=== PATIENT | male | born 1945 | race Caucasian/White ===

== ENCOUNTER → 2023-06-11 13:11 | Outpatient (REF) | payer OTHER, SELFPAY | LOC: WOUND 13:11 | PROVIDERS: ATTENDING PHYSICIAN Surgery; REFERRING PHYSICIAN Internal Medicine | DX: I87.313 Chronic venous hypertension (idiopathic) with ulcer of bilateral lower extremity (principal); L97.312 Non-pressure chronic ulcer of right ankle with fat layer exposed; L97.811 Non-pressure chronic ulcer of other part of right lower leg limited to breakdown of skin; L97.821 Non-pressure chronic ulcer of other part of left lower leg limited to breakdown of skin; I73.9 Peripheral vascular disease, unspecified; I87.2 Venous insufficiency (chronic) (peripheral); E11.42 Type 2 diabetes mellitus with diabetic polyneuropathy; Z79.4 Long term (current) use of insulin; I10 Essential (primary) hypertension | CPT/HCPCS: 29581; 73610; 99204 ==

== ENCOUNTER → 2023-06-18 13:59 | Outpatient (REF) | payer OTHER, SELFPAY | LOC: WOUND 13:59 | PROVIDERS: ATTENDING PHYSICIAN Surgery; FAMILY PHYSICIAN Internal Medicine | DX: I87.313 Chronic venous hypertension (idiopathic) with ulcer of bilateral lower extremity (principal); L97.312 Non-pressure chronic ulcer of right ankle with fat layer exposed; L97.811 Non-pressure chronic ulcer of other part of right lower leg limited to breakdown of skin; L97.821 Non-pressure chronic ulcer of other part of left lower leg limited to breakdown of skin; I73.9 Peripheral vascular disease, unspecified; I87.2 Venous insufficiency (chronic) (peripheral); E11.42 Type 2 diabetes mellitus with diabetic polyneuropathy; Z79.4 Long term (current) use of insulin; I10 Essential (primary) hypertension | CPT/HCPCS: 29581; 99213 ==

== ENCOUNTER → 2023-06-26 13:18 | Outpatient (REF) | payer OTHER, SELFPAY | LOC: WOUND 13:18 | PROVIDERS: ATTENDING PHYSICIAN Surgery; REFERRING PHYSICIAN Internal Medicine | DX: I87.313 Chronic venous hypertension (idiopathic) with ulcer of bilateral lower extremity (principal); L97.312 Non-pressure chronic ulcer of right ankle with fat layer exposed; L97.811 Non-pressure chronic ulcer of other part of right lower leg limited to breakdown of skin; L97.821 Non-pressure chronic ulcer of other part of left lower leg limited to breakdown of skin; I73.9 Peripheral vascular disease, unspecified; I87.2 Venous insufficiency (chronic) (peripheral); E11.42 Type 2 diabetes mellitus with diabetic polyneuropathy; Z79.4 Long term (current) use of insulin; I10 Essential (primary) hypertension | CPT/HCPCS: 29581; 99213 ==

== ENCOUNTER → 2023-07-02 13:45 | Outpatient (REF) | payer OTHER, SELFPAY | LOC: WOUND 13:45 | PROVIDERS: ATTENDING PHYSICIAN Surgery; FAMILY PHYSICIAN Internal Medicine | DX: I87.313 Chronic venous hypertension (idiopathic) with ulcer of bilateral lower extremity (principal); L97.312 Non-pressure chronic ulcer of right ankle with fat layer exposed; L97.811 Non-pressure chronic ulcer of other part of right lower leg limited to breakdown of skin; L97.821 Non-pressure chronic ulcer of other part of left lower leg limited to breakdown of skin; I73.9 Peripheral vascular disease, unspecified; I87.2 Venous insufficiency (chronic) (peripheral); E11.42 Type 2 diabetes mellitus with diabetic polyneuropathy; Z79.4 Long term (current) use of insulin; I10 Essential (primary) hypertension; L03.116 Cellulitis of left lower limb; L03.115 Cellulitis of right lower limb | CPT/HCPCS: 29581; 99213 ==

== ENCOUNTER → 2023-07-09 13:53 | Outpatient (REF) | payer OTHER, SELFPAY | LOC: WOUND 13:53 | PROVIDERS: ATTENDING PHYSICIAN Surgery; FAMILY PHYSICIAN Internal Medicine | DX: I87.313 Chronic venous hypertension (idiopathic) with ulcer of bilateral lower extremity (principal); L97.312 Non-pressure chronic ulcer of right ankle with fat layer exposed; L97.811 Non-pressure chronic ulcer of other part of right lower leg limited to breakdown of skin; L97.821 Non-pressure chronic ulcer of other part of left lower leg limited to breakdown of skin; Z79.4 Long term (current) use of insulin; I10 Essential (primary) hypertension; E11.42 Type 2 diabetes mellitus with diabetic polyneuropathy | CPT/HCPCS: 29581; 99213 ==

== ENCOUNTER 2023-07-09 21:17 | Inpatient (IN) | payer OTHER, SELFPAY ==
[2023-07-09 14:51] VITALS: BMI 34.7
[2023-07-09 15:00] VITALS: BP 156/69
--- NOTE | 2023-07-09 18:56 | ED.GENMED ---
History of Present Illness
General
Chief Complaint: Skin Problem
Source: patient, spouse and other (dR SANDHU)
Time Seen by Provider: 07/09/23 18:41
Travel History
Have you had any contact with someone who has COVID-19?: No
Do you have any symptoms of coronavirus? Fever > 100 degrees, chills, cough, shortness of breath, sore throat, loss of taste or smell, muscle aches, or headache?: No
History of Present Illness
History of Present Illness:
This patient is a 77-year-old male presents to the emergency department from the wound center as per Dr. Sandhu recommendation. He has suffered with lower extremity wounds bilaterally right greater than left since last December. He gets wound care
at home 3 times a week and goes to the wound center once a week. Today he was seen and noted to have worsening of his wounds despite antibiotic. He is also noted to be having increasing drainage from his wounds, particular over the last few weeks.
He denies fever, chills, sweats, nausea, vomiting, chest pain, shortness of breath, or other complaints. Patient is particularly concerned about the pain in his legs.
Past History
Past History
ED Past Medical History: CAD, HTN, Hypercholesterolemia, IDDM, Valvular disease and Other (Parkinson's)
ED Past Surgical History: Cardiac, Cholecystectomy and Orthopedic
Social History
Tobacco: Non-smoker
Alcohol: None
Drug: None
Personal:
Living: with family
Phy Exam
Physical Exam
Physical Exam:
GENERAL: Alert , in no apparent distress
EYE: pupils equal and reactive
NECK: Supple, no significant adenopathy.
ENT: o/p clr, mmm.
CARDIAC: Regular rate and rhythm .
LUNGS: Clear breath sounds bilaterally, no acute respiratory distress, no wheezes/rales/rhonchi
ABDOMEN: Soft, without focal tenderness, no r/g, no cvat
NEUROLOGICAL: Alert and oriented, no focal neuro deficits
SKIN: Warm and dry
MUSCULOSKELETAL: Well perfused, 2+ bilat le edema. There is open wound noted (shallow) R lower tib/fib area with 'wet' appearance but no active drainage, circumferential, no crepitus. L medial distal tib/fib/ankle area with similar shallow open
wound.
PSYCH: Normal and appropriate interaction.
Course
Orders/Labs/Results
Orders:
Orders
07/09/23 18:50
Complete Blood Count/With Diff Urgent
07/09/23 19:03
Morphine Sulfate 4 mg IV NOW STA
07/09/23 19:35
Comprehensive Metabolic Panel Urgent
07/09/23 20:09
Vancomycin 1000 mg IVPB NOW Vancomycin 1 Gram/200 ml [Vancocin] 1 gram in 200 ml IV NOW
07/09/23 20:15
Blood Culture Q30M
KITTY Source: Blood/Venous
Specimen Description:
07/09/23 20:45
Blood Culture Q30M
KITTY Source: Blood/Venous
Specimen Description:
Abnormal Lab Results
07/09/23 07/09/23
18:50 19:35
MCV 98.0 H fL
(80.0-94.0)
MCH 33.8 H pg
(27.0-31.0)
Absolute Monos (auto) 1.0 H 10^3/uL
(0.1-0.6)
Lymphocytes % 17.3 L %
(20.5-51.1)
Monocytes % 10.3 H %
(1.7-9.3)
Eosinophils % 6.5 H %
(0-6)
Carbon Dioxide 31 H mmol/L
(22-30)
BUN 22 H mg/dl
(9-20)
Glucose 109 H mg/dl
(70-99)
07/09/23 18:50
03/04/24 19:35
Vital Signs
Initial and Last Documented VS:
Initial Vital Signs
Temp Pulse Resp BP Pulse Ox
98.1 F 96 18 156/69 95
07/09/23 15:00 07/09/23 15:00 07/09/23 15:00 07/09/23 15:00 07/09/23 15:00
Last Documented Vital Signs
Temp Pulse Resp BP Pulse Ox
98.1 F 96 18 156/69 95
07/09/23 15:00 07/09/23 15:00 07/09/23 15:00 07/09/23 15:00 07/09/23 15:00
*Critical Care Note
Total Time (30-74mins, 75-104mins- exclusive of procedures): Not Applicable
Update Note
Update Note:
Patient presents to the Emergency Department with ____leg wounds
Number and Complexity of Problems Addressed at the Encounter
� Chronic conditions affecting care:dm
� Acute Exacerbation and/or Progression of Chronic Illness:
� Differential Diagnosis includes:but not limited to cellulitis, lymphangitis, abscess, etc.
Amount and/or Complexity of Data to be Reviewed and Analyzed
� I performed an independent evaluation of and my interpretation is:
EKG:
CT:
Xrays:
Laboratory Studies: Generally unremarkable
Other:
� Review of other/old records reveals:
� Clinical information was obtained by an independent historian: and supervisor floor assembly at bedside, DR Sandhu via phone
� Prescriptions/Medications Considered but not given:
� Further testing considered but not performed:
Risk of Complications and/or Morbidity or Mortality of Patient Management
� Social determinants of health affecting care:
� Discussion with other providers (PCP, Hospitalists, Consultants, etc):
� Escalation of care including admission/observation vs risk of discharge considered: Patient with increasing drainage and pain from subacute/chronic lower extremity wound, not septic. IV antibiotics orders, hospitalist Dr Azul
made aware.
ED Attending Note
-
Portions of this chart may have been created with voice recognition software.� Occasional wrong word or��sound alike� substitutions may have occurred due to the inherent limitations of voice recognition software.
Discharge Plan
Departure
Patient Disposition: Admit
Date of Disposition: 07/09/23
Time of Disposition: 20:10
Admit to: Med/Surg
Presentation/result/management discussed w/ accepting MD/DO: Hospitalist
Condition: Fair
Discharge Problem:
Cellulitis
Prescriptions:
No Action
atorvastatin 40 mg tablet
40 mg PO DAILY
tamsulosin 0.4 mg capsule
0.4 mg PO HS
metoprolol tartrate 50 mg tablet
50 mg PO BID
carbidopa-levodopa 25-100 mg tablet
2 tab PO .BID@0800, 1700
carbidopa-levodopa 25-100 mg tablet
2.5 tab PO NOON
Ozempic 0.25 mg or 0.5 mg (2 mg/3 mL) pen injector
0.5 mg SC QWEEK MDD Wednesdays
lidocaine 5 % adhesive patch,medicated
1 patch topical DAILY PRN (Reason: lower back pain )
acetaminophen 500 mg Tablet
1,000 mg PO BID PRN (Reason: pain)
docusate sodium 100 mg Capsule
100 mg PO DAILY
aspirin 81 mg Tablet,Chewable
81 mg PO DAILY
polyethylene glycol 3350 [Miralax] 17 gram/dose Powder
17 g PO DAILY
solifenacin 10 mg tablet
10 mg PO DAILY
Biofreeze (menthol) 4 % Gel
1 applic TOPICAL DAILYPRN PRN (Reason: b/l legs)
Novolin 70-30 FlexPen U-100 100 unit/mL (70-30) Insulin Pen
0 unit SC BID Qty: 0 0RF
Rx Instructions:
80-100=30units, 101-120=33units, >121=35units
amoxicillin-pot clavulanate 875-125 mg tablet
1 tab PO BID Qty: 10 0RF
Referrals:
Ty Morel MD [Family Provider] -
Interventions
Interventions:
*Risk Screen - Suicide Last Done: 07/09/23 18:58
*General Assessment Last Done: 07/09/23 18:58
*Neglect/Abuse Screening Last Done: 07/09/23 18:58
*ED COVID-19 Vaccine History Last Done: 07/09/23 18:58
[2023-07-09 19:00] LABS: % Basophils 0.9 % (0-2); % Eosinophils 6.5 % (0-6); % Immature Granulocytes 0.3 % (0-0.5); % Lymphocytes 17.3 % (20.5-51.1); % Monocytes 10.3 % (1.7-9.3); % Neutrophils 64.7 % (42.2-75.2); Absolute Basophils 0.1 10^3/uL (0-0.2); Absolute Eosinophils 0.7 10^3/uL (0-0.7); Absolute Lymphocytes 1.8 10^3/uL (1.2-3.4); Absolute Neutrophils 6.5 10^3/uL (1.4-6.5); Hematocrit 49.9 % (39.0-52.0); Hemoglobin 17.2 g/dL (13.0-18.0); Mean Corp Hgb Conc. 34.5 g/dL (33.0-37.0); Mean Corpuscular Hgb 33.8 pg (27.0-31.0); Nucleated Red Blood Cells % 0 % (-); Platelet Count 248 10^3/uL (130-400); Red Blood Cell Count 5.09 10^6/uL (4.70-6.10); Red Cell Dist. Width 14.5 % (11.5-14.5); White Blood Cell Count 10.1 10^3/uL (4.8-10.8)
[2023-07-09] MEDS: MORPHINE SULFATE 4 MG IV ×2 (19:24→20:33)
[2023-07-09 19:58] LABS: ALT (SGPT) < 10 U/L (0-50); AST (SGOT) 34 U/L (17-59); Albumin 3.6 g/dl (3.5-5.0); Alkaline Phosphatase 106 U/L (38-126); Blood Urea Nitrogen 22 mg/dl (9-20); Calcium 9.3 mg/dl (8.4-10.2); Carbon Dioxide 31 mmol/L (22-30); Chloride 99 mmol/L (98-107); Estimated Creatinine Clearance 81 ml/min; Glucose 109 mg/dl (70-99); Potassium 4.6 mmol/L (3.5-5.1); Sodium 137 mmol/L (135-145); Total Bilirubin 0.8 mg/dl (0.2-1.3); Total Protein 7.2 g/dl (6.3-8.2); eGFR > 60.00
[2023-07-09 20:03] VITALS: BP 153/70
[2023-07-09] MEDS: VANCOCIN 200 IV (20:34)
[2023-07-09 21:00] VITALS: BP 101/82
--- NOTE | 2023-07-09 21:03 | HPS.HSE ---
Addendum entered and electronically signed by Jesus Henriquez MD 07/09/23 22:03:
Patient seen and examined independently with PA. 77-year-old male past medical history of CAD, hypertension, hypercholesteremia, type 2 diabetes, Parkinson disease, venous insufficiency presenting with increasing weeping from wounds, most
significant on the right lower extremity despite treatment with clindamycin for the past week. He has severe pain. Wound appears erythematous, shallow with serosanguineous drainage. Likely component of cellulitis with drainage from chronic venous
insufficiency. Does not appear like a diabetic foot infection or like osteomyelitis or arterial insufficiency. Vancomycin/Zosyn, wound care consulted.
Original Note:
Family Physician
-
Family Physician: Ty Morel
Chief Complaint
-
Worsening lower ext wounds
History of Present Illness
Patient is a 77 y/o male with PMH of CAD, HTN, hypercholesterolemia, insulin-dependent type II diabetes, and Parkinson's disease who presents to the ED from wound care facility with increased weeping from wound on right lower extremity. Patient has
had bilateral wounds of lower extremities since March, right more severe than left. Patient rates the pain in his right leg as 9.5/10. He says the wounds originated from falls he experienced in the past few months, however patient seems to be a
limited historian and states multiple times to 'ask my '. He denies fever, palpitations, and pain in left leg. He denies any known vascular work-up.
Medical History
Past Medical History
Past Medical History: Reports Other
Additional Past Medical History:
Coronary Artery Disease s/p Stent
Essential Hypertension
Hyperlipidemia
Insulin Dependent Diabetes Mellitus
Diabetic Neuropathy
Chronic Lower Ext Venous Ulcers
Parkinson's Disease
Chronic Constipation
BPH
Overactive Bladder
Past Surgical History: Reports Other
Additional Past Surgical History:
Cardiac Stent
Cholecystectomy
ERCP
Right Hip Replacement
Bilateral Knee Replacements
Cervical Laminectomy and Fusion
Lumbar Laminectomy
Social History
Tobacco: Non-smoker
Alcohol: None
Personal:
Living: With Family
Family History
Family History: Not pertinent
Allergies / Home Medications
Allergies reflects when Allergies were last updated in [facility].
Home Medications with original date entered in [facility]
Allergy/Medication List:
Allergies
Allergy/AdvReac Type Severity Reaction Status Date / Time
Latex, Natural Rubber Allergy Unknown Verified 05/25/23 21:35
mold Allergy Unknown Verified 05/25/23 21:35
Home Medications
aspirin 81 mg chewable tablet 81 mg PO BID Blood Clot Prevention/Tx 03/07/23
atorvastatin 40 mg tablet 40 mg PO DAILY High Cholesterol 03/07/23
carbidopa 25 mg-levodopa 100 mg tablet 2.5 tab PO TID parkinson's disease 03/07/23
metoprolol tartrate 50 mg tablet 50 mg PO BID Blood Pressure 03/07/23
semaglutide 0.25 mg or 0.5 mg (2 mg/3 mL) subcutaneous pen injector (Ozempic) 0.5 mg SC WE Diabetes 03/07/23
solifenacin 10 mg tablet 10 mg PO DAILY Urinary Issue 03/07/23
tamsulosin 0.4 mg capsule 0.4 mg PO HS urine retention 03/07/23
clindamycin HCl 300 mg capsule 300 mg PO Q12H 07/09/23
furosemide 20 mg tablet 20 mg PO DAILY 07/09/23
gabapentin 100 mg capsule 100 mg PO BID@0800,1500 07/09/23
gabapentin 100 mg capsule 200 mg PO HS 07/09/23
insulin NPH-regular 70-30 U-100 insulin 100 unit/mL subcutaneous pen (Novolin 70-30 FlexPen U-100 Insulin) 0 unit SC BIDWMEAL Diabetes 07/09/23
Review of Systems
-
A 12 point ROS was completed and negative except as noted: Yes
Constitutional: Denies Fever or Chills
Respiratory: Denies Cough or Trouble Breathing
Cardiac: Denies Chest Pain or Palpitations
Physical Exam
Vital Signs
Vital Signs
Temp Pulse Resp BP Pulse Ox
98.1 F 96 18 153/70 96
07/09/23 15:00 07/09/23 15:00 07/09/23 15:00 07/09/23 20:03 07/09/23 20:03
Physical Exam
General: Well Developed, Well Nourished and No Apparent Distress
HEENT: Anicteric and Moist mucous membranes
Respiratory: Clear and Non Labored Respirations
Cardiac: S1/S2 and Irregular Rhythm
GI: Soft, Non Tender and Other (Protuberant)
Rectal: Deferred by Provider
Musculoskeletal: No Clubbing and No Cyanosis
Skin: Ulcers (bilateral lower ext worseon right than left )
Neuro: Awake, Alert and Nonfocal/grossly intact
Psych: Calm
Laboratory Results
-
07/09/23 18:50
07/09/23 19:35
Laboratory Results
Total Bilirubin 0.8 mg/dl (0.2-1.3) 07/09/23 19:35
AST 34 U/L (17-59) 07/09/23 19:35
ALT < 10 U/L (0-50) 07/09/23 19:35
Alkaline Phosphatase 106 U/L (38-126) 07/09/23 19:35
Data Reviewed
-
Lab Data: Labs Reviewed by me
Impression/Plan
-
Right Lower Ext Cellulitis with Worsening Venous Ulcers
-Consult Wound Care
-Continue vancomycin and Zosyn
Coronary Artery Disease s/p Stent
-Continue aspirin
Essential Hypertension
-Continue Metoprolol
Hyperlipidemia
-Continue atorvastatin
Insulin Dependent Diabetes Mellitus
-Check HgbA1c
-Continue Novolin 70/30
-Patient maintained on Ozempic as outpatient
-Monitor sugars and continue coverage insulin
Diabetic Neuropathy
-Continue gabapentin
Parkinson's Disease
-Continue Sinemet
BPH
-Continue Flomax
Overactive Bladder
-Continue Vesicare
DVT proph: Lovenox
Code Status: Full Code
[2023-07-09 22:00] VITALS: BP 115/81
[2023-07-09 23:00] VITALS: BP 122/74
[2023-07-10] VITALS (11 sets, daily range): BP systolic 95–137; BP diastolic 51–96; BMI 34.7
[2023-07-10] MEDS: ZOSYN 50 IV ×4 (00:03→18:13)
[2023-07-10] MEDS: SINEMET 25-100 2.5 TABLET PO ×4 (00:04→22:36)
[2023-07-10] MEDS: FLOMAX 0.400000000000000022 MG PO ×2 (00:04→22:36)
[2023-07-10] MEDS: VANCOCIN 200 IV ×2 (00:04→18:14)
[2023-07-10] MEDS: NEURONTIN 200 MG PO ×2 (00:09→22:36)
[2023-07-10] MEDS: ROXICODONE 5 MG PO ×2 (05:41→09:47)
[2023-07-10 07:31] LABS: Hepatitis C Antibody Negative (Negative)
[2023-07-10 07:59] LABS: Glucose - Point of Care 106 mg/dl (70-99)
--- NOTE | 2023-07-10 08:16 | PHA.VAN.IN ---
Assessment
- Assessment
Renal Function: Appears similar to baseline
Concomitant Antimicrobials: piperacillin/tazobactam
AUC Dosing Plan
- Dosing Variables
Dosing Weight (kg): 104
Dosing CrCl (ml/min): 81
Vd coefficient (L/kg): 0.6
- Empiric Dosing
Initial / Loading Dose: 2000mg - (1g 07/08 2033 PLUS 1g 07/10 3)
Maintenance Regimen: Vanc 1000mg Q12H starting at 1800
Estimated AUC (mcg*h/mL): 463
Estimated Peak (mcg*h/mL): 27.8
Estimated Trough (mcg/ml): 12.6
Estimated Half Life (H): 9.7
- Monitoring
No levels ordered at this time: consider levels in next few days
Pharmacokinetics Vancomycin I
- -
Patient Age: 77
Patient Sex: Male
Vancomycin Day #: 1
Indication: Skin And Soft Tissue
Requesting Provider: Krissy Carrillo
Pertinent Antimicrobial Allergies:
no pertinent antibiotic allergies
Height / Weight:
Height 5 ft 8 in
Actual Weight 103.555 kg
Pertinent Past Medical History: BMI ~35, DM, Parkinson's disease
- Vital Signs / Lab Results
Temp Pulse Resp BP Pulse Ox
99.1 F 90 16 115/70 96
07/10/23 07:37 07/10/23 07:37 07/10/23 07:37 07/10/23 07:37 07/10/23 07:37
Lab Results - Hematology
07/09/23
18:50
WBC 10.1
Lab Results - Chemistry
07/09/23 07/09/23
18:50 19:35
BUN Cancelled 22 H
Creatinine Cancelled 0.9
Estimated Creat Clear Cancelled 81
Albumin Cancelled 3.6
[2023-07-10 08:56] LABS: Glycohemoglobin (HgbA1c) 7.1 % (4.0-5.6)
--- NOTE | 2023-07-10 09:13 | VNURNOTE ---
Patient is current with [facility] since 04/05w/ SN/PT will monitor progress and plan at discharge.
--- NOTE | 2023-07-10 10:40 | W.PN.HOSP.TC ---
Today's Communication/Plan
-
see note above
Assessment / Plan
Assessment / Plan
Right Lower Ext Cellulitis with Worsening Venous Ulcers
No systemic toxicity.
Significant pain and swelling noted.
Green discharge noted.
Continue with current antibiotics pending culture data.
Check arterial and venous ultrasound.
Continue with wound care
Coronary Artery Disease s/p Stent
-Continue aspirin
PVCs - frequently noted on telemetry. According to known to have PVCs. No history of heart failure. Check Mg and ECHO.
Essential Hypertension
-Continue Metoprolol
Hyperlipidemia
-Continue atorvastatin
Insulin Dependent Diabetes Mellitus
- HgbA1c 7.1
-Continue Novolin 70/30
-Ozempic is not covered anymore apparently with improved hemoglobin A1c.
-Monitor sugars and continue coverage insulin
Diabetic Neuropathy
-Continue gabapentin
Parkinson's Disease
-Continue Sinemet
BPH
-Continue Flomax
Overactive Bladder
-Continue Vesicare
DVT proph: Lovenox
Code Status: Full Code
Anticipated Discharge: > 48 hours
Subjective/Interval History
-
Date of Service: July 10, 2023
Pain and swelling in right leg.
No fever or chills.
Was following wound care center at [facility] was treated with clindamycin before presentation for right lower leg cellulitis.
Patient noted to have venous insufficiency. Has seen vascular surgeon in the past apparently had ultrasounds of the arteries in the venous system in the past. He is apparently due to get repeat arterial and venous ultrasounds. No prior history of
heart failure.
Objective Data
-
Vital Signs:
Vital Signs
Temp Pulse Resp BP Pulse Ox
99.1 F 90 16 137/74 96
07/10/23 07:37 07/10/23 07:37 07/10/23 07:37 07/10/23 09:41 07/10/23 07:37
Review of Systems
-
Constitutional: Denies Fever
Respiratory: Denies Cough or Trouble Breathing
Cardiac: Denies Chest Pain or Palpitations
Abdomen/GI: Denies Abdominal Pain or Nausea
Neuro: Denies Dizzy
Physical Exam
-
General: No Apparent Distress
HEENT: Moist Mucous Membranes
Respiratory: Clear to Auscultation
Cardiac: S1/S2 and Irregular Rhythm; Negative Tachycardic
GI: Soft and Nontender
Musculoskeletal: Other (Legs reviewed during dressing changes by wound care team - left leg with chronic venous changes with acute inflammation; Rt leg more swollen with chronic venous changes but also has intense redness to lower leg and ther is
lot of discharge from the cellulitic area including green color to it.)
Neuro: AO x 3
Psych: Calm
Data Reviewed
-
Labs: Labs Reviewed by me
[2023-07-10] MEDS: NOVOLOG FLEXPEN-LOW RESISTANCE SC ×3 (10:50→18:24)
[2023-07-10] MEDS: NOVOLOG MIX 70/30 FLEXPEN 30 UNITS SC ×2 (10:52→18:23)
[2023-07-10] MEDS: LIPITOR 40 MG PO (10:55)
[2023-07-10] MEDS: LASIX 20 MG PO (10:56)
[2023-07-10] MEDS: LOW STRENGTH ASPIRIN 81 MG PO ×2 (10:56→20:46)
[2023-07-10] MEDS: NEURONTIN 100 MG PO ×2 (10:57→15:26)
[2023-07-10] MEDS: DETROL LA 4 MG PO (10:57)
[2023-07-10] MEDS: LOPRESSOR 50 MG PO (11:01)
--- NOTE | 2023-07-10 11:52 | WOUNDNOTE ---
R MEDIAL LOWER LEG AND HEEL
--- NOTE | 2023-07-10 11:52 | WOUNDNOTE ---
R LATERAL LOWER LEG
--- NOTE | 2023-07-10 11:53 | WOUNDNOTE ---
L MEDIAL LOWER LEG/FOOT
--- NOTE | 2023-07-10 11:54 | WOUNDNOTE ---
R HIP BLANCHABLE RED
--- NOTE | 2023-07-10 11:56 | WOUNDNOTE ---
WON RN note: Patient admitted with Cellulitis of lower legs
See H&P for complete history.
PMH: CAD, HTN, Parkinson's, lumbar fractures-pins and rods,IDDM and venous leg ulcers.
Wound Location and type/assessment: Patient known to service, last seen 03/09/23 and being followed at [facility]. Spoke with Dr. Sandhu who reviewed current wound care, sent yesterday to ER from [facility] for worsening venous ulcers to legs, R>L.
Nani at bedside, reviewed care at home, has caregivers and VN to do wound care, follows weekly at wound center. Assessed wounds with Dr. Wren, student nurses assisting. Bilateral LE with very dry scaly skin, cellulitis around ankles, mild
edema. + palpable pulses bilaterally. Heels are intact although drainage broke down skin near R heel. Some green drainage, mild odor from R leg, large drainage. L medial ankle small-moderate amt of serous drainage. Leg wounds very painful, patient
premedicated for pain before dressing changes. Patient needs assistance turning, sacrum and buttocks intact, R hip with blanchable red area. states he had a red area there before admission. Sits in a sit to stand recliner chair, unable to do
much walking due to pain.
Appetite: Good, stated HgbA1c has been 5.5-6 range.
Pressure redistribution devices in place: Heels off-loaded on pillows. Accumax in use, instructed nurse Sabine and Students that patient needs to be turned q 2 hrs. Pressure ulcer prevention measures reviewed with patient and .
Plan: R leg applied adaptic, alginate, abd pad and kerlix, will need to be changed bid until drainage less. L medial ankle with adaptic abd pad and kerlix. Applied A&D ointment to dry skin on legs and feet, will order mineral oil for tomorrow. Carloz
wraps applied to both legs knee high. Arterial and venous studies to be ordered by Dr. Wren who confirmed wound care and stated can apply carloz wraps now. Silicone foam applied to R hip and sacrum to protect. Pillow under calves. Students
repositioned patient to eat breakfast. Recommend follow up at [facility] as scheduled, continue [facility] and caregivers. Will update care plan, nurse Sabine aware of plan, will follow as needed.
[2023-07-10 11:57] LABS: Creatine Phosphokinase 50 U/L (55-170); Magnesium 1.7 mg/dl (1.6-2.3)
[2023-07-10 15:25] LABS: Glucose - Point of Care 135 mg/dl (70-99)
--- NOTE | 2023-07-10 16:42 | CM ---
Attempted to complete initial assessment with patient. Patient was confused and unable to answer basic questions. He deferred to . CM called and completed IA. Patient and live in a 2 story home in [place] but do not utilize the
2nd floor. They have a ramp for patient to use. Patient is w/ch bound. Has Parkinson's which is dominant on L side and LLE freezes and he has Vascular ulcers on RLE which are painful. He has an environmental remediation engineer caregiver. [facility] VN and PT are on service
with patient. DME in home is: 2 wheelchairs, portapotty, RW, Standard walker, SC and bars in shower and toilet area. [facility] and PCP is Dr. Ty Morel at [facility]. If recommended for SNF, preference is
[facility]. This CM mentioned to that patient was confused and forgetful. She believes it is due to pain medications. He is not usually confused. Will continue to follow for appropriately discharge plan of care.
[2023-07-10 18:14] LABS: Glucose - Point of Care 164 mg/dl (70-99)
[2023-07-10] MEDS: LOVENOX 40 MG SC (18:18)
[2023-07-10] MEDS: NOVOLOG FLEXPEN-LOW RESISTANCE 1 UNITS SC (19:56)
[2023-07-10] MEDS: LOPRESSOR PO (20:48)
[2023-07-10 21:32] LABS: Glucose - Point of Care 190 mg/dl (70-99)
[2023-07-11] MEDS: ZOSYN 50 IV ×4 (00:13→16:51)
[2023-07-11 02:59] VITALS: BP 112/60
[2023-07-11 05:30] VITALS: BMI 34.4
[2023-07-11] MEDS: VANCOCIN 200 IV ×2 (05:46→16:51)
[2023-07-11 06:15] LABS: Hematocrit 45.3 % (39.0-52.0); Hemoglobin 15.8 g/dL (13.0-18.0); Mean Corp Hgb Conc. 34.9 g/dL (33.0-37.0); Mean Corpuscular Hgb 33.8 pg (27.0-31.0); Mean Platelet Volume 9.5 fL (7.4-10.4); Platelet Count 242 10^3/uL (130-400); Red Blood Cell Count 4.67 10^6/uL (4.70-6.10); Red Cell Dist. Width 13.9 % (11.5-14.5); White Blood Cell Count 8.7 10^3/uL (4.8-10.8)
[2023-07-11 07:27] VITALS: BP 138/77
[2023-07-11 08:22] LABS: Glucose - Point of Care 120 mg/dl (70-99)
--- NOTE | 2023-07-11 08:43 | WOUNDNOTE ---
AKUA HORN NOTE: Vascular ultrasound of legs negative for DVT. [place] non compressible, R TBI 0.79 + small vessel disease, L TBI 0.63 with multiphasic wf no stenosis. No changes in wound care or compression, will follow weekly as able, unless needed sooner.
--- NOTE | 2023-07-11 09:46 | W.PN.HOSP.TC ---
Today's Communication/Plan
-
CW current abx
Consult vascular
cw wound care
Assessment / Plan
Assessment / Plan
Right Lower Ext Cellulitis with Worsening Venous Ulcers
No systemic toxicity.
Significant pain and swelling noted.
Green discharge noted.
Continue with current antibiotics pending culture data. Blood cultures have been negative. MRSA nasal screen positive.
No evidence of DVT. Arterial ultrasound raises concern for right infrapopliteal disease. Consult vascular surgery.
Continue with wound care-avoid Carloz wraps.
CPK is ok.
Coronary Artery Disease s/p Stent
-Continue aspirin
PVCs - frequently noted on telemetry. According to known to have PVCs. No history of heart failure. Mg 1.7 ;ECHO pending.
Essential Hypertension
-Continue Metoprolol
Hyperlipidemia
-Continue atorvastatin
Insulin Dependent Diabetes Mellitus
- HgbA1c 7.1
-Continue Novolin 70/30
-Ozempic is not covered anymore apparently with improved hemoglobin A1c.
-Monitor sugars and continue coverage insulin
-Patient wishes to be on regular diet
Diabetic Neuropathy
-Continue gabapentin
Parkinson's Disease
-Continue Sinemet
BPH
-Continue Flomax
Overactive Bladder
-Continue Vesicare
DVT proph: Lovenox
Code Status: Full Code
Anticipated Discharge: > 48 hours
Subjective/Interval History
-
Date of Service: July 11, 2023
Pain from rt leg is improving.
No fever or chills.
He wants to go on regular diet ; he understands he would be better on diabetic diet.
He wants briseno in his diet and current diet is precluding it from his diet.
Objective Data
-
Labs:
Laboratory Results
07/11/23
05:21
WBC 8.7
Hgb 15.8
Hct 45.3
Plt Count 242
Vital Signs:
Vital Signs
Temp Pulse Resp BP Pulse Ox
97.9 F 66 16 138/77 95
07/11/23 07:27 07/11/23 07:27 07/11/23 07:27 07/11/23 07:27 07/11/23 07:27
I&O
07/10/23 07/11/23 07/12/23
06:59 06:59 06:59
Intake Total 1200 / 1200
Output Total 100 / 100 150 / 150
Balance 1100 / 1100 -150 / -150
Review of Systems
-
Constitutional: Denies Fever
Respiratory: Denies Trouble Breathing
Cardiac: Denies Chest Pain
Abdomen/GI: Denies Abdominal Pain, Nausea or Vomiting
Neuro: Denies Dizzy
Physical Exam
-
General: No Apparent Distress
HEENT: Moist Mucous Membranes
Respiratory: Clear to Auscultation
Cardiac: Regular Rhythm and S1/S2
GI: Soft
Skin: Other (legs in carloz wraps )
Neuro: AO x 3
Psych: Calm
Data Reviewed
-
Ultrasound: Report Reviewed by me (Arterial and venous of lower extremities noted)
Labs: Labs Reviewed by me
--- NOTE | 2023-07-11 09:55 | WOUNDNOTE ---
WON RN NOTE: Vascular ultrasound of legs negative for DVT. [place] non compressible, R TBI 0.79 + small vessel disease,( R infra popliteal disease.) L TBI 0.63 with multiphasic WF no stenosis. No changes in wound care. Dr. Wren notified this documentation writer to
discontinue Carloz wrap compression. Order cancelled and notified nurse Sabine to remove wraps. Will update care plan and follow as needed.
[2023-07-11] MEDS: NOVOLOG FLEXPEN-LOW RESISTANCE SC (10:05)
[2023-07-11] MEDS: NEURONTIN 100 MG PO ×2 (10:07→16:46)
[2023-07-11] MEDS: SINEMET 25-100 2.5 TABLET PO ×3 (10:07→20:57)
[2023-07-11] MEDS: LASIX 20 MG PO (10:07)
[2023-07-11] MEDS: LIPITOR 40 MG PO (10:07)
[2023-07-11] MEDS: LOW STRENGTH ASPIRIN 81 MG PO ×2 (10:08→20:56)
[2023-07-11] MEDS: HYDROPHOR 1 APPLIC TOPICAL (10:08)
[2023-07-11] MEDS: DETROL LA 4 MG PO (10:08)
[2023-07-11] MEDS: LOPRESSOR 50 MG PO ×2 (10:08→20:56)
[2023-07-11] MEDS: NOVOLOG MIX 70/30 FLEXPEN 30 UNITS SC ×2 (10:09→17:05)
--- NOTE | 2023-07-11 11:04 | W.PN.UPDATE ---
Update Note
Progress Note Update
Seen and examined with ENDS BREAKAGE CLERK's. Full consultation to follow. Briefly 77-year-old male with extensive medical history including hypertension, hyperlipidemia, coronary artery disease, chronic venous insufficiency who presents with venous stasis type
ulcers bilaterally right greater than left. Denies any fevers or chills. No purulent drainage. Notes he has been managed at wound care. Denies any prior lower extremity revascularization procedures. Denies any venous procedures in the past.
Denies any history of DVTs.
On exam/He is awake and alert. Head is normocephalic and atraumatic. Eyes are anicteric. Neck is soft without jugular venous distention. 2+ carotid pulsations palpable bilaterally. 2+ upper extremity radial pulses palpable bilaterally.
Breathing is unlabored. Abdomen is soft, nondistended, nontender. Lower extremity with 2+ femoral pulses palpable bilaterally. Popliteal pulses difficult to palpate due to patient's tremulousness. Feet are both pink and warm and well-perfused.
2+ right DP palpable (slightly difficult to assess initially due to tremulous), left side I am unable to palpate DP, unable to assess PT due to ulcers causing significant tenderness.
Noninvasive studies reviewed. ABIs not obtainable secondary to noncompressible vessels. However right-sided TBI within normal limits. Left-sided TBI mildly/minimally decreased. Multiphasic waveforms throughout bilateral lower extremity arteries.
Plan/ No evidence of significant arterial insufficiency. Wound care pictures reviewed. These appear like chronic venous stasis ulcers. Recommend continued local wound care with compression wraps. No evidence of infections. Wound care follow-up.
Outpatient venous insufficiency ultrasounds can be done to see if any targets for vein closures to assist with wound healing/recurrent ulceration prevention.
[2023-07-11 12:15] VITALS: BP 138/58
--- NOTE | 2023-07-11 12:22 | CON.VAS ---
Consultation
Consultation Request
Date/Time Consultation Performed: 07/11/23
Requesting Provider: Hospitalist
Performing Provider: Christine Elmore NP-C for Nick Carranza MD
Reason for Consultation: BL LE venous wounds
Medical History
-
Chief Complaint: BL Le venous wounds
History of Present Illness:
This is a 77-year-old male with extensive pasy medical history including hypertension, hyperlipidemia, coronary artery disease, chronic venous insufficiency who presented to [facility] on 07/09/23 with venous stasis type ulcers bilaterally right
greater than left. Denies any fevers or chills. No purulent drainage or foul smell. Notes he has been managed at wound care. Denies any prior lower extremity revascularization procedures. Denies any venous procedures in the past. Denies any
history of DVTs. Noninvasive studies reviewed.� ABIs not obtainable secondary to noncompressible vessels.� However right-sided TBI within normal limits.� Left-sided TBI mildly/minimally decreased.� Multiphasic waveforms throughout bilateral lower
extremity arteries.
Past Medical History
Past Medical History: CAD (PCI), HTN, IDDM and Other (Parkinson's disease, BPH)
Past Surgical History: Cardiac (cardiac stent), Cholecystectomy, Orthopedic (BL knee replacements, Right Hip Replacement, cervical Laminectomy and fusion lumbar laminectomy) and Other (ERCP)
Social History
Tobacco: Non-Smoker
Alcohol: None
Drug: None
Personal:
Living: With Family
Allergies / Home Medications
Allergy/AdvReac Type Severity Reaction Status Date / Time
Latex, Natural Rubber Allergy Unknown Verified 05/25/23 21:35
mold Allergy Unknown Verified 05/25/23 21:35
Medication Instructions Recorded Confirmed Type
aspirin 81 mg chewable tablet 81 mg PO BID Blood Clot 03/07/23 07/09/23 History
Prevention/Tx
atorvastatin 40 mg tablet 40 mg PO DAILY High Cholesterol 03/07/23 07/09/23 History
carbidopa 25 mg-levodopa 100 mg 2.5 tab PO TID parkinson's disease 03/07/23 07/09/23 History
tablet
metoprolol tartrate 50 mg tablet 50 mg PO BID Blood Pressure 03/07/23 07/09/23 History
semaglutide 0.25 mg or 0.5 mg (2 0.5 mg SC WE Diabetes 03/07/23 07/09/23 History
mg/3 mL) subcutaneous pen injector
(Ozempic)
solifenacin 10 mg tablet 10 mg PO DAILY Urinary Issue 03/07/23 07/09/23 History
tamsulosin 0.4 mg capsule 0.4 mg PO HS urine retention 03/07/23 07/09/23 History
clindamycin HCl 300 mg capsule 300 mg PO Q12H Infection 07/09/23 07/09/23 History
furosemide 20 mg tablet 20 mg PO DAILY Fluid 07/09/23 07/09/23 History
Retention/Swelling
gabapentin 100 mg capsule 100 mg PO BID@0800,1500 07/09/23 07/09/23 History
Neurological Condition
gabapentin 100 mg capsule 200 mg PO HS Neurological Condition 07/09/23 07/09/23 History
insulin NPH-regular 70-30 U-100 0 unit SC BIDWMEAL Diabetes 07/09/23 07/09/23 History
insulin 100 unit/mL subcutaneous
pen (Novolin 70-30 FlexPen U-100
Insulin)
Review of Systems
-
History Source: Patient
Constitutional: Reports No Symptoms
EENT: Reports No Symptoms
Respiratory: Reports No Symptoms
Cardiac: Reports No Symptoms
: Reports No Symptoms
Musculoskeletal: Reports No Symptoms
Skin: Reports Other (BL venous ulcers, painful and red)
Neurological: Reports No Symptoms
Physical Exam
Vital Signs
Temp Pulse Resp BP Pulse Ox
97.9 F 66 16 138/77 95
07/11/23 07:27 07/11/23 07:27 07/11/23 07:27 07/11/23 07:27 07/11/23 07:27
Lab Results
07/11/23 05:21
07/09/23 19:35
Physical Exam
General: No Apparent Distress and Comfortable
HEENT: Normocephalic, Anicteric and Atraumatic
Respiratory: Non Labored Respirations
Cardiac: Negative JVD
GI: Soft, Non Tender and Non Distended
Musculoskeletal: Other (2+ upper extremity radial pulses palpable bilaterally. Feet are both pink and warm and well-perfused.)
Skin: Other (BL LE calf venous stasis appearing wounds, right worse than left, please refer to wound care note for pictures and full description )
Neuro: AO x 3
Psych: Calm
Pulses: Bilateral Femoral: +2 and Right Dorsalis Pedis: +2 ( left side I am unable to palpate DP, unable to assess PT due to ulcers causing significant tenderness.)
Assessment / Plan
-
Assessment: Bilateral venous wounds, no evidence of significant arterial insufficiency.
Plan:
Recommend continued local wound care with compression wraps. No evidence of infections. Wound care follow-up.
Outpatient venous insufficiency ultrasounds can be done to see if any targets for vein closures to assist with wound healing/recurrent ulceration prevention
Follow up outpatient vascular appointment left in discharge instructions
[2023-07-11 13:07] LABS: Glucose - Point of Care 175 mg/dl (70-99)
[2023-07-11] MEDS: NOVOLOG FLEXPEN-LOW RESISTANCE 1 UNITS SC (13:09)
--- NOTE | 2023-07-11 13:25 | PHA.VAN.FU ---
Addendum entered and electronically signed by Shakila De Paz [facility] 07/11/23 15:20:
BUN & SCR ordered per protocol
Original Note:
Vancomycin Assessment / Plan
- Assessment
Renal Function: No New Labs Today
In the past 24 hrs, patient has been: Afebrile
Concomitant Antimicrobials: piperacillin/tazobactam
- Dosing Plan
Continue: Vanc 1000mg Q12H
- Monitoring Plan
Peak Level: 6 20:30
Trough Level: 7 05:30
Monitoring Comments: levels to be drawn after 3rd maintenance dose
- Follow Up
Pharmacy will continue to follow.
Vancomycin Follow UP
- -
Patient Age: 77
Patient Sex: Male
Vancomycin Day #: 2
Indication: Skin And Soft Tissue
Requesting Provider: Krissy Carrillo
Pertinent Antimicrobial Allergies:
no pertinent antibiotic allergies
Height / Weight:
Height 5 ft 8 in
Actual Weight 102.654 kg
Pertinent Past Medical History: BMI ~35, DM, Parkinson's disease
- Vital Signs / Lab Results
Temp Pulse Resp BP Pulse Ox
97.9 F 66 16 138/77 95
07/11/23 07:27 07/11/23 07:27 07/11/23 07:27 07/11/23 07:27 07/11/23 07:27
Lab Results - Hematology
07/09/23 07/11/23
18:50 05:21
WBC 10.1 8.7
Lab Results - Chemistry
07/09/23 07/09/23
18:50 19:35
BUN Cancelled 22 H
Creatinine Cancelled 0.9
Estimated Creat Clear Cancelled 81
Albumin Cancelled 3.6
Microbiology Results
07/10/23 05:37 MRSA Screen - Final
Nose Staph aureus MRSA
07/09/23 18:45 Blood Culture - Preliminary
Blood/Venous No Growth in 24 hours- Final report to follow
07/09/23 19:30 Blood Culture - Preliminary
Blood/Venous No Growth in 24 hours- Final report to follow
--- NOTE | 2023-07-11 16:18 | CM ---
Per , [facility] Cellulitis with Worsening Venous Ulcers and green discharge. Vanco IV. Therapy eval on hold until medically stable. Current with [facility]. Will continue to follow medical progression and identify needs for discharge.
[2023-07-11 16:30] VITALS: BP 142/64
[2023-07-11] MEDS: LOVENOX 40 MG SC (16:57)
[2023-07-11] MEDS: NOVOLOG FLEXPEN-LOW RESISTANCE 3 UNITS SC (17:06)
[2023-07-11 17:16] LABS: Glucose - Point of Care 278 mg/dl (70-99)
[2023-07-11 19:46] VITALS: BP 141/75
[2023-07-11] MEDS: NEURONTIN 200 MG PO (20:56)
[2023-07-11] MEDS: FLOMAX 0.400000000000000022 MG PO (20:56)
[2023-07-11 20:59] LABS: Vancomycin Peak 19.5 ug/ml (18-26)
[2023-07-11 21:47] LABS: Glucose - Point of Care 236 mg/dl (70-99)
[2023-07-11 23:37] VITALS: BP 121/57
[2023-07-12] VITALS (7 sets, daily range): BP systolic 102–141; BP diastolic 59–77; PULSE 55; O2SAT 97; BMI 34.5
[2023-07-12] MEDS: ZOSYN 50 IV ×4 (00:13→17:40)
[2023-07-12] MEDS: DILAUDID 0.25 MG IV ×2 (00:18→08:24)
[2023-07-12] MEDS: ROXICODONE 5 MG PO ×3 (04:42→21:46)
[2023-07-12 06:06] LABS: Vancomycin Trough 11.1 ug/ml (5-20)
[2023-07-12] MEDS: VANCOCIN 200 IV (06:11)
[2023-07-12 06:42] LABS: Blood Urea Nitrogen 18 mg/dl (9-20); Estimated Creatinine Clearance 91 ml/min
[2023-07-12 07:37] LABS: Glucose - Point of Care 137 mg/dl (70-99)
[2023-07-12] MEDS: NOVOLOG FLEXPEN-LOW RESISTANCE SC (07:54)
[2023-07-12] MEDS: NEURONTIN 100 MG PO ×2 (08:25→15:57)
[2023-07-12] MEDS: DETROL LA 4 MG PO (08:25)
[2023-07-12] MEDS: LIPITOR 40 MG PO (08:25)
[2023-07-12] MEDS: SINEMET 25-100 2.5 TABLET PO ×3 (08:25→21:45)
[2023-07-12] MEDS: LOW STRENGTH ASPIRIN 81 MG PO ×2 (08:26→19:55)
[2023-07-12] MEDS: HYDROPHOR 1 APPLIC TOPICAL (08:28)
[2023-07-12] MEDS: LOPRESSOR 50 MG PO ×2 (08:34→19:55)
[2023-07-12] MEDS: LASIX 20 MG PO (08:34)
[2023-07-12] MEDS: NOVOLOG MIX 70/30 FLEXPEN 30 UNITS SC ×2 (08:36→17:37)
--- NOTE | 2023-07-12 09:25 | PHA.VAN.FU ---
Vancomycin Assessment / Plan
- Assessment
Renal Function: Stable
WBC's are: WNL
In the past 24 hrs, patient has been: Afebrile
Concomitant Antimicrobials: Piperacillin/Tazobactam
- Assessment - Therapeutic Drug Monitoring
Extrapolated Cmax (mcg/mL): 19.5
Peak level was drawn: Appropriately
Extrapolated Cmin (mcg/mL): 11.1
Trough Drawn: Appropriately
Levels were drawn: At steady state
Calculated AUC (mcg*h/mL): 400
Calculated ke: 0.0650
Calculated half life (H): 10.7
Calculated Vd (L): 76.9
Calculated Vanc CL (ml/min): 83.33
- Dosing Plan
Adjust Regimen to: 1250mg Q12H
New Regimen Predicts: AUC (524), Peak (30), Trough (15.2)
- Monitoring Plan
No level(s) ordered at this time: Consider levels in next few days
- Follow Up
Pharmacy will continue to follow.
Vancomycin Follow UP
- -
Patient Age: 77
Patient Sex: Male
Vancomycin Day #: 3
Indication: Skin And Soft Tissue
Requesting Provider: Krissy Carrillo
Pertinent Antimicrobial Allergies:
no pertinent antibiotic allergies
Height / Weight:
Height 5 ft 8 in
Actual Weight 102.875 kg
Pertinent Past Medical History: BMI ~35, DM, Parkinson's disease
- Vital Signs / Lab Results
Temp Pulse Resp BP Pulse Ox
97.7 F 57 22 143/67 96
07/12/23 08:01 07/12/23 08:34 07/12/23 08:01 07/12/23 08:34 07/12/23 08:01
Lab Results - Hematology
07/09/23 07/11/23
18:50 05:21
WBC 10.1 8.7
Lab Results - Chemistry
07/09/23 07/09/23 07/12/23
18:50 19:35 05:16
BUN Cancelled 22 H 18
Creatinine Cancelled 0.9 0.8
Estimated Creat Clear Cancelled 81 91
Albumin Cancelled 3.6
Microbiology Results
07/09/23 19:30 Blood Culture - Preliminary
Blood/Venous No Growth in 48 hours- Final report to follow
07/09/23 18:45 Blood Culture - Preliminary
Blood/Venous No Growth in 48 hours- Final report to follow
07/10/23 05:37 MRSA Screen - Final
Nose Staph aureus MRSA
Therapeutic Drug Monitoring
Vancomycin Peak 19.5 ug/ml (18-26) 07/11/23 20:36
Vancomycin Trough 11.1 ug/ml (5-20) 07/12/23 05:16
[2023-07-12 11:26] LABS: Glucose - Point of Care 261 mg/dl (70-99)
[2023-07-12] MEDS: NOVOLOG FLEXPEN-LOW RESISTANCE 3 UNITS SC (12:23)
--- NOTE | 2023-07-12 13:43 | W.PN.HOSP.TC ---
Today's Communication/Plan
-
Consult cardiology
Continue with antibiotics
Follow wound culture data
DC planning
Assessment / Plan
Assessment / Plan
Right Lower Ext Cellulitis with Worsening Venous Ulcers
No systemic toxicity.
Significant pain and swelling noted.
Green discharge noted.
Continue with current antibiotics pending culture data. Blood cultures have been negative. MRSA nasal screen positive.
No evidence of DVT. Arterial ultrasound noted. Vascular input noted-no evidence of PAD.
Continue with wound care and cw Carloz wraps.
CPK is ok.
Coronary Artery Disease s/p Stent
-Continue aspirin
PVCs - frequently noted on telemetry. According to known to have PVCs. No history of heart failure. Mg 1.7 ;ECHO shows mild global hypokinesis and LV function 40 to 45% and stage II diastolic dysfunction. Will consult cardiology.
Essential Hypertension
-Continue Metoprolol
Hyperlipidemia
-Continue atorvastatin
Insulin Dependent Diabetes Mellitus
- HgbA1c 7.1
-Continue Novolin 70/30
-Ozempic is not covered anymore apparently with improved hemoglobin A1c.
-Monitor sugars and continue coverage insulin
-Patient wishes to be on regular diet
Diabetic Neuropathy
-Continue gabapentin
Parkinson's Disease
-Continue Sinemet
BPH
-Continue Flomax
Overactive Bladder
-Continue Vesicare
DVT proph: Lovenox
Code Status: Full Code
Needs rehab on discharge
Anticipated Discharge: Within 24 hours
Subjective/Interval History
-
Date of Service: July 12, 2023
Pain much improved in the right leg today.
No fever or chills.
Objective Data
-
Labs:
Laboratory Results
07/12/23
05:16
BUN 18
Creatinine 0.8
Vital Signs:
Vital Signs
Temp Pulse Resp BP Pulse Ox
97.4 F 60 22 120/63 96
07/12/23 11:07 07/12/23 11:07 07/12/23 11:07 07/12/23 11:07 07/12/23 11:07
I&O
07/11/23 07/12/23 07/13/23
06:59 06:59 06:59
Intake Total 1200 / 1200 960 / 960
Output Total 100 / 100 150 / 150
Balance 1100 / 1100 810 / 810
Review of Systems
-
Respiratory: Denies Trouble Breathing
Cardiac: Denies Chest Pain
Abdomen/GI: Denies Abdominal Pain, Nausea or Vomiting
Neuro: Denies Dizzy
Physical Exam
-
General: No Apparent Distress
HEENT: Moist Mucous Membranes
Respiratory: Clear to Auscultation
Cardiac: Regular Rhythm and S1/S2
Musculoskeletal: Other (Lower extremity in dressing.)
Neuro: AO x 3
Psych: Calm
Data Reviewed
-
Labs: Labs Reviewed by me
--- NOTE | 2023-07-12 15:29 | CON.CAR ---
Addendum entered and electronically signed by Joelle Mcguire PA-C 07/12/23 16:21:
records obtained and reviewed from Dr. Camacho's office. Last echo was in 2009 with EF 60% and mild . last office visit 07/26/22 and note reviewed. history ablation for symptomatic VT in 2013. History of CAD with prior OM1 stent 2013.
Addendum entered and electronically signed by Arminda De Anda MD 07/12/23 16:15:
I saw and examined the patient.
The Chief Lock Operator's note was reviewed and I agree with the note.
Briefly the patient is admitted with right lower extremity cellulitis. He has chronic PVCs status post ablation previously at [facility] with known continued PVCs (according to the patient). He denies new symptoms. Echocardiogram
during this hospital stay with visual ejection fraction in the setting of PVCs 50%. Moderate aortic valve stenosis also noted.
At this time would continue treatment for right lower extremity cellulitis.�
No further treatment at this time for PVCs unless they become symptomatic.
Continue to keep potassium greater than 4 magnesium greater than 2.
Continue outpatient beta-javi.
We will request prior records.
Moderate aortic valve stenosis needs to be followed by usual steaming machine operator. Discussed with patient.
On discharge he will follow-up with Dr. Camacho his usual steaming machine operator as an outpatient to discuss monomorphic PVCs further.
We will sign off. Please reconsult us if new symptoms develop.
Original Note:
Consultation
Consultation Request
Date/Time Consultation Performed: 07/12/23
Requesting Provider: Dr. Wren
Performing Provider: Joelle Mcguire PA-C for Dr. Arminda De Anda
Reason for Consultation: PVCs
Medical History
-
Chief Complaint: cellulitis
History of Present Illness:
Patient is a 77-year-old male with past medical history of PVCs status post PVC ablation at [place], CAD with prior stent, hypertension, hyperlipidemia, diabetes, Parkinson's, BPH who was admitted for right lower extremity cellulitis at recommendation
of wound care center due to worsening drainage and swelling despite antibiotic therapy. Also with worsening pain. Patient states he has had ongoing wounds for approximately a year and is followed by [place] wound care center. Cardiology
consulted as patient noted to have PVCs on telemetry. Also underwent echocardiogram with EF calculated at 40 to 45%, although listed as visually 50%. He denies chest pain, shortness of breath, palpitations, lightheadedness. He follows with
[facility] of [facility].
PMH:
Chronic bilateral lower extremity wounds
PVCs status post PVC ablation at [place]
CAD with prior stenting, details unclear
Hypertension
Hyperlipidemia
Diabetes with neuropathy
Parkinson's
BPH
Past Medical History
Past Medical History: Other (in HPI)
Social History
Personal:
Living: With Family
Employment: Retired
Family History
Family History: Reviewed & Not Pertinent
Allergies / Home Medications
Allergy/AdvReac Type Severity Reaction Status Date / Time
Latex, Natural Rubber Allergy Unknown Verified 05/25/23 21:35
mold Allergy Unknown Verified 05/25/23 21:35
Medication Instructions Recorded Confirmed Type
aspirin 81 mg chewable tablet 81 mg PO BID Blood Clot 03/07/23 07/09/23 History
Prevention/Tx
atorvastatin 40 mg tablet 40 mg PO DAILY High Cholesterol 03/07/23 07/09/23 History
carbidopa 25 mg-levodopa 100 mg 2.5 tab PO TID parkinson's disease 03/07/23 07/09/23 History
tablet
metoprolol tartrate 50 mg tablet 50 mg PO BID Blood Pressure 03/07/23 07/09/23 History
semaglutide 0.25 mg or 0.5 mg (2 0.5 mg SC WE Diabetes 03/07/23 07/09/23 History
mg/3 mL) subcutaneous pen injector
(Ozempic)
solifenacin 10 mg tablet 10 mg PO DAILY Urinary Issue 03/07/23 07/09/23 History
tamsulosin 0.4 mg capsule 0.4 mg PO HS urine retention 03/07/23 07/09/23 History
clindamycin HCl 300 mg capsule 300 mg PO Q12H Infection 07/09/23 07/09/23 History
furosemide 20 mg tablet 20 mg PO DAILY Fluid 07/09/23 07/09/23 History
Retention/Swelling
gabapentin 100 mg capsule 100 mg PO BID@0800,1500 07/09/23 07/09/23 History
Neurological Condition
gabapentin 100 mg capsule 200 mg PO HS Neurological Condition 07/09/23 07/09/23 History
insulin NPH-regular 70-30 U-100 0 unit SC BIDWMEAL Diabetes 07/09/23 07/09/23 History
insulin 100 unit/mL subcutaneous
pen (Novolin 70-30 FlexPen U-100
Insulin)
Review of Systems
-
History Source: Patient and Family
All other systems: Negative unless noted
Physical Exam
Vital Signs
Temp Pulse Resp BP Pulse Ox
98.2 F 50 24 141/75 95
07/12/23 15:03 07/12/23 15:03 07/12/23 15:03 07/12/23 15:03 07/12/23 15:03
Lab Results
07/11/23 05:21
07/12/23 05:16
Physical Exam
General: No Apparent Distress and Comfortable
HEENT: Normocephalic, Anicteric and Moist Mucous Membranes
Respiratory: Clear and Non Labored Respirations
Cardiac: S1/S2, Regular Rhythm and Murmur
GI: Soft, Non Tender, Non Distended and Normal Bowel Sounds
Musculoskeletal: No Clubbing, No Cyanosis and Edema (1+ of B/L LE. dressings of B/L LE c/d/i)
Neuro: AO x 3
Impression / Plan
-
Primary Canvas Worker: Dr. Camacho of [facility]
Assessment:
RLE cellulitis
Chronic bilateral lower extremity wounds
PVCs status post PVC ablation at [place], patient asymptomatic
EF 40-45% by Hinson's, 50% visually 07/12/23
Moderate
CAD with prior stenting, details unclear
Hypertension
Hyperlipidemia
Diabetes with neuropathy
Parkinson's
BPH
ECHO 07/10/23: EF 40 to 45% by Hinson's but visually 50%, mild global hypokinesis, stage II diastolic dysfunction, enlarged RV size, moderate with peak/mean gradients 45/23 mmHg, mild TR, PAP 45 to 50 mmHg
Plan:
-Patient admitted for right lower extremity cellulitis. Remains on antibiotic therapy. Continue local wound care. Followed as an outpatient by [place] [facility]
-Cardiology consulted due to PVCs noted on telemetry. Patient has longstanding history of PVCs status post PVC ablation at [place]. He is asymptomatic.
-Replete magnesium. Keep K greater than 4 and mag greater than 2
-Continue outpatient Lopressor
-Echocardiogram as above. Requested records to compare to prior
-In setting of cellulitis, will manage echo findings and PVCs conservatively with medications at this time. consider addition of low dose polina in setting of normal Cr and with diabetes and borderline EF. Follow-up with Dr. Camacho as an outpatient
to discuss need for stress testing
-Discussed with patient and at bedside
Data Reviewed
-
EKG: Tracing Personally Visualized and interpreted
Medical Tests (Nuc Med, Echo etc): Report Reviewed by me
Labs: Labs Reviewed by me
Old Records: Requested and Reviewed
[2023-07-12 16:19] LABS: Glucose - Point of Care 327 mg/dl (70-99)
--- NOTE | 2023-07-12 16:43 | CM ---
Discharge Plan of Care: Therapy recommendation for SNF. Patient choice is [facility]. Referral forwarded.
[2023-07-12] MEDS: NOVOLOG FLEXPEN-LOW RESISTANCE 4 UNITS SC (17:38)
[2023-07-12] MEDS: LOVENOX 40 MG SC (17:39)
[2023-07-12] MEDS: VANCOCIN 275 MG IV (18:50)
[2023-07-12] MEDS: DESENEX/MITRAZOL/ZEASORB 1 APPLIC TOPICAL (19:55)
[2023-07-12] MEDS: FLOMAX 0.400000000000000022 MG PO (21:45)
[2023-07-12] MEDS: NEURONTIN 200 MG PO (21:45)
[2023-07-12 22:01] LABS: Glucose - Point of Care 246 mg/dl (70-99)
[2023-07-13] VITALS (7 sets, daily range): BP systolic 111–144; BP diastolic 52–70; PULSE 95; O2SAT 96; BMI 34.2
[2023-07-13] MEDS: ZOSYN 50 IV ×5 (00:57→23:46)
[2023-07-13] MEDS: VANCOCIN 275 MG IV (06:34)
[2023-07-13] MEDS: ROXICODONE 5 MG PO ×2 (06:34→18:48)
[2023-07-13 07:39] LABS: Glucose - Point of Care 112 mg/dl (70-99)
[2023-07-13] MEDS: NOVOLOG FLEXPEN-LOW RESISTANCE SC (07:51)
[2023-07-13] MEDS: NOVOLOG MIX 70/30 FLEXPEN 30 UNITS SC ×2 (09:18→18:40)
[2023-07-13] MEDS: LOW STRENGTH ASPIRIN 81 MG PO ×2 (09:20→20:24)
[2023-07-13] MEDS: DETROL LA 4 MG PO (09:20)
[2023-07-13] MEDS: NEURONTIN 100 MG PO ×2 (09:20→16:32)
[2023-07-13] MEDS: SINEMET 25-100 2.5 TABLET PO ×3 (09:20→22:03)
[2023-07-13] MEDS: LOPRESSOR 50 MG PO ×2 (09:21→20:24)
[2023-07-13] MEDS: LASIX 20 MG PO (09:22)
[2023-07-13] MEDS: LIPITOR 40 MG PO (09:22)
[2023-07-13] MEDS: DESENEX/MITRAZOL/ZEASORB 1 APPLIC TOPICAL ×2 (09:23→20:37)
[2023-07-13] MEDS: HYDROPHOR 1 APPLIC TOPICAL (09:25)
[2023-07-13 11:35] LABS: Glucose - Point of Care 201 mg/dl (70-99)
--- NOTE | 2023-07-13 11:39 | PHA.VAN.FU ---
Vancomycin Assessment / Plan
- Assessment
Renal Function: Stable
WBC's are: WNL
In the past 24 hrs, patient has been: Afebrile
Concomitant Antimicrobials: piperacillin/tazobactam
- Dosing Plan
Continue: vancomycin 1250 mg q12 (dose incr 07/12/23 1800)
- Monitoring Plan
No level(s) ordered at this time: consider levels after 07/14/23 1800 dose
- Follow Up
Pharmacy will continue to follow.
Vancomycin Follow UP
- -
Patient Age: 77
Patient Sex: Male
Vancomycin Day #: 4
Indication: Skin And Soft Tissue
Requesting Provider: Krissy Carrillo
Pertinent Antimicrobial Allergies:
no pertinent antibiotic allergies
Height / Weight:
Height 5 ft 8 in
Actual Weight 101.922 kg
Pertinent Past Medical History: BMI ~35, DM, Parkinson's disease
- Vital Signs / Lab Results
Temp Pulse Resp BP Pulse Ox
98.8 F 56 16 111/70 96
07/13/23 11:00 07/13/23 11:00 07/13/23 11:00 07/13/23 11:00 07/13/23 11:00
Lab Results - Hematology
07/11/23
05:21
WBC 8.7
Lab Results - Chemistry
07/12/23
05:16
BUN 18
Creatinine 0.8
Estimated Creat Clear 91
Microbiology Results
07/12/23 05:57 Wound Culture - Preliminary
Leg - Right Gram negative bacilli
Gram Stain - Preliminary
07/09/23 18:45 Blood Culture - Preliminary
Blood/Venous No Growth in 72 hours- Final report to follow
07/09/23 19:30 Blood Culture - Preliminary
Blood/Venous No Growth in 72 hours- Final report to follow
07/10/23 05:37 MRSA Screen - Final
Nose Staph aureus MRSA
Therapeutic Drug Monitoring
Vancomycin Peak 19.5 ug/ml (18-26) 07/11/23 20:36
Vancomycin Trough 11.1 ug/ml (5-20) 07/12/23 05:16
[2023-07-13] MEDS: NOVOLOG FLEXPEN-LOW RESISTANCE 2 UNITS SC (12:05)
--- NOTE | 2023-07-13 13:56 | W.PN.HOSP.TC ---
Today's Communication/Plan
-
Continue Zosyn. DC vancomycin.
DC planning
Assessment / Plan
Assessment / Plan
Right Lower Ext Cellulitis with Worsening Venous Ulcers
No systemic toxicity.
Significant pain and swelling noted. Pain and swelling are improving.
Green discharge noted.
Continue with current antibiotics pending culture data. Blood cultures have been negative. MRSA nasal screen positive.
No evidence of DVT. Arterial ultrasound noted. Vascular input noted-no evidence of PAD.
Continue with wound care and cw Carloz wraps.
CPK is ok.
Gram-negative bacilli in the wound culture noted. Continue Zosyn. Hold further vancomycin.
Coronary Artery Disease s/p Stent
-Continue aspirin
PVCs - frequently noted on telemetry. According to known to have PVCs. History of cardiac ablation for SVT in the past. No history of heart failure. ECHO shows mild global hypokinesis and LV function 40 to 45% and stage II diastolic
dysfunction. Appreciate cardiology input. Continue the beta-javi
Essential Hypertension
-Continue Metoprolol
Hyperlipidemia
-Continue atorvastatin
Insulin Dependent Diabetes Mellitus
- HgbA1c 7.1
-Continue Novolin 70/30
-Ozempic is not covered anymore apparently with improved hemoglobin A1c.
-Monitor sugars and continue coverage insulin
-Patient wishes to be on regular diet
Diabetic Neuropathy
-Continue gabapentin
Parkinson's Disease
-Continue Sinemet
BPH
-Continue Flomax
Overactive Bladder
-Continue Vesicare
DVT proph: Lovenox
Code Status: Full Code
Needs rehab on discharge
Anticipated Discharge: 24 - 48 hours
Subjective/Interval History
-
Date of Service: July 13, 2023
Improving pain in the right leg. He is using less pain medication today.
No fever or chills.
Objective Data
-
Vital Signs:
Vital Signs
Temp Pulse Resp BP Pulse Ox
98.8 F 56 16 111/70 96
07/13/23 11:00 07/13/23 11:00 07/13/23 11:00 07/13/23 11:00 07/13/23 11:00
I&O
07/12/23 07/13/23 07/14/23
06:59 06:59 06:59
Intake Total 960 / 960 480 / 480
Output Total 150 / 150 400 / 400
Balance 810 / 810 80 / 80
Review of Systems
-
Respiratory: Denies Trouble Breathing
Cardiac: Denies Chest Pain or Palpitations
Abdomen/GI: Denies Nausea or Vomiting
Neuro: Denies Dizzy
Physical Exam
-
General: No Apparent Distress
HEENT: Moist Mucous Membranes
Respiratory: Clear to Auscultation
Cardiac: Regular Rhythm and S1/S2
GI: Soft
Musculoskeletal: Other (Right leg in dressing with less swelling)
Neuro: AO x 3
Data Reviewed
-
Labs: Labs Reviewed by me
--- NOTE | 2023-07-13 15:46 | CM ---
IV Zosyn, RLE pain and edema. Discharge plan of care: [facility] has accepted pending bed availability.
[2023-07-13 18:13] LABS: Glucose - Point of Care 262 mg/dl (70-99)
[2023-07-13] MEDS: NOVOLOG FLEXPEN-LOW RESISTANCE 3 UNITS SC (18:38)
[2023-07-13] MEDS: LOVENOX 40 MG SC (18:48)
[2023-07-13] MEDS: FLOMAX 0.400000000000000022 MG PO (22:20)
[2023-07-13] MEDS: NEURONTIN 200 MG PO (22:20)
[2023-07-13 22:38] LABS: Glucose - Point of Care 245 mg/dl (70-99)
[2023-07-13] MEDS: FLUSH (NSS) 2 FLUSH IV (23:47)
[2023-07-14] VITALS (7 sets, daily range): BP systolic 121–141; BP diastolic 52–76; BMI 34.5
[2023-07-14] MEDS: ZOSYN 50 IV ×4 (05:24→22:59)
[2023-07-14] MEDS: FLUSH (NSS) 2 FLUSH IV ×2 (05:24→22:59)
[2023-07-14 07:42] LABS: Glucose - Point of Care 92 mg/dl (70-99)
[2023-07-14 08:31] LABS: Hematocrit 45.9 % (39.0-52.0); Hemoglobin 15.8 g/dL (13.0-18.0); Mean Corp Hgb Conc. 34.4 g/dL (33.0-37.0); Mean Corpuscular Hgb 33.7 pg (27.0-31.0); Mean Corpuscular Volume 97.9 fL (80.0-94.0); Mean Platelet Volume 9.6 fL (7.4-10.4); Platelet Count 252 10^3/uL (130-400); Red Blood Cell Count 4.69 10^6/uL (4.70-6.10); White Blood Cell Count 9.1 10^3/uL (4.8-10.8)
[2023-07-14 09:04] LABS: Blood Urea Nitrogen 15 mg/dl (9-20); Calcium 8.7 mg/dl (8.4-10.2); Carbon Dioxide 27 mmol/L (22-30); Chloride 101 mmol/L (98-107); Estimated Creatinine Clearance 91 ml/min; Glucose 88 mg/dl (70-99); Sodium 135 mmol/L (135-145); eGFR > 60.00
[2023-07-14] MEDS: NOVOLOG FLEXPEN-LOW RESISTANCE SC (09:42)
[2023-07-14] MEDS: DESENEX/MITRAZOL/ZEASORB 1 APPLIC TOPICAL ×2 (09:44→20:51)
[2023-07-14] MEDS: LOPRESSOR 50 MG PO ×2 (09:45→20:49)
[2023-07-14] MEDS: LOW STRENGTH ASPIRIN 81 MG PO ×2 (09:45→20:50)
[2023-07-14] MEDS: DETROL LA 4 MG PO (09:45)
[2023-07-14] MEDS: NEURONTIN 100 MG PO ×2 (09:46→16:11)
[2023-07-14] MEDS: LIPITOR 40 MG PO (09:46)
[2023-07-14] MEDS: SINEMET 25-100 2.5 TABLET PO ×3 (09:46→21:02)
[2023-07-14] MEDS: LASIX 20 MG PO (09:47)
[2023-07-14] MEDS: HYDROPHOR 1 APPLIC TOPICAL (09:47)
[2023-07-14] MEDS: NOVOLOG MIX 70/30 FLEXPEN 30 UNITS SC ×2 (10:18→17:52)
[2023-07-14 11:31] LABS: Glucose - Point of Care 171 mg/dl (70-99)
--- NOTE | 2023-07-14 13:34 | W.PN.HOSP.TC ---
Today's Communication/Plan
-
Consult ID
CW Zosyn
Assessment / Plan
Assessment / Plan
Right Lower Ext Cellulitis with Worsening Venous Ulcers
No systemic toxicity on admission.
Significant pain and swelling noted. Pain and swelling are improving.
Green discharge noted.
Continue with current antibiotics pending culture data. Blood cultures have been negative. MRSA nasal screen positive.
No evidence of DVT. Arterial ultrasound noted. Vascular input noted-no evidence of PAD.
Continue with wound care and cw Carloz wraps.
CPK is ok.
Polymicrobial baterial isolates in wound culture noted. Continue Zosyn.
Consult ID
Coronary Artery Disease s/p Stent
-Continue aspirin
PVCs - frequently noted on telemetry. According to known to have PVCs. History of cardiac ablation for SVT in the past. No history of heart failure. ECHO shows mild global hypokinesis and LV function 40 to 45% and stage II diastolic
dysfunction. Appreciate cardiology input. Continue the beta-javi
Essential Hypertension
-Continue Metoprolol
Hyperlipidemia
-Continue atorvastatin
Insulin Dependent Diabetes Mellitus
- HgbA1c 7.1
-Continue Novolin 70/30
-Ozempic is not covered anymore apparently with improved hemoglobin A1c.
-Monitor sugars and continue coverage insulin
-Patient wishes to be on regular diet
Diabetic Neuropathy
-Continue gabapentin
Parkinson's Disease
-Continue Sinemet
BPH
-Continue Flomax
Overactive Bladder
-Continue Vesicare
DVT proph: Lovenox
Code Status: Full Code
Need rehab on dc
Anticipated Discharge: 24 - 48 hours
Subjective/Interval History
-
Date of Service: July 14, 2023
Improved right leg pain.
No fever or chills.
Objective Data
-
Labs:
Laboratory Results
07/14/23
07:10
WBC 9.1
Hgb 15.8
Hct 45.9
Plt Count 252
Sodium 135
Potassium 4.0
Chloride 101
Carbon Dioxide 27
BUN 15
Creatinine 0.8
Glucose 88
Calcium 8.7
Vital Signs:
Vital Signs
Temp Pulse Resp BP Pulse Ox
98.2 F 89 16 129/69 95
07/14/23 11:05 07/14/23 11:05 07/14/23 11:05 07/14/23 11:05 07/14/23 11:05
I&O
07/13/23 07/14/23 07/15/23
06:59 06:59 07:59
Intake Total 480 / 480 1120 / 1120
Output Total 400 / 400 500 / 500
Balance 80 / 80 620 / 620
Review of Systems
-
Respiratory: Denies Trouble Breathing
Cardiac: Denies Chest Pain
Abdomen/GI: Denies Nausea or Vomiting
Neuro: Denies Dizzy
Physical Exam
-
General: No Apparent Distress
HEENT: Moist Mucous Membranes
Respiratory: Clear to Auscultation
Cardiac: Regular Rhythm and S1/S2
GI: Soft
Neuro: AO x 3
Data Reviewed
-
Medical Tests (Nuc Med, Echo etc): Report Reviewed by me (wound cx)
[2023-07-14] MEDS: NOVOLOG FLEXPEN-LOW RESISTANCE 1 UNITS SC (13:42)
[2023-07-14] MEDS: ROXICODONE 5 MG PO (14:54)
--- NOTE | 2023-07-14 16:14 | CON.ID ---
Consultation
-
Date/Time Consultation Requested: 07/14/2023 1253
Date/Time Consultation Performed: 07/14/2023 1545
Requesting Provider: Dr. Wren
Performing Provider: Dr. Serrato
Reason for Consultation: Right leg venous stasis ulcerations and cellulitis
Chief Complaint / Past History
History of Present Illness
Addi Almonte is a 77-year-old man being evaluated at the request of Dr. Wren in regards to right lower extremity cellulitis. History is obtained from chart review, along with patient interview.
The patient has a significant past medical history of lower extremity wounds for approximately the past 6 to 8 months. He notes that over the past several weeks, though, the wounds have worsened, with marked increase in drainage and pain. He has
been on outpatient antibiotics, but despite antimicrobial therapy the redness and pain have gotten worse. [facility] and sent to the emergency room for further evaluation.
At this time he notes significant pain in the right posterior ankle area from the heel to the mid calf area.
He denies any fevers or chills. He denies any nausea, vomiting or diarrhea. Outpatient antibiotics were clindamycin 300 mg p.o. every 12 hours
Past History
Additional Past Medical History:
CAD
HTN
Dyslipidemia
Diabetes mellitus
Valvular disease
Parkinson's disease
Additional Past Surgical History:
PCTA with stenting
Cholecystectomy
Allergy History:
Latex, Natural Rubber Allergy (Verified 05/25/23 21:35)
Unknown
mold Allergy (Verified 05/25/23 21:35)
Unknown
Medications Reviewed: Yes
Current Antibiotics:
Zosyn 3.375 g IV every 6 hours
Social History
Tobacco: Non-Smoker
Drug: None
Personal:
Living: With Family
Employment: Retired
Family History
Family History: Not Pertinent
Review of Systems
Vital Signs
Temp Pulse Resp BP Pulse Ox
98.2 F 89 16 129/69 95
07/14/23 11:05 07/14/23 11:05 07/14/23 11:05 07/14/23 11:05 07/14/23 11:05
Physical Exam
Physical Exam
Constitutional: No Acute Distress, Comfortable and Non-toxic
Eyes: Pupils Equal, Pupils Round, No Conjunctival Hemorrhage and Sclera Anicteric
Oral: No Thrush and No Ulcers
Cardiovascular: S1/S2; Negative S3/S4 or Murmur
Pulmonary: Non Labored; Negative Wheezes, Rales or Rhonchi
Gastrointestinal: Soft, Non Tender, Non Distended, Normal Bowel Sounds, No Rebound and No Guarding
Extremities: Edema and Erythema
Musculoskeletal: Negative Joint Swelling
Skin: Warm and Dry
Neurological: Awake, Alert and Oriented
Psychological: Calm
Right lower extremity with significant erythema from the midfoot to the mid calf area. Positive edema (2+). Superficial venous ulceration with serpiginous borders noted. Extreme sensitivity to even light touch. Several areas of serous drainage.
Venous stasis changes noted over other areas of skin.
Lab / Diagnostic Study Results
07/14/23 07:10
07/14/23 07:10
Abs Immat Gran (auto) 0.0 10^3/uL (0-0.05) 07/09/23 18:50
Absolute Neuts (auto) 6.5 10^3/uL (1.4-6.5) 07/09/23 18:50
Absolute Lymphs (auto) 1.8 10^3/uL (1.2-3.4) 07/09/23 18:50
Absolute Monos (auto) 1.0 10^3/uL (0.1-0.6) H 07/09/23 18:50
Absolute Basos (auto) 0.1 10^3/uL (0-0.2) 07/09/23 18:50
Immature Gran % 0.3 % (0-0.5) 07/09/23 18:50
Neutrophils % 64.7 % (42.2-75.2) 07/09/23 18:50
Lymphocytes % 17.3 % (20.5-51.1) L 07/09/23 18:50
Monocytes % 10.3 % (1.7-9.3) H 07/09/23 18:50
Eosinophils % 6.5 % (0-6) H 07/09/23 18:50
Basophils % 0.9 % (0-2) 07/09/23 18:50
Microbiology Results
Micro:
07/12/23 05:57 Wound Culture - Preliminary
Leg - Right Pseudomonas aeruginosa
Staphylococcus aureus
Gram negative bacilli
Gram Stain - Preliminary
07/09/23 18:45 Blood Culture - Preliminary
Blood/Venous No Growth in 4 days- Final report to follow
07/09/23 19:30 Blood Culture - Preliminary
Blood/Venous No Growth in 4 days- Final report to follow
07/10/23 05:37 MRSA Screen - Final
Nose Staph aureus MRSA
Assessment / Plan
Right lower extremity cellulitis
Venous stasis ulcerations of the right lower extremity and left lower extremity
CAD
HTN
Dyslipidemia
Diabetes mellitus
Valvular disease
Parkinson's disease
Recommendations:
Continue with Zosyn for the present.
Nasal MRSA screen noted to be positive; will add vancomycin.
Local wound care to the lower extremities
Lower extremity elevation at or above the level of the heart to decrease venous back pressure.
Would like to add compressive modalities (i.e. Carloz wrap), but patient likely would be intolerant at this point. Hopefully can add in another day or so.
Monitor white count and temperature curve.
--- NOTE | 2023-07-14 16:56 | PHA.VAN.FU ---
Vancomycin Assessment / Plan
- Assessment
Renal Function: Stable
WBC's are: WNL
In the past 24 hrs, patient has been: Afebrile
Concomitant Antimicrobials: Piperacillin/tazobactam
- Dosing Plan
Received order to resume vancomycin today.
Will give Vancomycin 2000mg IV now as loading dose and then resume Vancomycin 1250mg IV Q12h 07/15/23 at 0600.
- Monitoring Plan
Level(s) appropriate: Recheck trough at minimum of weekly intervals, Repeat sooner for changes in renal function or clinical status
- Follow Up
Pharmacy will continue to follow.
Vancomycin Follow UP
- -
Patient Age: 77
Patient Sex: Male
Vancomycin Day #: 5
Indication: Skin And Soft Tissue
Requesting Provider: Krissy Carrillo
Pertinent Antimicrobial Allergies:
no pertinent antibiotic allergies
Height / Weight:
Height 5 ft 8 in
Actual Weight 102.93 kg
Pertinent Past Medical History: BMI ~35, DM, Parkinson's disease
- Vital Signs / Lab Results
Temp Pulse Resp BP Pulse Ox
98.2 F 89 16 129/69 95
07/14/23 11:05 07/14/23 11:05 07/14/23 11:05 07/14/23 11:05 07/14/23 11:05
Lab Results - Hematology
07/14/23
07:10
WBC 9.1
Lab Results - Chemistry
07/12/23 07/14/23
05:16 07:10
BUN 18 15
Creatinine 0.8 0.8
Estimated Creat Clear 91 91
Microbiology Results
07/12/23 05:57 Wound Culture - Preliminary
Leg - Right Pseudomonas aeruginosa
Staphylococcus aureus
Gram negative bacilli
Gram Stain - Preliminary
07/09/23 18:45 Blood Culture - Preliminary
Blood/Venous No Growth in 4 days- Final report to follow
07/09/23 19:30 Blood Culture - Preliminary
Blood/Venous No Growth in 4 days- Final report to follow
Therapeutic Drug Monitoring
Vancomycin Peak 19.5 ug/ml (18-26) 07/11/23 20:36
Vancomycin Trough 11.1 ug/ml (5-20) 07/12/23 05:16
[2023-07-14 17:18] LABS: Glucose - Point of Care 305 mg/dl (70-99)
[2023-07-14] MEDS: LOVENOX 40 MG SC (17:39)
[2023-07-14] MEDS: NOVOLOG FLEXPEN-LOW RESISTANCE 4 UNITS SC (17:53)
[2023-07-14] MEDS: VANCOCIN 540 MG IV (18:16)
[2023-07-14] MEDS: NEURONTIN 200 MG PO (21:03)
[2023-07-14] MEDS: FLOMAX 0.400000000000000022 MG PO (21:03)
[2023-07-14 21:32] LABS: Glucose - Point of Care 360 mg/dl (70-99)
[2023-07-14] MEDS: NOVOLOG FLEXPEN 5 UNITS SC (22:02)
[2023-07-15] VITALS (7 sets, daily range): BP systolic 119–152; BP diastolic 54–70; BMI 34.2
[2023-07-15 00:39] LABS: Glucose - Point of Care 228 mg/dl (70-99)
[2023-07-15] MEDS: ZOSYN 50 IV ×4 (05:07→23:11)
[2023-07-15] MEDS: FLUSH (NSS) 2 FLUSH IV (05:08)
[2023-07-15] MEDS: VANCOCIN 275 MG IV ×2 (05:35→18:05)
[2023-07-15 07:32] LABS: Glucose - Point of Care 231 mg/dl (70-99)
[2023-07-15] MEDS: NOVOLOG FLEXPEN-LOW RESISTANCE 2 UNITS SC ×2 (09:02→13:50)
[2023-07-15] MEDS: NOVOLOG MIX 70/30 FLEXPEN 30 UNITS SC (09:02)
[2023-07-15] MEDS: LOW STRENGTH ASPIRIN 81 MG PO ×2 (09:17→21:00)
[2023-07-15] MEDS: DETROL LA 4 MG PO (09:17)
[2023-07-15] MEDS: LIPITOR 40 MG PO (09:17)
[2023-07-15] MEDS: SINEMET 25-100 2.5 TABLET PO ×3 (09:18→21:29)
[2023-07-15] MEDS: NEURONTIN 100 MG PO ×2 (09:22→16:27)
[2023-07-15] MEDS: LASIX 20 MG PO (09:24)
[2023-07-15] MEDS: HYDROPHOR 1 APPLIC TOPICAL (09:25)
[2023-07-15] MEDS: DESENEX/MITRAZOL/ZEASORB 1 APPLIC TOPICAL ×2 (09:25→21:00)
[2023-07-15] MEDS: ROBITUSSIN DM 5 ML PO ×3 (09:26→21:44)
--- NOTE | 2023-07-15 09:27 | PHA.VAN.FU ---
Vancomycin Assessment / Plan
- Assessment
Renal Function: Stable
WBC's are: WNL
In the past 24 hrs, patient has been: Afebrile
Concomitant Antimicrobials: piperacillin/tazobactam
- Dosing Plan
Continue: vancomycin 1250mg q12h
- Monitoring Plan
No level(s) ordered at this time: consider levels after 4th 1250 mg dose ( Sunday)
- Follow Up
Pharmacy will continue to follow.
Vancomycin Follow UP
- -
Patient Age: 77
Patient Sex: Male
Vancomycin Day #: 6
Indication: Skin And Soft Tissue
Requesting Provider: Krissy Carrillo
Pertinent Antimicrobial Allergies:
no pertinent antibiotic allergies
Height / Weight:
Height 5 ft 8 in
Actual Weight 102.149 kg
Pertinent Past Medical History: BMI ~35, DM, Parkinson's disease
- Vital Signs / Lab Results
Temp Pulse Resp BP Pulse Ox
98.4 F 49 16 122/54 96
07/15/23 07:51 07/15/23 07:51 07/15/23 07:51 07/15/23 07:51 07/15/23 07:51
Lab Results - Hematology
07/14/23
07:10
WBC 9.1
Lab Results - Chemistry
07/14/23
07:10
BUN 15
Creatinine 0.8
Estimated Creat Clear 91
Microbiology Results
07/12/23 05:57 Wound Culture - Final
Leg - Right Pseudomonas aeruginosa
Staph aureus MRSA
Klebsiella pneumoniae
Gram Stain - Final
07/09/23 19:30 Blood Culture - Final
Blood/Venous No Growth - Final Report
07/09/23 18:45 Blood Culture - Final
Blood/Venous No Growth - Final Report
Therapeutic Drug Monitoring
Vancomycin Peak 19.5 ug/ml (18-26) 07/11/23 20:36
Vancomycin Trough 11.1 ug/ml (5-20) 07/12/23 05:16
[2023-07-15] MEDS: LOPRESSOR PO (09:35)
[2023-07-15] MEDS: LOPRESSOR 50 MG PO ×2 (10:13→21:00)
--- NOTE | 2023-07-15 10:43 | PTCARENOTE ---
Patient noted with moisture associated dermatitis/ reddened area on groin area. Zinc paste skin protectant applied. Pt is refusing condom/urinary catheter at this time. Pt educated on the purpose of catheter and to prevent further skin breakdown. Pt
AAOX3. pt is bedrest at this time. made aware. No new orders at this time. Plan of care ongoing.
--- NOTE | 2023-07-15 11:24 | W.PN.ID1 ---
Date of Service
Date of Service: July 15, 2023
Today's Communication
Continue antibiotics.
Assessment / Plan
Right lower extremity cellulitis
Venous stasis ulcerations of the right lower extremity and left lower extremity
CAD
HTN
Dyslipidemia
Diabetes mellitus
Valvular disease
Parkinson's disease
Recommendations:
Continue with Zosyn for the present.
Wound culture with MRSA. Continue with vancomycin.
Local wound care to the lower extremities
Lower extremity elevation at or above the level of the heart to decrease venous back pressure.
Would like to add compressive modalities (i.e. Carloz wrap), but patient likely would be intolerant at this point. Hopefully can add in another day or so.
Monitor white count and temperature curve.
����������������������������������������������������������
Chief Complaint
-: Cellulitis
Subjective / Review of Systems
Patient seen and examined. Still with significant right distal leg discomfort, although reports possibly mildly improved at this point.
Review of Systems: No Fever and No Chills
Vital Signs / Physical Exam
Vital Signs
Vital Signs
Temp Pulse Resp BP Pulse Ox
98.2 F 68 16 128/68 98
07/15/23 11:21 07/15/23 11:21 07/15/23 11:21 07/15/23 11:21 07/15/23 11:21
Physical Exam
Constitutional: No Acute Distress, Comfortable and Non-toxic
Eyes: Sclera Anicteric
Pulmonary: Non Labored
Extremities: Edema, Erythema and Venous Insufficiency
Wound: Other (Right lower extremity ankle wounds dressed. No strikethrough.)
Neurological: Awake and Alert
Psychological: Calm
Objective Data
Lab Data
Lab Results
07/14/23 07:10
07/14/23 07:10
Estimated Creat Clear 91 ml/min 07/14/23 07:10
Total Bilirubin 0.8 mg/dl (0.2-1.3) 07/09/23 19:35
AST 34 U/L (17-59) 07/09/23 19:35
ALT < 10 U/L (0-50) 07/09/23 19:35
Alkaline Phosphatase 106 U/L (38-126) 07/09/23 19:35
Most recent labs reviewed.
Micro Results:
07/12/23 05:57 Wound Culture - Final
Leg - Right Pseudomonas aeruginosa
Staph aureus MRSA
Klebsiella pneumoniae
Gram Stain - Final
07/09/23 19:30 Blood Culture - Final
Blood/Venous No Growth - Final Report
07/09/23 18:45 Blood Culture - Final
Blood/Venous No Growth - Final Report
07/10/23 05:37 MRSA Screen - Final
Nose Staph aureus MRSA
[2023-07-15 11:55] LABS: Glucose - Point of Care 236 mg/dl (70-99)
--- NOTE | 2023-07-15 11:57 | VATNOTE ---
During routine assessment, it was noted that pt's IV sites were from 3/4 and 3/5. Pt states the nursing staff is not really using the IV in his R arm. Both IVs flushed and functional without discomfort to patient. Encouraged pt to allow me to take
out older IV that is not being used. Pt declined stating he would rather keep the IV at this time. Will follow up and D/C tomorrow if still not in use. Pt in agreement.
--- NOTE | 2023-07-15 12:58 | W.PN.HOSP.TC ---
Today's Communication/Plan
-
CW wound care and abx
DC planning
Assessment / Plan
Assessment / Plan
Right Lower Ext Cellulitis with Worsening Venous Ulcers
No systemic toxicity on admission.
Significant pain and swelling noted. Pain and swelling are improving.
Green discharge noted on adx.
Wound cx noted. Blood cultures have been negative. MRSA nasal screen positive.
No evidence of DVT. Arterial ultrasound noted. Vascular input noted-no evidence of PAD.
Continue with wound care and cw Carloz wraps.
CPK is ok.
Polymicrobial baterial isolates including MRSA in wound culture noted. Continue Zosyn.
Appt ID input- cw GP and GN coverage
Coronary Artery Disease s/p Stent
-Continue aspirin
PVCs - frequently noted on telemetry. According to known to have PVCs. History of cardiac ablation for SVT in the past. No history of heart failure. ECHO shows mild global hypokinesis and LV function 40 to 45% and stage II diastolic
dysfunction. Appreciate cardiology input. Continue the beta-javi
Essential Hypertension
-Continue Metoprolol
Hyperlipidemia
-Continue atorvastatin
Insulin Dependent Diabetes Mellitus
- HgbA1c 7.1
-Continue Novolin 70/30
-Ozempic is not covered anymore apparently with improved hemoglobin A1c.
-Monitor sugars and continue coverage insulin
-Patient wishes to remain on regular diet;talked about higher sugars on regular diet. Advised him to choose wisely.
- Increase his BLADIMIR Insulin dose
Diabetic Neuropathy
-Continue gabapentin
Parkinson's Disease
-Continue Sinemet
BPH
-Continue Flomax
Overactive Bladder
-Continue Vesicare
DVT proph: Lovenox
Code Status: Full Code
Need rehab on dc
Anticipated Discharge: Within 24 hours
Subjective/Interval History
-
Date of Service: July 15, 2023
Improved right leg pain
No fevers
Objective Data
-
Vital Signs:
Vital Signs
Temp Pulse Resp BP Pulse Ox
98.2 F 68 16 128/68 98
07/15/23 11:21 07/15/23 11:21 07/15/23 11:21 07/15/23 11:21 07/15/23 11:21
I&O
07/14/23 07/15/23 07/16/23
05:59 06:59 06:59
Intake Total
Output Total
Balance
Review of Systems
-
Respiratory: Denies Trouble Breathing
Cardiac: Denies Chest Pain
Abdomen/GI: Denies Abdominal Pain, Nausea, Vomiting or Diarrhea
Neuro: Denies Dizzy
Physical Exam
-
General: No Apparent Distress
HEENT: Moist Mucous Membranes
Respiratory: Clear to Auscultation
Cardiac: Regular Rhythm and S1/S2
Neuro: AO x 3
Psych: Calm
[2023-07-15] MEDS: ROXICODONE 5 MG PO ×2 (13:44→21:30)
[2023-07-15] MEDS: LOVENOX 40 MG SC (17:06)
[2023-07-15 17:15] LABS: Glucose - Point of Care 302 mg/dl (70-99)
[2023-07-15] MEDS: NOVOLOG FLEXPEN-LOW RESISTANCE 4 UNITS SC (18:04)
[2023-07-15] MEDS: NOVOLOG MIX 70/30 FLEXPEN 32 UNITS SC (18:15)
[2023-07-15 21:27] LABS: Glucose - Point of Care 281 mg/dl (70-99)
[2023-07-15] MEDS: FLOMAX 0.400000000000000022 MG PO (21:29)
[2023-07-15] MEDS: NEURONTIN 200 MG PO (21:30)
[2023-07-16] VITALS (7 sets, daily range): BP systolic 111–147; BP diastolic 56–72; PULSE 65; O2SAT 96; BMI 34.7
[2023-07-16] MEDS: ZOSYN 50 IV ×4 (05:12→23:56)
[2023-07-16] MEDS: VANCOCIN 275 MG IV ×2 (05:42→18:27)
[2023-07-16 07:57] LABS: Glucose - Point of Care 151 mg/dl (70-99)
[2023-07-16] MEDS: LASIX 20 MG PO (08:48)
[2023-07-16] MEDS: LOW STRENGTH ASPIRIN 81 MG PO ×2 (08:48→21:24)
[2023-07-16] MEDS: LOPRESSOR 50 MG PO ×2 (08:49→21:25)
[2023-07-16] MEDS: SINEMET 25-100 2.5 TABLET PO ×3 (08:49→21:24)
[2023-07-16] MEDS: LIPITOR 40 MG PO (08:50)
[2023-07-16] MEDS: DETROL LA 4 MG PO (08:50)
[2023-07-16] MEDS: HYDROPHOR 1 APPLIC TOPICAL (08:50)
[2023-07-16] MEDS: NEURONTIN 100 MG PO ×2 (08:50→16:13)
[2023-07-16] MEDS: DESENEX/MITRAZOL/ZEASORB 1 APPLIC TOPICAL ×2 (08:51→21:21)
[2023-07-16] MEDS: NOVOLOG MIX 70/30 FLEXPEN 32 UNITS SC ×2 (08:51→17:33)
[2023-07-16] MEDS: NOVOLOG FLEXPEN-LOW RESISTANCE 1 UNITS SC ×2 (08:54→13:11)
--- NOTE | 2023-07-16 09:55 | W.PN.HOSP.TC ---
Today's Communication/Plan
-
Continue IV AB
PT OT
Assessment / Plan
Assessment / Plan
CVS: S1-S2 normal
Chest: CTA B/L
Abdomen: Soft, NT / Bowel sounds present
Extremities: mild edema, pulses felt
Echo 07/10/2023-normal LV size, mild global hypokinesis, EF 40 to 45%, stage II diastolic dysfunction suggestive of abnormal relaxation, enlarged RV size, trace MR, thickened aortic valve, mild TR, pulmonary pressure 45 to 50 mmHg, trace pulmonary
regurgitation
#Right Lower Ext Cellulitis with Worsening Venous Ulcers
No systemic toxicity on admission.
Significant pain and swelling noted. Pain and swelling are improving.
Green discharge noted on admission
Wound cx noted. Blood cultures have been negative. MRSA nasal screen positive.
No evidence of DVT. Arterial ultrasound noted. Vascular input noted-no evidence of PAD.
Continue with wound care and cw Carloz wraps if possible.
Polymicrobial bacterial isolates-Pseudomonas, Klebsiella ,MRSA in wound culture noted. Continue Zosyn. And vancomycin .
Appt ID input- cw GP and GN coverage
#Coronary Artery Disease with Stent
-Continue aspirin, atorvastatin, metoprolol
# PVCs - frequently noted on telemetry. According to known to have PVCs. History of cardiac ablation for SVT in the past. No history of heart failure. ECHO shows mild global hypokinesis and LV function 40 to 45% and stage II diastolic
dysfunction. Appreciate cardiology input. Continue the beta-javi
Check magnesium level
# Essential Hypertension
-Continue Metoprolol
# Hyperlipidemia
-Continue atorvastatin
# Insulin Dependent Diabetes Mellitus
- HgbA1c 7.1
-Continue Novolin 70/30
-Ozempic is not covered anymore apparently with improved hemoglobin A1c.
-Monitor sugars and continue coverage insulin
-Patient wishes to remain on regular diet;talked about higher sugars on regular diet. Dr Wren Advised him to choose wisely.
- Increase his BLADIMIR Insulin dose
#Diabetic Neuropathy
-Continue gabapentin
#Parkinson's Disease
-Continue Sinemet
# Prostate disease
-Continue Flomax
# Ambulatory dysfunction-patient stated that he has not really walked well for 6 weeks
PT OT
# Obesity per BMI
#Overactive Bladder
-Continue Vesicare
# Sleep apnea
# History of nephrolithiasis
#DVT proph: Lovenox
#Code Status: Full Code
Discussed with nursing at bedside
Anticipated Discharge: Within 24 hours
Subjective/Interval History
-
Date of Service: July 16, 2023
Objective Data
-
Vital Signs:
Vital Signs
Temp Pulse Resp BP Pulse Ox
97.7 F 87 14 130/71 95
07/16/23 07:25 07/16/23 08:49 07/16/23 07:25 07/16/23 08:49 07/16/23 07:25
I&O
07/15/23 07/16/23 07/17/23
06:59 06:59 06:59
Intake Total 820 / 820
Output Total 910 / 910
Balance -90 / -90
[2023-07-16 10:50] LABS: Blood Urea Nitrogen 16 mg/dl (9-20); Calcium 8.7 mg/dl (8.4-10.2); Carbon Dioxide 29 mmol/L (22-30); Chloride 102 mmol/L (98-107); Estimated Creatinine Clearance 105 ml/min; Glucose 179 mg/dl (70-99); Magnesium 1.8 mg/dl (1.6-2.3); Potassium 4.6 mmol/L (3.5-5.1); Sodium 134 mmol/L (135-145); eGFR > 60.00
[2023-07-16 12:56] LABS: Glucose - Point of Care 187 mg/dl (70-99)
--- NOTE | 2023-07-16 12:57 | PHA.VAN.FU ---
Vancomycin Assessment / Plan
- Assessment
Renal Function: Stable
In the past 24 hrs, patient has been: Afebrile
Concomitant Antimicrobials: piperacillin-tazobactam
- Dosing Plan
Continue: vanc 1250 mg q12h
- Monitoring Plan
Peak Level: 07/15 2100
Trough Level: 07/16 0530
- Follow Up
Pharmacy will continue to follow.
Vancomycin Follow UP
- -
Patient Age: 77
Patient Sex: Male
Vancomycin Day #: 7
Indication: Skin And Soft Tissue
Requesting Provider: Krissy Carrillo/ Dr Serrato
Pertinent Antimicrobial Allergies:
no pertinent antibiotic allergies
Height / Weight:
Height 5 ft 8 in
Actual Weight 103.504 kg
Pertinent Past Medical History: BMI ~35, DM, Parkinson's disease
- Vital Signs / Lab Results
Temp Pulse Resp BP Pulse Ox
97.3 F 73 16 111/56 95
07/16/23 11:15 07/16/23 11:15 07/16/23 11:15 07/16/23 11:15 07/16/23 11:15
Lab Results - Hematology
07/14/23
07:10
WBC 9.1
Lab Results - Chemistry
07/14/23 07/16/23
07:10 10:10
BUN 15 16
Creatinine 0.8 0.7
Estimated Creat Clear 91 105
Microbiology Results
07/12/23 05:57 Wound Culture - Final
Leg - Right Pseudomonas aeruginosa
Staph aureus MRSA
Klebsiella pneumoniae
Gram Stain - Final
07/09/23 19:30 Blood Culture - Final
Blood/Venous No Growth - Final Report
07/09/23 18:45 Blood Culture - Final
Blood/Venous No Growth - Final Report
Therapeutic Drug Monitoring
Vancomycin Peak 19.5 ug/ml (18-26) 07/11/23 20:36
Vancomycin Trough 11.1 ug/ml (5-20) 07/12/23 05:16
[2023-07-16 14:16] LABS: COVID-19 Antigen Negative (Negative)
--- NOTE | 2023-07-16 16:04 | CM ---
RLE pain and edema improving, continue on IV/Zosyn. Discharge plan of care: [facility] has accepted pending bed availability.
--- NOTE | 2023-07-16 16:24 | W.PN.ID1 ---
Date of Service
Date of Service: July 16, 2023
Today's Communication
Contineu abx. Add LUIS F wrap
Assessment / Plan
Right lower extremity cellulitis
Venous stasis ulcerations of the right lower extremity and left lower extremity
CAD
HTN
Dyslipidemia
Diabetes mellitus
Valvular disease
Parkinson's disease
Recommendations:
Continue with Zosyn for the present.
Wound culture with MRSA. Continue with vancomycin.
Local wound care to the lower extremities
Lower extremity elevation at or above the level of the heart to decrease venous back pressure.
LUIS F wrap to the RLE
Monitor white count and temperature curve.
����������������������������������������������������������
Chief Complaint
-: Cellulitis (RLE)
Subjective / Review of Systems
Review of Systems: No Fever and No Chills
Vital Signs / Physical Exam
Vital Signs
Vital Signs
Temp Pulse Resp BP Pulse Ox
98.4 F 86 14 125/63 95
07/16/23 15:56 07/16/23 15:56 07/16/23 15:56 07/16/23 15:56 07/16/23 15:56
Physical Exam
Constitutional: No Acute Distress, Comfortable and Non-toxic
Eyes: Sclera Anicteric
Pulmonary: Non Labored
Gastrointestinal: Non Distended
Extremities: Edema and Erythema
Wound: Other (RLE; dressed. No strikethrough)
Neurological: Awake and Alert
Psychological: Calm
Objective Data
Lab Data
Lab Results
07/14/23 07:10
07/16/23 10:10
Estimated Creat Clear 105 ml/min 07/16/23 10:10
Total Bilirubin 0.8 mg/dl (0.2-1.3) 07/09/23 19:35
AST 34 U/L (17-59) 07/09/23 19:35
ALT < 10 U/L (0-50) 07/09/23 19:35
Alkaline Phosphatase 106 U/L (38-126) 07/09/23 19:35
Most recent labs reviewed.
Micro Results:
07/16/23 13:47 Influenza Types A & B (ELENITA) - Final
Nasal Swab Negative for Influenza A & B, NAAT
Negative results must be combined with clinical observations
and patient history.
Nucleic Acid Amplification test (NAAT)performed on the
[employer] platform.
07/12/23 05:57 Wound Culture - Final
Leg - Right Pseudomonas aeruginosa
Staph aureus MRSA
Klebsiella pneumoniae
Gram Stain - Final
07/09/23 19:30 Blood Culture - Final
Blood/Venous No Growth - Final Report
07/09/23 18:45 Blood Culture - Final
Blood/Venous No Growth - Final Report
07/10/23 05:37 MRSA Screen - Final
Nose Staph aureus MRSA
[2023-07-16] MEDS: MAGNESIUM OXIDE 500 MG PO (17:25)
[2023-07-16 17:28] LABS: Glucose - Point of Care 292 mg/dl (70-99)
[2023-07-16] MEDS: LOVENOX 40 MG SC (17:28)
[2023-07-16] MEDS: NOVOLOG FLEXPEN-LOW RESISTANCE 3 UNITS SC (17:33)
[2023-07-16] MEDS: FLORASTOR 250 MG PO (21:22)
[2023-07-16] MEDS: NEURONTIN 200 MG PO (21:24)
[2023-07-16] MEDS: FLOMAX 0.400000000000000022 MG PO (21:24)
[2023-07-16 22:21] LABS: Glucose - Point of Care 272 mg/dl (70-99)
[2023-07-16 22:51] LABS: Vancomycin Peak 27.4 ug/ml (18-26)
[2023-07-16] MEDS: ROXICODONE 5 MG PO (23:29)
[2023-07-17 03:48] VITALS: BP 123/59
[2023-07-17] MEDS: ZOSYN 50 IV ×4 (05:34→23:00)
[2023-07-17 06:00] VITALS: BMI 34.7
[2023-07-17 06:19] LABS: Vancomycin Trough 16.4 ug/ml (5-20)
[2023-07-17] MEDS: VANCOCIN 275 MG IV ×2 (06:23→18:15)
[2023-07-17 07:28] VITALS: BP 131/75
[2023-07-17] MEDS: FLORASTOR 250 MG PO ×2 (08:42→20:19)
[2023-07-17] MEDS: LOW STRENGTH ASPIRIN 81 MG PO ×2 (08:42→20:19)
[2023-07-17] MEDS: MAGNESIUM OXIDE 500 MG PO (08:42)
[2023-07-17] MEDS: LASIX 20 MG PO (08:42)
[2023-07-17] MEDS: DETROL LA 4 MG PO (08:42)
[2023-07-17] MEDS: LIPITOR 40 MG PO (08:42)
[2023-07-17] MEDS: NEURONTIN 100 MG PO ×2 (08:43→14:03)
[2023-07-17] MEDS: SINEMET 25-100 2.5 TABLET PO ×3 (08:43→22:34)
[2023-07-17] MEDS: LOPRESSOR 50 MG PO ×2 (08:43→20:19)
[2023-07-17] MEDS: HYDROPHOR 1 APPLIC TOPICAL (08:44)
[2023-07-17] MEDS: DESENEX/MITRAZOL/ZEASORB 1 APPLIC TOPICAL ×2 (08:44→20:19)
[2023-07-17 09:03] LABS: Glucose - Point of Care 154 mg/dl (70-99)
[2023-07-17] MEDS: NOVOLOG MIX 70/30 FLEXPEN 32 UNITS SC (09:29)
[2023-07-17] MEDS: NOVOLOG FLEXPEN-LOW RESISTANCE 1 UNITS SC (09:30)
--- NOTE | 2023-07-17 10:37 | PHA.VAN.FU ---
Vancomycin Assessment / Plan
- Assessment
Renal Function: Stable
WBC's are: WNL
In the past 24 hrs, patient has been: Afebrile
Concomitant Antimicrobials: piperacillin/tazobactam
- Assessment - Therapeutic Drug Monitoring
Extrapolated Cmax (mcg/mL): 32.3
Peak level was drawn: Appropriately (drawn ~2.3H after end of previous infusion)
Extrapolated Cmin (mcg/mL): 15.4
Trough Drawn: Appropriately
Levels were drawn: At steady state (drawn after 4th maintenance dose of regimen being resumed)
Calculated AUC (mcg*h/mL): 550
Calculated ke: 0.0706
Calculated half life (H): 9.8
Calculated Vd (L): 64 (0.6 L/kg)
Calculated Vanc CL (ml/min): 76
Patient has had appropriate accumulation on increased dosing
However, Vanc 1000mg Q12H also would provide appropriate AUC
- Dosing Plan
Adjust Regimen to: Vanc 1000mg Q12H starting 07/17 0600
New Regimen Predicts: AUC (456), Peak (27.2), Trough (12.5)
Dosing Comments: stop 1250mg dosing after 1800 dose tonight
Adjusting dose to lowest effective dosing in therapeutic AUC range to minimize development of toxicity
- Monitoring Plan
Level(s) appropriate: Recheck trough at minimum of weekly intervals, Repeat sooner for changes in renal function or clinical status
Next Level Due (Date): ~07/23
- Follow Up
Pharmacy will continue to follow.
Vancomycin Follow UP
- -
Patient Age: 77
Patient Sex: Male
Vancomycin Day #: 8
Indication: Skin And Soft Tissue
Requesting Provider: Krissy Carrillo/ Dr Serrato
Pertinent Antimicrobial Allergies:
no pertinent antibiotic allergies
Height / Weight:
Height 5 ft 8 in
Actual Weight 103.51 kg
Pertinent Past Medical History: BMI ~35, DM, Parkinson's disease
- Vital Signs / Lab Results
Temp Pulse Resp BP Pulse Ox
97.6 F 73 14 131/75 97
07/17/23 07:28 07/17/23 08:43 07/17/23 07:28 07/17/23 08:43 07/17/23 07:28
Lab Results - Hematology
07/14/23
07:10
WBC 9.1
Lab Results - Chemistry
07/16/23
10:10
BUN 16
Creatinine 0.7
Estimated Creat Clear 105
Microbiology Results
07/16/23 13:47 Influenza Types A & B (ELENITA) - Final
Nasal Swab Negative for Influenza A & B, NAAT
Negative results must be combined with clinical observations
and patient history.
Nucleic Acid Amplification test (NAAT)performed on the
[employer] platform.
07/12/23 05:57 Wound Culture - Final
Leg - Right Pseudomonas aeruginosa
Staph aureus MRSA
Klebsiella pneumoniae
Gram Stain - Final
Therapeutic Drug Monitoring
Vancomycin Peak 27.4 ug/ml (18-26) H 07/16/23 22:16
Vancomycin Trough 16.4 ug/ml (5-20) 07/17/23 05:32
--- NOTE | 2023-07-17 11:04 | W.PN.HOSP.TC ---
Addendum entered and electronically signed by Mandeep Owen MD 07/17/23 11:09:
Left message for
Original Note:
Today's Communication/Plan
-
Continue AB
Increase Insulin
CARLOZ bandage applied today
Assessment / Plan
Assessment / Plan
CVS: S1-S2 normal
Chest: CTA B/L
Abdomen: Soft, NT / Bowel sounds present
Extremities: mild edema, pulses felt
Ulcers srtable
Echo 07/10/2023-normal LV size, mild global hypokinesis, EF 40 to 45%, stage II diastolic dysfunction suggestive of abnormal relaxation, enlarged RV size, trace MR, thickened aortic valve, mild TR, pulmonary pressure 45 to 50 mmHg, trace pulmonary
regurgitation
#Right Lower Ext Cellulitis with Worsening Venous Ulcers
Significant pain and swelling noted. Pain and swelling are improving.
Wound cx noted. Blood cultures have been negative. MRSA nasal screen positive.
No evidence of DVT. Arterial ultrasound noted. Vascular input noted-no evidence of PAD.
Continue with wound care and cw Carloz wraps if possible.
Polymicrobial bacterial isolates-Pseudomonas, Klebsiella ,MRSA in wound culture noted. Continue Zosyn. And vancomycin .
#Coronary Artery Disease with Stent
-Continue aspirin, atorvastatin, metoprolol
# PVCs - frequently noted on telemetry. According to known to have PVCs. History of cardiac ablation for SVT in the past. No history of heart failure. ECHO shows mild global hypokinesis and LV function 40 to 45% and stage II diastolic
dysfunction. Appreciate cardiology input. Continue the beta-javi
# Essential Hypertension
-Continue Metoprolol
# Hyperlipidemia
-Continue atorvastatin
# Insulin Dependent Diabetes Mellitus
- HgbA1c 7.1
-Continue Novolin 70/30
-Ozempic is not covered anymore apparently with improved hemoglobin A1c.
-Monitor sugars and continue coverage insulin
-Patient wishes to remain on regular diet(Aware about higher sugars on regular diet)
- Increase his BLADIMIR Insulin dose
-Increase 70/30 to 34 units BID
#Diabetic Neuropathy
-Continue gabapentin
#Parkinson's Disease
-Continue Sinemet
# Prostate disease
-Continue Flomax
# Ambulatory dysfunction-patient stated that he has not really walked well for 6 weeks
PT OT
# Obesity per BMI-Non complaint with diet
#Overactive Bladder
-Continue Vesicare
# Sleep apnea
# History of nephrolithiasis
#DVT proph: Lovenox
#Code Status: Full Code
Discussed with nursing at bedside
Anticipated Discharge: 24 - 48 hours
Subjective/Interval History
-
Date of Service: July 17, 2023
Objective Data
-
Vital Signs:
Vital Signs
Temp Pulse Resp BP Pulse Ox
97.6 F 73 14 131/75 97
07/17/23 07:28 07/17/23 08:43 07/17/23 07:28 07/17/23 08:43 07/17/23 07:28
I&O
07/16/23 07/17/23 07/18/23
06:59 06:59 06:59
Intake Total 820 / 820 1260 / 1260
Output Total 910 / 910 1750 / 1750
Balance -90 / -90 -490 / -490
[2023-07-17 11:05] VITALS: BP 105/68
--- NOTE | 2023-07-17 11:17 | WOUNDNOTE ---
R LOWER LEG AND FOOT
--- NOTE | 2023-07-17 11:17 | WOUNDNOTE ---
R LATERAL LOWER LEG
--- NOTE | 2023-07-17 11:18 | WOUNDNOTE ---
R POSTERIOR LOWER LEG
--- NOTE | 2023-07-17 11:18 | WOUNDNOTE ---
R POSTERIOR LOWER LEG
--- NOTE | 2023-07-17 11:20 | WOUNDNOTE ---
AKUA RN NOTE: Followed up today with assist from nurse [place]. L ankle wound has healed, dry peeling skin no drainage. Moisturized with mineral oil, heel intact. R lower leg venous ulcers much improved, open wound posterior ankle area and proximal
lateral lower leg, pink base. Wound culture was + for MRSA. Mineral oil applied to dry skin on leg and dressing changed. Reviewed LOAD TALLIER Ramírez's note; legs with venous ulcers, no evidence of arterial insufficiency, continue local wound care and b/l
compression with carloz wraps. Called [facility] for cleanser Vashe to use on R leg wounds and carloz wraps. Nurse made aware and will apply Carloz wraps. Turned and repositioned patient onto L semi side lying position, R hip with pale pink blanchable skin, foam
changed. Sacrum and buttocks intact. Will confirm the above with hospitalist, update care plan and discharge instructions. Will follow as needed.
[2023-07-17 11:24] LABS: Glucose - Point of Care 280 mg/dl (70-99)
[2023-07-17] MEDS: NOVOLOG FLEXPEN-LOW RESISTANCE 3 UNITS SC (12:49)
[2023-07-17] MEDS: ROXICODONE 5 MG PO (14:03)
--- NOTE | 2023-07-17 14:23 | W.PN.ID1 ---
Date of Service
Date of Service: July 17, 2023
Today's Communication
Continue antibiotics for today.
Assessment / Plan
Right lower extremity cellulitis
Venous stasis ulcerations of the right lower extremity and left lower extremity
CAD
HTN
Dyslipidemia
Diabetes mellitus
Valvular disease
Parkinson's disease
Recommendations:
Continue with Zosyn (d#9). Continue with vancomycin d#9).
Wound culture with MRSA.
Local wound care to the lower extremities
Lower extremity elevation at or above the level of the heart to decrease venous back pressure.
LUIS F wrap to the RLE
Monitor white count and temperature curve.
Follow for improvement in pain. Once LUIS F wraps tolerable, may be able to discharge.
����������������������������������������������������������
Chief Complaint
-: Cellulitis (RLE)
Subjective / Review of Systems
Patient seen and examined. He reports some mild improvement in right lower extremity discomfort.
Vital Signs / Physical Exam
Vital Signs
Vital Signs
Temp Pulse Resp BP Pulse Ox
98.1 F 69 18 105/68 96
07/17/23 11:05 07/17/23 11:05 07/17/23 11:05 07/17/23 11:05 07/17/23 11:36
Physical Exam
Constitutional: No Acute Distress, Comfortable and Non-toxic
Pulmonary: Non Labored
Gastrointestinal: Soft, Non Tender and Non Distended
Extremities: Edema, Erythema and Venous Insufficiency
Wound: Other (Right leg wound dressed. Less pain with manipulation.)
Neurological: Awake and Alert
Psychological: Calm
Objective Data
Lab Data
Lab Results
07/14/23 07:10
07/16/23 10:10
Estimated Creat Clear 105 ml/min 07/16/23 10:10
Total Bilirubin 0.8 mg/dl (0.2-1.3) 07/09/23 19:35
AST 34 U/L (17-59) 07/09/23 19:35
ALT < 10 U/L (0-50) 07/09/23 19:35
Alkaline Phosphatase 106 U/L (38-126) 07/09/23 19:35
Most recent labs reviewed.
Micro Results:
07/16/23 13:47 Influenza Types A & B (ELENITA) - Final
Nasal Swab Negative for Influenza A & B, NAAT
Negative results must be combined with clinical observations
and patient history.
Nucleic Acid Amplification test (NAAT)performed on the
[employer] platform.
07/12/23 05:57 Wound Culture - Final
Leg - Right Pseudomonas aeruginosa
Staph aureus MRSA
Klebsiella pneumoniae
Gram Stain - Final
07/09/23 19:30 Blood Culture - Final
Blood/Venous No Growth - Final Report
07/09/23 18:45 Blood Culture - Final
Blood/Venous No Growth - Final Report
07/10/23 05:37 MRSA Screen - Final
Nose Staph aureus MRSA
[2023-07-17 15:30] VITALS: BP 125/72
--- NOTE | 2023-07-17 16:46 | CM ---
Continue IV Zosyn and Vanco. Follow temp curves and WBC. Follow for pain improvement. Discharge Plan of Care: Accepted at [facility] for care home and rehab services.
[2023-07-17 17:19] LABS: Glucose - Point of Care 240 mg/dl (70-99)
[2023-07-17] MEDS: LOVENOX 40 MG SC (17:33)
[2023-07-17] MEDS: NOVOLOG FLEXPEN-LOW RESISTANCE 2 UNITS SC (17:34)
[2023-07-17] MEDS: NOVOLOG MIX 70/30 FLEXPEN 34 UNITS SC (17:34)
[2023-07-17] MEDS: TYLENOL 650 MG PO (18:42)
[2023-07-17 19:23] VITALS: BP 123/60
[2023-07-17 22:22] LABS: Glucose - Point of Care 173 mg/dl (70-99)
[2023-07-17] MEDS: FLOMAX 0.400000000000000022 MG PO (22:34)
[2023-07-17] MEDS: NEURONTIN 200 MG PO (22:34)
[2023-07-17 23:22] VITALS: BP 129/66
[2023-07-18 03:17] VITALS: BP 112/69
[2023-07-18 05:02] LABS: Hematocrit 46.7 % (39.0-52.0); Mean Corp Hgb Conc. 34.3 g/dL (33.0-37.0); Mean Corpuscular Hgb 34.3 pg (27.0-31.0); Mean Platelet Volume 9.8 fL (7.4-10.4); Platelet Count 243 10^3/uL (130-400); Red Blood Cell Count 4.67 10^6/uL (4.70-6.10); Red Cell Dist. Width 14.3 % (11.5-14.5); White Blood Cell Count 8.8 10^3/uL (4.8-10.8)
[2023-07-18] MEDS: ZOSYN 50 IV ×2 (05:25→11:17)
[2023-07-18 05:43] LABS: Blood Urea Nitrogen 19 mg/dl (9-20); Carbon Dioxide 28 mmol/L (22-30); Chloride 99 mmol/L (98-107); Estimated Creatinine Clearance 92 ml/min; Glucose 54 mg/dl (70-99); Potassium 4.1 mmol/L (3.5-5.1); Sodium 138 mmol/L (135-145); eGFR > 60.00
[2023-07-18] MEDS: VANCOCIN 200 IV (05:59)
[2023-07-18 06:00] VITALS: BMI 34.8
[2023-07-18 06:07] LABS: Glucose - Point of Care 78 mg/dl (70-99)
[2023-07-18 07:10] VITALS: BP 130/89
[2023-07-18 07:19] LABS: Glucose - Point of Care 113 mg/dl (70-99)
[2023-07-18] MEDS: NOVOLOG FLEXPEN-LOW RESISTANCE SC (07:43)
--- NOTE | 2023-07-18 08:27 | PHA.VAN.FU ---
Vancomycin Assessment / Plan
- Assessment
Renal Function: Stable
WBC's are: WNL
In the past 24 hrs, patient has been: Afebrile
Concomitant Antimicrobials: piperacillin/tazobactam
- Dosing Plan
Continue: Vanc 1000mg Q12H (adjusted starting today)
- Monitoring Plan
Level(s) appropriate: Recheck trough at minimum of weekly intervals, Repeat sooner for changes in renal function or clinical status
Next Level Due (Date): consider by 07/23 or sooner
- Follow Up
Pharmacy will continue to follow.
Vancomycin Follow UP
- -
Patient Age: 77
Patient Sex: Male
Vancomycin Day #: 9
Indication: Skin And Soft Tissue
Requesting Provider: Krissy Carrillo/ Dr Serrato
Pertinent Antimicrobial Allergies:
no pertinent antibiotic allergies
Height / Weight:
Height 5 ft 8 in
Actual Weight 103.646 kg
Pertinent Past Medical History: BMI ~35, DM, Parkinson's disease
- Vital Signs / Lab Results
Temp Pulse Resp BP Pulse Ox
97.5 F 83 18 130/89 97
07/18/23 07:10 07/18/23 07:10 07/18/23 07:10 07/18/23 07:10 07/18/23 07:10
Lab Results - Hematology
07/18/23
04:00
WBC 8.8
Lab Results - Chemistry
07/16/23 07/18/23
10:10 04:00
BUN 16 19
Creatinine 0.7 0.8
Estimated Creat Clear 105 92
Microbiology Results
07/16/23 13:47 Influenza Types A & B (ELENITA) - Final
Nasal Swab Negative for Influenza A & B, NAAT
Negative results must be combined with clinical observations
and patient history.
Nucleic Acid Amplification test (NAAT)performed on the
[employer] platform.
Therapeutic Drug Monitoring
Vancomycin Peak 27.4 ug/ml (18-26) H 07/16/23 22:16
Vancomycin Trough 16.4 ug/ml (5-20) 07/17/23 05:32
[2023-07-18] MEDS: MAGNESIUM OXIDE 500 MG PO (09:02)
[2023-07-18] MEDS: LASIX 20 MG PO (09:02)
[2023-07-18] MEDS: DETROL LA 4 MG PO (09:02)
[2023-07-18] MEDS: LIPITOR 40 MG PO (09:05)
[2023-07-18] MEDS: NEURONTIN 100 MG PO ×2 (09:05→14:00)
[2023-07-18] MEDS: FLORASTOR 250 MG PO ×2 (09:05→20:39)
[2023-07-18] MEDS: LOPRESSOR 50 MG PO ×2 (09:05→20:40)
[2023-07-18] MEDS: SINEMET 25-100 2.5 TABLET PO ×3 (09:05→22:13)
[2023-07-18] MEDS: DESENEX/MITRAZOL/ZEASORB 1 APPLIC TOPICAL ×2 (09:06→20:39)
[2023-07-18] MEDS: NOVOLOG MIX 70/30 FLEXPEN SC (09:06)
[2023-07-18] MEDS: HYDROPHOR 1 APPLIC TOPICAL (09:06)
[2023-07-18] MEDS: LOW STRENGTH ASPIRIN 81 MG PO ×2 (09:06→20:39)
[2023-07-18] MEDS: NOVOLOG MIX 70/30 FLEXPEN 28 UNITS SC (10:05)
[2023-07-18 11:00] VITALS: BP 106/65
[2023-07-18 11:16] LABS: Glucose - Point of Care 160 mg/dl (70-99)
[2023-07-18] MEDS: ROXICODONE 5 MG PO ×2 (11:17→17:45)
[2023-07-18 12:11] LABS: Glucose - Point of Care 190 mg/dl (70-99)
--- NOTE | 2023-07-18 12:26 | W.PN.HOSP.TC ---
Today's Communication/Plan
-
Treat constipation
Discharge planning.
Assessment / Plan
Assessment / Plan
CVS: S1-S2 normal
Chest: CTA B/L
Abdomen: Soft, NT / Bowel sounds present
Extremities: Not much edema, Wounds mostly dry
Ulcers stable
Echo 07/10/2023-normal LV size, mild global hypokinesis, EF 40 to 45%, stage II diastolic dysfunction suggestive of abnormal relaxation, enlarged RV size, trace MR, thickened aortic valve, mild TR, pulmonary pressure 45 to 50 mmHg, trace pulmonary
regurgitation
#Right Lower Ext Cellulitis with Worsening Venous Ulcers
Not much edema today
Wound cx noted. Blood cultures have been negative. MRSA nasal screen positive.
No evidence of DVT. Arterial ultrasound noted. Vascular input noted-no evidence of PAD.
Continue with wound care and cw Carloz wraps if possible.( was off this am)
Polymicrobial bacterial isolates-Pseudomonas, Klebsiella ,MRSA in wound culture noted. Continue Zosyn. And vancomycin .
#Constipation- Bowel regimen ordered
#Coronary Artery Disease with Stent
-Continue aspirin, atorvastatin, metoprolol
# PVCs - frequently noted on telemetry. According to known to have PVCs. History of cardiac ablation for SVT in the past. No history of heart failure. ECHO shows mild global hypokinesis and LV function 40 to 45% and stage II diastolic
dysfunction. Appreciate cardiology input. Continue the beta-javi
# Essential Hypertension
-Continue Metoprolol
# Hyperlipidemia
-Continue atorvastatin
# Insulin Dependent Diabetes Mellitus
- HgbA1c 7.1
-Continue Novolin 70/30
-Ozempic is covered again per . She will bring the medicine to the rehab so he can start taking it again.
-Monitor sugars and continue coverage insulin
-Patient wishes to remain on regular diet(Aware about higher sugars on regular diet)
- Increase his BLADIMIR Insulin dose
-70/30 changed to 28 units this am and to 32 units starting evening.
#Diabetic Neuropathy
-Continue gabapentin
#Parkinson's Disease
-Continue Sinemet
# Prostate disease
-Continue Flomax
# Ambulatory dysfunction-patient stated that he has not really walked well for 6 weeks
PT OT
# Obesity per BMI-Non complaint with diet
#Overactive Bladder
-Continue Vesicare
# Sleep apnea
# History of nephrolithiasis
#DVT proph: Lovenox
#Code Status: Full Code
Discussed with the regarding importance of choosing wisely while he is on a regular diet. Also about getting edema under control even moving forward so that he can prevent chronic venous stasis ulcers.
Discharge planning discussed.
Anticipated Discharge: Within 24 hours
Subjective/Interval History
-
Date of Service: July 18, 2023
Objective Data
-
Labs:
Laboratory Results
07/18/23
04:00
WBC 8.8
Hgb 16.0
Hct 46.7
Plt Count 243
Sodium 138
Potassium 4.1
Chloride 99
Carbon Dioxide 28
BUN 19
Creatinine 0.8
Glucose 54 L*
Calcium 9.0
Vital Signs:
Vital Signs
Temp Pulse Resp BP Pulse Ox
98.4 F 67 14 106/65 95
07/18/23 11:00 07/18/23 11:00 07/18/23 11:00 07/18/23 11:00 07/18/23 11:00
I&O
07/17/23 07/18/23 07/19/23
06:59 06:59 06:59
Intake Total 1260 / 1260 1560 / 1560
Output Total 1750 / 1750 550 / 550
Balance -490 / -490 1010 / 1010
[2023-07-18] MEDS: MILK OF MAGNESIA 30 ML PO (13:05)
[2023-07-18] MEDS: MIRALAX 17 GRAMS PO (13:05)
[2023-07-18] MEDS: SENOKOT 8.59999999999999964 MG PO (13:05)
[2023-07-18] MEDS: NOVOLOG FLEXPEN-LOW RESISTANCE 1 UNITS SC (14:00)
[2023-07-18 15:15] VITALS: BP 111/65
--- NOTE | 2023-07-18 15:22 | W.PN.ID1 ---
Date of Service
Date of Service: July 18, 2023
Today's Communication
Change antibiotics to doxycycline for an additional 7 days. Follow-up in wound care center. Lower extremity elevation.
Assessment / Plan
Right lower extremity cellulitis
Venous stasis ulcerations of the right lower extremity and left lower extremity
CAD
HTN
Dyslipidemia
Diabetes mellitus
Valvular disease
Parkinson's disease
Recommendations:
Legs overall look markedly improved. Of note, Carloz wrap's were not present at today's exam.
Prior drainage has abated.
Would continue with Aquaphor or other hydrating lotion to the lower extremities.
Patient has been counseled that he will need to continue with compressive modalities (Tubigrips and/or Carloz wrap's), especially when legs are dependent. I suspect that a good portion of the improvement at this point in time is secondary to patient's
being in bed during his hospitalization.
Discontinue further Zosyn and vancomycin.
Begin doxycycline 100 mg p.o. twice daily for an additional 7 days.
Local wound care to the lower extremities
Lower extremity elevation at or above the level of the heart to decrease venous back pressure.
����������������������������������������������������������
Chief Complaint
-: Cellulitis (RLE)
Subjective / Review of Systems
Patient seen and examined. Reports some ongoing right lower extremity discomfort, although overall markedly decreased from admission.
Review of Systems: No Fever
Vital Signs / Physical Exam
Vital Signs
Vital Signs
Temp Pulse Resp BP Pulse Ox
98.4 F 67 14 106/65 95
07/18/23 11:00 07/18/23 11:00 07/18/23 11:00 07/18/23 11:07/18/23 12:52
Physical Exam
Constitutional: No Acute Distress, Comfortable and Non-toxic
Eyes: Sclera Anicteric
Cardiovascular: S1/S2; Negative S3/S4
Pulmonary: Non Labored
Gastrointestinal: Non Distended
Extremities: Edema (1+ of right lower extremity)
Skin: Other (Scaly skin with dry desquamation in several areas. Prior draining wounds have dried.)
Neurological: Awake and Alert
Objective Data
Lab Data
Lab Results
07/18/23 04:00
07/18/23 04:00
Estimated Creat Clear 92 ml/min 07/18/23 04:00
Total Bilirubin 0.8 mg/dl (0.2-1.3) 07/09/23 19:35
AST 34 U/L (17-59) 07/09/23 19:35
ALT < 10 U/L (0-50) 07/09/23 19:35
Alkaline Phosphatase 106 U/L (38-126) 07/09/23 19:35
Most recent labs reviewed.
Micro Results:
07/16/23 13:47 Influenza Types A & B (ELENITA) - Final
Nasal Swab Negative for Influenza A & B, NAAT
Negative results must be combined with clinical observations
and patient history.
Nucleic Acid Amplification test (NAAT)performed on the
[employer] platform.
07/12/23 05:57 Wound Culture - Final
Leg - Right Pseudomonas aeruginosa
Staph aureus MRSA
Klebsiella pneumoniae
Gram Stain - Final
07/09/23 19:30 Blood Culture - Final
Blood/Venous No Growth - Final Report
07/09/23 18:45 Blood Culture - Final
Blood/Venous No Growth - Final Report
07/10/23 05:37 MRSA Screen - Final
Nose Staph aureus MRSA
Care Review
Plan reviewed with: Physician (Hospitalist)
--- NOTE | 2023-07-18 16:24 | CM ---
Discharge Plan of Care: Accepted to [facility]. Anticipate discharge and bed availability on 07/19/23.
[2023-07-18 17:19] LABS: Glucose - Point of Care 222 mg/dl (70-99)
[2023-07-18] MEDS: LOVENOX 40 MG SC (17:41)
[2023-07-18] MEDS: NOVOLOG MIX 70/30 FLEXPEN 32 UNITS SC (18:00)
[2023-07-18] MEDS: NOVOLOG FLEXPEN-LOW RESISTANCE 2 UNITS SC (18:02)
[2023-07-18 19:45] VITALS: BP 134/99
[2023-07-18] MEDS: VIBRAMYCIN 100 MG PO (20:39)
[2023-07-18] MEDS: FLOMAX 0.400000000000000022 MG PO (22:12)
[2023-07-18] MEDS: NEURONTIN 200 MG PO (22:12)
[2023-07-18 22:58] LABS: Glucose - Point of Care 182 mg/dl (70-99)
[2023-07-19 00:33] VITALS: BP 132/85
[2023-07-19 03:36] LABS: Glucose - Point of Care 138 mg/dl (70-99)
[2023-07-19 03:45] VITALS: BP 110/61
[2023-07-19 06:00] VITALS: BMI 34.6
[2023-07-19 07:36] VITALS: BP 137/73
[2023-07-19 07:47] LABS: Glucose - Point of Care 102 mg/dl (70-99)
[2023-07-19] MEDS: NOVOLOG FLEXPEN-LOW RESISTANCE SC ×2 (08:14→11:25)
[2023-07-19] MEDS: MIRALAX 17 GRAMS PO (09:12)
[2023-07-19] MEDS: FLORASTOR 250 MG PO (09:12)
[2023-07-19] MEDS: MAGNESIUM OXIDE 500 MG PO (09:12)
[2023-07-19] MEDS: DETROL LA 4 MG PO (09:12)
[2023-07-19] MEDS: VIBRAMYCIN 100 MG PO (09:13)
[2023-07-19] MEDS: NEURONTIN 100 MG PO ×2 (09:13→15:14)
[2023-07-19] MEDS: LIPITOR 40 MG PO (09:13)
[2023-07-19] MEDS: SINEMET 25-100 2.5 TABLET PO ×2 (09:13→15:14)
[2023-07-19] MEDS: LOPRESSOR 50 MG PO (09:13)
[2023-07-19] MEDS: LOW STRENGTH ASPIRIN 81 MG PO (09:13)
[2023-07-19] MEDS: LASIX 20 MG PO (09:14)
[2023-07-19] MEDS: HYDROPHOR 1 APPLIC TOPICAL (09:20)
[2023-07-19] MEDS: DESENEX/MITRAZOL/ZEASORB 1 APPLIC TOPICAL (09:21)
--- NOTE | 2023-07-19 10:09 | W.PN.HOSP.TC ---
Today's Communication/Plan
-
Discharge
Assessment / Plan
Assessment / Plan
CVS: S1-S2 normal
Chest: CTA B/L
Abdomen: Soft, NT / Bowel sounds present
Extremities: Not much edema
Echo 07/10/2023-normal LV size, mild global hypokinesis, EF 40 to 45%, stage II diastolic dysfunction suggestive of abnormal relaxation, enlarged RV size, trace MR, thickened aortic valve, mild TR, pulmonary pressure 45 to 50 mmHg, trace pulmonary
regurgitation
#Right Lower Ext Cellulitis with Worsening Venous Ulcers
Not much edema today-Had Carloz wraps on last night
Wound cx noted. Blood cultures have been negative. MRSA nasal screen positive.
No evidence of DVT. Arterial ultrasound noted. Vascular input noted-no evidence of PAD.
Continue with wound care
AB for doxycycline for an additional 7 days per ID
#Constipation-Resolved.
#Coronary Artery Disease with Stent
-Continue aspirin, atorvastatin, metoprolol
-Echo 07/10/2023-normal, concentric LVH, mild global hypokinesis, ejection fraction 40 to 45% per Hinson's method however 50% visually. Stage II diastolic dysfunction, enlarged RV size, trace MR, mild TR, pulmonary artery pressure 45 to 50 mmHg
# PVCs - frequently noted on telemetry. According to known to have PVCs. History of cardiac ablation for SVT in the past. No history of heart failure. ECHO shows mild global hypokinesis and LV function 40 to 45% and stage II diastolic
dysfunction. Appreciate cardiology input. Continue the beta-javi
# Essential Hypertension
-Continue Metoprolol
# Hyperlipidemia
-Continue atorvastatin
# Insulin Dependent Diabetes Mellitus
- HgbA1c 7.1
-Continue Novolin 70/30
-Ozempic is covered again per . She will bring the medicine to the rehab so he can start taking it again.
-Monitor sugars and continue coverage insulin
-Patient wishes to remain on regular diet(Aware about higher sugars on regular diet)
- Increase his BLADIMIR Insulin dose
#Diabetic Neuropathy
-Continue gabapentin
#Parkinson's Disease
-Continue Sinemet
# Prostate disease
-Continue Flomax
# Ambulatory dysfunction-patient stated that he has not really walked well for 6 weeks
PT OT
# Obesity per BMI-Non complaint with diet
#Overactive Bladder
-Continue Vesicare
# Sleep apnea-CPAP intolerent
# History of nephrolithiasis
#DVT proph: Lovenox
#Code Status: Full Code
D/W RN at bed side
D/W Case management
Discharge to rehab
Discharge time 33 min
Anticipated Discharge: Today
Subjective/Interval History
-
Date of Service: July 19, 2023
Objective Data
-
Vital Signs:
Vital Signs
Temp Pulse Resp BP Pulse Ox
98.6 F 83 16 137/73 98
07/19/23 07:36 07/19/23 07:36 07/19/23 07:36 07/19/23 09:14 07/19/23 07:36
I&O
07/18/23 07/19/23 07/20/23
06:59 06:59 06:59
Intake Total 1560 / 1560 900 / 900
Output Total 550 / 550
Balance 1010 / 1010 900 / 900
--- NOTE | 2023-07-19 10:19 | W.[place]-PDMP ---
[place]-PDMP
-
Checked the [place]- Prescription Drug Monitoring Program website, no red flags identified; safe to proceed with prescription.
--- NOTE | 2023-07-19 10:29 | W.DS.TRANS ---
Addendum entered and electronically signed by Mandeep Owen MD 07/20/23 08:28:
Dictation- [id number]
Original Note:
DC Summary - Robotic Machine Operator
-
Discharge Instructions:
Discharge Diagnosis/Procedures Right lower extremity cellulitis with venous
ulcers, coronary artery disease with history of
stent, PVCs, diastolic dysfunction, hypertension
, hyperlipidemia, diabetes, diabetic neuropathy,
Parkinson disease, prostate disease, ambulatory
dysfunction, obesity, sleep apnea-CPAP
intolerant
Diet Restrict fluids to 48 oz,2 Gram Sodium
Additional Diets Patient needs to cut back on carbs and
concentrated sugars
Activity As tolerated,With assistance
Driving Restrictions No driving
Others Tests Outpatient venous insufficiency ultrasounds can
be done to see if any targets for vein closures
to assist with wound healing/recurrent
ulceration prevention.
Other Services PT,OT
Specialty Instructions Weigh Daily
Instructions:
Stand-Alone Forms:
Changes to Home Medications: Yes
Discharge Medications:
DC Medications w/original date entered in [employer]
aspirin 81 mg chewable tablet 81 mg PO BID Blood Clot Prevention/Tx 03/07/23
atorvastatin 40 mg tablet 40 mg PO DAILY High Cholesterol 03/07/23
carbidopa 25 mg-levodopa 100 mg tablet 2.5 tab PO TID parkinson's disease 03/07/23
metoprolol tartrate 50 mg tablet 50 mg PO BID Blood Pressure 03/07/23
semaglutide 0.25 mg or 0.5 mg (2 mg/3 mL) subcutaneous pen injector (Ozempic) 0.5 mg SC WE Diabetes 03/07/23
solifenacin 10 mg tablet 10 mg PO DAILY Urinary Issue 03/07/23
tamsulosin 0.4 mg capsule 0.4 mg PO HS urine retention 03/07/23
furosemide 20 mg tablet 20 mg PO DAILY Fluid Retention/Swelling 07/09/23
gabapentin 100 mg capsule 100 mg PO BID@0800,1500 Neurological Condition 07/09/23
gabapentin 100 mg capsule 200 mg PO HS Neurological Condition 07/09/23
insulin NPH-regular 70-30 U-100 insulin 100 unit/mL subcutaneous pen (Novolin 70-30 FlexPen U-100 Insulin) 0 unit SC BIDWMEAL Diabetes 07/09/23
Saccharomyces boulardii 250 mg capsule 250 mg PO BID Supplement #0 caps 07/19/23
acetaminophen 325 mg tablet 650 mg PO Q4HPRN PRN mild pain #0 tabs 07/19/23
doxycycline hyclate 100 mg capsule 100 mg PO Q12 Infection #0 caps 07/19/23
magnesium oxide 500 mg PO DAILY Arrhythmia #0 tabs 07/19/23
oxycodone 5 mg tablet 5 mg PO Q4HPRN PRN moderate pain #10 tabs 07/19/23
polyethylene glycol 3350 17 gram oral powder packet (HealthyLax) 17 g PO DAILY Constipation #0 ea 07/19/23
Home Medication Changes
new
Saccharomyces boulardii 250 mg capsule 250 mg PO BID Supplement #0 caps 07/19/23
acetaminophen 325 mg tablet 650 mg PO Q4HPRN PRN mild pain #0 tabs 07/19/23
doxycycline hyclate 100 mg capsule 100 mg PO Q12 Infection #0 caps 07/19/23
magnesium oxide 500 mg PO DAILY Arrhythmia #0 tabs 07/19/23
oxycodone 5 mg tablet 5 mg PO Q4HPRN PRN moderate pain #10 tabs 07/19/23
polyethylene glycol 3350 17 gram oral powder packet (HealthyLax) 17 g PO DAILY Constipation #0 ea 07/19/23
Pending Results: No
[2023-07-19] MEDS: NOVOLOG MIX 70/30 FLEXPEN 32 UNITS SC (10:47)
[2023-07-19 11:19] LABS: Glucose - Point of Care 138 mg/dl (70-99)
[2023-07-19 11:54] VITALS: BP 112/65
--- NOTE | 2023-07-19 12:14 | CM ---
Patient has been accepted to [facility] for half-way and rehab services. Insurance authorization has been obtained through . Spoke with KORY Fleming at . Patient has been approved for level 1 skilled services. Auth# [id number]. Start
of care is 07/19/23 and NRD is 07/23/23. Call concurrent reviews to [phone]. Transport to be scheduled.
NURSE TO NURSE REPORT # [phone]
FAX # [phone]
--- NOTE | 2023-07-19 14:03 | W.PN.ID1 ---
Date of Service
Date of Service: July 19, 2023
Today's Communication
Continue antibiotics.
Assessment / Plan
Right lower extremity cellulitis
- improved
Venous stasis ulcerations of the right lower extremity and left lower extremity
CAD
HTN
Dyslipidemia
Diabetes mellitus
Valvular disease
Parkinson's disease
Recommendations:
Legs overall look markedly improved.
Prior drainage has abated.
Would continue with Aquaphor or other hydrating lotion to the lower extremities.
Patient has been counseled that he will need to continue with compressive modalities (Tubigrips and/or Carloz wrap's), especially when legs are dependent. I suspect that a good portion of the improvement at this point in time is secondary to patient's
being in bed during his hospitalization.
Continue doxycycline 100 mg p.o. twice daily for an additional 6 days.
Will follow-up in the office in 2 weeks.
Local wound care to the lower extremities
Lower extremity elevation at or above the level of the heart to decrease venous back pressure.
����������������������������������������������������������
Chief Complaint
-: Cellulitis (RLE)
Subjective / Review of Systems
Patient seen and examined. Reports right leg feeling overall improved. Still with discomfort, but less. Carloz wrap's are currently in place.
Vital Signs / Physical Exam
Vital Signs
Vital Signs
Temp Pulse Resp BP Pulse Ox
98.2 F 80 18 112/65 96
07/19/23 11:54 07/19/23 11:54 07/19/23 11:54 07/19/23 11:54 07/19/23 11:54
Physical Exam
Constitutional: No Acute Distress and Comfortable
Pulmonary: Non Labored; Negative Wheezes
Gastrointestinal: Non Distended
Extremities: Other (Bilateral lower extremities wrapped in Carloz wrap. Decreased overall erythema.)
Neurological: Awake, Alert and Oriented
Psychological: Calm
Objective Data
Lab Data
Lab Results
07/18/23 04:00
07/18/23 04:00
Estimated Creat Clear 92 ml/min 07/18/23 04:00
Total Bilirubin 0.8 mg/dl (0.2-1.3) 07/09/23 19:35
AST 34 U/L (17-59) 07/09/23 19:35
ALT < 10 U/L (0-50) 07/09/23 19:35
Alkaline Phosphatase 106 U/L (38-126) 07/09/23 19:35
Most recent labs reviewed.
Micro Results:
07/16/23 13:47 Influenza Types A & B (ELENITA) - Final
Nasal Swab Negative for Influenza A & B, NAAT
Negative results must be combined with clinical observations
and patient history.
Nucleic Acid Amplification test (NAAT)performed on the
[employer] platform.
07/12/23 05:57 Wound Culture - Final
Leg - Right Pseudomonas aeruginosa
Staph aureus MRSA
Klebsiella pneumoniae
Gram Stain - Final
07/09/23 19:30 Blood Culture - Final
Blood/Venous No Growth - Final Report
07/09/23 18:45 Blood Culture - Final
Blood/Venous No Growth - Final Report
07/10/23 05:37 MRSA Screen - Final
Nose Staph aureus MRSA
[2023-07-19] MEDS: ROXICODONE 5 MG PO (15:13)
[2023-07-19 15:51] VITALS: BP 134/69
== END 2023-07-19 17:20 | DRG 300 ==
LOC: 2 NORTH 21:17
PROVIDERS: Internal Medicine; ADMITTING PHYSICIAN Hospitalist; ATTENDING PHYSICIAN Hospitalist; CONSULT PHYSICIAN Internal Medicine Cardiovascular Disease; CONSULT PHYSICIAN Internal Medicine Infectious Disease; EMERGENCY PHYSICIAN Emergency Medicine; FAMILY PHYSICIAN Internal Medicine; OTHER PHYSICIAN Surgery Vascular Surgery
DX: I83.018 Varicose veins of right lower extremity with ulcer other part of lower leg (principal); L03.115 Cellulitis of right lower limb; L97.819 Non-pressure chronic ulcer of other part of right lower leg with unspecified severity; L97.829 Non-pressure chronic ulcer of other part of left lower leg with unspecified severity; I83.028 Varicose veins of left lower extremity with ulcer other part of lower leg; E11.40 Type 2 diabetes mellitus with diabetic neuropathy, unspecified; K59.09 Other constipation; N40.1 Benign prostatic hyperplasia with lower urinary tract symptoms; N32.81 Overactive bladder; I25.10 Atherosclerotic heart disease of native coronary artery without angina pectoris; E78.00 Pure hypercholesterolemia, unspecified; G20.A1 Parkinson's disease without dyskinesia, without mention of fluctuations; I87.2 Venous insufficiency (chronic) (peripheral); I35.0 Nonrheumatic aortic (valve) stenosis; E66.9 Obesity, unspecified; G47.30 Sleep apnea, unspecified; I49.3 Ventricular premature depolarization; I10 Essential (primary) hypertension; B95.62 Methicillin resistant Staphylococcus aureus infection as the cause of diseases classified elsewhere; Z11.52 Encounter for screening for COVID-19; Z68.34 Body mass index [BMI] 34.0-34.9, adult; Z79.4 Long term (current) use of insulin; Z79.82 Long term (current) use of aspirin; Z79.899 Other long term (current) drug therapy; Z91.81 History of falling; Z95.5 Presence of coronary angioplasty implant and graft; Z98.1 Arthrodesis status
CPT/HCPCS: 29581; 80048; 80053; 80202; 82550; 82565; 82962; 83036; 83735; 84520; 85025; 85027; 86803; 87040; 87070; 87077; 87147; 87186; 87205; 87502; 87811; 93005; 93306; 93922; 93925; 93971; 96374; 96376; 97163; 97530; 99213; 99285

== ENCOUNTER → 2023-10-16 09:56 | Outpatient (REF) | payer OTHER, SELFPAY ==
[2023-10-16 11:16] LABS: % Basophils 0.9 % (0-2); % Eosinophils 7.2 % (0-6); % Immature Granulocytes 0.4 % (0-0.5); % Lymphocytes 21.6 % (20.5-51.1); % Monocytes 8.8 % (1.7-9.3); % Neutrophils 61.1 % (42.2-75.2); Absolute Basophils 0.1 10^3/uL (0-0.2); Absolute Eosinophils 0.6 10^3/uL (0-0.7); Absolute Lymphocytes 1.7 10^3/uL (1.2-3.4); Absolute Monocytes 0.7 10^3/uL (0.1-0.6); Absolute Neutrophils 4.7 10^3/uL (1.4-6.5); Hematocrit 52.8 % (39.0-52.0); Hemoglobin 18.1 g/dL (13.0-18.0); Mean Corp Hgb Conc. 34.3 g/dL (33.0-37.0); Mean Corpuscular Hgb 33.2 pg (27.0-31.0); Mean Corpuscular Volume 96.7 fL (80.0-94.0); Mean Platelet Volume 10.3 fL (7.4-10.4); Nucleated Red Blood Cells % 0 % (-); Platelet Count 183 10^3/uL (130-400); Red Blood Cell Count 5.46 10^6/uL (4.70-6.10); Red Cell Dist. Width 13.3 % (11.5-14.5); White Blood Cell Count 7.6 10^3/uL (4.8-10.8)
[2023-10-16 11:53] LABS: ALT (SGPT) < 10 U/L (0-50); AST (SGOT) 36 U/L (17-59); Albumin 4.2 g/dl (3.5-5.0); Alkaline Phosphatase 127 U/L (38-126); Blood Urea Nitrogen 19 mg/dl (9-20); Calcium 9.3 mg/dl (8.4-10.2); Carbon Dioxide 29 mmol/L (22-30); Chloride 100 mmol/L (98-107); Glucose 151 mg/dl (70-99); HDL Cholesterol 41 mg/dl; LDL Cholesterol, Calculated 72 mg/dl; Magnesium 1.8 mg/dl (1.6-2.3); Potassium 5.1 mmol/L (3.5-5.1); Sodium 138 mmol/L (135-145); Total Bilirubin 1.1 mg/dl (0.2-1.3); Total Cholesterol 131 mg/dl (50-199); Total Protein 7.8 g/dl (6.3-8.2); Triglyceride 94 mg/dl (10-149); Very Low Density Lipoprotein 18 mg/dl (0-30); eGFR > 60.00
[2023-10-16 11:53] LABS: NT-proBNP 403 pg/ml
[2023-10-16 11:54] LABS: Glycohemoglobin (HgbA1c) 7.4 % (4.0-5.6)
[2023-10-16 14:00] LABS: Microalbumin, Random Urine 0.7 mg/dl (0.6-1.7); Microalbumin/creatinine Ratio 4.6 mg/g
== END ==
LOC: HWLAB 09:56
PROVIDERS: ATTENDING PHYSICIAN Internal Medicine Cardiovascular Disease; FAMILY PHYSICIAN Internal Medicine; REFERRING PHYSICIAN Internal Medicine
DX: I25.10 Atherosclerotic heart disease of native coronary artery without angina pectoris (principal); I35.0 Nonrheumatic aortic (valve) stenosis; E78.00 Pure hypercholesterolemia, unspecified; I10 Essential (primary) hypertension; L03.115 Cellulitis of right lower limb; I49.3 Ventricular premature depolarization; E11.42 Type 2 diabetes mellitus with diabetic polyneuropathy
CPT/HCPCS: 36415; 80053; 80061; 82043; 82570; 83036; 83735; 83880; 85025

== ENCOUNTER → 2024-08-05 12:54 | Outpatient (REF) | payer OTHER, SELFPAY | LOC: HWRCS 12:54 | PROVIDERS: ATTENDING PHYSICIAN Family Medicine; FAMILY PHYSICIAN Internal Medicine | DX: I25.10 Atherosclerotic heart disease of native coronary artery without angina pectoris (principal); I35.0 Nonrheumatic aortic (valve) stenosis; I50.32 Chronic diastolic (congestive) heart failure | CPT/HCPCS: 93306 ==

== ENCOUNTER 2024-08-31 16:29 | Inpatient (IN) | payer OTHER, SELFPAY ==
[2024-08-29] VITALS (8 sets, daily range): BP systolic 110–147; BP diastolic 68–94; BMI 34.7
[2024-08-29 12:45] LABS: % Basophils 0.6 % (0-2); % Eosinophils 1.1 % (0-6); % Immature Granulocytes 0.3 % (0-0.5); % Lymphocytes 10.6 % (20.5-51.1); % Monocytes 9.7 % (1.7-9.3); % Neutrophils 77.7 % (42.2-75.2); Absolute Basophils 0.1 10^3/uL (0-0.2); Absolute Eosinophils 0.2 10^3/uL (0-0.7); Absolute Immature Granulocytes 0.1 10^3/uL (0-0.05); Absolute Lymphocytes 1.5 10^3/uL (1.2-3.4); Absolute Monocytes 1.4 10^3/uL (0.1-0.6); Absolute Neutrophils 11.2 10^3/uL (1.4-6.5); Hematocrit 50.6 % (39.0-52.0); Mean Corp Hgb Conc. 33.6 g/dL (33.0-37.0); Mean Corpuscular Hgb 33.1 pg (27.0-31.0); Mean Corpuscular Volume 98.6 fL (80.0-94.0); Mean Platelet Volume 10.3 fL (7.4-10.4); Nucleated Red Blood Cells % 0 % (-); Platelet Count 154 10^3/uL (130-400); Red Blood Cell Count 5.13 10^6/uL (4.70-6.10); Red Cell Dist. Width 14.1 % (11.5-14.5); White Blood Cell Count 14.4 10^3/uL (4.8-10.8)
[2024-08-29 12:53] LABS: ALT (SGPT) 23 U/L (0-50); AST (SGOT) 27 U/L (17-59); Albumin 3.8 g/dl (3.5-5.0); Alkaline Phosphatase 114 U/L (38-126); Blood Urea Nitrogen 21 mg/dl (9-20); Calcium 9.2 mg/dl (8.4-10.2); Carbon Dioxide 25 mmol/L (22-30); Chloride 106 mmol/L (98-107); Glucose 163 mg/dl (70-99); Potassium 4.6 mmol/L (3.5-5.1); Sodium 141 mmol/L (135-145); Total Bilirubin 1.3 mg/dl (0.2-1.3); eGFR > 60.00
--- NOTE | 2024-08-29 13:54 | ED.GENMED ---
History of Present Illness
General
Chief Complaint: Weakness
Source: patient and family
Exam Limitations: dementia
Time Seen by Provider: 08/29/24 13:08
Nursing documentation reviewed up to this point in time: agreed with
History of Present Illness
History of Present Illness:
79 y/o M with h/o CAD with stent, parkinsons (minimally ambulatory), IDDM, kidney stone with sepsis
here for weakness and inability to do his normal stand/transfer from his recliner this am
cough symptoms since yesterday
sinus drainage and dry cough, coughed through the night
no fever
his recliner usually lifts him up and he can stand and get into his wheelchar but had no strength today
tried for 3 hours
then called ems and it took 3 paramedics to get him up
he has some lower back pain which is chroinc and worse with changing position
is her eand says that he gets like this with his parkinsons when he gets sick
they do have measures in place athome, vanesa lift and other devices but he was too weak to even help her a little and this usually means he needs to be in the hospital
Past History
Past History
ED Past Medical History: CAD, HTN, Hypercholesterolemia, IDDM, Valvular disease and Other (Parkinson's)
ED Past Surgical History: Cardiac, Cholecystectomy and Orthopedic
Social History
Tobacco: Non-smoker
Alcohol: None
Drug: None
Personal:
Living: with family
Phy Exam
Physical Exam
Physical Exam:
GENERAL: Alert , in no apparent distress
EYE: pupils equal and reactive
NECK: Supple
ENT: o/p clr, mmm.
CARDIAC: Regular rate and rhythm .some edema b/l
LUNGS: Clear breath sounds bilaterally, no acute respiratory distress, + coughing frequently; no wheezing
ABDOMEN: Soft, without focal tenderness, no r/g, no cvat, normal bowel sounds
NEUROLOGICAL: Alert and oriented, no focal neuro deficits
legs more weak than UE
distal 5/5 but proximal 4/5 leg b/l
difficult to lift his legs in the air
also genearlly weak when standing, was difficult
SKIN: Warm and dry, skin intact. venous stasis changes hyperpigmentation, mild erythema lower extremiiets;
mild edema
MUSCULOSKELETAL: mild bilateral edema, well perfused, pulses intact. neg eleazar's sign
PSYCH: Normal and appropriate interaction.
Course
Orders/Labs/Results
Orders:
Orders
08/29/24 12:27
Electrocardiogram (*1) Urgent
Reason for Study: Fatigue / Weakness
EKG- Treatment ONCE
08/29/24 12:28
Complete Blood Count/With Diff Urgent
Comprehensive Metabolic Panel Urgent
Magnesium Urgent
Comment: ADD ON
Phosphorus Urgent
Comment: ADD ON
08/29/24 13:48
Add On- LAB Urgent
Tests Added?: magnesium, phosphorus
CR Chest - 2 Views Urgent
Comment:
Reason For Exam: sob, cough
08/29/24 13:54
COVID-19 Antigen Urgent
Source: Nasal Swab
NT-proBNP Urgent
Influenza A+B Rapid Molecular Urgent
KITTY Source: Nasal Swab
Specimen Description:
08/29/24 Dinner
2000 calorie (17 carb) Diabetic
At Your Request: Full Participation
Does patient need a safe tray?: No
08/29/24 15:36
Urinalysis Reflex To Culture Urgent
Date Specimen was Collected: 08/29/24
Time Specimen was Collected: 15:32
Urine Microscopic Reflex Cult Urgent
Urine Culture Urgent
KITTY Source: U
Specimen Description:
Date Specimen was Collected: 08/29/24
Time Specimen was Collected: 15:32
08/29/24 16:25
CefTRIAXone [Rocephin] 2,000 mg IV NOW STA
Furosemide [Lasix] 20 mg IV NOW STA
08/29/24 17:26
Admit/Transfer Patient As Directed
Co-Sign Provider:
Level of Care: Observation services
Assign to:: Medical/Surgical
Physician / Group: Hospitalist
Diagnosis: Generalized Weakness
Furosemide [Lasix] 20 mg IV NOW STA
PRN Pain Medication Management As Directed
May give lesser potent ordered pain med per pt: Yes
preference::
Protocol:: Medication orders for pain may be administered in a
manner that supports deferring to patient preference
when the pt is:
- Requesting an ordered lesser potent pain medication.
Least to most potent pain medications are defined
as: acetaminophen < NSAID < tramadol < opioids
(morphine, oxycodone, hydromorphone).
- Requesting a lesser dose of the same medication IF
ORDERED.
- Requesting a less intrusive route of administration
if both routes are prescribed by the provider (PO <
IV).
08/29/24 17:32
Code Status As Directed
Resuscitation Status: Full Code
08/29/24 18:52
Sputum Culture [Respiratory Culture/Gram Stain] Routine
KITTY Source: Sputum
Specimen Description:
Date Specimen was Collected: 08/29/24
Time Specimen was Collected: 18:46
08/29/24 20:10
Amoxicillin 875 mg/Clav 125 mg [Augmentin 875 mg/125 mg] 1 tablet PO Q12
Aspirin Chewable [Low Strength Aspirin] 81 mg PO BID
Bisacodyl [Dulcolax] 10 mg RECTAL [id number] PRN
Dextrose 50%-Water [Dextrose 50% Syringe] 12.5 grams IV [id number] PRN
Docusate W/Senna [Senokot-S] 1 tablet PO BIDPRN PRN
Enoxaparin Sodium [Lovenox] 40 mg SC QPM
Famotidine [Pepcid] 20 mg PO QPM
Glucagon [GlucaGen] 1 mg IM PRN PRN
Metoprolol [Lopressor] 50 mg PO BID
Polyethylene Glycol Powder [Miralax] 17 grams PO DAILYPRN PRN
08/29/24 20:10
Activity As Directed
Activity Level: Ambulate
Bedside Glucose Monitoring As Directed
Frequency: AC&HS
Additional Instructions:: Change to q6h if pt on TPN, tube feeding or not eating
Vital Signs As Directed
Frequency: Per unit guidelines
Ot Eval And Treat Routine
Pt Eval And Treat Routine
Activity Level: Encourage Progressive Amb
DX Deep Vein Thrombosis Video Routine
08/29/24 21:00
Insulin Aspart/Asp Protamine [Novolog Mix 70/30 Flexpen] 28 units SC BID
08/29/24 22:00
Tamsulosin [Flomax] 0.4 mg PO HS
08/30/24 06:00
Basic Metabolic Panel IN AM
Complete Blood Count/No Diff IN AM
Glycohemoglobin (HgbA1c) IN AM
Magnesium IN AM
TSH IN AM
Vitamin B12 IN AM
08/30/24 07:30
Insulin Aspart Corrective Low [Novolog Flexpen-Low Resistance] See Protocol SC AC
08/30/24 08:00
Acetaminophen [Tylenol] 500 mg PO DAILY
Atorvastatin [Lipitor] 40 mg PO DAILY
Carbidopa/Levodopa [Sinemet 25-100] 3 tablet PO BID@0800,1300
Docusate Sodium [Colace] 100 mg PO DAILY
Furosemide [Lasix] 20 mg PO DAILY
Gabapentin [Neurontin] 100 mg PO DAILY
Magnesium Oxide 500 mg PO DAILY
Polyethylene Glycol Powder [Miralax] 17 grams PO DAILY
Abnormal Lab Results
08/29/24 08/29/24 08/29/24
12:28 15:36 16:00
WBC 14.4 H 10^3/uL
(4.8-10.8)
MCV 98.6 H fL
(80.0-94.0)
MCH 33.1 H pg
(27.0-31.0)
Abs Immat Gran (auto) 0.1 H 10^3/uL
(0-0.05)
Absolute Neuts (auto) 11.2 H 10^3/uL
(1.4-6.5)
Absolute Monos (auto) 1.4 H 10^3/uL
(0.1-0.6)
Neutrophils % 77.7 H %
(42.2-75.2)
Lymphocytes % 10.6 L %
(20.5-51.1)
Monocytes % 9.7 H %
(1.7-9.3)
BUN 21 H mg/dl
(9-20)
Glucose 163 H mg/dl
(70-99)
Urine Ketones 1+ A
(Negative)
Leukocyte Esterase Rfl 1+ A
(Negative)
Urine Bacteria (Reflex) Moderate A
(Negative)
Urine Albumin (Reflex) 2+ A
(Neg - Trace)
POC Glucose 115 H mg/dl
(70-99)
08/29/24 12:28
08/29/24 12:28
Vital Signs
Initial and Last Documented VS:
Initial Vital Signs
Temp Pulse Resp BP Pulse Ox
36.9 C 99 20 120/70 97
08/29/24 12:22 08/29/24 12:22 08/29/24 12:22 08/29/24 12:22 08/29/24 12:22
Last Documented Vital Signs
Temp Pulse Resp BP Pulse Ox
36.8 C 53 20 147/69 97
08/29/24 20:16 08/29/24 20:56 08/29/24 20:16 08/29/24 20:56 08/29/24 20:16
MDM/Problems Addressed
Differential Diagnosis Includes:
chf, bronchitis, pneumonia, PE, uti, parkinsons,
MDM/Problems Addressed:
room 36 is mateus bernstein 79 y/o M parkinsons, h/o UTIs/urosepsis, mild CHF; CAD
here with 2 days cough, fatigue, mild edema in legs, increasing BNP outpatient (was 400 then 900, now 1500)
and couldn't stand up to transfer today
when pt gets sick, he gets this weak and cannot take care of him
normal pulse ox, afebrile, covid/flu neg, mild edema in legs; prox legs mildly weak, no focal weakness; sensation intact
with mild edema worsening, cough, increasing BNP i think he has mild failure; he is already on lasix 20, given another 20
his urine has bacteria and 1+ LE but no wbc; so holdin abx at this time;
he coul dhave viral bronchitis making him weak; no pna on cxr
*Critical Care Note
Total Time (30-74mins, 75-104mins- exclusive of procedures): Not Applicable
ED Attending Note
-
Portions of this chart may have been created with voice recognition software.� Occasional wrong word or��sound alike� substitutions may have occurred due to the inherent limitations of voice recognition software.
Discharge Plan
Departure
Patient Disposition: Admit
Date of Disposition: 08/29/24
Time of Disposition: 16:26
Admit to: Telemetry
Presentation/result/management discussed w/ accepting MD/DO: Hospitalist
Condition: Fair
Covid-19: Negative COVID-19
Discharge Problem:
Weakness, Cough, Mild congestive heart failure
Interventions
Interventions:
*Risk Screen - Suicide Last Done: 08/29/24 12:22
*General Assessment Last Done: 08/29/24 12:22
*ED- Fall Risk Assessment Last Done: 08/29/24 19:33
*Nursing Disposition Last Done: 08/29/24 19:33
ED- Cardiac Assessment Last Done: 08/29/24 12:40
ED- Neurological Assessment Last Done: 08/29/24 12:40
ED- Pulmonary Assessment Last Done: 08/29/24 12:40
Discharge Date and Time
Discharge Date/Time: 08/29/24 19:49
[2024-08-29 14:26] LABS: COVID-19 Antigen Negative (Negative)
[2024-08-29 14:29] LABS: NT-proBNP 1560 pg/ml
[2024-08-29 14:50] LABS: Magnesium 1.8 mg/dl (1.6-2.3); Phosphorus 3.4 mg/dl (2.5-4.5)
[2024-08-29 15:48] LABS: Urine Albumin 2+ (Neg - Trace); Urine Bilirubin Negative (Negative); Urine Character Clear (Clear); Urine Color Yellow; Urine Glucose Negative (Negative); Urine Ketone 1+ (Negative); Urine Leukocyte 1+ (Negative); Urine Nitrite Negative (Negative); Urine Occult Blood Negative (Negative); Urine Urobilinogen Negative (Neg - 1+)
[2024-08-29 15:58] LABS: Urine Mucus Few; Urine Squamous Cell 0-2 /LPF (Few)
[2024-08-29 15:59] LABS: Urine Bacteria Moderate (Negative); Urine Red Blood Cell 0-2 /HPF (0-2); Urine White Cell 0-2 /HPF (0-5)
[2024-08-29 16:11] LABS: Glucose - Point of Care 115 mg/dl (70-99)
--- NOTE | 2024-08-29 16:40 | HPS.HSE ---
Family Physician
-
Family Physician: Ty Morel
Chief Complaint
-
Generalized weakness
History of Present Illness
79-year-old man brought in by the because of generalized weakness. She thinks that when he becomes really weak he has an infection. Patient has been having a lot of sinus congestion and bringing up dark mucus from the sinus.
Medical History
Past Medical History
Past Medical History: Reports Other
Additional Past Medical History:
Parkinson disease, coronary disease, hypertension, hyperlipidemia, nephrolithiasis, diabetes
Past Surgical History: Reports Other
Additional Past Surgical History:
Cholecystectomy, currently reduction bilaterally, cardiac stents
Social History
Tobacco: Non-smoker
Alcohol: None
Drug: None
Personal:
Living: With Family
Family History
Family History: Not pertinent
Allergies / Home Medications
Allergies reflects when Allergies were last updated in [employer].
Home Medications with original date entered in [employer]
Allergy/Medication List:
Allergies
Allergy/AdvReac Type Severity Reaction Status Date / Time
Latex, Natural Rubber Allergy Unknown Verified 05/25/23 21:35
mold Allergy Unknown Verified 05/25/23 21:35
Home Medications
aspirin 81 mg chewable tablet 81 mg PO BID Blood Clot Prevention/Tx 03/07/23
atorvastatin 40 mg tablet 40 mg PO DAILY High Cholesterol 03/07/23
carbidopa 25 mg-levodopa 100 mg tablet 3 tab PO BID@0800,1300 parkinson's disease 03/07/23
metoprolol tartrate 50 mg tablet 50 mg PO BID Blood Pressure 03/07/23
semaglutide 0.25 mg or 0.5 mg (2 mg/3 mL) subcutaneous pen injector (Ozempic) 1 mg SC TH Diabetes 03/07/23
tamsulosin 0.4 mg capsule 0.4 mg PO HS urine retention 03/07/23
furosemide 20 mg tablet 20 mg PO DAILY Fluid Retention/Swelling 07/09/23
gabapentin 100 mg capsule 100 mg PO DAILY Neurological Condition 07/09/23
insulin NPH-regular 70-30 U-100 insulin 100 unit/mL subcutaneous pen (Novolin 70-30 FlexPen U-100 Insulin) 0 unit SC AC Diabetes 07/09/23
magnesium oxide 500 mg PO DAILY Arrhythmia #0 tabs 07/19/23
polyethylene glycol 3350 17 gram oral powder packet (HealthyLax) 17 g PO DAILY Constipation #0 ea 07/19/23
acetaminophen 500 mg tablet (Tylenol Extra Strength) 500 mg PO DAILY 08/29/24
docusate sodium 100 mg capsule (Colace) 100 mg PO DAILY 08/29/24
famotidine 20 mg tablet (Pepcid) 20 mg PO QPM 08/29/24
naproxen sodium 220 mg tablet (Aleve) 220 mg PO DAILY 08/29/24
Review of Systems
-
A 12 point ROS was completed and negative except as noted: Yes
EENT: Reports Other ( sinus congestion)
Respiratory: Reports Cough; Denies Trouble Breathing
Cardiac: Denies Chest Pain
Abdomen/GI: Denies Abdominal Pain
: Denies Dysuria
Physical Exam
Vital Signs
Vital Signs
Temp Pulse Resp BP Pulse Ox
98.5 F 97 17 110/94 96
08/29/24 12:22 08/29/24 15:30 08/29/24 15:30 08/29/24 15:00 08/29/24 15:00
Physical Exam
General: Conversant
Respiratory: Rales ( few rales at right base)
Cardiac: S1/S2, Regular Rhythm and Murmur ( systolic murmur monitor aortic area)
GI: Soft
Musculoskeletal: Other (Mild pedal edema bilaterally)
Neuro: Awake, Alert and No Motor Deficits
Psych: Intact Judgment/Insight
Laboratory Results
-
08/29/24 12:28
08/29/24 12:28
Laboratory Results
Total Bilirubin 1.3 mg/dl (0.2-1.3) 08/29/24 12:28
AST 27 U/L (17-59) 08/29/24 12:28
ALT 23 U/L (0-50) 08/29/24 12:28
Alkaline Phosphatase 114 U/L (38-126) 08/29/24 12:28
Data Reviewed
-
Diagnostic Radiology: Image Personally Visualized and interpreted (No radiographic evidence of acute cardiopulmonary abnormality. Mild cardiomegaly.)
Medical Tests (Nuc Med, Echo, EKG etc): Image Personally Visualized and interpreted (EKG-sinus rhythm with PVCs inferior and septal infarct age undetermined)
Impression/Plan
-
IMPRESSION/PLAN
Echo 08/05/2024-normal LV size with concentric LVH. EF 55 to 60%. Normal diastolic function. Mild MR. Severe . Mild AI. Mild TR. Pulmonary artery pressure 35 mm of reported.
# Generalized weakness
Urinalysis not consistent with UTI
Chest x-ray no infection
COVID 19 neg
Patient does have sinus congestion and symptoms. Add Augmentin
Sputum cultures with possible
# Coronary Artery Disease with Stent
Continue aspirin, atorvastatin, metoprolol
# Severe aortic stenosis
# Essential Hypertension
-Continue Metoprolol
# PVCs- Continue beta-blockers
# Hyperlipidemia-Continue atorvastatin
# DM. [id number]
Continue insulin 70/30 , accu checks and SSI
# Diabetic Neuropathy-Continue gabapentin
# Parkinson's Disease-Continue Sinemet
# Prostate disease-Continue Flomax
# Ambulatory dysfunction
# Obesity per BMI
# Sleep apnea-CPAP intolerant
# History of nephrolithiasis
# DVT proph: Lovenox
# Code Status: Full Code
Discussed with ER
Discussed with at bedside
[2024-08-29] MEDS: LASIX 20 MG IV (18:50)
--- NOTE | 2024-08-29 20:16 | PTCARENOTE ---
Pt arrived onto floor @2015. Pt AAOx3 and a harness puller to the bed. Pt with no complaints of SOB at this time. Pt oriented to room and call [place]; will continue to monitor.
[2024-08-29] MEDS: AUGMENTIN 875 MG/125 MG 1 TABLET PO (20:56)
[2024-08-29] MEDS: LOVENOX 40 MG SC (20:56)
[2024-08-29] MEDS: LOPRESSOR 50 MG PO (20:56)
[2024-08-29] MEDS: FLOMAX 0.4 MG PO (20:56)
[2024-08-29] MEDS: LOW STRENGTH ASPIRIN 81 MG PO (20:56)
[2024-08-29] MEDS: PEPCID 20 MG PO (20:56)
[2024-08-29 22:26] LABS: Glucose - Point of Care 160 mg/dl (70-99)
[2024-08-29] MEDS: NOVOLOG MIX 70/30 FLEXPEN 28 UNITS SC (23:56)
[2024-08-30 06:30] VITALS: BMI 34.7
[2024-08-30 07:18] LABS: Glucose - Point of Care 91 mg/dl (70-99)
[2024-08-30 07:30] VITALS: BP 122/80
[2024-08-30] MEDS: NOVOLOG FLEXPEN-LOW RESISTANCE SC (08:53)
[2024-08-30 09:09] LABS: Hematocrit 49.2 % (39.0-52.0); Hemoglobin 16.7 g/dL (13.0-18.0); Mean Corp Hgb Conc. 33.9 g/dL (33.0-37.0); Mean Corpuscular Volume 97.2 fL (80.0-94.0); Mean Platelet Volume 10.4 fL (7.4-10.4); Platelet Count 163 10^3/uL (130-400); Red Blood Cell Count 5.06 10^6/uL (4.70-6.10); Red Cell Dist. Width 14.5 % (11.5-14.5); White Blood Cell Count 12.5 10^3/uL (4.8-10.8)
[2024-08-30 09:30] LABS: Blood Urea Nitrogen 18 mg/dl (9-20); Calcium 8.6 mg/dl (8.4-10.2); Carbon Dioxide 27 mmol/L (22-30); Chloride 105 mmol/L (98-107); Estimated Creatinine Clearance 79 ml/min; Glucose 98 mg/dl (70-99); Potassium 4.3 mmol/L (3.5-5.1); Sodium 142 mmol/L (135-145); eGFR > 60.00
[2024-08-30] MEDS: MAGNESIUM OXIDE 500 MG PO (10:10)
[2024-08-30] MEDS: SINEMET 25-100 3 TABLET PO ×2 (10:10→13:11)
[2024-08-30] MEDS: LOPRESSOR 50 MG PO ×2 (10:11→20:17)
[2024-08-30] MEDS: NEURONTIN 100 MG PO (10:11)
[2024-08-30] MEDS: AUGMENTIN 875 MG/125 MG 1 TABLET PO ×2 (10:11→20:16)
[2024-08-30] MEDS: LASIX 20 MG PO (10:11)
[2024-08-30] MEDS: COLACE 100 MG PO (10:12)
[2024-08-30] MEDS: LOW STRENGTH ASPIRIN 81 MG PO ×2 (10:12→20:16)
[2024-08-30] MEDS: TYLENOL 500 MG PO (10:12)
[2024-08-30] MEDS: LIPITOR 40 MG PO (10:12)
[2024-08-30] MEDS: NOVOLOG MIX 70/30 FLEXPEN 28 UNITS SC ×2 (10:13→20:17)
[2024-08-30] MEDS: MIRALAX 17 GRAMS PO (10:13)
[2024-08-30 10:22] LABS: Vitamin B12 780 pg/ml (239-931)
[2024-08-30 10:24] LABS: Glycohemoglobin (HgbA1c) 7.4 % (4.0-5.6)
[2024-08-30 12:30] LABS: Glucose - Point of Care 177 mg/dl (70-99)
[2024-08-30] MEDS: NOVOLOG FLEXPEN-LOW RESISTANCE 1 UNITS SC (13:11)
--- NOTE | 2024-08-30 14:46 | W.PN.HOSP.TC ---
Today's Communication/Plan
-
Continue AB
PT/OT
Rehab
Case management alerted.
Assessment / Plan
Assessment / Plan
Echo 08/05/2024-normal LV size with concentric LVH. EF 55 to 60%. Normal diastolic function. Mild MR. Severe . Mild AI. Mild TR. Pulmonary artery pressure 35 mm of reported.
CVS: S1-S2 normal, sm at aa
Chest: CTA B/L
Abdomen: Soft, NT
Extremities: No edema
VECTOR CONTROL SPECIALIST: NO focal weakness
# Generalized weakness
Urinalysis not consistent with UTI
Chest x-ray no infection
COVID 19 neg, FLU neg.
Patient does have sinus congestion and symptoms. URI also. Continue Augmentin
Sputum cultures pending
# Coronary Artery Disease with Stent-Continue aspirin, atorvastatin, metoprolol
# Severe aortic stenosis
# Essential Hypertension-Continue Metoprolol
# PVCs- Continue beta-blockers
# Hyperlipidemia-Continue atorvastatin
# DM. ApY4I-5.4-Continue insulin 70/30 , accu checks and SSI
# Diabetic Neuropathy-Continue gabapentin
# Parkinson's Disease-Continue Sinemet
# Prostate disease-Continue Flomax
# Ambulatory dysfunction
# Obesity per BMI
# Sleep apnea-CPAP intolerant
# History of nephrolithiasis
# DVT proph: Lovenox
# Code Status: Full Code
D?W RN
D/W Case management re SNF
D/W at bed side
Anticipated Discharge: Within 24 hours
Subjective/Interval History
-
Date of Service: August 30, 2024
Objective Data
-
Labs:
Laboratory Results
08/30/24
08:16
WBC 12.5 H
Hgb 16.7
Hct 49.2
Plt Count 163
Sodium 142
Potassium 4.3
Chloride 105
Carbon Dioxide 27
BUN 18
Creatinine 0.9
Glucose 98
Calcium 8.6
Vital Signs:
Vital Signs
Temp Pulse Resp BP Pulse Ox
98.6 F 60 16 122/80 99
08/30/24 12:59 08/30/24 07:30 08/30/24 07:30 08/30/24 07:30 08/30/24 07:30
I&O
08/29/24 08/30/24 08/31/24
06:59 06:59 06:59
Output Total 125 / 125
Balance -125 / -125
[2024-08-30 15:00] VITALS: BP 135/69
[2024-08-30 16:56] LABS: Glucose - Point of Care 234 mg/dl (70-99)
[2024-08-30] MEDS: NOVOLOG FLEXPEN-LOW RESISTANCE 2 UNITS SC (17:07)
[2024-08-30] MEDS: LOVENOX 40 MG SC (17:07)
[2024-08-30] MEDS: PEPCID 20 MG PO (17:08)
[2024-08-30 19:00] VITALS: BP 133/70
[2024-08-30 20:15] LABS: Glucose - Point of Care 313 mg/dl (70-99)
[2024-08-30] MEDS: FLOMAX 0.4 MG PO (20:17)
[2024-08-30 23:00] VITALS: BP 154/67
[2024-08-31 07:00] VITALS: BP 135/79
[2024-08-31 07:55] LABS: Glucose - Point of Care 209 mg/dl (70-99)
[2024-08-31] MEDS: NOVOLOG FLEXPEN-LOW RESISTANCE 2 UNITS SC ×2 (08:09→12:20)
[2024-08-31] MEDS: COLACE 100 MG PO (08:10)
[2024-08-31] MEDS: SINEMET 25-100 3 TABLET PO ×2 (08:10→12:19)
[2024-08-31] MEDS: MIRALAX 17 GRAMS PO (08:10)
[2024-08-31] MEDS: NEURONTIN 100 MG PO (08:11)
[2024-08-31] MEDS: LASIX 20 MG PO (08:11)
[2024-08-31] MEDS: TYLENOL 500 MG PO (08:12)
[2024-08-31] MEDS: LOW STRENGTH ASPIRIN 81 MG PO ×2 (08:12→21:40)
[2024-08-31] MEDS: AUGMENTIN 875 MG/125 MG 1 TABLET PO (08:12)
[2024-08-31] MEDS: LIPITOR 40 MG PO (08:12)
[2024-08-31] MEDS: LOPRESSOR 50 MG PO ×2 (08:13→21:40)
[2024-08-31] MEDS: MAGNESIUM OXIDE 500 MG PO (08:13)
[2024-08-31] MEDS: NOVOLOG MIX 70/30 FLEXPEN 28 UNITS SC ×2 (08:14→21:54)
[2024-08-31 09:59] LABS: Hematocrit 50.8 % (39.0-52.0); Hemoglobin 17.1 g/dL (13.0-18.0); Mean Corp Hgb Conc. 33.7 g/dL (33.0-37.0); Mean Corpuscular Hgb 33.1 pg (27.0-31.0); Mean Corpuscular Volume 98.4 fL (80.0-94.0); Mean Platelet Volume 10.4 fL (7.4-10.4); Platelet Count 158 10^3/uL (130-400); Red Blood Cell Count 5.16 10^6/uL (4.70-6.10); Red Cell Dist. Width 13.9 % (11.5-14.5); White Blood Cell Count 10.8 10^3/uL (4.8-10.8)
[2024-08-31 11:51] LABS: Glucose - Point of Care 234 mg/dl (70-99)
[2024-08-31 15:00] VITALS: BP 130/69
--- NOTE | 2024-08-31 16:28 | W.PN.HOSP.TC ---
Today's Communication/Plan
-
MRI
AB
SNF
Assessment / Plan
Assessment / Plan
Echo 08/05/2024-normal LV size with concentric LVH. EF 55 to 60%. Normal diastolic function. Mild MR. Severe . Mild AI. Mild TR. Pulmonary artery pressure 35 mm of reported.
CVS: S1-S2 normal, sm at aa
Chest: CTA B/L
Abdomen: Soft, NT
Extremities: No edema
PATENT PROSECUTION ATTORNEY: NO focal weakness except global weakness. Patient stated that he felt more weakness on the left side but he is already weak more on the left side from the Parkinson disease anyways.
# Generalized weakness
Urinalysis not consistent with UTI
Chest x-ray no infection
COVID 19 neg, FLU neg.
Patient does have sinus congestion and symptoms. URI also. Continue Augmentin to doxycycline
Sputum cultures pending
With patient complaining of more weakness on the left side leg when this started we will proceed with MRI of the brain also
# Coronary Artery Disease with Stent-Continue aspirin, atorvastatin, metoprolol
# Severe aortic stenosis
# Essential Hypertension-Continue Metoprolol
# PVCs- Continue beta-blockers
# Hyperlipidemia-Continue atorvastatin
# DM. DnA5O-4.4-Continue insulin 70/30 , accu checks and SSI
# Diabetic Neuropathy-Continue gabapentin
# Parkinson's Disease-Continue Sinemet
# Prostate disease-Continue Flomax
# Ambulatory dysfunction
# Obesity per BMI
# Sleep apnea-CPAP intolerant
# History of nephrolithiasis
# DVT proph: Lovenox
# Code Status: Full Code
D/W at bed side
Changed to inpatient with ongoing workup and treatment and the fact that patient needs physical therapy
Anticipated Discharge: Within 24 hours
Subjective/Interval History
-
Date of Service: August 31, 2024
Objective Data
-
Labs:
Laboratory Results
08/31/24
09:48
WBC 10.8
Hgb 17.1
Hct 50.8
Plt Count 158
Vital Signs:
Vital Signs
Temp Pulse Resp BP Pulse Ox
99.2 F 79 18 135/79 95
08/31/24 07:00 08/31/24 07:00 08/31/24 07:00 08/31/24 07:00 08/31/24 07:00
I&O
08/30/24 08/31/24 09/01/24
06:59 06:59 06:59
Intake Total 840 / 840
Output Total 125 / 125
Balance -125 / -125 840 / 840
[2024-08-31 16:36] LABS: Glucose - Point of Care 117 mg/dl (70-99)
[2024-08-31] MEDS: NOVOLOG FLEXPEN-LOW RESISTANCE SC (16:44)
[2024-08-31] MEDS: PEPCID 20 MG PO (17:20)
[2024-08-31] MEDS: LOVENOX 40 MG SC (17:20)
[2024-08-31] MEDS: FLOMAX 0.4 MG PO (21:40)
[2024-08-31] MEDS: VIBRAMYCIN 100 MG PO (21:40)
[2024-08-31 21:57] LABS: Glucose - Point of Care 203 mg/dl (70-99)
[2024-08-31 23:56] VITALS: BP 117/61
[2024-09-01 07:40] LABS: Glucose - Point of Care 105 mg/dl (70-99)
[2024-09-01 07:41] VITALS: BP 118/90
[2024-09-01 08:41] VITALS: BP 118/90
[2024-09-01] MEDS: NOVOLOG FLEXPEN-LOW RESISTANCE SC ×2 (08:44→17:35)
[2024-09-01] MEDS: LASIX 20 MG PO (08:44)
[2024-09-01] MEDS: SINEMET 25-100 3 TABLET PO ×2 (08:45→12:21)
[2024-09-01] MEDS: NOVOLOG MIX 70/30 FLEXPEN 28 UNITS SC ×2 (08:45→22:31)
[2024-09-01] MEDS: COLACE 100 MG PO (08:46)
[2024-09-01] MEDS: LIPITOR 40 MG PO (08:46)
[2024-09-01] MEDS: LOPRESSOR 50 MG PO ×2 (08:47→21:21)
[2024-09-01] MEDS: NEURONTIN 100 MG PO (08:47)
[2024-09-01] MEDS: LOW STRENGTH ASPIRIN 81 MG PO ×2 (08:47→21:18)
[2024-09-01] MEDS: MIRALAX 17 GRAMS PO (08:48)
[2024-09-01] MEDS: MAGNESIUM OXIDE 500 MG PO (08:49)
[2024-09-01] MEDS: TYLENOL 500 MG PO (08:49)
[2024-09-01] MEDS: VIBRAMYCIN 100 MG PO ×2 (08:49→21:18)
[2024-09-01 11:53] LABS: Glucose - Point of Care 198 mg/dl (70-99)
[2024-09-01] MEDS: NOVOLOG FLEXPEN-LOW RESISTANCE 2 UNITS SC (12:20)
--- NOTE | 2024-09-01 12:45 | CM ---
CM reviewed chart, initial assessment completed by patient and bedside. Patient resides with in a one story home, ramp to enter. Patient has a vanesa lift, two walkers, grabs bars in shower/toilet, wheelchair and wheelchair for shower).
Patient sleeps in lift chair. Patient has had [facility] in past, looking into [facility], coming to do assessment Sunday. Patient has been to [facility] in past, would be agreeable to [facility] SNF if patient is unable to
stand/pivot. reports patient is also current with Palliative Care through [facility] (through patients insurance) and patient is seen every two weeks or once a month. Patient PCP Ty Morel, pharmacy [facility].
CM discussed PT recommendations of SNF- patient and prefer patient return home with services but will need patient to be able to stand/pivot, otherwise will need to go to SNF. CM will continue to follow for all discharge planning needs.
Plan; return home with /services versus SNF
--- NOTE | 2024-09-01 14:33 | W.PN.HOSP.TC ---
Today's Communication/Plan
-
MRI
Discharge planning
He feels a lot better in terms of his sinus symptoms
Assessment / Plan
Assessment / Plan
Echo 08/05/2024-normal LV size with concentric LVH. EF 55 to 60%. Normal diastolic function. Mild MR. Severe . Mild AI. Mild TR. Pulmonary artery pressure 35 mm of reported.
CVS: S1-S2 normal, sm at aa
Chest: CTA B/L
Abdomen: Soft, NT
Extremities: No edema
RATTLESNAKE FARMER: NO focal weakness except global weakness. Patient stated that he felt more weakness on the left side but he is already weak more on the left side from the Parkinson disease anyways.
# Generalized weakness
Urinalysis not consistent with UTI
Chest x-ray no infection
COVID 19 neg, FLU neg.
Patient does have sinus congestion and symptoms. URI also. Continue doxycycline
Sputum cultures neg
With patient complaining of more weakness on the left side leg when this started we will proceed with MRI of the brain also
# Coronary Artery Disease with Stent-Continue aspirin, atorvastatin, metoprolol
# Severe aortic stenosis
# Essential Hypertension-Continue Metoprolol
# PVCs- Continue beta-blockers
# Hyperlipidemia-Continue atorvastatin
# DM. GxD4N-9.4-Continue insulin 70/30 , accu checks and SSI
# Diabetic Neuropathy-Continue gabapentin
# Parkinson's Disease-Continue Sinemet
# Prostate disease-Continue Flomax
# Ambulatory dysfunction
# Obesity per BMI
# Sleep apnea-CPAP intolerant
# History of nephrolithiasis
# DVT proph: Lovenox
# Code Status: Full Code
Anticipated Discharge: Within 24 hours
Subjective/Interval History
-
Date of Service: September 01, 2024
Objective Data
-
Vital Signs:
Vital Signs
Temp Pulse Resp BP Pulse Ox
98.5 F 109 18 118/90 98
09/01/24 07:41 09/01/24 08:44 09/01/24 07:41 09/01/24 08:44 09/01/24 08:40
I&O
08/31/24 09/01/24 09/02/24
06:59 06:59 06:59
Intake Total 840 / 840 240 / 240
Output Total 100 / 100
Balance 840 / 840 140 / 140
[2024-09-01 17:18] VITALS: BP 115/49
[2024-09-01 17:25] LABS: Glucose - Point of Care 69 mg/dl (70-99)
[2024-09-01] MEDS: LOVENOX 40 MG SC (17:36)
[2024-09-01 17:43] LABS: Glucose - Point of Care 75 mg/dl (70-99)
[2024-09-01] MEDS: PEPCID 20 MG PO (17:46)
[2024-09-01] MEDS: FLOMAX 0.4 MG PO (21:18)
[2024-09-01 22:36] LABS: Glucose - Point of Care 172 mg/dl (70-99)
[2024-09-01 23:37] VITALS: BP 102/66
[2024-09-02 05:21] LABS: Glucose - Point of Care 61 mg/dl (70-99)
[2024-09-02 05:44] LABS: Glucose - Point of Care 73 mg/dl (70-99)
[2024-09-02 07:00] VITALS: BP 125/59
[2024-09-02 08:19] LABS: Glucose - Point of Care 94 mg/dl (70-99)
[2024-09-02] MEDS: NOVOLOG FLEXPEN-LOW RESISTANCE SC ×2 (08:30→17:29)
[2024-09-02] MEDS: LIPITOR 40 MG PO (08:31)
[2024-09-02] MEDS: COLACE 100 MG PO (08:31)
[2024-09-02] MEDS: NEURONTIN 100 MG PO (08:31)
[2024-09-02] MEDS: TYLENOL 500 MG PO (08:31)
[2024-09-02] MEDS: LASIX 20 MG PO (08:31)
[2024-09-02] MEDS: LOPRESSOR 50 MG PO ×2 (08:32→20:24)
[2024-09-02] MEDS: SINEMET 25-100 3 TABLET PO ×2 (08:32→13:55)
[2024-09-02] MEDS: VIBRAMYCIN 100 MG PO ×2 (08:32→20:24)
[2024-09-02] MEDS: LOW STRENGTH ASPIRIN 81 MG PO (08:32)
--- NOTE | 2024-09-02 09:04 | CON.NEURO4 ---
Addendum entered and electronically signed by Osvaldo Angulo MD 09/02/24 11:01:
Studies reviewed.
I have personally examined the patient. I reviewed and agree with the TELEPHONE STATION REPAIRER's Note.
My addenda:
Awake, alert, interactive. No acute distress.
Speech intact.
Follows 2-step requests w/o difficulty. Minimal bilateral hand tremor, with action.
Extra-ocular movements grossly intact.
Facial movements full and symmetric. Hearing intact to normal conversational volume.
Normal UE movements bilaterally.
Neck: full ROM.
Chest: no dyspnea
Heart: no JVD
Ext: (-) Clubbing, (-) Cyanosis, (-) Edema
IMPRESSIONS/RECOMMENDATIONS:
Onset of worsening gait in a patient previously diagnosed clinically with parkinsonism
With the patient's gait dysfunction, urinary dysfunction and minimal to mild cognitive difficulties, as well as what appeared to be increased ventricular size, differential diagnosis would include normal pressure hydrocephalus despite prior MRI
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
MRI images are minimally suggestive of a right parietal lobe hyperintensity on diffusion weighted imaging suggestive of a subacute ischemic stroke
Add clopidogrel to the patient's aspirin which is currently being provided as twice daily
Reduce aspirin dosing from 81 mg twice a day to once a day dosing and maintain as outpatient after review with cardiology
Check aspirin efficacy
Check lipid profile and if LDL is greater than 70, increase atorvastatin from 40 mg to [address] angiogram due to the patient's prior chronic cerebellar ischemic stroke by neuroimaging
Goal of normotension
Goal of normoglycemia
Continue current dosing of carbidopa levodopa, revise if absence of orthostasis
Check orthostatic blood pressures
Continue rehabilitation evaluations and treatment
Consider nasal steroids due to sinusitis and intermittent cough
Consider additional therapy to lengthen benefits of carbidopa/levodopa
D/W patient / family
Will continue to follow pending results
Original Note:
Documented by User: Maria Esther Degroot NP 09/02/24 10:34
Consultation - Neurology 4
-
CONSULTING PHYSICIAN: Osvaldo Angulo MD
REFERRING PHYSICIAN: Hospitalists/Dr. Owen
DICTATED BY: CYNTHIA Donato
DATE/TIME OF REQUEST: 09/02/24
DATE/TIME OF CONSULTATION: 09/02/24
Reason for Consultation: Abnormal MRI brain imaging
History of Present Illness:
This is a 79-year-old right-handed male who has presented to the hospital on 08/29/24 with report of increased weakness. Patient is followed as an outpatient by Neurology Dr. Tamara Burk at [facility] for chronic ambulatory dysfunction;
Parkinson's disease vs progressive supranuclear palsy (PSP). Per review of outpatient Neurology notes, patient started having gait dysfunction issues around 2015. He started using a walker for ambulation around 2018. Initially, his ambulatory
dysfunction was presumed due to cervical and lumbar disc disease. He underwent C4-C5 fusion and L1-L2 laminectomy around 2020 with no improvement of his ambulation. Neurosurgery then referred him to a [facility] Dr. Wilson in 2021. He
was noted to be hypophonic, have reduced eye blinking, bradykinesia, subtle rigidity in his left>right wrists, occasional hand tremor, postural instability, required 3 person assist to stand, and additionally reported constipation and urinary
incontinence. Differential diagnosis was Parkinson's disease, atypical parkinsonism syndrome (multisystem atrophy or PSP), and normal pressure hydrocephalus (NPH). He had MRI brain imaging on 04/12/22 that was suggestive of NPH and midbrain atrophy
with a +hummingbird sign suggestive of PSP. Patient subsequently followed-up with Dr. Burk and was noted to have a mild response to Sinemet- reported an increase in energy level, improved hand tremor, but no improvement in his gait or leg
shaking/freezing. Dr. Burk has felt that his symptoms are supportive of PD. He was instructed to take carbidopa/levodopa 25-100 2 tablets TID but instead takes 3 tablets twice a day due to not wanting to deal with taking frequent medications. At
baseline, he sleeps in a recliner chair and is able to use a rolling walker to stand/pivot to his wheelchair.
Patient's notes that about one week ago he suddenly became profoundly weaker and couldn't get out of bed/transfer like he usually does. He also had a cough and nasal drainage, prompting her to bring him to the ER for evaluation due to concern
that an infection was exacerbating his PD symptoms. MRI brain was obtained due to concern of leg weakness, and demonstrates a tiny acute right parietal lobe ischemic infarct, a chronic left cerebellar ischemic infarct, moderate distention of his
ventricles, and severe acute right maxillary sinusitis. Acute and chronic stroke finding prompted Neurology consult. The patient reports that he is still not able to ambulate at his baseline. He notes that for the past week when he has tried to turn
to his left he has fallen either forward or backward. His notes that at baseline on a daily basis throughout the day when he stands, his legs start to shake and then 'freeze' when he goes to move. They deny any memory concerns or
hallucinations. He is followed by urology for chronic urinary incontinence presumed due to PD. He reports that he is taking aspirin 81mg twice a day due to a cardiac stent he had placed in 2013. He denies any headache, dizziness, vision changes,
speech/swallow difficulty, numbness, focal weakness, chest pain, palpitations, and shortness of breath. He denies any known history of TIA or stroke in the past and was not aware that he previously had a stroke.
Past Medical History: CAD, HTN, HLD, IDDM, Parkinson's disease vs PSP, kidney stone with sepsis
Surgical History: Cardiac stent, cholecystectomy, cervical and lumbar laminectomy
Family History: Maternal cousin- ALS.
Social History: Denies tobacco, alcohol, and illicit drug use.
Allergies: Latex, mold.
Home Medications: See below.
Review of Symptoms:
Patient denies any fever, headache, chest pain, shortness of breath, GI symptoms.
�Per the HPI.�All systems are reviewed negative except above.
Physical Exam:
The patient is afebrile, abdomen is rounded/nondistended, breathing is unlabored, skin is warm and dry, PVD discoloration in BLE.
NIH Stroke Scale:
I performed the NIH stroke scale on the patient on 09/02/24 at 0915. The patient scored 4 points on the NIH stroke scale assessment, which were assigned as follows: See below.
Neurologic Examination:
The patient is awake, alert and oriented x 3. He is able to follow commands and answer questions appropriately. There is no aphasia or dysarthria. No masked facies. On cranial nerve assessment, pupils are 3 mm bilateral, round and reactive to light
and accommodation. Visual hurd are full. Extraocular movements are intact. Facial sensations are intact and bilaterally symmetrical, there is no facial asymmetry. Hearing is intact bilaterally to normal conversation volume. Tongue palate and
uvula are midline. Sternocleidomastoid strengths are full bilaterally. Motor strengths are 5/5 bilateral upper, 2/5 right lower, and 3/5 left lower extremities on medical research [place] scale. There is drift in bilateral lower extremities. Very
slight right upper extremity low amplitude semirhythmic resting tremor. Babinski is absent bilaterally. There was no extinction noted on double simultaneous stimulation. Coordination is intact by finger to nose bilaterally.
Lab Results: See below.
Neuro Imaging:
1. MRI Brain 09/02/24: 3.8 mm tiny acute ischemic white matter infarct in the right parietal lobe. 4.2 mm chronic ischemic infarct in the left cerebellar hemisphere. Mild to moderate white matter leukoaraiosis in the frontal and parietal lobes.
Moderate diffuse cerebral and cerebellar volume loss. Moderate distention of the ventricular system and multiple asymmetrically dilated cerebral sulci. Diagnostic possibilities are (1) normal pressure communicating hydrocephalus or (2) ex vacuo
dilatation of the ventricular system. MODERATE to SEVERE ACUTE RIGHT MAXILLARY SINUSITIS. Severe discogenic degenerative disease at C4/C5 with a small disc-osteophyte complex causing mild spinal cord compression. Previous posterior decompression and
bilateral posterior instrumentation at C4/C5.
Differentials for the patient's presentation include:
1. Chronic ambulatory dysfunction in the setting of an atypical parkinsonism. Acute worsening of gait multifactorial; tiny acute right parietal lobe ischemic infarct, sinusitis, possible orthostasis.
2. Chronic left cerebellar ischemic stroke.
3. Normal pressure hydrocephalus possibly contributing to chronic gait dysfunction.
Patient has the following risk factors for their symptoms: PD, sinusitis, HTN, HLD, old stroke, age
IV Tenecteplase/IAT candidacy: Not a candidate due to outside of time window.
Recommendations:
-Start clopidogrel 75mg daily for [address] Angulo discussed with Dr. Camarena, Cardiology is okay with once daily aspirin monotherapy instead of BID dosing. Aspirin 81mg changed from BID to once daily.
-Continue DAPT for 21 days.
-Aspirin efficacy testing pending. If it is not efficacious, will discuss switching to Plavix monotherapy after 21 days.
-CTA head/neck pending.
-Check orthostatic vital signs as ordered.
-Continue home Sinemet dosing for now. Consideration for adjusting this as an outpatient to include extended release dosing to help prevent leg freezing.
-Consideration for NPH evaluation as an outpatient.
-LDL goal <70. LDL is pending. Continue home atorvastatin 40mg daily for now.
-Goal normoglycemia, hbA1c is 7.4.
-PT/OT evaluations.
-NIHSS and neurological checks per unit guidelines.
-Provide patient with a stroke education packet.
-DVT prophylaxis.
-Will follow pending results.
-Patient should follow-up with Dr. Burk as an outpatient.
Discussed patient care with: Dr. Angulo, the patient, patient's on the phone
Vital Signs and Labs
-
Vital Signs and Labs:
Vital Signs
Temp Pulse Resp BP Pulse Ox
97.6 F 87 18 125/59 96
09/02/24 07:00 09/02/24 08:32 09/02/24 07:00 09/02/24 08:32 09/02/24 07:00
Lab Results
08/31/24 09:48
08/30/24 08:16
Sodium 142 mmol/L (135-145) 08/30/24 08:16
Potassium 4.3 mmol/L (3.5-5.1) 08/30/24 08:16
BUN 18 mg/dl (9-20) 08/30/24 08:16
Glucose 98 mg/dl (70-99) 08/30/24 08:16
Calcium 8.6 mg/dl (8.4-10.2) 08/30/24 08:16
Phosphorus 3.4 mg/dl (2.5-4.5) 08/29/24 12:28
Iye-U-Gutbcutwxuo Pept 1560 pg/ml 08/29/24 13:54
Vitamin B12 780 pg/ml (239-931) 08/30/24 08:16
Medications
-
Medications:
Generic Name Dose Route Start Last Admin
Trade Name Freq PRN Reason Stop Dose Admin
Acetaminophen 500 mg 08/30/24 08:00 09/02/24 08:31
Acetaminophen 500 Mg Tablet PO 09/27/24 07:59 500 mg
DAILY BLADIMIR Administration
Aspirin 81 mg 08/29/24 20:10 09/02/24 08:32
Aspirin 81 Mg Chewable Tablet PO 09/26/24 20:09 81 mg
BID BLADIMIR Administration
Atorvastatin Calcium 40 mg 08/30/24 08:00 09/02/24 08:31
Atorvastatin (Lipitor) 40 Mg Tablet PO 09/27/24 07:59 40 mg
DAILY BLADIMIR Administration
Bisacodyl 10 mg 08/29/24 20:10
Bisacodyl 10 Mg Rectal Suppository RECTAL 09/26/24 20:09
[id number] PRN
constipation
Carbidopa/Levodopa 3 tablet 08/30/24 08:00 09/02/24 08:32
Carbidopa (25 Mg)/Levodopa (100 Mg) Regular Release Tablet PO 09/27/24 07:59 3 tablet
BID@0800,1300 BLADIMIR Administration
Dextrose 12.5 grams 08/29/24 20:10
Dextrose 50% (0.5 Grams/Ml) 50 Ml Syringe IV 09/26/24 20:09
[id number] PRN
hypoglycemia
Protocol
Docusate Sodium 100 mg 08/30/24 08:00 09/02/24 08:31
Docusate Sodium 100 Mg Capsule PO 09/27/24 07:59 100 mg
DAILY BLADIMIR Administration
Doxycycline Hyclate 100 mg 08/31/24 20:00 09/02/24 08:32
Doxycycline 100 Mg Capsule PO 100 mg
Q12 BLADIMIR Administration
Enoxaparin Sodium 40 mg 08/29/24 20:10 09/01/24 17:36
Enoxaparin Sodium 40 Mg/0.4 Ml Syringe SC 09/26/24 20:09 40 mg
QPM BLADIMIR Administration
Famotidine 20 mg 08/29/24 20:10 09/01/24 17:46
Famotidine 20 Mg Tablet PO 09/26/24 20:09 20 mg
QPM BLADIMIR Administration
Furosemide 20 mg 08/30/24 08:00 09/02/24 08:31
Furosemide 20 Mg Tablet PO 09/27/24 07:59 20 mg
DAILY BLADIMIR Administration
Gabapentin 100 mg 08/30/24 08:00 09/02/24 08:31
Gabapentin 100 Mg Capsule PO 09/27/24 07:59 100 mg
DAILY BLADIMIR Administration
Glucagon 1 mg 08/29/24 20:10
Glucagon 1 Mg Vial IM 09/26/24 20:09
PRN PRN
hypoglycemia
Protocol
Insulin Aspart 0 units 08/30/24 07:30 09/02/24 08:30
Insulin Aspart Low Resistance 300 Units/3 Ml Pen.Injctr SC 09/27/24 07:29 Not Given
AC BLADIMIR
Protocol
Insulin Aspart Prota 70%/Aspart 30% 28 units 08/29/24 21:00 09/02/24 09:26
Novolog Mix 70/30 (100 Units/Ml) 3 Ml Flexpen SC 09/26/24 20:59 28 units
BID BLADIMIR Administration
Magnesium Oxide 500 mg 08/30/24 08:00 09/02/24 09:25
Magnesium Oxide 500 Mg Tablet PO 09/27/24 07:59 500 mg
DAILY BLADIMIR Administration
Metoprolol Tartrate 50 mg 08/29/24 20:10 09/02/24 08:32
Metoprolol 50 Mg Regular Release Tablet PO 09/26/24 20:09 50 mg
BID BLADIMIR Administration
Polyethylene Glycol 17 grams 08/30/24 08:00 09/02/24 09:25
Polyethylene Glycol Powder 17 Grams Packet PO 09/27/24 07:59 17 grams
DAILY BLADIMIR Administration
Polyethylene Glycol 17 grams 08/29/24 20:10
Polyethylene Glycol Powder 17 Grams Packet PO 09/26/24 20:09
DAILYPRN PRN
constipation
Senna/Docusate Sodium 1 tablet 08/29/24 20:10
Docusate W/Senna (Alyx-Colace) Tablet PO 09/26/24 20:09
BIDPRN PRN
constipation
Sodium Chloride 0 flush 08/29/24 21:00
Sodium Chloride 0.9% (Flush) Syringe IV 09/26/24 20:59
PER PROTOCOL BLADIMIR
Tamsulosin HCl 0.4 mg 08/29/24 22:00 09/01/24 21:18
Tamsulosin 0.4 Mg Capsule PO 09/26/24 21:59 0.4 mg
HS BLADIMIR Administration
NIH Stroke Score
Subsequent NIH Scale
Date of Subsequent NIH Scale: 09/02/24
Time of Subsequent NIH Scale: 09:15
NIH Stroke Score
Level of Consciousness: 0 - Alert
LOC Questions: 0-Answers both correctly
LOC Commands: 0-Performs both correctly
Best Horizontal Gaze: 0-Normal
Visual Hurd: 0=Normal, no visual loss
Facial Palsy: 0=Normal, symmetrical
Motor - Right Arm: 0=No drift 10 seconds
Motor - Left Arm: 0=No drift 10 seconds
Motor - Right Le-Partial vs. gravity
Motor - Left Le-Partial vs. gravity
Limb Ataxia: 0-Absent
Sensation: 0-Normal
Best Language: 0-No aphasia
Dysarthria: 0-Normal
Extinction and Inattention: 0-No abnormality
Total Score:: 4
Modified Abbi (mRS) Score
Modified [place] Scale (mRS): Moderately severe disability. Unable to attend to bodily needs/walk.
Score: 4
Alteplase Contraindication
Inclusion and Exclusion criteria reviewed: Yes
Reasons for NON-Tx with Thrombolytics ABSOLUTE Exclusions: Greater than 4.5 hrs from onset of sxs
IAT Contraindications: NIHSS < 6

Documented by User: Osvaldo Angulo MD 09/02/24 10:51
NIH Stroke Score
NIH Stroke Score
Total Score:: 4
Modified [place] (mRS) Score
Score: 4
[2024-09-02] MEDS: MAGNESIUM OXIDE 500 MG PO (09:25)
[2024-09-02] MEDS: MIRALAX 17 GRAMS PO (09:25)
[2024-09-02] MEDS: NOVOLOG MIX 70/30 FLEXPEN 28 UNITS SC ×2 (09:26→22:58)
[2024-09-02] MEDS: PLAVIX 75 MG PO (11:41)
--- NOTE | 2024-09-02 11:52 | PN.CDI ---
Addendum entered and electronically signed by Mandeep Owen MD 09/02/24 13:50:
You dont have to come up with diagnosis
Original Note:
CDI
- -
CDI:
Physician Documentation Request
Admit Date: 08/31/24 16:29
Dear Doctor Brayden,
Please review the following and provide your response in the progress notes.
Clinical Indicators:
Pt admitted with weakness found to have Acute CVA
Documented per ED,' mild CHF; CAD here with 2 days cough, fatigue, mild edema in legs, increasing BNP outpatient (was 400 then 900, now 1500)...with mild edema worsening, cough, increasing BNP i think he has mild failure; he is already on Lasix 20,
given another 20...'
Progress note 09/01,' Echo 08/05/2024-normal LV size with concentric LVH. EF 55 to 60%. Normal diastolic function...'
Per MAR Did get IV Lasix 20 mg x2 on 08/29 /BNP 1560
Please provide further specificity regarding the most likely type and acuity of CHF you are evaluating, treating or monitoring.
Acute on Chronic Diastolic CHF
Chronic Diastolic CHF only
Other ( please specify)
Use of terms such as suspected, likely, concern for, or probable (associated with a specific diagnosis that is being evaluated, monitored, or treated as if it exists) are acceptable and can be coded in the inpatient setting, when documented at the
time of discharge.
Thank you,
Ellen Barone RN
CDI Specialist
[place] [facility]
Please use your independent medical judgment in providing your response.
--- NOTE | 2024-09-02 12:43 | CON.VAS ---
Addendum entered and electronically signed by CYNTHIA Manriquez 09/02/24 16:35:
Carotid duplex and report reviewed, suggestive of less than 50% stenosis of bilateral carotid artery, further supporting CT angio results possibly skewed by motion artifact. For full diagnostic workup will obtain MRA neck. Plan reviewed with
attending Dr. Nick Carranza and hospitalist via [place] text, both agree. Attempted to update via phone, but 2 attempts went unanswered, will again try to update following MRA results. Updated patient in person and he is agreeable with plan.
Original Note:
Consultation
Consultation Request
Date/Time Consultation Performed: 09/02/2024 1245
Requesting Provider: Mandeep Owen MD
Performing Provider: Christine Elmore, SAND MIXER-C for Rico Maldonado III, MD
Reason for Consultation: Right carotid artery stenosis
Medical History
-
Chief Complaint: Right carotid artery stenosis
History of Present Illness:
This is a 79-year-old right-handed male with significant past medical history for hypertension, DM, Parkinson disease, nephrolithiasis, hyperlipidemia, and cervical degenerative disease who presented to [facility] on 08/29/2024 with reports of
roughly 1-2 weeks of worsening generalized weakness and gait dysfunction. Of note patient has an extensive past medical history of chronic ambulatory dysfunction and follows with neurologist Dr. Tamara Burk out of [facility], his current
working diagnosis for his gait dysfunction is Parkinson's disease vs progressive supranuclear palsy (PSP). He does endorse that he has had difficulty with ambulation and generalized weakness since roughly 2020 following his C4-C5 fusion and L1-L2
laminectomy. However, he and his both attest that his weakness and gait dysfunction has significantly worsened over the last week, and has contributed to one fall. He currently takes carbidopa/levodopa and utilizes a rolling walker/wheelchair
for ambulation at baseline. As part of admission workup for generalized weakness he had a MRI of his brain obtained which demonstrated
an 3.8 mm tiny acute ischemic infarct in the right parietal lobe and 4.2 mm chronic ischemic infarct in the left cerebellar hemisphere, prompting stroke workup which included CTA head and neck. Neck CTA noted limited evaluation due to motion
artifact and streak artifact but regardless did suggest greater than 90% stenosis of the right carotid bulb. Vascular surgery consulted for right carotid stenosis in the setting of acute right hemisphere ischemic infarct. Patient currently
endorses continued bilateral lower extremity weakness worse than his baseline. He denies any headache, dizziness, vision changes, speech/swallow difficulty, numbness, unilateral weakness, chest pain, palpitations, claudication, rest pain, and
shortness of breath. He denies any known history of TIA or stroke. .
Past Medical History
Past Medical History: HTN, IDDM and Other (Parkinson disease, nephrolithiasis, hyperlipidemia)
Past Surgical History: Cardiac (Cardiac catheterization with PCI), Cholecystectomy and Orthopedic (C4-C5 fusion and L1-L2 laminectomy, 2020)
Social History
Tobacco: Non-Smoker
Alcohol: None
Drug: None
Personal:
Living: With Family
Allergies / Home Medications
Allergy/AdvReac Type Severity Reaction Status Date / Time
Latex, Natural Rubber Allergy Unknown Verified 05/25/23 21:35
mold Allergy Unknown Verified 05/25/23 21:35
�Medication �Instructions �Recorded �Confirmed �Type
aspirin 81 mg chewable tablet 81 mg PO BID Blood Clot 03/07/23 08/29/24 History
Prevention/Tx
atorvastatin 40 mg tablet 40 mg PO DAILY High Cholesterol 03/07/23 08/29/24 History
carbidopa 25 mg-levodopa 100 mg 3 tab PO BID@0800,1300 parkinson's 03/07/23 08/29/24 History
tablet disease
metoprolol tartrate 50 mg tablet 50 mg PO BID Blood Pressure 03/07/23 08/29/24 History
semaglutide 0.25 mg or 0.5 mg (2 1 mg SC TH Diabetes 03/07/23 08/29/24 History
mg/3 mL) subcutaneous pen injector
(Ozempic)
tamsulosin 0.4 mg capsule 0.4 mg PO HS urine retention 03/07/23 08/29/24 History
furosemide 20 mg tablet 20 mg PO DAILY Fluid 07/09/23 08/29/24 History
Retention/Swelling
gabapentin 100 mg capsule 100 mg PO DAILY Neurological 07/09/23 08/29/24 History
Condition
insulin NPH-regular 70-30 U-100 0 unit SC AC Diabetes 07/09/23 08/29/24 History
insulin 100 unit/mL subcutaneous
pen (Novolin 70-30 FlexPen U-100
Insulin)
magnesium oxide 500 mg PO DAILY Arrhythmia #0 tabs 07/19/23 08/29/24 Rx
polyethylene glycol 3350 17 gram 17 g PO DAILY Constipation #0 ea 07/19/23 08/29/24 Rx
oral powder packet (HealthyLax)
acetaminophen 500 mg tablet 500 mg PO DAILY Pain 08/29/24 08/29/24 History
(Tylenol Extra Strength)
docusate sodium 100 mg capsule 100 mg PO DAILY Constipation 08/29/24 08/29/24 History
(Colace)
famotidine 20 mg tablet (Pepcid) 20 mg PO QPM Gastrointestinal Issue 08/29/24 08/29/24 History
naproxen sodium 220 mg tablet 220 mg PO DAILY Anti-Inflammatory 08/29/24 08/29/24 History
(Aleve)
Review of Systems
-
History Source: Patient
Constitutional: Reports Fatigue
EENT: Reports No Symptoms
Respiratory: Reports No Symptoms
Cardiac: Reports No Symptoms
Vascular: Denies Leg Pain / Claudication
Abdomen/GI: Reports No Symptoms
: Reports No Symptoms
Musculoskeletal: Reports Edema
Skin: Reports Other (BL LE venous discoloration chronic)
Neurological: Reports Weakness (Generalized) and Other (Gait dysfunction/imbalance)
Endocrine: Reports No Symptoms
Physical Exam
Vital Signs
Temp Pulse Resp BP Pulse Ox
97.6 F 87 18 125/59 96
09/02/24 07:00 09/02/24 08:32 09/02/24 07:00 09/02/24 08:32 09/02/24 08:50
Lab Results
08/31/24 09:48
08/30/24 08:16
Icz-P-Oabqbkspfmg Pept 1560 pg/ml 08/29/24 13:54
Physical Exam
General: No Apparent Distress and Comfortable
HEENT: Normocephalic, Anicteric and Atraumatic
Cardiac: Negative JVD
GI: Soft, Non Tender and Non Distended
Musculoskeletal: Edema (Bilateral lower extremities with trace edema)
Skin: Warm and Other (Bilateral calf venous congestion discoloration)
Neuro: AO x 3 and Other (Bilateral lower extremity weakness, apparently chronic, right upper extremity resting tremor)
Psych: Calm
Assessment / Plan
-
Assessment: 79-year-old male admitted for workup of gait dysfunction/generalized weakness developing over the past 1 to 2 weeks, MRI of brain showed 3.8 mm acute ischemic white matter infarct in the right parietal lobe, head and neck CTA was
obtained demonstrating right ICA stenosis of 90%
Plan:
Will obtain carotid ultrasound to establish baseline, and compare to CT results for full evaluation of stenosis
Will discuss case with neurology for their opinion on whether or not this is symptomatic for had a carotid stenosis, if considered symptomatic likely will proceed with recommending surgical revascularization this admission.
Reviewed plan with on-call vascular surgeon Dr. Rico Maldonado III, who agrees with above plan, final surgical plan per attending.
[2024-09-02 13:28] LABS: Erythrocyte Sed Rate 42 mm/hour (0-20)
[2024-09-02 13:45] LABS: HDL Cholesterol 28 mg/dl; LDL Cholesterol, Calculated 59 mg/dl; Total Cholesterol 115 mg/dl (50-199); Triglyceride 140 mg/dl (10-149); Very Low Density Lipoprotein 28 mg/dl (0-30)
[2024-09-02 13:50] LABS: VerifyNow Aspirin 403 ARU
[2024-09-02 13:59] LABS: Glucose - Point of Care 177 mg/dl (70-99)
[2024-09-02] MEDS: NOVOLOG FLEXPEN-LOW RESISTANCE 1 UNITS SC (13:59)
--- NOTE | 2024-09-02 14:58 | W.PN.HOSP.TC ---
Today's Communication/Plan
-
PMR consult
Vascular eval
USS carotid
Continue AB
Assessment / Plan
Assessment / Plan
Echo 08/05/2024-normal LV size with concentric LVH. EF 55 to 60%. Normal diastolic function. Mild MR. Severe . Mild AI. Mild TR. Pulmonary artery pressure 35 mm of reported.
CVS: S1-S2 normal, sm at aa
Chest: CTA B/L
Abdomen: Soft, NT
Extremities: No edema
OENOLOGIST: No cranial nerve deficits, good strength upper extremity bilaterally
Good distal strength to lower extremity bilaterally, mild proximal muscle weakness on the left side
Echo 09/02/2024-normal LV size and function. EF 55 to 60%. Mild MR. Moderate to severe . Mild AI.
MRI of the brain-3.8 mm tiny acute ischemic white matter infarct in the right parietal lobe. 4.2 mm chronic ischemic infarct in the left cerebellar hemisphere. Mild to moderate white matter leukoaraiosis in frontal and parietal lobes. Moderate
diffuse cerebral and cerebellar volume loss. Moderate distention of the ventricular system and multiple asymmetry dilated cerebral sulci. NPH versus ex vacuo dilatation of the ventricular system. Moderate to severe acute right maxillary
sinusitis. Severe discogenic DJD C4-C5
CT neck-greater than 90% stenosis of the right carotid bulb. 50% stenosis of the left carotid bulb. No evidence of high-grade stenosis of the COW
# Generalized weakness
Urinalysis not consistent with UTI
Chest x-ray no infection
COVID 19 neg, FLU neg.
Acute sinusitis on the right side-continue doxycycline
Sputum cultures neg
# 3.8 mm acute ischemic white matter infarct in the right parietal lobe
Echo with no embolic source
90% stenosis of the carotid bulb -check ultrasound
Vascular evaluation
Aspirin Plavix
Platelet function testing noted-evidence of platelet dysfunction from aspirin
Plan is to continue with aspirin and Plavix for 28 days
# Moderate to severe acute maxillary sinusitis-continue doxycycline for a total of 10 days. Patient and were made aware that he needs to follow-up with ENT as outpatient for nasal endoscopy and any procedure if needed for the sinuses.
# Coronary Artery Disease with Stent-Continue aspirin, atorvastatin, metoprolol
# Severe aortic stenosis
# Essential Hypertension-Continue Metoprolol
# PVCs- Continue beta-blockers
# Hyperlipidemia-Continue atorvastatin
# DM. [id number]-Continue insulin 70/30 , Accu checks and SSI
# Diabetic Neuropathy-Continue gabapentin
# Parkinson's Disease-Continue Sinemet
# Prostate disease-Continue Flomax
# Ambulatory dysfunction
# Obesity per BMI
# Sleep apnea-CPAP intolerant
# History of nephrolithiasis
# DVT prophylaxis: Lovenox
# Code Status: Full Code
Discussed with neurology
Discussed with nursing
Discussed with patient's on the phone in detail updated regarding MRI
Discussed case management-regarding rehab
Consulted PM&R
time spent over 50 min
Anticipated Discharge: Within 24 hours
Subjective/Interval History
-
Date of Service: September 02, 2024
Objective Data
-
Vital Signs:
Vital Signs
Temp Pulse Resp BP Pulse Ox
97.6 F 87 18 125/59 96
09/02/24 07:00 09/02/24 08:32 09/02/24 07:00 09/02/24 08:32 09/02/24 08:50
I&O
09/01/24 09/02/24 09/03/24
06:59 06:59 06:59
Intake Total 240 / 240 840 / 840
Output Total 100 / 100
Balance 140 / 140 840 / 840
[2024-09-02 15:00] VITALS: BP 120/64
[2024-09-02 15:09] LABS: Folate 19.7 ng/ml (2.76-20); Vitamin B12 877 pg/ml (239-931)
--- NOTE | 2024-09-02 15:21 | CM ---
CM reviewed chart, patient off floor, seen bedside. Auth submitted to [facility], sent to [facility] [employer] for review- pending reference #[id number]. [facility] able to accept tomorrow pending insurance auth. reports she met with [facility] today
who will be set up for when patient returns home from rehab. CM will continue to follow for all discharge planning needs.
Plan; [facility] pending insurance approval, pending reference #[id number].
[2024-09-02 15:46] LABS: Blood Urea Nitrogen 25 mg/dl (9-20); Calcium 9.6 mg/dl (8.4-10.2); Carbon Dioxide 26 mmol/L (22-30); Chloride 100 mmol/L (98-107); Estimated Creatinine Clearance 71 ml/min; Glucose 173 mg/dl (70-99); Sodium 137 mmol/L (135-145); eGFR > 60.00
[2024-09-02 16:34] LABS: Glucose - Point of Care 147 mg/dl (70-99)
[2024-09-02] MEDS: PEPCID 20 MG PO (17:29)
[2024-09-02] MEDS: LOVENOX 40 MG SC (17:29)
[2024-09-02 19:56] VITALS: BP 130/61
[2024-09-02 22:31] LABS: Glucose - Point of Care 220 mg/dl (70-99)
[2024-09-02] MEDS: FLOMAX 0.4 MG PO (22:58)
[2024-09-02 23:47] VITALS: BP 132/56
[2024-09-03 04:01] VITALS: BP 130/60
[2024-09-03 06:00] VITALS: BMI 34.3
[2024-09-03 07:00] VITALS: BP 124/72
--- NOTE | 2024-09-03 07:41 | W.PN.NEURO.1 ---
Today's Communication / Plan
-
Added clopidogrel to the patient's aspirin then discontinue after 21 days
Reduced aspirin dosing from 81 mg twice a day to once a day dosing and maintain as outpatient after review with cardiology
Appreciate vascular surgery evaluation
Maintain atorvastatin at 40 mg since LDL less than 70
Continue current dosing of carbidopa levodopa, revise if absence of orthostasis
Check orthostatic blood pressures
Continue rehabilitation evaluations and treatment
Consider nasal steroids due to sinusitis and intermittent cough
Consider additional therapy to lengthen benefits of carbidopa/levodopa, including opicapone
Neuro Assessment/Plan
Assessment
Onset of worsening gait in a patient previously diagnosed clinically with parkinsonism
With the patient's gait dysfunction, urinary dysfunction and minimal to mild cognitive difficulties, as well as what appeared to be increased ventricular size, differential diagnosis would include normal pressure hydrocephalus despite prior MRI
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
MRI images are minimally suggestive of a right parietal lobe hyperintensity on diffusion weighted imaging suggestive of a subacute ischemic stroke
There is evidence of aspirin efficacy
CTA suggested 90% stenosis which was not confirmed by carotid ultrasound in the right carotid bulb
Plan
Added clopidogrel to the patient's aspirin then discontinue after 21 days
Reduced aspirin dosing from 81 mg twice a day to once a day dosing and maintain as outpatient after review with cardiology
Appreciate vascular surgery evaluation
Maintain atorvastatin at 40 mg since LDL less than 70
Continue current dosing of carbidopa levodopa, revise if absence of orthostasis
Check orthostatic blood pressures
Continue rehabilitation evaluations and treatment
Consider nasal steroids due to sinusitis and intermittent cough
Consider additional therapy to lengthen benefits of carbidopa/levodopa, including opicapone
Will follow pending information
Subjective/Objective
Subjective Data
Date of Service: September 03, 2024
Objective Data
Vital Signs
Temp Pulse Resp BP Pulse Ox
36.6 C 58 18 130/60 97
09/03/24 04:01 09/03/24 04:01 09/03/24 04:01 09/03/24 04:01 09/03/24 04:01
Sodium 137 mmol/L (135-145) 09/02/24 12:41
Potassium 5.0 mmol/L (3.5-5.1) 09/02/24 12:41
BUN 25 mg/dl (9-20) H 09/02/24 12:41
Glucose 173 mg/dl (70-99) H 09/02/24 12:41
Calcium 9.6 mg/dl (8.4-10.2) 09/02/24 12:41
Phosphorus 3.4 mg/dl (2.5-4.5) 08/29/24 12:28
Ilu-M-Acahvhhukyq Pept 1560 pg/ml 08/29/24 13:54
LDL Cholesterol, Calc 59 mg/dl 09/02/24 12:41
Vitamin B12 877 pg/ml (239-931) 09/02/24 12:41
Patient Allergies
Latex, Natural Rubber Allergy (Verified 05/25/23 21:35)
Unknown
mold Allergy (Verified 05/25/23 21:35)
Unknown
Data Reviewed
-
CT-A: Report Reviewed
Carotid Ultrasound: Report Reviewed
Labs: Report Reviewed
Reviewed with: Nurse Practioner
Old Records: Summarized
Past History
Past History
ED Past Medical History: CAD, HTN, Hypercholesterolemia, IDDM, Valvular disease and Other (Parkinson's)
ED Past Surgical History: Cardiac, Cholecystectomy and Orthopedic
Social History
Tobacco: Non-smoker
Alcohol: None
Drug: None
Personal:
Living: with family
Family History
Family History: Other (Reviewed and noncontributory)
Medications
-
Medications:
Generic Name Dose Route Start Last Admin
Trade Name Freq PRN Reason Stop Dose Admin
Acetaminophen 500 mg 08/30/24 08:00 09/02/24 08:31
Acetaminophen 500 Mg Tablet PO 09/27/24 07:59 500 mg
DAILY BLADIMIR Administration
Aspirin 81 mg 09/03/24 08:00
Aspirin 81 Mg Chewable Tablet PO 10/01/24 07:59
DAILY BLADIMIR
Atorvastatin Calcium 40 mg 08/30/24 08:00 09/02/24 08:31
Atorvastatin (Lipitor) 40 Mg Tablet PO 09/27/24 07:59 40 mg
DAILY BLADIMIR Administration
Bisacodyl 10 mg 08/29/24 20:10
Bisacodyl 10 Mg Rectal Suppository RECTAL 09/26/24 20:09
[id number] PRN
constipation
Carbidopa/Levodopa 3 tablet 08/30/24 08:00 09/02/24 13:55
Carbidopa (25 Mg)/Levodopa (100 Mg) Regular Release Tablet PO 09/27/24 07:59 3 tablet
BID@0800,1300 BLADIMIR Administration
Clopidogrel Bisulfate 75 mg 09/02/24 11:00 09/02/24 11:41
Clopidogrel 75 Mg Tablet PO 09/30/24 10:59 75 mg
DAILY BLADIMIR Administration
Dextrose 12.5 grams 08/29/24 20:10
Dextrose 50% (0.5 Grams/Ml) 50 Ml Syringe IV 09/26/24 20:09
[id number] PRN
hypoglycemia
Protocol
Docusate Sodium 100 mg 08/30/24 08:00 09/02/24 08:31
Docusate Sodium 100 Mg Capsule PO 09/27/24 07:59 100 mg
DAILY BLADIMIR Administration
Doxycycline Hyclate 100 mg 08/31/24 20:00 09/02/24 20:24
Doxycycline 100 Mg Capsule PO 100 mg
Q12 BLADIMIR Administration
Enoxaparin Sodium 40 mg 08/29/24 20:10 09/02/24 17:29
Enoxaparin Sodium 40 Mg/0.4 Ml Syringe SC 09/26/24 20:09 40 mg
QPM BLADIMIR Administration
Famotidine 20 mg 08/29/24 20:10 09/02/24 17:29
Famotidine 20 Mg Tablet PO 09/26/24 20:09 20 mg
QPM BLADIMIR Administration
Furosemide 20 mg 08/30/24 08:00 09/02/24 08:31
Furosemide 20 Mg Tablet PO 09/27/24 07:59 20 mg
DAILY BLADIMIR Administration
Gabapentin 100 mg 08/30/24 08:00 09/02/24 08:31
Gabapentin 100 Mg Capsule PO 09/27/24 07:59 100 mg
DAILY BLADIMIR Administration
Glucagon 1 mg 08/29/24 20:10
Glucagon 1 Mg Vial IM 09/26/24 20:09
PRN PRN
hypoglycemia
Protocol
Insulin Aspart 0 units 08/30/24 07:30 09/02/24 17:29
Insulin Aspart Low Resistance 300 Units/3 Ml Pen.Injctr SC 09/27/24 07:29 Not Given
AC BLADIMIR
Protocol
Insulin Aspart Prota 70%/Aspart 30% 28 units 08/29/24 21:00 09/02/24 22:58
Novolog Mix 70/30 (100 Units/Ml) 3 Ml Flexpen SC 09/26/24 20:59 28 units
BID BLADIMIR Administration
Magnesium Oxide 500 mg 08/30/24 08:00 09/02/24 09:25
Magnesium Oxide 500 Mg Tablet PO 09/27/24 07:59 500 mg
DAILY BLADIMIR Administration
Metoprolol Tartrate 50 mg 08/29/24 20:10 09/02/24 20:24
Metoprolol 50 Mg Regular Release Tablet PO 09/26/24 20:09 50 mg
BID BLADIMIR Administration
Polyethylene Glycol 17 grams 08/30/24 08:00 09/02/24 09:25
Polyethylene Glycol Powder 17 Grams Packet PO 09/27/24 07:59 17 grams
DAILY BLADIMIR Administration
Polyethylene Glycol 17 grams 08/29/24 20:10
Polyethylene Glycol Powder 17 Grams Packet PO 09/26/24 20:09
DAILYPRN PRN
constipation
Senna/Docusate Sodium 1 tablet 08/29/24 20:10
Docusate W/Senna (Alyx-Colace) Tablet PO 09/26/24 20:09
BIDPRN PRN
constipation
Sodium Chloride 0 flush 08/29/24 21:00
Sodium Chloride 0.9% (Flush) Syringe IV 09/26/24 20:59
PER PROTOCOL BLADIMIR
Tamsulosin HCl 0.4 mg 08/29/24 22:00 09/02/24 22:58
Tamsulosin 0.4 Mg Capsule PO 09/26/24 21:59 0.4 mg
HS BLADIMIR Administration
[2024-09-03 07:50] LABS: Glucose - Point of Care 97 mg/dl (70-99)
[2024-09-03 07:51] LABS: Hematocrit 50.4 % (39.0-52.0); Hemoglobin 17.4 g/dL (13.0-18.0); Mean Corp Hgb Conc. 34.5 g/dL (33.0-37.0); Mean Corpuscular Hgb 33.1 pg (27.0-31.0); Mean Corpuscular Volume 95.8 fL (80.0-94.0); Mean Platelet Volume 10.4 fL (7.4-10.4); Platelet Count 178 10^3/uL (130-400); Red Blood Cell Count 5.26 10^6/uL (4.70-6.10); Red Cell Dist. Width 13.6 % (11.5-14.5); White Blood Cell Count 11.8 10^3/uL (4.8-10.8)
[2024-09-03 08:04] LABS: Blood Urea Nitrogen 24 mg/dl (9-20); Calcium 9.4 mg/dl (8.4-10.2); Carbon Dioxide 29 mmol/L (22-30); Chloride 104 mmol/L (98-107); Estimated Creatinine Clearance 71 ml/min; Glucose 99 mg/dl (70-99); Potassium 4.6 mmol/L (3.5-5.1); Sodium 140 mmol/L (135-145); eGFR > 60.00
[2024-09-03] MEDS: SINEMET 25-100 3 TABLET PO ×2 (08:25→12:54)
[2024-09-03] MEDS: NOVOLOG FLEXPEN-LOW RESISTANCE SC (08:25)
[2024-09-03] MEDS: COLACE 100 MG PO (08:26)
[2024-09-03] MEDS: TYLENOL 500 MG PO (08:26)
[2024-09-03] MEDS: LASIX 20 MG PO (08:26)
[2024-09-03] MEDS: VIBRAMYCIN 100 MG PO (08:26)
[2024-09-03] MEDS: MAGNESIUM OXIDE 500 MG PO (08:26)
[2024-09-03] MEDS: LOW STRENGTH ASPIRIN 81 MG PO (08:27)
[2024-09-03] MEDS: PLAVIX 75 MG PO (08:27)
[2024-09-03] MEDS: LIPITOR 40 MG PO (08:27)
[2024-09-03] MEDS: LOPRESSOR 50 MG PO (08:27)
[2024-09-03] MEDS: NEURONTIN 100 MG PO (08:27)
[2024-09-03] MEDS: MIRALAX 17 GRAMS PO (09:11)
[2024-09-03] MEDS: NOVOLOG MIX 70/30 FLEXPEN 28 UNITS SC (09:40)
--- NOTE | 2024-09-03 10:50 | W.PN.HOSP.TC ---
Today's Communication/Plan
-
d/c to [facility]
Assessment / Plan
Assessment / Plan
Echo 08/05/2024-normal LV size with concentric LVH. EF 55 to 60%. Normal diastolic function. Mild MR. Severe . Mild AI. Mild TR. Pulmonary artery pressure 35 mm of reported.
Echo 09/02/2024-normal LV size and function. EF 55 to 60%. Mild MR. Moderate to severe . Mild AI.
MRI of the brain-3.8 mm tiny acute ischemic white matter infarct in the right parietal lobe. 4.2 mm chronic ischemic infarct in the left cerebellar hemisphere. Mild to moderate white matter leukoaraiosis in frontal and parietal lobes. Moderate
diffuse cerebral and cerebellar volume loss. Moderate distention of the ventricular system and multiple asymmetry dilated cerebral sulci. NPH versus ex vacuo dilatation of the ventricular system. Moderate to severe acute right maxillary
sinusitis. Severe discogenic DJD C4-C5
CT neck-greater than 90% stenosis of the right carotid bulb. 50% stenosis of the left carotid bulb. No evidence of high-grade stenosis of the COW
# Generalized weakness
Urinalysis not consistent with UTI
Chest x-ray no infection
COVID 19 neg, FLU neg.
Acute sinusitis on the right side-continue doxycycline
Sputum cultures neg
#acute CVA-- 3.8 mm acute ischemic white matter infarct in the right parietal lobe
Echo with no embolic source
MRA neck <50% stenosis bilateral carotid bulbs
apprec Vascular evaluation
Aspirin Plavix
Platelet function testing noted-evidence of platelet dysfunction from aspirin
Plan is to continue with aspirin and Plavix for 28 days
# Moderate to severe acute maxillary sinusitis-continue doxycycline for a total of 10 days. Patient and were made aware that he needs to follow-up with ENT as outpatient for nasal endoscopy and any procedure if needed for the sinuses.
# Coronary Artery Disease with Stent-Continue aspirin, atorvastatin, metoprolol
# Severe aortic stenosis
# Essential Hypertension-Continue Metoprolol
# PVCs- Continue beta-blockers
# Hyperlipidemia-Continue atorvastatin
# DM. GbQ0H-5.4-Continue insulin 70/30 , Accu checks and SSI
# Diabetic Neuropathy-Continue gabapentin
# Parkinson's Disease-Continue Sinemet
# Prostate disease-Continue Flomax
# Ambulatory dysfunction
# Obesity per BMI
# Sleep apnea-CPAP intolerant
# History of nephrolithiasis
# DVT prophylaxis: Lovenox
# Code Status: Full Code
Anticipated Discharge: Today
Subjective/Interval History
-
Date of Service: September 03, 2024
pt without c/o
Objective Data
-
Labs:
Laboratory Results
09/03/24
07:30
WBC 11.8 H
Hgb 17.4
Hct 50.4
Plt Count 178
Sodium 140
Potassium 4.6
Chloride 104
Carbon Dioxide 29
BUN 24 H
Creatinine 1.0
Glucose 99
Calcium 9.4
Vital Signs:
max temp for 24 hours
09/02/24
23:47
Temp 98.6 F
Vital Signs
Temp Pulse Resp BP Pulse Ox
98.4 F 85 20 124/72 98
09/03/24 07:00 09/03/24 07:00 09/03/24 07:00 09/03/24 07:00 09/03/24 07:00
I&O
09/02/24 09/03/24 09/04/24
06:59 06:59 06:59
Intake Total 840 / 840 600 / 600 480 / 480
Balance 840 / 840 600 / 600 480 / 480
Review of Systems
-
All other systems: Reviewed and negative
Physical Exam
-
General: Well Developed, Well Nourished and No Apparent Distress
HEENT: Normocephalic and Atraumatic
Respiratory: Clear to Auscultation; Negative Wheezes or Rhonchi
Cardiac: Regular Rhythm and S1/S2; Negative Murmur
GI: Soft, Nontender, Nondistended and Normal Bowel Sounds
Musculoskeletal: No Clubbing, No Cyanosis and No Edema
Neuro: Awake
Psych: Calm
--- NOTE | 2024-09-03 10:52 | CM ---
Chart reviewed and rn case management reached out to patient's insurance and patient was approved for acute rehab, 6 days, Auth [id number], NRD 09/08, , patient has been accepted at [facility] today and Auth provided to admissions at [facility].
Plan; Patient to transfer to [facility] at [facility] today.
[facility]
Report [phone]
[2024-09-03 11:00] VITALS: BP 101/56
--- NOTE | 2024-09-03 11:53 | W.PN.UPDATE ---
Update Note
Progress Note Update
The patient was seen and examined by me. I reviewed all imaging. I discussed findings with him. While his CT scan had demonstrated possible right proximal internal carotid artery stenosis, there is significant motion artifact. The carotid
ultrasound and MRA both failed to demonstrate any hemodynamically significant stenosis in the right internal carotid artery. Therefore there is some mild to moderate plaque but no severe stenosis. CT scan findings likely secondary to motion
artifact and some artifact from the plaque. Therefore no indication for any intervention, his stroke likely unrelated to carotid disease. I will sign off. Please call me with questions. Discussed with patient.
[2024-09-03 11:54] LABS: Glucose - Point of Care 208 mg/dl (70-99)
[2024-09-03] MEDS: NOVOLOG FLEXPEN-LOW RESISTANCE 2 UNITS SC (12:55)
--- NOTE | 2024-09-03 14:23 | W.DCSUMMARY ---
Discharge Summary
Discharge Data
Date of Admission: 08/31/24
Date of Discharge: 09/03/24
-
Pending Results: No
Hospital Course
Primary care physician : Ty Morel
Principal Discharge diagnosis : General Weakness found to have acute stroke, moderate to severe acute maxillary sinusitis
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
requiring, Parkinson's disease, prostate disease, ambulatory dysfunction, obesity, obstructive sleep apnea
Hospital Course : Patient was a 79-year-old male who was brought in by the patient's because of generalized weakness. She believes that he becomes weak when he has an infection. Patient states that he was having a lot of sinus congestion and
bringing up dark mucus from his sinus issues. Patient was admitted.
Problem #1: General Weakness found to have acute stroke. Patient urinalysis was not consistent with a urinary tract infection, COVID was negative, and his chest x-ray showed no evidence of infection. Patient does have significant sinusitis with
congestion and symptoms. He was started on doxycycline and should continue that medication for another 10 days. He should follow-up with ENT as an outpatient for more definitive management. He was however found to have an acute stroke. This is
more likely what the cause of his weakness is. He was found to have a 3.8 mm acute ischemic white matter infarct in the right parietal lobe. Echocardiogram was done which showed no embolic source. There was some confusion as to whether or not he
had a hemodynamically significant stenosis in the carotid artery. Vascular was consulted and the patient underwent MRA of the neck which showed less than 50% stenosis in both bilateral carotid bulbs. No need for any intervention at this time.
Patient was also seen in consultation by neurology. It is recommended he continue aspirin and Plavix for 28 days followed by aspirin alone. He was seen in consultation by physical therapy and Occupational Therapy and has been accepted to [facility] for acute rehab therapy.
Problem #2: Moderate to severe acute maxillary sinusitis. Patient does have significant sinusitis with congestion and symptoms. He was started on doxycycline and should continue that medication for another 10 days. He should follow-up with ENT as
an outpatient for more definitive management.
Problem #3: All other medical issues. These include Coronary artery disease status post stent placement in past, severe aortic stenosis, essential hypertension, premature ventricular contractions, hyperlipidemia, type 2 diabetes mellitus with
diabetic neuropathy insulin requiring, Parkinson's disease, prostate disease, ambulatory dysfunction, obesity, obstructive sleep apnea.
Patient is stable for discharge to [place] re[facility] at this time. If there are any questions regarding this dictation or his hospital stay, please do not hesitate to call. Our office number is [phone].
Time for discharge 31 minutes.
Important imaging findings :
BRAIN MRI IMPRESSION:
1. 3.8 mm tiny acute ischemic white matter infarct in the right parietal lobe.
2. 4.2 mm chronic ischemic infarct in the left cerebellar hemisphere.
3. Mild to moderate white matter leukoaraiosis in the frontal and parietal lobes.
4. Moderate diffuse cerebral and cerebellar volume loss.
5. Moderate distention of the ventricular system and multiple asymmetrically dilated cerebral sulci. Diagnostic possibilities are (1) normal pressure communicating hydrocephalus or (2) ex vacuo dilatation of the ventricular system.
6. MODERATE to SEVERE ACUTE RIGHT MAXILLARY SINUSITIS.
7. Severe discogenic degenerative disease at C4/C5 with a small disc-osteophyte complex causing mild spinal cord compression. Previous posterior decompression and bilateral posterior instrumentation at C4/C5.
HEAD AND NECK CT ANGIOGRAPHY IMPRESSION:
Greater than 90% stenosis of the right carotid bulb. Limited evaluation due to motion artifact and streak artifact. Recommend correlation with a cerebrovascular ultrasound.
50% stenosis of the left carotid bulb.
No CTA evidence for high-grade stenosis or occlusion in the [place] of [place].
VASCULAR ULTRASOUND IMPRESSION: Calcified plaque bilateral proximal internal carotid arteries. Velocity profiles consistent with less than 50% bilateral internal carotid artery stenosis. Antegrade flow bilateral vertebral arteries.
NECK MRA FINDINGS/IMPRESSION:
Motion limited exam but both carotid bulbs appear to show less than 50% stenosis. The degree of stenosis in the right carotid bulb on the recent CTA head and neck angiogram from 09/02/2024 was likely an over estimation due to motion artifact
resulting in blurring of calcifications at that level. The bilateral carotid arterial systems are otherwise patent. The bilateral vertebral arteries are patent. The aortic arch branch vessels are patent.
Procedure findings :
ECHOCARDIOGRAM CONCLUSIONS:
Limited 2D echo. Technically difficult study
Normal left ventricular size and function. Normal regional wall motion. Left
ventricular ejection fraction is 55-60%.
Mild mitral regurgitation.
Moderate to severe aortic stenosis. Peak/mean gradients across the aortic
valve are 51/30 mmHg. Using an LVOT diameter of 2.2 cm, the aortic valve by the
Continuity equation is calculated at 0.9 cm2.Mild aortic regurgitation.
Compared to the previous echo from August 05 2024, AV peak/mean grad were 60/38
mmHg respectively. There is no significant change.
No cardiac source of embolus indentified, consider ISIDRO if clinically indicated.
Discharge Plan
-
Patient Disposition: Acute Rehab Facility
Discharge Diagnosis/Procedures: acute ischemic infarct in the right parietal lobe
Acute maxillary sinusitis
Coronary artery disease
Severe aortic stenosis
Hypertension
Hyperlipidemia
Diabetes
Diabetic neuropathy
Parkinson disease
Prostate disease
Ambulatory dysfunction
Obesity
Sleep apnea CPAP intolerant
Condition: Good
Diet: 2 Gram Sodium and Diabetic, Carb Controlled
Activity: With assistance and As tolerated
Driving Restrictions: No driving
Other Services: PT and OT
Activity Restrictions/Additional Instructions:
Follow-up with ENT for sinusitis
Referrals:
Rico Maldonado III, MD [Active] - in one to two months
Osvaldo Angulo MD [Active] - in one month
Hever Khanna MD [Active] - (call for appointment)
Ty Morel MD [Family Provider] - in less than 1 week
Prescriptions:
New
doxycycline hyclate 100 mg Capsule
100 mg PO Q12 10 Days Qty: 20 0RF
clopidogrel 75 mg Tablet
75 mg PO DAILY 28 Days Qty: 28 0RF
aspirin 81 mg Tablet,Chewable
81 mg PO DAILY Qty: 0 0RF
Continued
atorvastatin 40 mg tablet
40 mg PO DAILY
tamsulosin 0.4 mg capsule
0.4 mg PO HS
metoprolol tartrate 50 mg tablet
50 mg PO BID
carbidopa-levodopa 25-100 mg tablet
3 tab PO BID@0800,1300
Ozempic 0.25 mg or 0.5 mg (2 mg/3 mL) pen injector
1 mg SC TH
furosemide 20 mg tablet
20 mg PO DAILY
gabapentin 100 mg capsule
100 mg PO DAILY
Novolin 70-30 FlexPen U-100 100 unit/mL (70-30) insulin pen
0 unit SC AC
polyethylene glycol 3350 [HealthyLax] 17 gram Powder In Packet
17 g PO DAILY Qty: 0 0RF
magnesium oxide 500 mg magnesium Tablet
500 mg PO DAILY Qty: 0 0RF
acetaminophen [Tylenol Extra Strength] 500 mg Tablet
500 mg PO DAILY
famotidine [Pepcid] 20 mg Tablet
20 mg PO QPM
docusate sodium [Colace] 100 mg Capsule
100 mg PO DAILY
Discontinued
aspirin 81 mg Tablet,Chewable
81 mg PO BID
naproxen sodium [Aleve] 220 mg Tablet
220 mg PO DAILY
Discharge Orders:
Discharge Patient (As Directed); Ordered 09/03/24
Ordered By: Radha Lutz
Discharge Date and Time
Print Language: EQUATORIAL GUINEAN
== END 2024-09-03 14:31 | DRG 65 ==
LOC: 4 WEST ACU 16:29
PROVIDERS: Physician Assistant; Registered Nurse Critical Care Medicine; ADMITTING PHYSICIAN Hospitalist; ATTENDING PHYSICIAN Internal Medicine; CONSULT PHYSICIAN Psychiatry & Neurology Neurology; CONSULT PHYSICIAN Surgery Vascular Surgery; EMERGENCY PHYSICIAN Student in an Organized Health Care Education/Training Program; FAMILY PHYSICIAN Internal Medicine
DX: I63.331 Cerebral infarction due to thrombosis of right posterior cerebral artery (principal); G91.2 (Idiopathic) normal pressure hydrocephalus; J01.00 Acute maxillary sinusitis, unspecified; I25.10 Atherosclerotic heart disease of native coronary artery without angina pectoris; I35.0 Nonrheumatic aortic (valve) stenosis; I10 Essential (primary) hypertension; E78.00 Pure hypercholesterolemia, unspecified; G20.A1 Parkinson's disease without dyskinesia, without mention of fluctuations; F02.80 Dementia in other diseases classified elsewhere, unspecified severity, without behavioral disturbance, psychotic disturbance, mood disturbance, and anxiety; E66.9 Obesity, unspecified; G47.30 Sleep apnea, unspecified; E11.40 Type 2 diabetes mellitus with diabetic neuropathy, unspecified; Z68.34 Body mass index [BMI] 34.0-34.9, adult; Z79.82 Long term (current) use of aspirin; Z79.899 Other long term (current) drug therapy; Z95.5 Presence of coronary angioplasty implant and graft; Z79.4 Long term (current) use of insulin
CPT/HCPCS: 93308; 70496; 70498; 70548; 70551; 71046; 80048; 80053; 80061; 81003; 81015; 82607; 82728; 82746; 82962; 83036; 83735; 83880; 84100; 84443; 85025; 85027; 85576; 85652; 87070; 87086; 87147; 87205; 87502; 87811; 93005; 93321; 93325; 93880; 96374; 96375; 97110; 97163; 97167; 97530; 97535; 99285; A9585; Q9967

== ENCOUNTER 2025-01-22 18:49 | Inpatient (IN) | payer OTHER, SELFPAY ==
[2025-01-22] VITALS (7 sets, daily range): BP systolic 126–147; BP diastolic 61–110; BMI 32.5
[2025-01-22 15:21] LABS: Hematocrit 52.7 % (39.0-52.0); Hemoglobin 17.8 g/dL (13.0-18.0); Mean Corp Hgb Conc. 33.8 g/dL (33.0-37.0); Mean Corpuscular Volume 97.4 fL (80.0-94.0); Nucleated Red Blood Cells % 0 % (-); Platelet Count 168 10^3/uL (130-400); Red Cell Dist. Width 14.1 % (11.5-14.5)
[2025-01-22 15:35] LABS: INR 1.05; PT 14.2 Sec (11.4-14.6)
[2025-01-22 15:39] LABS: ALT (SGPT) < 10 U/L (0-50); AST (SGOT) 38 U/L (17-59); Albumin 4.5 g/dl (3.5-5.0); Alkaline Phosphatase 123 U/L (38-126); Blood Urea Nitrogen 15 mg/dl (9-20); Calcium 9.3 mg/dl (8.4-10.2); Carbon Dioxide 30 mmol/L (22-30); Chloride 101 mmol/L (98-107); Glucose 211 mg/dl (70-99); Potassium 4.8 mmol/L (3.5-5.1); Sodium 137 mmol/L (135-145); Total Protein 7.7 g/dl (6.3-8.2); eGFR > 60.00
[2025-01-22 17:46] LABS: C-Reactive Protein 8.40 mg/L (0.0-10.00)
--- NOTE | 2025-01-22 17:48 | ED.GENMED ---
History of Present Illness
General
Chief Complaint: Skin Problem
Source: patient
Exam Limitations: none
Time Seen by Provider: 01/22/25 16:52
Nursing documentation reviewed up to this point in time: agreed with
History of Present Illness
History of Present Illness:
79-year-old male diabetic painful swelling of his right foot symptoms started a few days ago [employer] called in some Keflex he took 3 doses, follow-up visit today with telehealth increased pain and swelling concern for cellulitis, has a wound between his
1st and 2nd toe also 1 started to his 4th and 5th toe no fever no nausea no vomiting
Past History
Past History
ED Past Medical History: CAD, HTN, Hypercholesterolemia, IDDM, Valvular disease and Other (Parkinson's)
ED Past Surgical History: Cardiac, Cholecystectomy and Orthopedic
Social History
Tobacco: Non-smoker
Alcohol: None
Drug: None
Personal:
Living: with family
Employment: Retired
Family History
Family History: Other (Reviewed and noncontributory)
Review of Systems
Review of Systems
All Other Systems: Not applicable
Constitutional: Denies fever or fatigue
Musculoskeletal: Reports joint pain, muscle stiffness and edema
Skin: Reports other (Wound swelling)
Neurological: Reports no symptoms
Endocrine: Reports no symptoms
Phy Exam
Physical Exam
Physical Exam:
Physical Exam
General: no apparent distress, not acutely ill
Neck: No trauma
Heart: s1/s2 regular rate and rhythm, no murmur. equal radial pulses.
Lungs: no acute respiratory distress. clear bilaterally
Neuro: alert and oriented. no focal neurological deficits
Skin: no rash
Psychiatric: well kept. interactive and cooperative
Extremities: Left foot swollen through the midfoot palmar surface tween the 1st and 2nd digit quarter size wound with surrounding cellulitis
Sepsis
Sepsis Screening
Sepsis Assessment: Sepsis Ruled Out
Sepsis Screen
Sepsis Screen: Sepsis Ruled Out
Date: 01/22/25
Time: 17:54
Course
Orders/Labs/Results
Orders:
Orders
01/22/25 15:01
Electrocardiogram (*1) Urgent
Reason for Study: Other
Other Reason for Exam: Possible Sepsis
EKG- Treatment ONCE
01/22/25 15:11
C-Reactive Protein Urgent
Comment: ESR & CRP ADDED ON BY FLOOR 4:50PM 01-22-25
Complete Blood Count/With Diff Urgent
Comprehensive Metabolic Panel Urgent
Erythrocyte Sed Rate Urgent
Lactic Acid Urgent
Prothrombin Time Urgent
Blood Culture Stat
KITTY Source: Blood/Venous
Specimen Description:
01/22/25 16:52
Foot, Left 3 View [CR Foot - Left Min 3 Views] Urgent
Comment:
Reason For Exam: inefectoin
01/22/25 16:53
Add On- LAB Urgent
Tests Added?: esr/crp
01/22/25 17:44
Piperacillin/Tazo 3.375 Gram [Zosyn] 3.375 gram in 50 ml IV NOW
01/22/25 17:50
HYDROmorphone [Dilaudid] 0.5 mg IV NOW STA
01/22/25 17:51
Blood Culture Stat
KITTY Source: Blood/Venous
Specimen Description:
Abnormal Lab Results
01/22/25
15:11
Hct 52.7 H %
(39.0-52.0)
MCV 97.4 H fL
(80.0-94.0)
MCH 32.9 H pg
(27.0-31.0)
Absolute Neuts (auto) 7.0 H 10^3/uL
(1.4-6.5)
Absolute Monos (auto) 0.9 H 10^3/uL
(0.1-0.6)
Lymphocytes % 18.8 L %
(20.5-51.1)
Glucose 211 H mg/dl
(70-99)
Total Bilirubin 1.6 H mg/dl
(0.2-1.3)
01/22/25 15:11
01/22/25 15:11
Vital Signs
Initial and Last Documented VS:
Initial Vital Signs
Temp Pulse Resp BP Pulse Ox
98.4 F 104 16 145/93 95
01/22/25 14:55 01/22/25 14:55 01/22/25 14:55 01/22/25 14:55 01/22/25 14:55
Last Documented Vital Signs
Temp Pulse Resp BP Pulse Ox
98.9 F 99 25 142/89 97
01/22/25 17:05 01/22/25 17:00 01/22/25 17:00 01/22/25 17:00 01/22/25 17:49
MDM/Problems Addressed
Differential Diagnosis Includes:
Cellulitis, osteomyelitis, foreign body,
MDM/Problems Addressed:
Diabetes cellulitis failed outpatient therapy
Chronic conditions affecting care: DM
Acute Exacerbation and/or Progression of Chronic Illness: DM
*Radiology
Radiology exam reviewed: preliminary read by ED provider
*Pulse Oximetry
SaO2: 97
Oxygen Mode of Delivery: Room air
Patient hypoxic: no
*Critical Care Note
Total Time (30-74mins, 75-104mins- exclusive of procedures): Not Applicable
Update Note
Update Note:
Patient is a diabetic cellulitis failed outpatient therapy plan will be inflammatory markers cultures x-ray broad-spectrum antibiotics admission
ED Attending Note
-
Portions of this chart may have been created with voice recognition software.� Occasional wrong word or��sound alike� substitutions may have occurred due to the inherent limitations of voice recognition software.
Discharge Plan
Departure
Patient Disposition: Admit
Date of Disposition: 01/22/25
Time of Disposition: 17:53
Admit to: Med/Surg
Presentation/result/management discussed w/ accepting MD/DO: Hospitalist
Patient with high blood pressure during this ER visit?: No
Condition: Fair
Discharge Problem:
Diabetic foot infection
Prescriptions:
No Action
atorvastatin 40 mg tablet
40 mg PO DAILY
tamsulosin 0.4 mg capsule
0.4 mg PO HS
metoprolol tartrate 50 mg tablet
50 mg PO BID
carbidopa-levodopa 25-100 mg tablet
3 tab PO BID@0800,1300
Ozempic 0.25 mg or 0.5 mg (2 mg/3 mL) pen injector
1 mg SC TH
furosemide 20 mg tablet
20 mg PO DAILY
gabapentin 100 mg capsule
100 mg PO DAILY
polyethylene glycol 3350 [HealthyLax] 17 gram Powder In Packet
17 g PO DAILY Qty: 0 0RF
magnesium oxide 500 mg magnesium Tablet
500 mg PO DAILY Qty: 0 0RF
famotidine [Pepcid] 20 mg Tablet
20 mg PO QPM
docusate sodium [Colace] 100 mg Capsule
100 mg PO DAILY
aspirin 81 mg Tablet,Chewable
81 mg PO DAILY Qty: 0 0RF
doxycycline hyclate 100 mg Capsule
100 mg PO Q12 2 Days Qty: 4 0RF
clopidogrel 75 mg Tablet
75 mg PO DAILY 21 Days Qty: 21 0RF
acetaminophen [Tylenol Extra Strength] 500 mg Tablet
500 mg PO DAILY PRN (Reason: Pain) Qty: 0 0RF
Novolin 70-30 FlexPen U-100 100 unit/mL (70-30) insulin pen
21 unit SC AC Qty: 0 0RF
Referrals:
Ty Morel MD [Family Provider, Family Practice]
Interventions
Interventions:
*Risk Screen - Suicide Last Done: 01/22/25 14:55
*General Assessment Last Done: 01/22/25 17:06
*Neglect/Abuse Screening Last Done: 01/22/25 14:55
*ED- Fall Risk Assessment Last Done: 01/22/25 17:06
*ED COVID-19 Vaccine History Last Done: 01/22/25 17:06
ED-Skin Assessment Last Done: 01/22/25 17:06
Discharge Date and Time
Print Language: KINYARWANDA
[2025-01-22] MEDS: ZOSYN 50 IV (17:56)
[2025-01-22] MEDS: DILAUDID 0.5 MG IV (17:56)
--- NOTE | 2025-01-22 18:02 | HPS.HSE ---
Addendum entered and electronically signed by Jesus Henriquez MD 01/22/25 20:03:
This is an addendum to H&P written by Marcela Birmingham on 01/22/2025. �Patient seen and examined independently with PA.
79-year-old male past medical history of CAD, prior CVA, hypertension, hyperlipidemia, diabetes, diabetic neuropathy, Parkinson disease, BPH, obstructive sleep apnea, presenting for wound between 1st and 2nd left toes 2 days ago. �Started on Keflex
yesterday.
Patient previously had positive MRSA screen.
Vital signs unremarkable apart from mild tachycardia up to 108.
Labs unremarkable.
Patient with diabetic foot infection. �Blood cultures pending. �Vancomycin/Zosyn. �Check foot x-ray. �Wound care, podiatry consulted.
Original Note:
Family Physician
-
Family Physician: Ty Morel
Chief Complaint
-
Left Foot Wound
History of Present Illness
Patient is a 79 y/o male past medical history of ASCVD, hypertension, hyperlipidemia, diabetes mellitus with diabetic neuropathy, and Parkinson's disease who presents with left foot wound. Patient has an aide that comes to the house a few times a
week to help him shower etc. On Sunday when the aide showered him she noticed a wound between his first and second toe which she did not note previously. Patient was started on Keflex 500mg TID by his primary care provider which he started
yesterday. He had a tele-health visit with the PCP today who compared pictures from yesterday to today and referred him to the emergency department for evaluation. Patient denies any fevers, sweats or chills.
Medical History
Past Medical History
Past Medical History: Reports Other
Additional Past Medical History:
Coronary Artery Disease s/p Stent
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
Essential Hypertension
Hyperlipidemia
Insulin Dependent Diabetes Mellitus
Diabetic Neuropathy
Parkinson's Disease
Chronic Constipation
BPH
Overactive Bladder
Past Surgical History: Reports Other
Additional Past Surgical History:
Cardiac Stent
Cholecystectomy
ERCP
Right Hip Replacement
Bilateral Knee Replacements
Cervical Laminectomy and Fusion
Lumbar Laminectomy
Social History
Tobacco: Non-smoker
Alcohol: None
Personal:
Living: With Family
Family History
Family History: Not pertinent
Allergies / Home Medications
Allergies reflects when Allergies were last updated in [employer].
Home Medications with original date entered in [employer]
Allergy/Medication List:
Allergies
Allergy/AdvReac Type Severity Reaction Status Date / Time
adhesive tape Allergy Unknown Verified 01/22/25 15:01
Latex, Natural Rubber Allergy Unknown Verified 01/22/25 15:01
mold Allergy Unknown Verified 01/22/25 15:01
Home Medications
atorvastatin 40 mg tablet 40 mg PO DAILY High Cholesterol 03/07/23
carbidopa 25 mg-levodopa 100 mg tablet 3 tab PO TID parkinson's disease 03/07/23
metoprolol tartrate 50 mg tablet 50 mg PO BID Blood Pressure 03/07/23
semaglutide 0.25 mg or 0.5 mg (2 mg/3 mL) subcutaneous pen injector (Ozempic) 1 mg SC TH Diabetes 03/07/23
tamsulosin 0.4 mg capsule 0.4 mg PO HS urine retention 03/07/23
furosemide 20 mg tablet 20 mg PO DAILY Fluid Retention/Swelling 07/09/23
gabapentin 100 mg capsule 100 mg PO HSPRN PRN mild pain 07/09/23
docusate sodium 100 mg capsule (Colace) 100 mg PO DAILY Constipation 08/29/24
clopidogrel 75 mg tablet 75 mg PO DAILY CVA 21 days #21 tabs 09/11/24
acetaminophen 500 mg tablet (Tylenol Extra Strength) 500 mg PO DAILY mild Pain 01/22/25
cephalexin 500 mg capsule 500 mg PO Q8H 01/22/25
cholecalciferol (vitamin D3) 25 mcg (1,000 unit) tablet (Vitamin D3) 25 mcg PO DAILY 01/22/25
insulin NPH-regular 70-30 U-100 insulin 100 unit/mL subcutaneous pen (Novolin 70-30 FlexPen U-100 Insulin) 35 unit SC BID Diabetes 01/22/25
magnesium oxide 400 mg PO DAILY 01/22/25
naproxen sodium 220 mg tablet (Aleve) 220 mg PO DAILY mild pain 01/22/25
vitamin B complex 1 tab PO DAILY 01/22/25
Review of Systems
-
History Source: Patient
A 12 point ROS was completed and negative except as noted: Yes
Constitutional: Denies Fever or Chills
Respiratory: Denies Cough or Trouble Breathing
Cardiac: Denies Chest Pain or Palpitations
Abdomen/GI: Denies Abdominal Pain, Nausea, Vomiting, Diarrhea or Constipated
Physical Exam
Vital Signs
Vital Signs
Temp Pulse Resp BP Pulse Ox
98.9 F 99 25 142/89 97
01/22/25 17:05 01/22/25 17:00 01/22/25 17:00 01/22/25 17:00 01/22/25 17:49
Physical Exam
General: Well Developed, Well Nourished and No Apparent Distress
HEENT: NormoCephalic, Anicteric, Moist mucous membranes and Atraumatic
Respiratory: Clear and Non Labored Respirations; No Wheezes, Rales or Rhonchi
Cardiac: S1/S2 and Regular Rhythm; No Murmur
GI: Soft, Non Tender, Non Distended and Normal Bowel Sounds
Rectal: Deferred by Provider
Musculoskeletal: No Clubbing, No Cyanosis and No Edema
Skin: Warm, Dry and Other (Left foot edematous with mild erythema; Superficial quarter sized wound dark red in color on the planter aspect of the left foot between the 1st and 2nd toes)
Neuro: Awake, Alert, Oriented and Nonfocal/grossly intact
Psych: Calm
Laboratory Results
-
01/22/25 15:11
01/22/25 15:11
Laboratory Results
PT 14.2 Sec (11.4-14.6) 01/22/25 15:11
INR 1.05 01/22/25 15:11
Lactic Acid 1.6 mmol/L (0.7-2.0) 01/22/25 15:11
Total Bilirubin 1.6 mg/dl (0.2-1.3) H 01/22/25 15:11
AST 38 U/L (17-59) 01/22/25 15:11
ALT < 10 U/L (0-50) 01/22/25 15:11
Alkaline Phosphatase 123 U/L (38-126) 01/22/25 15:11
Data Reviewed
-
Lab Data: Labs Reviewed by me
Impression/Plan
-
Left Foot Cellulitis secondary to Diabetic Foot Wound
-Consult Podiatry
-Consult Wound Care
-Check Foot X-ray
-Continue Vancomycin and Zosyn
Coronary Artery Disease s/p Stent
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
-Continue Plavix
Essential Hypertension
-Continue Metoprolol
Hyperlipidemia
-Continue atorvastatin
Insulin Dependent Diabetes Mellitus with Diabetic Neuropathy
-Continue Novolog 70/30
-Patient also uses Ozempic as outpatient
-Check HgbA1c
-Monitor sugars and continue coverage insulin
Parkinson's Disease
-Continue carbidopa/levodopa
BPH
-Continue Flomax
DVT proph: Lovenox
Code Status: Full Code
--- NOTE | 2025-01-22 21:11 | PHA.VAN.IN ---
Assessment
- Assessment
Renal Function: Appears similar to baseline
Concomitant Antimicrobials: PIPERACILLIN/TAZO
AUC Dosing Plan
- Dosing Variables
Dosing Weight (kg): 97
Dosing CrCl (ml/min): 76
Vd coefficient (L/kg): 0.7
- Empiric Dosing
Initial / Loading Dose: 2000 MG IV ~ 2130
Maintenance Regimen: 1000 MG IV Q12H
Estimated AUC (mcg*h/mL): 451
Estimated Peak (mcg*h/mL): 26.5
Estimated Trough (mcg/ml): 12.6
Estimated Half Life (H): 10.3
- Monitoring
No levels ordered at this time: Consider levels in next few days
Pharmacokinetics Vancomycin I
- -
Patient Age: 79
Patient Sex: Male
Vancomycin Day #: 1
Indication: Diabetic Foot
Requesting Provider: Gerardo Rey
Height / Weight:
Height 5 ft 8 in
Actual Weight 96.978 kg
Pertinent Past Medical History: Patient with diabetic foot infection
- Vital Signs / Lab Results
Temp Pulse Resp BP Pulse Ox
97.6 F 66 19 144/68 96
01/22/25 20:44 01/22/25 20:44 01/22/25 20:44 01/22/25 20:44 01/22/25 20:44
Lab Results - Hematology
01/22/25
15:11
WBC 10.3
Lab Results - Chemistry
01/22/25
15:11
BUN 15
Creatinine 0.9
Albumin 4.5
01/22/25
15:11
Lactic Acid 1.6
[2025-01-22] MEDS: FLOMAX 0.4 MG PO (21:40)
[2025-01-22] MEDS: LOPRESSOR 50 MG PO (21:40)
[2025-01-22] MEDS: SINEMET 25-100 3 TABLET PO (21:40)
[2025-01-22 21:46] LABS: Glucose - Point of Care 150 mg/dl (70-99)
[2025-01-22] MEDS: NOVOLOG MIX 70/30 FLEXPEN SC (21:48)
[2025-01-22] MEDS: VANCOCIN 540 MG IV (21:51)
--- NOTE | 2025-01-22 23:50 | PTCARENOTE ---
Pt arrived to unit via stretcher. Pt transferred from stretcher to bed. Pt oriented to room. Pt AAOx3, VSS. Call phoenix within reach, plan of care ongoing.
[2025-01-23] MEDS: ZOSYN 50 IV ×5 (00:26→23:47)
[2025-01-23] MEDS: VANCOCIN 200 IV ×2 (05:47→17:30)
[2025-01-23 06:02] LABS: Hematocrit 48.0 % (39.0-52.0); Hemoglobin 16.5 g/dL (13.0-18.0); Mean Corp Hgb Conc. 34.4 g/dL (33.0-37.0); Mean Corpuscular Volume 98.4 fL (80.0-94.0); Platelet Count 161 10^3/uL (130-400); Red Cell Dist. Width 14.1 % (11.5-14.5)
[2025-01-23 07:00] VITALS: BP 127/66
[2025-01-23] MEDS: SINEMET 25-100 3 TABLET PO ×3 (07:28→20:47)
[2025-01-23] MEDS: LOPRESSOR 50 MG PO ×2 (07:28→20:46)
[2025-01-23] MEDS: LIPITOR 40 MG PO (07:28)
[2025-01-23] MEDS: LASIX 20 MG PO (07:28)
[2025-01-23] MEDS: PLAVIX 75 MG PO (07:28)
[2025-01-23 07:36] LABS: Glucose - Point of Care 137 mg/dl (70-99)
[2025-01-23] MEDS: NOVOLOG FLEXPEN-MODERATE RESISTANCE SC ×2 (07:38→16:19)
[2025-01-23 07:45] LABS: Blood Urea Nitrogen 12 mg/dl (9-20); Calcium 8.6 mg/dl (8.4-10.2); Carbon Dioxide 29 mmol/L (22-30); Chloride 104 mmol/L (98-107); Estimated Creatinine Clearance 86 ml/min; Glucose 139 mg/dl (70-99); Potassium 4.5 mmol/L (3.5-5.1); Sodium 137 mmol/L (135-145); eGFR > 60.00
[2025-01-23 08:39] LABS: Glycohemoglobin (HgbA1c) 7.3 % (4.0-5.6)
[2025-01-23] MEDS: NOVOLOG MIX 70/30 FLEXPEN 30 UNITS SC ×2 (09:11→16:45)
--- NOTE | 2025-01-23 09:19 | PHA.VAN.FU ---
Vancomycin Assessment / Plan
- Assessment
Renal Function: Stable
WBC's are: WNL
In the past 24 hrs, patient has been: Afebrile
Concomitant Antimicrobials: PIPERACILLIN/TAZOBACTAM
- Dosing Plan
Continue: VANCO 1000MG Q12H
- Monitoring Plan
No level(s) ordered at this time: CONSIDER LEVEL IN NEXT FEW DAYS
- Follow Up
Pharmacy will continue to follow.
Vancomycin Follow UP
- -
Patient Age: 79
Patient Sex: Male
Vancomycin Day #: 2
Indication: Diabetic Foot
Requesting Provider: Gerardo Rey
Height / Weight:
Height 5 ft 8 in
Actual Weight 96.978 kg
Pertinent Past Medical History: Patient with diabetic foot infection
- Vital Signs / Lab Results
Temp Pulse Resp BP Pulse Ox
98.3 F 68 18 127/66 95
01/23/25 07:00 01/23/25 07:28 01/23/25 07:00 01/23/25 07:28 01/23/25 07:00
Lab Results - Hematology
01/22/25 01/23/25
15:11 05:25
WBC 10.3 8.9
Lab Results - Chemistry
01/22/25 01/23/25
15:11 05:25
BUN 15 12
Creatinine 0.9 0.8
Estimated Creat Clear 86
Albumin 4.5
01/22/25
15:11
Lactic Acid 1.6
[2025-01-23 09:23] LABS: Hepatitis C Antibody Negative (Negative)
--- NOTE | 2025-01-23 09:52 | WOUNDNOTE ---
LEFT FIRST AND SECOND TOES
--- NOTE | 2025-01-23 09:53 | WOUNDNOTE ---
DORSAL ASPECT OF FIRST AND SECOND TOES
--- NOTE | 2025-01-23 09:59 | WOUNDNOTE ---
[facility] RN NOTE: Reviewed chart and met with patient. Patient has a scabbed wound between left first and second toes. Patient is a poor historian of events , but per chart wound developed two days ago. Patient demonstrates poor mobility, neuropathic
pain in feet and legs, and urine incontinence. Patient states he has a good appetite and ate 100% of breakfast. His sacrum and heels are intact and some friction appearing skin is noted on his left posterior thigh. Patient reports he cannot
tolerate having heels off-loaded due to past back surgeries and pain. Patient agreeable to air overlay mattress and heels foam. Mattress and foam applied by this parts data writer and PCT, Ramu. Clean barrier ointment to thighs PRN, turning schedule. Wound
left open to air and podiatry has been consulted. KORY Cardona given update, will sign off.
--- NOTE | 2025-01-23 11:29 | CM ---
CM reviewed chart, initial assessment completed with pt's . Addi resides with in a one story home, ramp to enter. Patient has a vanesa lift, two walkers, grabs bars in shower/toilet, wheelchair and wheelchair for shower. Patient sleeps
in lift chair. Hx of [facility] and [facility] in the past.
Pt's was asking if he would be able to go to [facility] for a few days for stand/pivot/transfers to improve. SNF vs acute rehab discussed and she understands that [facility] would not be covered by insurance based on his needs.
Plan: is hesitant to consider SNF, may consider resumption of [facility].
[2025-01-23 11:56] LABS: Glucose - Point of Care 193 mg/dl (70-99)
[2025-01-23 12:32] VITALS: BP 123/58; PULSE 53
[2025-01-23] MEDS: TYLENOL 650 MG PO (12:50)
[2025-01-23] MEDS: NEURONTIN 100 MG PO (12:50)
[2025-01-23] MEDS: NOVOLOG FLEXPEN-MODERATE RESISTANCE 1 UNITS SC (12:52)
--- NOTE | 2025-01-23 12:57 | W.PN.HOSP.TC ---
Today's Communication/Plan
-
Podiatry evaluation
Antibiotics
Start topical antifungal for tinea pedis
Lower extremity [place]
Assessment / Plan
Assessment / Plan
Impression
Uncomplicated cellulitis of the left foot at the first second metatarsal area.
Tinea pedis
Other conditions
Chronic ambulatory dysfunction, defect
Wheelchair and bed bound.
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
CAD with history of cardiac stent.
PAD with bilateral carotid artery stenosis.
Essential hypertension.
Moderate aortic stenosis.
Diabetes with diabetic neuropathy.
Parkinson's disease.
BPH/overactive bladder.
Dyslipidemia
Obesity due to excessive calories BMI 32
Plan:
Left foot cellulitis complicated with tinea pedis infection
No evidence for systemic infection upon presentation
Exam with mild, improved erythema and induration in the first second metatarsal area with scaling rash. No fluctuance
Bilateral lower extremity warm with palpable pulses. Noted chronic stasis dermatitis bilaterally
Patient is afebrile, nontoxic-appearing.
Normal WBC
X-ray negative for osteomyelitis
Given history of PAD/carotid disease we will go ahead and check arterial ultrasound
Continue vancomycin and Zosyn pending cultures. Noted prior positive MRSA screen)
Will add topical antifungal
Podiatry evaluation.
Type 2 diabetes.
IDDM.
Recent hemoglobin A1c 7.3.
Continue preadmission regimen with insulin 70/30
On Ozempic subcu every
Basal bolus protocol
Carbohydrate controlled diet
Diabetic neuropathy on gabapentin
History of CVA
Continue Plavix, statin
CAD, essential hypertension.
Continue preadmission medications including metoprolol 50 mg p.o. twice daily, Lasix 20 mg daily
Parkinson's disease.
Continue carbidopa�levodopa
BPH with overactive bladder.
Monitor for retention
Continue Flomax
Anticipated Discharge: 24 - 48 hours
Subjective/Interval History
-
Date of Service: January 23, 2025
Objective Data
-
Labs:
Laboratory Results
01/23/25
05:25
WBC 8.9
Hgb 16.5
Hct 48.0
Plt Count 161
Sodium 137
Potassium 4.5
Chloride 104
Carbon Dioxide 29
BUN 12
Creatinine 0.8
Glucose 139 H
Calcium 8.6
Vital Signs:
Vital Signs
Temp Pulse Resp BP Pulse Ox
98.3 F 68 18 127/66 95
01/23/25 07:00 01/23/25 07:28 01/23/25 07:00 01/23/25 07:28 01/23/25 07:00
Physical Exam
-
General: Well Developed and No Apparent Distress
HEENT: Normocephalic, Atraumatic and Moist Mucous Membranes
Respiratory: Clear to Auscultation
Cardiac: Regular Rhythm and S1/S2; Negative Murmur, Rub or Gallop
GI: Soft, Nontender, Nondistended and Normal Bowel Sounds; Negative Organomegaly
Rectal: Deferred by Provider
Musculoskeletal: No Clubbing, No Cyanosis, No Edema and Other (Lower extremity bilaterally with chronic skin changes and hyperpigmentation. Palpable pedal tibial pulses. Warm. Left foot with mild erythema and induration at the first second
metatarsal area with scaling rash)
Skin: Negative Rash
Neuro: Nonfocal/Grossly Intact
[2025-01-23 14:04] VITALS: BP 123/58
--- NOTE | 2025-01-23 14:29 | CON.MD ---
Consultation - Medical
-
Consult for left foot cellulitis. 79 year old male with PMH including CAD, prior CVA ( 08/2024) on Plavix, insulin dependent DM with peripheral neuropathy, Parkinson's disease, BPH seen by family doctor 3 days ago for redness, swelling and pain of
the left foot. Was prescribed a course of Keflex and seen by telehealth visit the next day. Symptoms had increase in severity and patient sent to ED for admission. present for exam and no history of trauma or rash in the area noted. Patient
is AAOx3
On examination pedal pulses are palpable DP bilaterally with moderate pitting edema present in feet and ankles. Mild erythema noted dorsal left foot including the first interspace and 2nd toe. Tenderness noted on manipulation of toes 2-5.
Dermatitis noted in all interspaces with first interspace plantar eschar. Well circumscribed and appears to be from a dried bullae. No drainage or malodor present and skin opening superficial. Sensation diminished bilateral LE but responsive to
painful stimuli. Stasis dermatitis noted bilateral anterior legs.
Patient is afebrile with WBC WNL. Radiographs indicate vascular calcifications but no disruption of cortical bone to indicate osteomyelitis. General soft tissue edema noted with no gas in tissue and no indication of abscess.
Impression/Plan
-Interdigital tinea pedis with fissuring resulting in localized cellulitis
Responding to IV antibiotic therapy
Patient states decrease in pain since admission
Afebrile and no leukocytosis. Radiographs negative for osteomyelitis/abscess
No surgical intervention needed as wounds are superficial
Will follow up tomorrow and if stable, recommend discharge with oral antibiotics and topical antifungal cream
-IDDM with peripheral neuropathy
-PVD with venous insufficiency. Pedal pulses palpable
-CAD
-hx CVA
-Parkinson's disease
[2025-01-23 15:53] VITALS: BP 107/58
[2025-01-23 16:18] LABS: Glucose - Point of Care 100 mg/dl (70-99)
[2025-01-23] MEDS: LOVENOX 40 MG SC (16:44)
[2025-01-23] MEDS: FLOMAX 0.4 MG PO (20:47)
[2025-01-23] MEDS: LOTRIMIN 1% CREAM 1 APPLIC TOPICAL (20:48)
[2025-01-23 21:11] LABS: Glucose - Point of Care 180 mg/dl (70-99)
[2025-01-23 23:00] VITALS: BP 103/72
[2025-01-24] MEDS: ZOSYN 50 IV ×3 (05:03→17:26)
[2025-01-24] MEDS: VANCOCIN 200 IV ×2 (05:45→18:07)
[2025-01-24 07:00] VITALS: BP 138/69
[2025-01-24 08:22] LABS: Glucose - Point of Care 108 mg/dl (70-99)
[2025-01-24 08:51] LABS: Hematocrit 48.0 % (39.0-52.0); Hemoglobin 16.4 g/dL (13.0-18.0); Mean Corp Hgb Conc. 34.2 g/dL (33.0-37.0); Mean Corpuscular Volume 98.2 fL (80.0-94.0); Nucleated Red Blood Cells % 0 % (-); Platelet Count 155 10^3/uL (130-400); Red Cell Dist. Width 14.1 % (11.5-14.5)
[2025-01-24 09:10] LABS: Calcium 8.7 mg/dl (8.4-10.2); Chloride 103 mmol/L (98-107); Estimated Creatinine Clearance 76 ml/min; Glucose 94 mg/dl (70-99); Potassium 3.9 mmol/L (3.5-5.1); Sodium 138 mmol/L (135-145); eGFR > 60.00
[2025-01-24 09:21] LABS: Blood Urea Nitrogen 13 mg/dl (9-20); Carbon Dioxide 28 mmol/L (22-30)
--- NOTE | 2025-01-24 09:46 | PHA.VAN.FU ---
Vancomycin Assessment / Plan
- Assessment
Renal Function: Stable
WBC's are: WNL
In the past 24 hrs, patient has been: Afebrile
Concomitant Antimicrobials: PIPERACILLIN/TAZOBACTAM
- Dosing Plan
Continue: VANCO 1000MG Q12
- Monitoring Plan
Peak Level: 01/24 @2100
Trough Level: 01/25 @0530
- Follow Up
Pharmacy will continue to follow.
Vancomycin Follow UP
- -
Patient Age: 79
Patient Sex: Male
Vancomycin Day #: 3
Indication: Diabetic Foot
Requesting Provider: Gerardo Rey
Height / Weight:
Height 5 ft 8 in
Actual Weight 96.978 kg
Pertinent Past Medical History: Patient with diabetic foot infection
- Vital Signs / Lab Results
Temp Pulse Resp BP Pulse Ox
98.0 F 69 18 138/69 97
01/24/25 07:00 01/24/25 07:00 01/24/25 07:00 01/24/25 07:00 01/24/25 07:00
Lab Results - Hematology
01/22/25 01/23/25 01/24/25
15:11 05:25 06:44
WBC 10.3 8.9 9.6
Lab Results - Chemistry
01/22/25 01/23/25 01/24/25
15:11 05:25 06:44
BUN 15 12 13
Creatinine 0.9 0.8 0.9
Estimated Creat Clear 86 76
Albumin 4.5
01/22/25
15:11
Lactic Acid 1.6
Microbiology Results
01/22/25 22:46 MRSA Screen - Final
Nose No Methicillin Resistant Staphylococcus aureus isolated.
01/22/25 17:55 Blood Culture - Preliminary
Blood/Venous No Growth in 24 hours- Final report to follow
01/22/25 15:11 Blood Culture - Preliminary
Blood/Venous No Growth in 24 hours- Final report to follow
[2025-01-24] MEDS: NOVOLOG FLEXPEN-MODERATE RESISTANCE SC ×4 (09:54→17:29)
[2025-01-24] MEDS: LIPITOR 40 MG PO (09:57)
[2025-01-24] MEDS: PLAVIX 75 MG PO (09:57)
[2025-01-24] MEDS: SINEMET 25-100 3 TABLET PO ×3 (10:21→21:14)
[2025-01-24] MEDS: LOPRESSOR 50 MG PO ×2 (10:26→21:14)
[2025-01-24] MEDS: LASIX 20 MG PO (10:26)
[2025-01-24] MEDS: LOTRIMIN 1% CREAM 1 APPLIC TOPICAL ×2 (10:30→21:14)
[2025-01-24] MEDS: NOVOLOG MIX 70/30 FLEXPEN 30 UNITS SC ×2 (10:31→17:29)
--- NOTE | 2025-01-24 11:41 | W.PN.HOSP.TC ---
Today's Communication/Plan
-
Discharge home today if cleared by podiatry.
Assessment / Plan
Assessment / Plan
Impression
Uncomplicated cellulitis of the left foot at the first second metatarsal area.
Tinea pedis
Other conditions
Chronic ambulatory dysfunction, defect
Wheelchair and bed bound.
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
CAD with history of cardiac stent.
PAD with bilateral carotid artery stenosis.
Essential hypertension.
Moderate aortic stenosis.
Diabetes with diabetic neuropathy.
Parkinson's disease.
BPH/overactive bladder.
Dyslipidemia
Obesity due to excessive calories BMI 32
Plan:
Left foot cellulitis complicated with tinea pedis infection
No evidence for systemic infection upon presentation
Exam with mild, improved erythema and induration in the first second metatarsal area with scaling rash. No fluctuance
Bilateral lower extremity warm with palpable pulses. Noted chronic stasis dermatitis bilaterally
Patient is afebrile, nontoxic-appearing.
Normal WBC
X-ray negative for osteomyelitis
Given history of PAD/carotid disease we will go ahead and check arterial ultrasound
Continue vancomycin and Zosyn pending cultures. Noted prior positive MRSA screen)
Will add topical antifungal
Podiatry evaluation. If cleared, will be discharged on oral antibiotic today.
Type 2 diabetes.
IDDM.
Recent hemoglobin A1c 7.3.
Continue preadmission regimen with insulin 70/30
On Ozempic subcu every
Basal bolus protocol
Carbohydrate controlled diet
Diabetic neuropathy on gabapentin
History of CVA
Continue Plavix, statin
CAD, essential hypertension.
Continue preadmission medications including metoprolol 50 mg p.o. twice daily, Lasix 20 mg daily
Parkinson's disease.
Continue carbidopa�levodopa
BPH with overactive bladder.
Monitor for retention
Continue Flomax
CODE STATUS: Full code
DVT prophylaxis: Lovenox
Diet: DM diet
Disposition: Discharge home today if cleared by podiatry.
Total time spent on today's encounter was 65 minutes which included time spent in counseling the patient/family regarding diagnosis and treatment plan as listed above, goals of care, and symptom management. Case was discussed with nursing staff,
specialists, and care coordinators/case management. All labs and imaging personally reviewed by me. Remainder the time spent in detailed review of previous records, lab data, imaging, and other medical provider documentation.
Anticipated Discharge: Today
Subjective/Interval History
-
Date of Service: January 24, 2025
Patient seen and examined at bedside, denies any chest pain or shortness of breath, no abdominal pain, no nausea, no vomiting, no diarrhea or constipation.
Objective Data
-
Labs:
Laboratory Results
01/24/25
06:44
WBC 9.6
Hgb 16.4
Hct 48.0
Plt Count 155
Sodium 138
Potassium 3.9
Chloride 103
Carbon Dioxide 28
BUN 13
Creatinine 0.9
Glucose 94
Calcium 8.7
Vital Signs:
Vital Signs
Temp Pulse Resp BP Pulse Ox
98.0 F 69 18 138/69 97
01/24/25 07:00 01/24/25 07:00 01/24/25 07:00 01/24/25 07:00 01/24/25 07:00
I&O
01/23/25 01/24/25 01/25/25
06:59 06:59 06:59
Intake Total 980 / 980
Output Total 150 / 150
Balance 830 / 830
Physical Exam
-
General: Well Developed and No Apparent Distress
HEENT: Normocephalic, Atraumatic and Moist Mucous Membranes
Respiratory: Clear to Auscultation
Cardiac: Regular Rhythm and S1/S2; Negative Murmur, Rub or Gallop
GI: Soft, Nontender, Nondistended and Normal Bowel Sounds; Negative Organomegaly
Rectal: Deferred by Provider
Musculoskeletal: No Clubbing, No Cyanosis, No Edema and Other (Left foot with mild redness at the first second metatarsal area with scaling rash)
Skin: Negative Rash
Neuro: Nonfocal/Grossly Intact
--- NOTE | 2025-01-24 11:55 | W.PN.POD ---
Today's Communication
Today's Communication
Stable for discharge
Assessment / Plan
-
Impression/plan
-Left foot cellulitis
Likely secondary to interdigital tinea pedis. Rash resolving
Significant improvement as edema and erythema resolved. Interspace superficial ulcer now with granular base and no drainage.
Sensitivity to touch but now only directly with toes
Afebrile, no leukocytosis, radiographs show no sign of abscess or osteomyelitis
Recommend oral outpatient antibiotic therapy with daily application of current antifungal cream
-Peripheral vascular disease
Pedal pulses palpable bilaterally
Stasis dermatitis bilateral lower extremities
-Insulin dependent diabetes mellitus with peripheral neuropathy
HgbA1c 7.3%
Gabapentin and Ozempic therapy
Hx of CVA
On plavix
CAD
Parkinson's disease
Subjective
Chief Complaint
admitted for left foot cellulitis
Subjective
Patient sleeping in bed when I entered. No complaints. not present at this time.
Objective
Temp Pulse Resp BP Pulse Ox
98.0 F 69 18 138/69 97
01/24/25 07:00 01/24/25 07:00 01/24/25 07:00 01/24/25 07:00 01/24/25 07:00
01/24/25 06:44
01/24/25 06:44
Vital Signs and Lab results were reviewed.
Physical Exam
Physical Exam
Edema and erythema left foot resolved with interspace superficial ulcer now showing granular base. No drainage.
--- NOTE | 2025-01-24 11:59 | W.DCSUMMARY ---
Discharge Summary
Discharge Data
Date of Admission: 01/22/25
Date of Discharge: 01/24/25
Total time spent discharging patient (in min): 40
-
Pending Results: No
Hospital Course
Hospital course
9 year old male with PMH including CAD, prior CVA ( 08/2024) on Plavix, insulin dependent DM with peripheral neuropathy, Parkinson's disease, BPH seen by family doctor 3 days ago for redness, swelling and pain of the left foot. Was prescribed a
course of Keflex and seen by telehealth visit the next day. Symptoms had increase in severity and patient sent to ED for admission.
Started on IV vancomycin and Zosyn with improvement of redness, seen by podiatry who advised that antifungal cream.
Overall improving and plan to discharge home on doxycycline/Keflex/antifungal cream.
During hospitalization patient was treated from the following
Left foot cellulitis complicated with tinea pedis infection
No evidence for systemic infection upon presentation
Exam with mild, improved erythema and induration in the first second metatarsal area with scaling rash. No fluctuance
Bilateral lower extremity warm with palpable pulses. Noted chronic stasis dermatitis bilaterally
Patient is afebrile, nontoxic-appearing.
Normal WBC
X-ray negative for osteomyelitis
Given history of PAD/carotid disease we will go ahead and check arterial ultrasound
Continue vancomycin and Zosyn pending cultures. Noted prior positive MRSA screen)
Will add topical antifungal
Podiatry evaluation. If cleared, will be discharged on oral antibiotic today.
Type 2 diabetes.
IDDM.
Recent hemoglobin A1c 7.3.
Continue preadmission regimen with insulin 70/30
On Ozempic subcu every
Basal bolus protocol
Carbohydrate controlled diet
Diabetic neuropathy on gabapentin
History of CVA
Continue Plavix, statin
CAD, essential hypertension.
Continue preadmission medications including metoprolol 50 mg p.o. twice daily, Lasix 20 mg daily
Parkinson's disease.
Continue carbidopa�levodopa
BPH with overactive bladder.
Monitor for retention
Continue Flomax
CODE STATUS: Full code
DVT prophylaxis: Lovenox
Diet: DM diet
Disposition: Discharge home today.y.
Total time spent on today's encounter was 40 minutes which included time spent in counseling the patient/family regarding diagnosis and treatment plan as listed above, goals of care, and symptom management. Case was discussed with nursing staff,
specialists, and care coordinators/case management. All labs and imaging personally reviewed by me. Remainder the time spent in detailed review of previous records, lab data, imaging, and other medical provider documentation.
Anticipated Discharge: Today
Discharge Plan
-
Patient Disposition: Home with Home Care
Discharge Diagnosis/Procedures: Left foot cellulitis complicated with tinea pedis infection.
Type 2 diabetes.
Diet: Diabetic, Carb Controlled
Activity: With assistance and As tolerated
Referrals:
Ty Morel MD [Family Provider, Family Practice]
Renee Choudhury DPM [Specified Professional Personl, Podiatry] - in one to two weeks
Prescriptions:
New
clotrimazole [Athlete's Foot (clotrimazole)] 1 % Cream
1 applic topical BID Qty: 45 0RF
doxycycline hyclate 100 mg tablet
100 mg PO BID 7 Days Qty: 14 0RF
Continued
atorvastatin 40 mg tablet
40 mg PO DAILY
tamsulosin 0.4 mg capsule
0.4 mg PO HS
metoprolol tartrate 50 mg tablet
50 mg PO BID
carbidopa-levodopa 25-100 mg tablet
3 tab PO TID
Ozempic 0.25 mg or 0.5 mg (2 mg/3 mL) pen injector
1 mg SC TH
furosemide 20 mg tablet
20 mg PO DAILY
gabapentin 100 mg capsule
100 mg PO HSPRN PRN (Reason: mild pain)
docusate sodium [Colace] 100 mg Capsule
100 mg PO DAILY
magnesium oxide 400 mg magnesium Tablet
400 mg PO DAILY
acetaminophen [Tylenol Extra Strength] 500 mg tablet
500 mg PO DAILY
Novolin 70-30 FlexPen U-100 100 unit/mL (70-30) insulin pen
35 unit SC BID
naproxen sodium [Aleve] 220 mg Tablet
220 mg PO DAILY
vitamin B complex Tablet
1 tab PO DAILY
cholecalciferol (vitamin D3) [Vitamin D3] 25 mcg (1,000 unit) Tablet
25 mcg PO DAILY
cephalexin 500 mg Capsule
500 mg PO Q8H 7 Days Qty: 21 0RF
Rx Instructions:
for 7 days starting 01/21/25
clopidogrel 75 mg Tablet
75 mg PO DAILY 21 Days Qty: 21 0RF
Discharge Orders:
Discharge Patient (As Directed); Ordered 01/24/25
Ordered By: Bo Barrios
Discharge Date and Time
Print Language: [place] CITIZEN
[2025-01-24 12:10] LABS: Glucose - Point of Care 217 mg/dl (70-99)
--- NOTE | 2025-01-24 14:20 | CM ---
PT NIKITA aguilar reviewed with pts Maria Antonia [phone] she said she [place]
PAC data reviewed with [facility] placed in care port.
After locating SNF will need authorization .
Pt has a handicapped equipped home.
PLAN To SNf after auth obtained
[2025-01-24 15:00] VITALS: BP 121/58
[2025-01-24 16:33] LABS: Glucose - Point of Care 115 mg/dl (70-99)
[2025-01-24] MEDS: LOVENOX 40 MG SC (18:10)
[2025-01-24] MEDS: FLOMAX 0.4 MG PO (21:14)
[2025-01-24 21:24] LABS: Glucose - Point of Care 218 mg/dl (70-99)
[2025-01-24 23:00] VITALS: BP 134/57
[2025-01-25] MEDS: ZOSYN 50 IV ×4 (00:37→18:03)
[2025-01-25 05:30] LABS: Hematocrit 51.7 % (39.0-52.0); Hemoglobin 17.7 g/dL (13.0-18.0); Mean Corp Hgb Conc. 34.2 g/dL (33.0-37.0); Mean Corpuscular Volume 98.3 fL (80.0-94.0); Platelet Count 168 10^3/uL (130-400); Red Cell Dist. Width 14.3 % (11.5-14.5)
[2025-01-25 06:00] VITALS: BMI 31.8
[2025-01-25 06:32] LABS: Blood Urea Nitrogen 12 mg/dl (9-20); Calcium 9.0 mg/dl (8.4-10.2); Carbon Dioxide 32 mmol/L (22-30); Chloride 103 mmol/L (98-107); Estimated Creatinine Clearance 62 ml/min; Glucose 78 mg/dl (70-99); Potassium 4.2 mmol/L (3.5-5.1); Sodium 140 mmol/L (135-145); eGFR > 60.00
[2025-01-25] MEDS: VANCOCIN 200 IV ×2 (06:38→16:41)
[2025-01-25 07:00] VITALS: BP 131/76
[2025-01-25 07:15] LABS: Glucose - Point of Care 89 mg/dl (70-99)
[2025-01-25] MEDS: NOVOLOG FLEXPEN-MODERATE RESISTANCE SC ×3 (07:25→16:48)
[2025-01-25] MEDS: LIPITOR 40 MG PO (08:11)
[2025-01-25] MEDS: LASIX 20 MG PO (08:11)
[2025-01-25] MEDS: SINEMET 25-100 3 TABLET PO ×3 (08:11→22:16)
[2025-01-25] MEDS: LOTRIMIN 1% CREAM 1 APPLIC TOPICAL ×2 (08:12→20:08)
[2025-01-25] MEDS: NOVOLOG MIX 70/30 FLEXPEN 30 UNITS SC ×2 (08:12→16:46)
[2025-01-25] MEDS: LOPRESSOR 50 MG PO ×2 (08:12→20:07)
[2025-01-25] MEDS: PLAVIX 75 MG PO (08:12)
--- NOTE | 2025-01-25 09:06 | CM ---
requested [facility] and [facility].All placed in care port.
As per care port SNF admission rep have not responded.
Will need to follow up Sunday01/26/25 on availability of SNF beds.
After locating SNF will need authorization .
PLAN To Snf after located and auth obtained
--- NOTE | 2025-01-25 09:41 | PHA.VAN.FU ---
Vancomycin Assessment / Plan
- Assessment
Renal Function: SCR Increasing
WBC's are: WNL
In the past 24 hrs, patient has been: Afebrile
Concomitant Antimicrobials: PIPERACILLIN/TAZOBACTAM
- Assessment - Therapeutic Drug Monitoring
Extrapolated Cmax (mcg/mL): 26
Peak level was drawn: Appropriately
Extrapolated Cmin (mcg/mL): 14.5
Trough Drawn: Appropriately
Levels were drawn: At steady state
Calculated AUC (mcg*h/mL): 474
Calculated ke: 0.0531
Calculated half life (H): 13
Calculated Vd (L): 79.4
Calculated Vanc CL (ml/min): 70.28
- Dosing Plan
Continue: VANCO 1000MG Q12H
- Monitoring Plan
Level(s) appropriate: Recheck trough at minimum of weekly intervals, Repeat sooner for changes in renal function or clinical status
- Follow Up
Pharmacy will continue to follow.
Vancomycin Follow UP
- -
Patient Age: 79
Patient Sex: Male
Vancomycin Day #: 4
Indication: Diabetic Foot
Requesting Provider: Gerardo Rey
Height / Weight:
Height 5 ft 8 in
Actual Weight 94.858 kg
Pertinent Past Medical History: Patient with diabetic foot infection
- Vital Signs / Lab Results
Temp Pulse Resp BP Pulse Ox
98.3 F 75 18 131/76 97
01/25/25 07:00 01/25/25 07:00 01/25/25 07:00 01/25/25 07:00 01/25/25 07:00
Lab Results - Hematology
01/22/25 01/23/25 01/24/25
15:11 05:25 06:44
WBC 10.3 8.9 9.6
01/25/25
05:22
WBC 9.5
Lab Results - Chemistry
01/22/25 01/23/25 01/24/25
15:11 05:25 06:44
BUN 15 12 13
Creatinine 0.9 0.8 0.9
Estimated Creat Clear 86 76
Albumin 4.5
01/25/25
05:22
BUN 12
Creatinine 1.1
Estimated Creat Clear 62
Albumin
01/22/25
15:11
Lactic Acid 1.6
Microbiology Results
01/22/25 17:55 Blood Culture - Preliminary
Blood/Venous No Growth in 48 hours- Final report to follow
01/22/25 15:11 Blood Culture - Preliminary
Blood/Venous No Growth in 48 hours- Final report to follow
01/22/25 22:46 MRSA Screen - Final
Nose No Methicillin Resistant Staphylococcus aureus isolated.
Therapeutic Drug Monitoring
Vancomycin Peak 23.3 ug/ml (18-26) 01/24/25 21:12
Vancomycin Trough 15.1 ug/ml (5-20) 01/25/25 05:22
--- NOTE | 2025-01-25 11:52 | W.PN.HOSP.TC ---
Today's Communication/Plan
-
Discharge to rehab once bed available
Assessment / Plan
Assessment / Plan
Impression
Uncomplicated cellulitis of the left foot at the first second metatarsal area.
Tinea pedis
Other conditions
Chronic ambulatory dysfunction, defect
Wheelchair and bed bound.
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
CAD with history of cardiac stent.
PAD with bilateral carotid artery stenosis.
Essential hypertension.
Moderate aortic stenosis.
Diabetes with diabetic neuropathy.
Parkinson's disease.
BPH/overactive bladder.
Dyslipidemia
Obesity due to excessive calories BMI 32
Plan:
Left foot cellulitis complicated with tinea pedis infection
No evidence for systemic infection upon presentation
Exam with mild, improved erythema and induration in the first second metatarsal area with scaling rash. No fluctuance
Bilateral lower extremity warm with palpable pulses. Noted chronic stasis dermatitis bilaterally
Patient is afebrile, nontoxic-appearing.
Normal WBC
X-ray negative for osteomyelitis
Given history of PAD/carotid disease we will go ahead and check arterial ultrasound
Continue vancomycin and Zosyn pending cultures. Noted prior positive MRSA screen)
Will add topical antifungal
Podiatry evaluation. cleared, patient to be discharged on oral antibiotic Home with home health nurse.
requested rehab.
Type 2 diabetes.
IDDM.
Recent hemoglobin A1c 7.3.
Continue preadmission regimen with insulin 70/30
On Ozempic subcu every
Basal bolus protocol
Carbohydrate controlled diet
Diabetic neuropathy on gabapentin
History of CVA
Continue Plavix, statin
CAD, essential hypertension.
Continue preadmission medications including metoprolol 50 mg p.o. twice daily, Lasix 20 mg daily
Parkinson's disease.
Continue carbidopa�levodopa
BPH with overactive bladder.
Monitor for retention
Continue Flomax
CODE STATUS: Full code
DVT prophylaxis: Lovenox
Diet: DM diet
Disposition: Discharge to rehab once bed available.
Total time spent on today's encounter was 65 minutes which included time spent in counseling the patient/family regarding diagnosis and treatment plan as listed above, goals of care, and symptom management. Case was discussed with nursing staff,
specialists, and care coordinators/case management. All labs and imaging personally reviewed by me. Remainder the time spent in detailed review of previous records, lab data, imaging, and other medical provider documentation.
Anticipated Discharge: Today
Subjective/Interval History
-
Date of Service: January 25, 2025
Patient seen and examined at bedside, denies any chest pain or shortness of breath, no abdominal pain, no nausea, no vomiting, no diarrhea or constipation.
Objective Data
-
Labs:
Laboratory Results
01/25/25
05:22
WBC 9.5
Hgb 17.7
Hct 51.7
Plt Count 168
Sodium 140
Potassium 4.2
Chloride 103
Carbon Dioxide 32 H
BUN 12
Creatinine 1.1
Glucose 78
Calcium 9.0
Vital Signs:
Vital Signs
Temp Pulse Resp BP Pulse Ox
98.3 F 75 18 131/76 97
01/25/25 07:00 01/25/25 07:00 01/25/25 07:00 01/25/25 07:00 01/25/25 07:00
I&O
01/24/25 01/25/25 01/26/25
06:59 06:59 06:59
Intake Total 980 / 980 1260 / 1260
Output Total 150 / 150 450 / 450
Balance 830 / 830 810 / 810
Physical Exam
-
General: Well Developed and No Apparent Distress
HEENT: Normocephalic, Atraumatic and Moist Mucous Membranes
Respiratory: Clear to Auscultation
Cardiac: Regular Rhythm and S1/S2; Negative Murmur, Rub or Gallop
GI: Soft, Nontender, Nondistended and Normal Bowel Sounds; Negative Organomegaly
Rectal: Deferred by Provider
Musculoskeletal: No Clubbing, No Cyanosis, No Edema and Other (Left foot with mild redness at the first second metatarsal area with scaling rash)
Skin: Negative Rash
Neuro: Nonfocal/Grossly Intact
[2025-01-25 12:24] LABS: Glucose - Point of Care 181 mg/dl (70-99)
[2025-01-25 15:00] VITALS: BP 125/66
[2025-01-25 15:34] VITALS: BP 125/66; O2SAT 96
[2025-01-25 15:35] VITALS: BP 125/66; PULSE 82; O2SAT 96
[2025-01-25] MEDS: TYLENOL 650 MG PO (16:45)
[2025-01-25 16:46] LABS: Glucose - Point of Care 118 mg/dl (70-99)
[2025-01-25] MEDS: LOVENOX 40 MG SC (18:03)
[2025-01-25 20:07] VITALS: BP 130/81
[2025-01-25 21:38] LABS: Glucose - Point of Care 203 mg/dl (70-99)
[2025-01-25] MEDS: FLOMAX 0.4 MG PO (22:14)
[2025-01-25 23:12] VITALS: BP 123/60
[2025-01-26] MEDS: ZOSYN 50 IV ×3 (01:20→11:12)
[2025-01-26 05:17] VITALS: BMI 29.9
[2025-01-26] MEDS: VANCOCIN 200 IV (06:14)
[2025-01-26 07:38] VITALS: BP 132/78
[2025-01-26 07:43] LABS: Glucose - Point of Care 114 mg/dl (70-99)
[2025-01-26] MEDS: NOVOLOG FLEXPEN-MODERATE RESISTANCE SC ×2 (08:05→11:37)
[2025-01-26 08:11] VITALS: BP 126/67
[2025-01-26] MEDS: SINEMET 25-100 3 TABLET PO (08:12)
[2025-01-26] MEDS: LOPRESSOR 50 MG PO (08:12)
[2025-01-26] MEDS: LOTRIMIN 1% CREAM 1 APPLIC TOPICAL (08:13)
[2025-01-26] MEDS: LIPITOR 40 MG PO (08:13)
[2025-01-26] MEDS: LASIX 20 MG PO (08:13)
[2025-01-26] MEDS: PLAVIX 75 MG PO (08:13)
[2025-01-26] MEDS: NOVOLOG MIX 70/30 FLEXPEN 30 UNITS SC (08:46)
[2025-01-26 09:02] LABS: Hematocrit 51.3 % (39.0-52.0); Hemoglobin 17.0 g/dL (13.0-18.0); Mean Corp Hgb Conc. 33.1 g/dL (33.0-37.0); Mean Corpuscular Volume 98.7 fL (80.0-94.0); Platelet Count 177 10^3/uL (130-400); Red Cell Dist. Width 14.5 % (11.5-14.5)
[2025-01-26 09:45] LABS: Blood Urea Nitrogen 12 mg/dl (9-20); Calcium 9.1 mg/dl (8.4-10.2); Carbon Dioxide 33 mmol/L (22-30); Chloride 101 mmol/L (98-107); Estimated Creatinine Clearance 60 ml/min; Glucose 117 mg/dl (70-99); Potassium 4.2 mmol/L (3.5-5.1); Sodium 139 mmol/L (135-145); eGFR > 60.00
[2025-01-26 11:36] LABS: Glucose - Point of Care 176 mg/dl (70-99)
--- NOTE | 2025-01-26 13:19 | PHA.VAN.FU ---
Vancomycin Assessment / Plan
- Assessment
Renal Function: Stable
WBC's are: WNL
In the past 24 hrs, patient has been: Afebrile
Concomitant Antimicrobials: Piperacillin/tazobactam
- Dosing Plan
Continue: Vancomycin 1000mg IV Q12h
- Monitoring Plan
No level(s) ordered at this time: Possible discharge on oral antibiotics.
- Follow Up
Pharmacy will continue to follow.
Vancomycin Follow UP
- -
Patient Age: 79
Patient Sex: Male
Vancomycin Day #: 5
Indication: Diabetic Foot
Requesting Provider: Gerardo Rey
Height / Weight:
Height 5 ft 8 in
Actual Weight 89.159 kg
Pertinent Past Medical History: Patient with diabetic foot infection
- Vital Signs / Lab Results
Temp Pulse Resp BP Pulse Ox
97.5 F 71 16 126/67 100
01/26/25 07:38 01/26/25 08:11 01/26/25 08:11 01/26/25 08:11 01/26/25 08:11
Lab Results - Hematology
01/24/25 01/25/25 01/26/25
06:44 05:22 08:34
WBC 9.6 9.5 10.2
Lab Results - Chemistry
01/24/25 01/25/25 01/26/25
06:44 05:22 08:34
BUN 13 12 12
Creatinine 0.9 1.1 1.1
Estimated Creat Clear 76 62 60
Microbiology Results
01/22/25 17:55 Blood Culture - Preliminary
Blood/Venous No Growth in 72 hours- Final report to follow
01/22/25 15:11 Blood Culture - Preliminary
Blood/Venous No Growth in 72 hours- Final report to follow
Therapeutic Drug Monitoring
Vancomycin Peak 23.3 ug/ml (18-) 01/24/25 21:12
Vancomycin Trough 15.1 ug/ml (5-20) 01/25/25 05:22
--- NOTE | 2025-01-26 13:26 | W.DS.TRANS ---
DC Summary - Desk Operator
-
Discharge Instructions:
Discharge Diagnosis/Procedures Left foot cellulitis complicated with tinea
pedis infection.
Type 2 diabetes.
Diet Diabetic, Carb Controlled
Activity With assistance,As tolerated
Instructions:
Stand-Alone Forms:
Changes to Home Medications: Yes
Discharge Medications:
DC Medications w/original date entered in [employer]
atorvastatin 40 mg tablet 40 mg PO DAILY High Cholesterol 03/07/23
carbidopa 25 mg-levodopa 100 mg tablet 3 tab PO TID parkinson's disease 03/07/23
metoprolol tartrate 50 mg tablet 50 mg PO BID Blood Pressure 03/07/23
semaglutide 0.25 mg or 0.5 mg (2 mg/3 mL) subcutaneous pen injector (Ozempic) 1 mg SC TH Diabetes 03/07/23
tamsulosin 0.4 mg capsule 0.4 mg PO HS urine retention 03/07/23
furosemide 20 mg tablet 20 mg PO DAILY Fluid Retention/Swelling 07/09/23
gabapentin 100 mg capsule 100 mg PO HSPRN PRN mild pain 07/09/23
docusate sodium 100 mg capsule (Colace) 100 mg PO DAILY Constipation 08/29/24
clopidogrel 75 mg tablet 75 mg PO DAILY CVA 21 days #21 tabs 09/11/24
acetaminophen 500 mg tablet (Tylenol Extra Strength) 500 mg PO DAILY mild Pain 01/22/25
cholecalciferol (vitamin D3) 25 mcg (1,000 unit) tablet (Vitamin D3) 25 mcg PO DAILY 01/22/25
insulin NPH-regular 70-30 U-100 insulin 100 unit/mL subcutaneous pen (Novolin 70-30 FlexPen U-100 Insulin) 35 unit SC BID Diabetes 01/22/25
magnesium oxide 400 mg PO DAILY 01/22/25
naproxen sodium 220 mg tablet (Aleve) 220 mg PO DAILY mild pain 01/22/25
vitamin B complex 1 tab PO DAILY 01/22/25
cephalexin 500 mg capsule 500 mg PO Q8H 7 days #21 caps 01/24/25
clotrimazole 1 % topical cream (Athlete's Foot (clotrimazole)) 1 applic topical BID #45 grams 01/24/25
doxycycline hyclate 100 mg tablet 100 mg PO BID 7 days #14 tabs 01/24/25
Home Medication Changes
Antibiotics to complete course for left foot cellulites
Pending Results: No
--- NOTE | 2025-01-26 14:57 | CM ---
Addendum entered by Stefanie Cruz 01/26/25 16:42:
5 days SNF authorized by Annie at [facility]: Auth #[id number]
Addendum entered by Stefanie Cruz 01/26/25 15:33:
Covid test was negative.
Original Note:
SNF authorization obtained for transfer to [facility] today. 3PM brick picker scheduled. Covid result pending.
aware of transport plans, IMM signed and placed on chart.
[facility] Report: [phone]
[facility]
[2025-01-26 15:00] VITALS: BP 138/71
[2025-01-26 15:20] LABS: COVID-19 Antigen Negative (Negative)
--- NOTE | 2025-01-28 08:19 | PN.CDI ---
CDI
- -
CDI:
Physician Documentation Request
Admit Date: 01/22/25 18:49
Dear Doctor Anna,
Clinical Indicators:
Patient admitted with left foot cellulitis; PMH includes Type 2 diabetes.
01/26 PN, 'Left foot cellulitis complicated with tinea pedis infection'
HbA1c
01/23/25
05:25
Hemoglobin A1c 7.3 H
Please clarify the likely relationship between these conditions:
Yes, cellulitis is related to/associated/due to tinea pedis and diabetes mellitus.
No, cellulitis is not related to/associated with/due to diabetes mellitus, but it is due to tinea pedis only.
Unable to determine
Use of terms such as suspected, likely, concern for, or probable (associated with a specific diagnosis that is being evaluated, monitored, or treated as if it exists) are acceptable and can be coded in the inpatient setting, when documented at the
time of discharge.
Thank you,
LIMA Bermeo RN
CDI Specialist
available via tiger text
Please use your independent medical judgment in providing your response.
== END 2025-01-26 15:37 | DRG 638 ==
LOC: 3 WEST ACU 18:49
PROVIDERS: General Practice; Physician Assistant Medical; Student in an Organized Health Care Education/Training Program; ADMITTING PHYSICIAN Hospitalist; ATTENDING PHYSICIAN Internal Medicine; CONSULT PHYSICIAN Podiatrist Foot & Ankle Surgery; EMERGENCY PHYSICIAN Emergency Medicine; FAMILY PHYSICIAN Internal Medicine
DX: E11.628 Type 2 diabetes mellitus with other skin complications (principal); L03.116 Cellulitis of left lower limb; B35.3 Tinea pedis; I10 Essential (primary) hypertension; I25.10 Atherosclerotic heart disease of native coronary artery without angina pectoris; I65.23 Occlusion and stenosis of bilateral carotid arteries; E11.51 Type 2 diabetes mellitus with diabetic peripheral angiopathy without gangrene; I35.0 Nonrheumatic aortic (valve) stenosis; E66.09 Other obesity due to excess calories; E78.00 Pure hypercholesterolemia, unspecified; G20.A1 Parkinson's disease without dyskinesia, without mention of fluctuations; I87.2 Venous insufficiency (chronic) (peripheral); K59.09 Other constipation; N32.81 Overactive bladder; N40.1 Benign prostatic hyperplasia with lower urinary tract symptoms; E11.42 Type 2 diabetes mellitus with diabetic polyneuropathy; Z68.32 Body mass index [BMI] 32.0-32.9, adult; Z79.85 Long-term (current) use of injectable non-insulin antidiabetic drugs; Z79.4 Long term (current) use of insulin; Z79.02 Long term (current) use of antithrombotics/antiplatelets; Z79.899 Other long term (current) drug therapy; Z86.73 Personal history of transient ischemic attack (TIA), and cerebral infarction without residual deficits; Z95.5 Presence of coronary angioplasty implant and graft; Z96.641 Presence of right artificial hip joint; Z96.653 Presence of artificial knee joint, bilateral; Z99.3 Dependence on wheelchair; Z11.52 Encounter for screening for COVID-19
CPT/HCPCS: 73630; 80048; 80053; 80202; 82962; 83036; 83605; 85025; 85027; 85610; 85652; 86140; 86803; 87040; 87070; 87811; 93005; 93922; 93925; 96374; 96375; 97163; 97167; 97530; 99285

== ENCOUNTER → 2025-02-17 14:40 | Outpatient (REF) | payer OTHER, SELFPAY | LOC: HWRAD 14:40 | PROVIDERS: ATTENDING PHYSICIAN Nurse Practitioner Family | DX: R09.89 Other specified symptoms and signs involving the circulatory and respiratory systems (principal) | CPT/HCPCS: 71046 ==

== ENCOUNTER 2025-03-05 15:22 | Inpatient (IN) | payer OTHER, SELFPAY ==
[2025-03-05 11:56] VITALS: BMI 34.8
[2025-03-05 12:01] VITALS: BP 101/59
--- NOTE | 2025-03-05 12:15 | ED.GENMED ---
History of Present Illness
General
Chief Complaint: Weakness
Source: patient
Exam Limitations: none
Time Seen by Provider: 03/05/25 11:58
Nursing documentation reviewed up to this point in time: agreed with
History of Present Illness
History of Present Illness:
71-year-old male with a past medical history of hypertension, hyperlipidemia, CAD, diabetes, Parkinson disease, prior CVA who presents to the ER for evaluation of fever and fatigue/weakness, fall, confusion. Patient lives at home with his , she
is at bedside now and helps with collateral history as patient has somewhat limited insight and is a poor historian after multiple strokes. Patient was admitted for wound infection and cellulitis in the left leg in January. He was treated with a
course of antibiotics at that time. Last week he started having some throbbing pain in the left foot and some drainage that was yellowish from his wound between the toes and primary team started him on doxycycline which he has been taking for 8
days. Today his says that she found him next to his recliner on the ground this morning. He has a history of falls and so she called for lift assist from EMS and they helped him back to his chair and ultimately he seemed to be okay and so he
was not immediately transported to the hospital. Wound care nurse came out later today and did a dressing change and patient seem to be normal however as the afternoon went on and daughter noted that he was having some increased confusion and
was having tremulousness. They called EMS to pick him to the hospital to be assessed. Patient himself says that he has chills and feels weak. He denies having any chest pain or shortness of breath. He denies any recent cough. Denies abdominal
pain or vomiting/diarrhea. He is on Plavix but no other blood thinners noted on medication list.
Past History
Past History
ED Past Medical History: CAD, HTN, Hypercholesterolemia, IDDM, Valvular disease and Other (Parkinson's)
ED Past Surgical History: Cardiac, Cholecystectomy and Orthopedic
Social History
Tobacco: Non-smoker
Alcohol: None
Drug: None
Personal:
Living: with family
Employment: Retired
Family History
Family History: Other (Reviewed and noncontributory)
Review of Systems
Review of Systems
All Other Systems: ROS reviewed and negative except as documented in HPI and ROS
Constitutional: Reports fever, fatigue and chills
EENT: Reports runny nose; Denies sore throat
Respiratory: Denies cough or trouble breathing
Cardiac: Denies chest pain or palpitations
ABD/GI: Denies abdominal pain, nausea, vomiting or diarrhea
: Denies flank pain
Musculoskeletal: Denies neck pain or back pain
Skin: Reports other (Chronic wound on the left foot)
Neurological: Denies headache
Phy Exam
Physical Exam
Physical Exam:
General: Awake, alert, oriented to person place and slightly to time�was able to tell me the year but not to month; no acute distress
Head: Normocephalic, atraumatic
Eyes: Conjunctiva normal, sclera anicteric
Throat: Airway intact, handling secretions
Neck: Trachea midline, supple without meningismus
Lungs: No tachypnea or hypoxia, patient does have rales at the right lung base
Heart: Tachycardia with regular rhythm, no murmurs, gallops, or rubs
Abd: Soft, non distended, nontender; large abdominal wall hernia soft and reducible
Back: No signs of trauma no back or flank
Neuro: Somewhat tremulous but cranial nerves intact, moving all extremities without gross focal deficit, speech fluid
Skin: Patient has a wound on the left foot between the 1st and 2nd toe with some surrounding erythema extending towards the foot and lower leg
Extremities: Bilateral lower extremity edema; extremities are warm and well-perfused
Scores
Heart Failure Risk
Heart Failure Risk Score: Not Applicable
Heart Score for Chest Pain Patients
STEMI patient?: Not applicable
Withdrawal Assessment of Alcohol
Withdrawal Assessment Completed?: Not applicable
Sepsis
Sepsis Screening
Sepsis Assessment: Severe Sepsis
Sepsis Screening: Lactate >2mmol/L
Sepsis Screen
Sepsis Screen: Severe Sepsis
Date: 03/05/25
Time: 13:06
Course
Orders/Labs/Results
Orders:
Orders
03/05/25 12:00
Electrocardiogram (*1) Urgent
Reason for Study: Other
Other Reason for Exam: Possible Sepsis
Cardiac Monitoring- Treatment ONCE
EKG- Treatment ONCE
IV Insert/Care/Rem.- Treatment PRN
O2 Therapy [RESP] Urgent
Titrate/Wean O2 to maintain O2 sat greater than (%): 93
Special Instructions: TO MAINTAIN CONTINUOUS O2 SATS > OR = 93%
Pulse Ox/cont/shift [RESP] Urgent
Quantity: 1
Special Instructions: CONTINUOUS
03/05/25 12:06
COVID-19 Antigen Urgent
Source: Nasal Swab
Complete Blood Count/With Diff Urgent
Comprehensive Metabolic Panel Urgent
Creatine Phosphokinase Urgent
Comment: ADD ON
Lactic Acid Q4H
Comment: ON ICE, CANCEL 2ND ORDER IF FIRST LACTIC ACID LEVEL <2
Blood Culture Q20M
KITTY Source: Blood/Venous
Specimen Description:
Comment: Urgent from separate sites. If patient screens positive for possible sepsis
Blood Culture Q20M
KITTY Source: Blood/Venous
Specimen Description:
Comment: Urgent from separate sites. If patient screens positive for possible sepsis
Influenza A+B Rapid Molecular Urgent
KITTY Source: Nasal Swab
Specimen Description:
03/05/25 12:13
Straight cath- Treatment ONCE
CR Chest - 2 Views Urgent
Comment:
Reason For Exam: right basilar rales, fever
CR Foot - Left Min 3 Views Urgent
Comment:
Reason For Exam: foot wound, fever
03/05/25 12:14
Acetaminophen [Tylenol] 1,000 mg PO NOW STA
03/05/25 12:17
Urinalysis Reflex To Culture Urgent
Date Specimen was Collected: 03/05/25
Time Specimen was Collected: 12:16
Urine Microscopic Reflex Cult Urgent
03/05/25 12:21
Ibuprofen [Motrin] 400 mg PO NOW STA
03/05/25 12:36
Add On- LAB Urgent
Tests Added?: CPK
CT Head W/o Iv Contrast Urgent
Comment:
Reason For Exam: confusion, fall
03/05/25 12:45
Wound Culture [Wound/Abscess/Other Culture] Urgent
KITTY Source: Foot
Specimen Description: Left
Date Specimen was Collected: 03/05/25
Time Specimen was Collected: 12:42
03/05/25 13:06
Piperacillin/Tazo 3.375 Gram [Zosyn] 3.375 gram in 50 ml IV NOW
Vancomycin [Vancocin] 2,000 mg 0.9% Sodium Chloride 500 ml [Nss] 500 ml IV NOW
03/05/25 13:16
0.9% Sodium Chloride 1000 ml [Nss] 1,000 ml IV BOLUS
03/05/25 16:00
Lactic Acid Q4H
Comment: ON ICE, CANCEL 2ND ORDER IF FIRST LACTIC ACID LEVEL <2
Abnormal Lab Results
03/05/25 03/05/25
12:06 12:17
WBC 29.5 H 10^3/uL
(4.8-10.8)
MCV 102.7 H fL
(80.0-94.0)
MCH 33.7 H pg
(27.0-31.0)
MCHC 32.9 L g/dL
(33.0-37.0)
Glucose 199 H mg/dl
(70-99)
Lactic Acid 2.9 H mmol/L
(0.7-2.0)
Total Bilirubin 1.9 H mg/dl
(0.2-1.3)
Creatine Kinase 212 H U/L
(55-170)
Urine Ketones 2+ A
(Negative)
Ur Occult Blood Reflex 1+ A
(Negative)
Urine Glucose 1+ A
(Negative)
Urine Albumin (Reflex) 2+ A
(Neg - Trace)
03/05/25 12:06
03/05/25 12:06
Vital Signs
Initial and Last Documented VS:
Initial Vital Signs
Temp Pulse Resp BP Pulse Ox
37.9 C 112 18 101/59 97
03/05/25 12:03/05/25 12:01 03/05/25 12:01 03/05/25 12:01 03/05/25 12:01
Last Documented Vital Signs
Temp Pulse Resp BP Pulse Ox
37.9 C 112 18 101/59 97
03/05/25 12:01 03/05/25 12:01 03/05/25 12:01 03/05/25 12:01 03/05/25 12:16
MDM/Problems Addressed
Differential Diagnosis Includes:
Viral syndrome, UTI, pneumonia, cellulitis/wound infection
MDM/Problems Addressed:
79-year-old male presents to the ER with fever and chills, weakness and confusion; had a fall this morning. He is tachycardic, borderline febrile here but normotensive. Physical exam as noted. Plan to check labs including CBC to CMP, lactate and
blood cultures. Check urinalysis, viral swabs, chest x-ray. Will check x-ray of the left foot. Wound culture of toe wound. Check CT head. Reassess after the above.
Initial labs reviewed: CBC shows marked leukocytosis to 29.5. Chemistry no clinically significant abnormalities. Lactate is elevated to 2.9. Urinalysis no signs of acute infection. COVID and flu swabs negative. Chest x-ray reviewed by me shows
no pneumonia. Overall suspect sepsis secondary to foot infection/cellulitis. Will provide broad-spectrum antibiotics pending blood and wound cultures. Fluid resuscitation. Will admit for continued management pending CT head.
CT head reviewed by me no acute posttraumatic injury. Case discussed with hospitalist to facilitate admission.
Chronic conditions affecting care:
Diabetes
*Radiology
Radiology exam reviewed: preliminary read by ED provider and radiology read reviewed
*Pulse Oximetry
SaO2: 97
Oxygen Mode of Delivery: Room air
Patient hypoxic: no (97%)
*EKG
Interpreted by ED Provider?: Yes
Heart Rate: 107
Rate: tachycardiac
Rhythm: sinus, PVC's and sinus tachycardia
Preston: normal axis
Interval: normal interval
QRS Pattern: normal QRS
Ischemia: non-specific ST changes
*Critical Care Note
Total Time (30-74mins, 75-104mins- exclusive of procedures): Not Applicable
Data Reviewed
Review of Other/Old Records Reveals: Labs, Records and Discharge Summary
Source: patient, records, spouse and ambulance crew
Patient Management
Discussion with other providers: Hospitalist (Discussed with hospitalist)
Escalation/DeEscalation of care consider admission/obs:
Admission indicated
ED Attending Note
-
Portions of this chart may have been created with voice recognition software.� Occasional wrong word or��sound alike� substitutions may have occurred due to the inherent limitations of voice recognition software.
Discharge Plan
Departure
Patient Disposition: Admit
Date of Disposition: 03/05/25
Time of Disposition: 13:22
Admit to doctor: Martinez
Presentation/result/management discussed w/ accepting MD/DO: Hospitalist
Discharge Problem:
Sepsis, Cellulitis, Wound, open, foot
Prescriptions:
No Action
atorvastatin 40 mg tablet
40 mg PO DAILY
tamsulosin 0.4 mg capsule
0.4 mg PO HS
metoprolol tartrate 50 mg tablet
50 mg PO BID
carbidopa-levodopa 25-100 mg tablet
3 tab PO TID
Ozempic 0.25 mg or 0.5 mg (2 mg/3 mL) pen injector
1 mg SC TH
furosemide 20 mg tablet
20 mg PO DAILY
gabapentin 100 mg capsule
100 mg PO HSPRN PRN (Reason: mild pain)
docusate sodium [Colace] 100 mg Capsule
100 mg PO DAILY
magnesium oxide 400 mg magnesium Tablet
400 mg PO DAILY
acetaminophen [Tylenol Extra Strength] 500 mg tablet
500 mg PO DAILY
Novolin 70-30 FlexPen U-100 100 unit/mL (70-30) insulin pen
35 unit SC BID
naproxen sodium [Aleve] 220 mg Tablet
220 mg PO DAILY
vitamin B complex Tablet
1 tab PO DAILY
cholecalciferol (vitamin D3) [Vitamin D3] 25 mcg (1,000 unit) Tablet
25 mcg PO DAILY
clotrimazole [Athlete's Foot (clotrimazole)] 1 % Cream
1 applic topical BID Qty: 45 0RF
doxycycline hyclate 100 mg tablet
100 mg PO BID 7 Days Qty: 14 0RF
cephalexin 500 mg Capsule
500 mg PO Q8H 7 Days Qty: 21 0RF
Rx Instructions:
for 7 days starting 01/21/25
clopidogrel 75 mg Tablet
75 mg PO DAILY 21 Days Qty: 21 0RF
Referrals:
Jonnathan Li CRNP [Family Provider, Family Practice]
Interventions
Interventions:
*Risk Screen - Suicide Last Done: 03/05/25 12:01
*Neglect/Abuse Screening Last Done: 03/05/25 12:01
*ED COVID-19 Vaccine History Last Done: 03/05/25 12:01
*ED Influenza Vaccine History Last Done: 03/05/25 12:01
Discharge Date and Time
Print Language: OMANI
[2025-03-05 12:35] LABS: Urine Character Clear (Clear)
[2025-03-05 12:47] LABS: COVID-19 Antigen Negative (Negative)
[2025-03-05 12:53] LABS: Hematocrit 50.2 % (39.0-52.0); Hemoglobin 16.5 g/dL (13.0-18.0); Mean Corp Hgb Conc. 32.9 g/dL (33.0-37.0); Mean Corpuscular Volume 102.7 fL (80.0-94.0); Platelet Count 166 10^3/uL (130-400); Red Cell Dist. Width 14.3 % (11.5-14.5)
[2025-03-05 13:14] LABS: AST (SGOT) 33 U/L (17-59); Albumin 4.2 g/dl (3.5-5.0); Alkaline Phosphatase 110 U/L (38-126); Blood Urea Nitrogen 14 mg/dl (9-20); Calcium 9.2 mg/dl (8.4-10.2); Carbon Dioxide 26 mmol/L (22-30); Chloride 100 mmol/L (98-107); Glucose 199 mg/dl (70-99); Sodium 135 mmol/L (135-145); Total Protein 7.5 g/dl (6.3-8.2); eGFR > 60.00
[2025-03-05 13:18] LABS: Urine Squamous Cell >30 /LPF (Few)
[2025-03-05 13:19] LABS: Nucleated Red Blood Cells % 0 % (-)
[2025-03-05 13:24] LABS: Potassium 4.8 mmol/L (3.5-5.1)
--- NOTE | 2025-03-05 13:25 | HPS.HSE ---
Addendum entered and electronically signed by Jesus Henriquez MD 03/05/25 16:13:
This is an addendum to H&P written by Marcela Laboy on 03/05/2025. �Patient seen and examined independently with PA.
79-year-old male past medical history of CAD with stent, prior CVA, PAD with bilateral carotid artery stenosis, hypertension, moderate aortic stenosis, hyperlipidemia, diabetes, diabetic neuropathy, Parkinson disease, BPH/overactive bladder,
obstructive sleep apnea, obesity, presenting for fever, weakness, fall and confusion.
Patient was recently admitted from 01/22 to 01/26 for cellulitis of left foot in the area between the 1st and 2nd metatarsal space. �He also tinea pedis. �He was treated with antibiotics and antifungal cream. �He was seen by podiatry. �Arterial
ultrasound was unremarkable.
Last week he started having throbbing pain in the left foot and drainage that was yellow and he was started on doxycycline which he has been taking for 8 days. � found him on the ground today.
Also with some mild shortness of breath which is chronic.�
Vital signs shows tachycardia.
Labs show leukocytosis of 29. �Lactic acid of 2.9. �Urinalysis unremarkable. �COVID and influenza negative. X ray foot unremarkable.� Ct head no acute abnormality although suggesting normal pressure hydrocephalus. CXR shows mild pulmonary edema.�
Patient with sepsis secondary to cellulitis of left foot between the 1st and 2nd metatarsal space. �Blood cultures, wound culture, IV fluids, vancomycin/Zosyn. Podiatry recommended MRI of foot.� Will try to discontinue IV fluids due to concern for
CHF if Lactic acidosis resolved.�
Original Note:
Family Physician
-
Family Physician: CYNTHIA Humphrey
Chief Complaint
-
Fever and Confusion
History of Present Illness
Patient is a 79 y/o male past medical history of ASCVD, HTN, DM with neuropathy, Parkinson's Disease and BPH who presents with fever and confusion. Additional history is obtained from patient's at the bedside. She found patient on the floor
this morning, and patient did not know how he got on the floor. notes he was sweaty, and appears more confused than usual. Patient was admitted to [facility] last month with left foot cellulitis. About a week ago patient began having increased
pain in the left foot, with some increased drainage for which he was started on oral doxycycline.
Medical History
Past Medical History
Past Medical History: Reports Other
Additional Past Medical History:
Coronary Artery Disease s/p Stent
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
Chronic HFpEF
Moderate/Severe Aortic Stenosis
Essential Hypertension
Hyperlipidemia
Insulin Dependent Diabetes Mellitus
Diabetic Neuropathy
Parkinson's Disease
Chronic Constipation
BPH
Overactive Bladder
Past Surgical History: Reports Other
Additional Past Surgical History:
Cardiac Stent
Cholecystectomy
ERCP
Right Hip Replacement
Bilateral Knee Replacements
Cervical Laminectomy and Fusion
Lumbar Laminectomy
Social History
Tobacco: Non-smoker
Alcohol: None
Personal:
Living: With Family
Family History
Family History: Not pertinent
Allergies / Home Medications
Allergies reflects when Allergies were last updated in [facility].
Home Medications with original date entered in [facility]
Allergy/Medication List:
Allergies
Allergy/AdvReac Type Severity Reaction Status Date / Time
adhesive tape Allergy Unknown Verified 01/22/25 15:01
Latex, Natural Rubber Allergy Unknown Verified 01/22/25 15:01
mold Allergy Unknown Verified 01/22/25 15:01
Home Medications
atorvastatin 40 mg tablet 40 mg PO DAILY High Cholesterol 03/07/23
carbidopa 25 mg-levodopa 100 mg tablet 3 tab PO BID parkinson's disease 03/07/23
metoprolol tartrate 50 mg tablet 50 mg PO BID Blood Pressure 03/07/23
semaglutide 0.25 mg or 0.5 mg (2 mg/3 mL) subcutaneous pen injector (Ozempic) 1 mg SC TH Diabetes 03/07/23
tamsulosin 0.4 mg capsule 0.4 mg PO HS urine retention 03/07/23
furosemide 20 mg tablet 20 mg PO DAILY Fluid Retention/Swelling 07/09/23
docusate sodium 100 mg capsule (Colace) 100 mg PO DAILY Constipation 08/29/24
clopidogrel 75 mg tablet 75 mg PO DAILY CVA 21 days #21 tabs 09/11/24
acetaminophen 500 mg tablet (Tylenol Extra Strength) 500 mg PO DAILY mild Pain 01/22/25
insulin NPH-regular 70-30 U-100 insulin 100 unit/mL subcutaneous pen (Novolin 70-30 FlexPen U-100 Insulin) 35 unit SC BID Diabetes 01/22/25
magnesium oxide 400 mg PO DAILY Supplement 01/22/25
naproxen sodium 220 mg tablet (Aleve) 220 mg PO DAILY mild pain 01/22/25
vitamin B complex 1 tab PO DAILY 01/22/25
Golo Release 2 cap PO DAILY Supplement 03/05/25
Nad 300 mg PO DAILY Supplement 03/05/25
Silver Alginate Cream 1 applic topical DAILY LEFT FOOT WOUND 03/05/25
carbidopa 25 mg-levodopa 100 mg tablet 3 tab PO DAILYPRN PRN on P.T days 03/05/25
cholecalciferol (vitamin D3) 125 mcg (5,000 unit) tablet (Vitamin D3) 125 mcg PO DAILY Supplement 03/05/25
cranberry fruit 450 mg tablet (cranberry) 450 mg PO DAILY Supplement 03/05/25
doxycycline hyclate 100 mg tablet 100 mg PO BID Infection 03/05/25
loratadine 10 mg tablet 10 mg PO DAILY Allergies 03/05/25
red yeast rice 600 mg capsule 600 mg PO DAILY Supplement 03/05/25
selenium 200 mcg tablet 200 mcg PO DAILY Supplement 03/05/25
vitamin E 268 mg (400 unit) capsule 268 mg PO DAILY Supplement 03/05/25
Review of Systems
-
A 12 point ROS was completed and negative except as noted: Yes
Constitutional: Reports Fever and Chills
Respiratory: Reports Cough (Night time cough, chronic per patient's ); Denies Trouble Breathing
Cardiac: Denies Chest Pain or Palpitations
Abdomen/GI: Denies Abdominal Pain, Nausea, Vomiting or Diarrhea
Physical Exam
Vital Signs
Vital Signs
Temp Pulse Resp BP Pulse Ox
100.3 F 112 18 101/59 97
03/05/25 12:01 03/05/25 12:01 03/05/25 12:01 03/05/25 12:01 03/05/25 12:16
Physical Exam
General: Comfortable and Conversant
HEENT: Anicteric and Moist mucous membranes
Respiratory: Clear and Non Labored Respirations
Cardiac: S1/S2, Regular Rhythm and Murmur
GI: Soft, Non Tender and Other (Protuberant)
Rectal: Deferred by Provider
Musculoskeletal: No Clubbing, No Cyanosis and No Edema
Skin: Other (Right Lower Extremity is cool to touch; Left Lower Extremity with increased warmth and mild erythema; Significant pain with attempting to inspect the toe interspaces, particularly between the 1st and 2nd toe)
Neuro: Awake, Alert and No Motor Deficits
Psych: Calm
Laboratory Results
-
03/05/25 12:06
03/05/25 12:06
Laboratory Results
Lactic Acid 2.9 mmol/L (0.7-2.0) H 03/05/25 12:06
Total Bilirubin 1.9 mg/dl (0.2-1.3) H 03/05/25 12:06
AST 33 U/L (17-59) 03/05/25 12:06
Alkaline Phosphatase 110 U/L (38-126) 03/05/25 12:06
Impression/Plan
-
Sepsis with Lactic Acidosis secondary to Left Foot Cellulitis
-Reviewed with Dr. Choudhury who has previously seen the patient. She recommends further imaging with MRI. If MRI is positive for deep infection patient will need consult with on-call acquisition specialist as Dr. Choudhury is away starting 03/05
-Continue Vancomycin and Zosyn
-Await wound and blood cultures
-Trend lactic acid
Coronary Artery Disease s/p Stent
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
-Continue Plavix
Chronic HFpEF
-CXR raises concern for mild pulmonary vascular congestion however patient denies any increased shortness of breath
-Patient received IVFs in ED for sepsis - Monitor respiratory status
-Continue Lasix 20mg PO Daily as prior to admission
-Monitor Daily Weights
Hyperlipidemia
-Continue atorvastatin
Insulin Dependent Diabetes Mellitus with Diabetic Neuropathy
-HgbA1x 7.4 in Jan 2025
-Continue Novolog
-Monitors sugars and continue coverage insulin
Parkinson's Disease
-Continue carbidopa/levodopa
BPH
-Continue tamsulosin
DVT proph: Lovenox
Code Status: Full Code
[2025-03-05] MEDS: NSS 2100 ML IV (13:34)
[2025-03-05] MEDS: VANCOCIN 540 MG IV (13:43)
[2025-03-05] MEDS: ZOSYN 50 IV ×2 (13:44→19:46)
[2025-03-05 14:33] LABS: ALT (SGPT) < 10 U/L (0-50)
[2025-03-05 16:02] VITALS: BP 106/42
[2025-03-05 17:00] VITALS: BP 114/70
[2025-03-05] MEDS: NSS 1000 IV (17:19)
[2025-03-05 17:23] VITALS: BMI 36.4
[2025-03-05 18:42] LABS: Glucose - Point of Care 240 mg/dl (70-99)
[2025-03-05 18:43] VITALS: BP 114/67; BMI 36.4
--- NOTE | 2025-03-05 18:44 | PTCARENOTE ---
Patient arrived to unit. patient pulled over from stretcher to bed x 4 assist. VSS. AAOx3. bed alarm in place. IV fluids remain in place. call phoenix in reach. safety maintained.
[2025-03-05] MEDS: NOVOLOG FLEXPEN-MODERATE RESISTANCE 3 UNITS SC (19:44)
[2025-03-05] MEDS: LOPRESSOR 50 MG PO (19:45)
[2025-03-05] MEDS: LOVENOX 40 MG SC (19:46)
--- NOTE | 2025-03-05 20:19 | PHA.VAN.IN ---
Addendum entered and electronically signed by Shakila De Paz [facility] 03/06/25 09:01:
Patient had the prior previous dosing experience in January 2025:
Vanc 1000mg Q12H provided the following patient-specific PK:
Extrapolated Cmax (mcg/mL): 26
Peak level was drawn: Appropriately
Extrapolated Cmin (mcg/mL): 14.5
Trough Drawn: Appropriately
Levels were drawn: At steady state
Calculated AUC (mcg*h/mL): 474
Calculated ke: 0.0531
Calculated half life (H): 13
Calculated Vd (L): 79.4
Calculated Vanc CL (ml/min): 70.28
SCR similar to prior dosing experience. Patient weighs about 10kg more.
Addendum entered and electronically signed by Nimco Adam [facility] 03/05/25 20:59:
Pertinent Past Medical History: IDDM
Original Note:
Assessment
- Assessment
Renal Function: Appears similar to baseline
Concomitant Antimicrobials: PIPERACILLIN/TAZO
AUC Dosing Plan
- Dosing Variables
Dosing Weight (kg): 108.5
Dosing CrCl (ml/min): 73
Vd coefficient (L/kg): 0.6
- Empiric Dosing
Initial / Loading Dose: VANCO 2000 MG IV ~ 1400
Maintenance Regimen: VANCO 1000 MG IV Q12H
Estimated AUC (mcg*h/mL): 488
Estimated Peak (mcg*h/mL): 28.4
Estimated Trough (mcg/ml): 13.9
Estimated Half Life (H): 10.7
- Monitoring
No levels ordered at this time: Consider levels in next few days
Pharmacokinetics Vancomycin I
- -
Patient Age: 79
Patient Sex: Male
Vancomycin Day #: 1
Indication: Skin And Soft Tissue
Requesting Provider: Gerardo Vigil PA-C
Height / Weight:
Height 5 ft 8 in
Actual Weight 108.499 kg
Pertinent Past Medical History: Cellulitis of left foot between the 1st and 2nd metatarsal space
- Vital Signs / Lab Results
Temp Pulse Resp BP Pulse Ox
98.2 F 116 24 114/67 98
03/05/25 18:43 03/05/25 19:45 03/05/25 18:43 03/05/25 19:45 03/05/25 18:43
Lab Results - Hematology
03/05/25
12:06
WBC 29.5 H
Lab Results - Chemistry
03/05/25
12:06
BUN 14
Creatinine 1.0
Albumin 4.2
03/05/25 03/05/25
12:06 16:01
Lactic Acid 2.9 H 2.3 H
Lab Results - Urine
03/05/25
12:17
Urine Nitrite (Reflex) Negative
Leukocyte Esterase Rfl Negative
Urine WBC (Reflex) 6-10
Ur Squamous Epith Cells >30
Urine Bacteria (Reflex) Few A
Microbiology Results
03/05/25 12:45 Gram Stain - Preliminary
Foot - Left
03/05/25 12:06 Influenza Types A & B (ELENITA) - Final
Nasal Swab Negative for Influenza A & B, NAAT
Negative results must be combined with clinical observations
and patient history.
Nucleic Acid Amplification test (NAAT)performed on the
[employer] NOW platform.
[2025-03-05] MEDS: NOVOLOG MIX 70/30 FLEXPEN 35 UNITS SC (20:48)
[2025-03-05] MEDS: SINEMET 25-100 3 TABLET PO (20:49)
[2025-03-05] MEDS: FLOMAX 0.4 MG PO (20:50)
[2025-03-05 22:17] LABS: Glucose - Point of Care 327 mg/dl (70-99)
[2025-03-05 23:08] VITALS: BP 117/75
[2025-03-06] MEDS: ZOSYN 50 IV ×3 (01:20→14:16)
[2025-03-06 03:12] VITALS: BP 128/79
[2025-03-06] MEDS: NSS 1000 IV (04:17)
[2025-03-06] MEDS: VANCOCIN 200 IV (04:19)
[2025-03-06 05:40] LABS: Hematocrit 48.1 % (39.0-52.0); Hemoglobin 15.4 g/dL (13.0-18.0); Mean Corp Hgb Conc. 32.0 g/dL (33.0-37.0); Mean Corpuscular Volume 102.3 fL (80.0-94.0); Platelet Count 152 10^3/uL (130-400); Red Cell Dist. Width 14.8 % (11.5-14.5)
[2025-03-06 05:55] LABS: ALT (SGPT) < 10 U/L (0-50); AST (SGOT) 49 U/L (17-59); Albumin 3.5 g/dl (3.5-5.0); Alkaline Phosphatase 103 U/L (38-126); Blood Urea Nitrogen 15 mg/dl (9-20); Calcium 8.5 mg/dl (8.4-10.2); Carbon Dioxide 26 mmol/L (22-30); Chloride 107 mmol/L (98-107); Estimated Creatinine Clearance 81 ml/min; Glucose 210 mg/dl (70-99); Potassium 4.5 mmol/L (3.5-5.1); Sodium 135 mmol/L (135-145); Total Protein 6.6 g/dl (6.3-8.2); eGFR > 60.00
[2025-03-06 06:00] VITALS: BMI 35.5
[2025-03-06 07:42] LABS: Glucose - Point of Care 157 mg/dl (70-99)
[2025-03-06] MEDS: NOVOLOG FLEXPEN-MODERATE RESISTANCE 1 UNITS SC ×3 (07:42→17:48)
[2025-03-06] MEDS: SINEMET 25-100 3 TABLET PO ×2 (07:46→19:19)
[2025-03-06] MEDS: LIPITOR 40 MG PO (07:46)
[2025-03-06] MEDS: COLACE 100 MG PO (07:46)
[2025-03-06] MEDS: PLAVIX 75 MG PO (07:46)
[2025-03-06] MEDS: LOPRESSOR 50 MG PO (07:54)
[2025-03-06] MEDS: LASIX 20 MG PO (07:55)
[2025-03-06 07:57] VITALS: BP 141/81
[2025-03-06] MEDS: NOVOLOG MIX 70/30 FLEXPEN 35 UNITS SC ×2 (07:59→17:47)
--- NOTE | 2025-03-06 08:39 | VNURNOTE ---
Chart reviewed. Patient is current with [facility]. Will continue to follow hospital course and DC plans.
--- NOTE | 2025-03-06 08:58 | PHA.VAN.FU ---
Vancomycin Assessment / Plan
- Assessment
Renal Function: Stable
WBC's are: Trending Down
In the past 24 hrs, patient has been: Afebrile
Concomitant Antimicrobials: piperacillin/tazobactam
- Dosing Plan
Continue: Vanc 1000mg Q12H based on prior dosing experience
- Monitoring Plan
No level(s) ordered at this time: consider levels in next few days
- Follow Up
Pharmacy will continue to follow.
Vancomycin Follow UP
- -
Patient Age: 79
Patient Sex: Male
Vancomycin Day #: 2
Indication: Skin And Soft Tissue
Requesting Provider: Gerardo Vigil PA-C
Pertinent Antimicrobial Allergies:
no pertinent antibiotic allergies
Height / Weight:
Height 5 ft 8 in
Actual Weight 105.772 kg
Pertinent Past Medical History: BMI ~36, DM, Parkinson's Disease
- Vital Signs / Lab Results
Temp Pulse Resp BP Pulse Ox
98.9 F 64 18 141/81 94
03/06/25 07:57 03/06/25 07:57 03/06/25 07:57 03/06/25 07:57 03/06/25 07:57
Lab Results - Hematology
03/05/25 03/06/25
12:06 05:12
WBC 29.5 H 19.4 H
Lab Results - Chemistry
03/05/25 03/06/25
12:06 05:12
BUN 14 15
Creatinine 1.0 0.9
Estimated Creat Clear 81
Albumin 4.2 3.5
03/05/25 03/05/25 03/05/25
12:06 16:01 20:35
Lactic Acid 2.9 H 2.3 H 3.3 H
03/05/25 03/06/25 03/06/25
21:15 00:18 05:12
Lactic Acid Cancelled 3.2 H 1.4
03/06/25
06:45
Lactic Acid 1.6
Lab Results - Urine
03/05/25
12:17
Urine Nitrite (Reflex) Negative
Leukocyte Esterase Rfl Negative
Ur Squamous Epith Cells >30
Microbiology Results
03/05/25 12:06 Blood Culture - Preliminary
Blood/Venous Positive culture in progress
Gram Stain - Preliminary
03/05/25 12:45 Gram Stain - Preliminary
Foot - Left
03/05/25 12:06 Influenza Types A & B (ELENITA) - Final
Nasal Swab Negative for Influenza A & B, NAAT
Negative results must be combined with clinical observations
and patient history.
Nucleic Acid Amplification test (NAAT)performed on the
[employer] NOW platform.
[2025-03-06 09:20] VITALS: BP 117/68; PULSE 56; PULSE 57; O2SAT 94
--- NOTE | 2025-03-06 10:39 | W.PN.HOSP.TC ---
Today's Communication/Plan
-
see plan
Assessment / Plan
Assessment / Plan
79-year-old male past medical history of CAD with stent, prior CVA, PAD with bilateral carotid artery stenosis, hypertension, moderate aortic stenosis, hyperlipidemia, diabetes, diabetic neuropathy, Parkinson disease, BPH/overactive bladder,
obstructive sleep apnea, obesity, presenting for fever, weakness, fall and confusion.
Gen: NAD, AAOx3.
Eyes: EOMI, PERRLA, no scleral icterus.
Neck: supple.
CV: RRR, +S1/S2, no m/r/g.
Resp: CTAB, no rales, wheezes, or rhonchi.
Abd: +BS, soft, NT, ND
Skin: dorsal aspect of L foot superficial to the 2nd metatarsal with skin breakdown and mild cellulitis. Note pt with B/L chronic venous stasis dermatitis.
Neuro: CN 2-12 intact, non-focal.
Psych: Normal mood and affect.
L foot Xray:
1. No acute abnormality appreciated.
2. Moderate arterial vascular calcification.
CT brain:
1. No acute intracranial abnormalities appreciated.
2. Moderate dilation of the lateral ventricles, out of proportion to the dilation of the third and fourth ventricles. Please correlate clinically for symptoms of normal pressure hydrocephalus.
3. Cerebral atrophy and small vessel ischemic change, stable.
CXR:
1. Mild cardiomegaly.
2. Suggestion of mild pulmonary vascular congestion.
Sepsis due to L foot cellulitis:
-Leukocytosis improving
-Lactic acidosis has resolved, stop IV fluids
-cont Vanco/Zosyn
-check MRI L foot
-c/s ID/podiatry
Chronic HFpEF:
-not in acute exac
-cont Lasix/BB
-daily wts, I/Os
Other problems:
Obesity due to excess calories
h/o CVA: Cont Plavix/statin
CAD s/p stent: Cont Plavix/statin/BB
DM2 with Diabetic Neuropathy: Recent a1c 7.4%, cont 70/30/SSI/accuchecks
HLD: cont statin
Parkinson's Disease: Cont carbidopa/levodopa
BPH: Cont Flomax
FULL/Lovenox
Anticipated Discharge: > 48 hours
Subjective/Interval History
-
Date of Service: March 06, 2025
No new complaints.
Objective Data
-
Labs:
Laboratory Results
03/06/25
05:12
WBC 19.4 H
Hgb 15.4
Hct 48.1
Plt Count 152
Sodium 135
Potassium 4.5
Chloride 107
Carbon Dioxide 26
BUN 15
Creatinine 0.9
Glucose 210 H
Calcium 8.5
Total Bilirubin 1.5 H
AST 49
ALT < 10
Alkaline Phosphatase 103
Vital Signs:
Vital Signs
Temp Pulse Resp BP Pulse Ox
98.9 F 64 18 141/81 94
03/06/25 07:57 03/06/25 07:57 03/06/25 07:57 03/06/25 07:57 03/06/25 08:59
I&O
03/05/25 03/06/25 03/07/25
06:59 06:59 06:59
Intake Total 240 / 240
Balance 240 / 240
[2025-03-06 11:00] VITALS: BP 140/66
[2025-03-06 12:47] LABS: Glucose - Point of Care 161 mg/dl (70-99)
--- NOTE | 2025-03-06 14:34 | CM ---
CM reviewed chart, patient seen bedside with , initial assessment completed.
71-year-old male with a past medical history of hypertension, hyperlipidemia, CAD, diabetes, Parkinson disease, prior CVA who presents to the ER for evaluation of fever and fatigue/weakness, fall, confusion.
Assessment completed by .
Patient resides in one story home, ramp to enter, home handicap accessible.
Patient is current with [facility], has been to [facility] in past.
DME includes: wheelchair, shower chair, vanesa lift, walkers.
Therapy recommending SNF- agreeable, requesting referrals to [facility] and [facility], inquiring about how many skilled days patient has left.
PCP Jonnathan Li, [facility].
Referrals placed in [facility].
CM will continue to follow.
Plan; SNF pending accepting facility.
--- NOTE | 2025-03-06 14:45 | CON.ID ---
Consultation
-
Date/Time Consultation Requested: March 06, 2025 1049
Date/Time Consultation Performed: March 06, 2025 1445
Requesting Provider: Dr. Chad Amador
Performing Provider: Dr. Christine No
Reason for Consultation: Left foot cellulitis
Chief Complaint / Past History
History of Present Illness
Addi Almonte is a 79-year-old man being evaluated at the request of Dr. Amador in regards to left lower extremity cellulitis. The patient has a significant past medical history of venous stasis, DM with neuropathy, Parkinson's, chronic wound
between toes left 1st and 2nd toes, left leg cellulitis last month who presented to the ER yesterday due to fever, confusion and weakness. His found the patient on the floor and too weak to get up. Patient reports worsening left foot swelling
and redness over the past week. He complains of left foot pain. Positive subjective fevers and chills. In the ER, temperature 100.3, white count 29.5, elevated lactic acid. He was started on vancomycin and Zosyn. Admission blood culture
positive for Streptococcus agalactiae. MRI of the left leg- no abscess, no osteomyelitis.
Past History
Additional Past Medical History:
CAD s/p stent
HFpEF
HTN
Dyslipidemia
Diabetes mellitus
Neuropathy
CVA
Aortic stenosis
Parkinson's disease
BPH
Chronic constipation
Overactive bladder
Venous stasis
Cholecystectomy
Right Hip Replacement
Bilateral Knee Replacements
Cervical Laminectomy and Fusion
Lumbar Laminectomy
Allergy History:
adhesive tape Allergy (Verified 01/22/25 15:01)
Unknown
Latex, Natural Rubber Allergy (Verified 01/22/25 15:01)
Unknown
mold Allergy (Verified 01/22/25 15:01)
Unknown
Medications Reviewed: Yes
Current Antibiotics:
Zosyn 3.375 g IV every 6 hours
Social History
Tobacco: Non-Smoker
Drug: None
Personal:
Living: With Family
Employment: Retired
Family History
Family History: Not Pertinent
Review of Systems
Review of Systems
General: Fever, Chills and Change in Appetite
HEENT: Negative Sinus Problems or Headache
Cardiovascular: Negative Chest Pain or Dyspnea
Respiratory: Negative Dyspnea or Cough
Gasteroenterology: Negative Nausea, Vomiting or Diarrhea
Endocrine: Weakness
All systems: All other systems were reviewed and were negative
Vital Signs
Temp Pulse Resp BP Pulse Ox
98.3 F 82 16 140/66 92
03/06/25 11:00 03/06/25 11:00 03/06/25 11:00 03/06/25 11:00 03/06/25 11:00
Physical Exam
Physical Exam
Constitutional: Acutely Ill
Eyes: No Conjunctival Hemorrhage and Sclera Anicteric
Cardiovascular: Regular Rate, S1/S2 and Murmur (SM RUSB)
Pulmonary: Clear
Gastrointestinal: Soft, Non Tender, Non Distended and Normal Bowel Sounds
Extremities: Edema (Left foot to ledesma), Erythema (Bright erythema dorsum of foot extends up to below knee, + warmth, + tenderness) and Venous Insufficiency (BLE)
Wound: Other (Left foot + tinea pedis; Between L 1st and 2nd toe + fissures, dry wound with eschar)
Lab / Diagnostic Study Results
03/06/25 05:12
03/06/25 05:12
Abs Immat Gran (auto) 0.5 10^3/uL (0-0.05) H 03/05/25 12:06
Absolute Neuts (auto) 26.2 10^3/uL (1.4-6.5) H 03/05/25 12:06
Absolute Lymphs (auto) 0.8 10^3/uL (1.2-3.4) L 03/05/25 12:06
Absolute Monos (auto) 2.0 10^3/uL (0.1-0.6) H 03/05/25 12:06
Absolute Basos (auto) 0.1 10^3/uL (0-0.2) 03/05/25 12:06
Immature Gran % 1.5 % (0-0.5) H 03/05/25 12:06
Neutrophils % 88.9 % (42.2-75.2) H 03/05/25 12:06
Lymphocytes % 2.6 % (20.5-51.1) L 03/05/25 12:06
Monocytes % 6.7 % (1.7-9.3) 03/05/25 12:06
Eosinophils % 0.0 % (0-6) 03/05/25 12:06
Basophils % 0.3 % (0-2) 03/05/25 12:06
Lactic Acid 1.6 mmol/L (0.7-2.0) 03/06/25 06:45
Ur Squamous Epith Cells >30 /LPF (Few) 03/05/25 12:17
Microbiology Results
Micro:
03/05/25 12:45 Wound Culture - Preliminary
Foot - Left Gram Stain - Preliminary
03/05/25 12:06 Blood Culture - Preliminary
Blood/Venous No Growth in 24 hours- Final report to follow
03/05/25 12:06 Blood Culture - Preliminary
Blood/Venous Streptococcus agalactiae
Gram Stain - Preliminary
03/05/25 12:06 Influenza Types A & B (ELENITA) - Final
Nasal Swab Negative for Influenza A & B, NAAT
Negative results must be combined with clinical observations
and patient history.
Nucleic Acid Amplification test (NAAT)performed on the
[employer] platform.
03/06/25 MRI LLE: Generalized superficial and deep soft tissue edema. No soft tissue abscess identified. No occult fracture or osteomyelitis.
Assessment / Plan
# Acute L foot and LLE cellulitis
# Group B strep bacteremia (1 of 2 sets) - foot source
# Leukocytosis
# Tinea pedis
# DM with neuropathy
# venous stasis
-MRI no osteo/abscess
- DC vancomycin, Zosyn.
- Start cefazolin 2g IV q8
- Follow clinically
-Trend wbc
- Topical antifungal to toes and webspaces
Conditions present on admission:
CAD s/p stent
HFpEF
HTN
Dyslipidemia
Diabetes mellitus
Neuropathy
CVA
Aortic stenosis
Parkinson's disease
BPH
Chronic constipation
Overactive bladder
Venous stasis
Cholecystectomy
Right Hip Replacement
Bilateral Knee Replacements
Cervical Laminectomy and Fusion
Lumbar Laminectomy
[2025-03-06 15:00] VITALS: BP 129/66
--- NOTE | 2025-03-06 16:30 | PTCARENOTE ---
Patient's BLE elevated x 2 pillows and ice pack placed to LLE per podiatry verbal order. will continue to monitor.
[2025-03-06 16:34] LABS: Glucose - Point of Care 168 mg/dl (70-99)
--- NOTE | 2025-03-06 16:58 | W.CS.POD ---
Consult Summary - Podiatry
-
79-year-old male seen at bedside for the evaluation of LEft Lower extremity cellulitis, He is Insulin dependent diabetic, Had similar cellultis 1 month ago and was doing well for some time and again 2 days ago he was noted to be weak with swelling,
redness to the LT lower leg and foot. Patient states that the Left lower leg painful . no active drainage from Lt 1st web space.
HE is awake, alert and oriented, no acute distress, or chest pain . No fever, chills
past medical history of CAD with stent, prior CVA, PAD with bilateral carotid artery stenosis, hypertension, moderate aortic stenosis, hyperlipidemia, diabetes, diabetic neuropathy, Parkinson disease, BPH/overactive bladder, obstructive sleep apnea,
obesity, presenting for fever, weakness, fall and confusion.
Improving WBC count with IV abx
Exam : B/L feet with mild to moderate edema noted, pink
LT foot edematous, erythematous with generalized tenderness LT foot, slightly warm to touch
No active open abscess/ drainage noted
LT 1st webspace with dry scab noted, minimal superficial scaly plantar skin, no discoloration
Xrays negative for any bone pathology
LT foot MRI negative for any abscess/ osteomyelitis
A/P: LT lower extremity cellulitis.
Tinea pedis
Type 2 IDDM
Plan ; Cont IV abx per ID
Will D/w his who is more involved in his care
Recommended cold compress 20 min every 2 to 3 hrs to LT L/E, Elevate LT L/E with2 pillows
Podiatry will cont to monitor for any changes .
No surgical intervention by podiatry
[2025-03-06] MEDS: LOVENOX 40 MG SC (17:46)
[2025-03-06] MEDS: ANCEF 10 IV (19:17)
[2025-03-06] MEDS: LOTRIMIN 1% CREAM 1 APPLIC TOPICAL (19:18)
[2025-03-06] MEDS: LOPRESSOR PO (19:18)
[2025-03-06] MEDS: FLOMAX 0.4 MG PO (21:00)
[2025-03-06 21:55] LABS: Glucose - Point of Care 156 mg/dl (70-99)
[2025-03-06 23:24] VITALS: BP 123/69
[2025-03-07] MEDS: ANCEF 10 IV ×3 (04:58→21:03)
[2025-03-07 05:55] VITALS: BMI 35.9
[2025-03-07 07:00] VITALS: BP 158/94
[2025-03-07 07:23] LABS: Glucose - Point of Care 145 mg/dl (70-99)
[2025-03-07] MEDS: SINEMET 25-100 3 TABLET PO ×2 (07:23→21:03)
[2025-03-07] MEDS: LIPITOR 40 MG PO (07:24)
[2025-03-07] MEDS: NOVOLOG FLEXPEN-MODERATE RESISTANCE SC ×3 (07:25→16:31)
[2025-03-07] MEDS: LOPRESSOR 50 MG PO ×2 (07:31→21:05)
[2025-03-07] MEDS: LASIX 20 MG PO (07:31)
[2025-03-07] MEDS: LOTRIMIN 1% CREAM 1 APPLIC TOPICAL ×2 (07:32→21:04)
[2025-03-07] MEDS: COLACE 100 MG PO (07:32)
[2025-03-07] MEDS: PLAVIX 75 MG PO (07:32)
[2025-03-07] MEDS: NOVOLOG MIX 70/30 FLEXPEN 35 UNITS SC ×2 (07:33→17:14)
--- NOTE | 2025-03-07 10:30 | W.PN.HOSP.TC ---
Today's Communication/Plan
-
see plan
Assessment / Plan
Assessment / Plan
79-year-old male past medical history of CAD with stent, prior CVA, PAD with bilateral carotid artery stenosis, hypertension, moderate aortic stenosis, hyperlipidemia, diabetes, diabetic neuropathy, Parkinson disease, BPH/overactive bladder,
obstructive sleep apnea, obesity, presenting for fever, weakness, fall and confusion.
Gen: NAD, Awake and alert
Eyes: EOMI, PERRLA, no scleral icterus.
Neck: supple.
CV: RRR, +S1/S2, 1/6 systolic murmur
Resp: CTAB, no rales, wheezes, or rhonchi.
Abd: +BS, soft, NT, ND
Skin: dorsal aspect of L foot superficial to the 2nd metatarsal with skin breakdown and mild cellulitis. L leg cellulitis. Note pt with B/L chronic venous stasis dermatitis.
Neuro: CN 2-12 intact, non-focal.
Psych: Normal mood and affect.
L foot Xray:
1. No acute abnormality appreciated.
2. Moderate arterial vascular calcification.
CT brain:
1. No acute intracranial abnormalities appreciated.
2. Moderate dilation of the lateral ventricles, out of proportion to the dilation of the third and fourth ventricles. Please correlate clinically for symptoms of normal pressure hydrocephalus.
3. Cerebral atrophy and small vessel ischemic change, stable.
CXR:
1. Mild cardiomegaly.
2. Suggestion of mild pulmonary vascular congestion.
MRI L foot: Generalized superficial and deep soft tissue edema. No soft tissue abscess identified. No occult fracture or osteomyelitis.
Sepsis due to L foot cellulitis:
-Leukocytosis improving
-Lactic acidosis resolved with IVFs
-cont Ancef as per ID
-Podiatry following
Chronic HFpEF:
-not in acute exac
-cont Lasix/BB
-daily wts, I/Os
Other problems:
Obesity due to excess calories
h/o CVA: Cont Plavix/statin
CAD s/p stent: Cont Plavix/statin/BB
DM2 with Diabetic Neuropathy: Recent a1c 7.4%, cont 70/30/SSI/accuchecks
HLD: cont statin
Parkinson's Disease: Cont carbidopa/levodopa
BPH: Cont Flomax
FULL/Lovenox
Anticipated Discharge: 24 - 48 hours
Subjective/Interval History
-
Date of Service: March 07, 2025
Pt does not offer new complaints.
Objective Data
-
Vital Signs:
Vital Signs
Temp Pulse Resp BP Pulse Ox
98.1 F 121 22 158/94 94
03/07/25 07:00 03/07/25 07:31 03/07/25 07:00 03/07/25 07:31 03/07/25 07:00
I&O
03/06/25 03/07/25 03/08/25
06:59 06:59 05:59
Intake Total 240 / 240 1140 / 1140
Balance 240 / 240 1140 / 1140
[2025-03-07 11:27] LABS: Glucose - Point of Care 147 mg/dl (70-99)
[2025-03-07] MEDS: ZOFRAN 4 MG IV (14:35)
--- NOTE | 2025-03-07 14:56 | W.PN.ID1 ---
Date of Service
Date of Service: March 07, 2025
Today's Communication
Continue antibiotics for today.
Assessment / Plan
# Acute L foot and LLE cellulitis
# Group B strep bacteremia (1 of 2 sets) - foot source
# Leukocytosis
# Tinea pedis
# DM with neuropathy
# venous stasis
- MRI no osteo/abscess
- Continue cefazolin 2g IV q8
- Follow clinically
- Trend wbc
- Topical antifungal to toes and webspaces
Conditions present on admission:
CAD s/p stent
HFpEF
HTN
Dyslipidemia
Diabetes mellitus
Neuropathy
CVA
Aortic stenosis
Parkinson's disease
BPH
Chronic constipation
Overactive bladder
Venous stasis
Cholecystectomy
Right Hip Replacement
Bilateral Knee Replacements
Cervical Laminectomy and Fusion
Lumbar Laminectomy
Chief Complaint
-: Bacteremia
Subjective / Review of Systems
Review of Systems: No Fever and No Chills
Vital Signs / Physical Exam
Vital Signs
Vital Signs
Temp Pulse Resp BP Pulse Ox
98.1 F 121 22 158/94 94
03/07/25 07:00 03/07/25 07:31 03/07/25 07:00 03/07/25 07:31 03/07/25 07:00
Physical Exam
Constitutional: No Acute Distress, Comfortable and Non-toxic
Eyes: Sclera Anicteric
Cardiovascular: S1/S2; Negative S3/S4
Pulmonary: Non Labored
Gastrointestinal: Soft and Non Distended
Extremities: Edema (Trace), Erythema (Trace) and Venous Insufficiency (Bilateral lower extremities)
Wound: Other (Left foot with interdigit maceration.)
Neurological: Awake and Alert
Psychological: Calm
Objective Data
Lab Data
Lab Results
03/06/25 05:12
03/06/25 05:12
Estimated Creat Clear 81 ml/min 03/06/25 05:12
Lactic Acid 1.6 mmol/L (0.7-2.0) 03/06/25 06:45
Total Bilirubin 1.5 mg/dl (0.2-1.3) H 03/06/25 05:12
AST 49 U/L (17-59) 03/06/25 05:12
ALT < 10 U/L (0-50) 03/06/25 05:12
Alkaline Phosphatase 103 U/L (38-126) 03/06/25 05:12
Most recent labs reviewed.
Micro Results:
03/05/25 12:06 Blood Culture - Preliminary
Blood/Venous No Growth in 48 hours- Final report to follow
03/05/25 12:45 Wound Culture - Final
Foot - Left Streptococcus agalactiae
Gram Stain - Final
03/05/25 12:06 Blood Culture - Preliminary
Blood/Venous Streptococcus agalactiae
Gram Stain - Preliminary
03/05/25 12:06 Influenza Types A & B (ELENITA) - Final
Nasal Swab Negative for Influenza A & B, NAAT
Negative results must be combined with clinical observations
and patient history.
Nucleic Acid Amplification test (NAAT)performed on the
[employer] platform.
03/06/25 MRI LLE: Generalized superficial and deep soft tissue edema. No soft tissue abscess identified. No occult fracture or osteomyelitis.
[2025-03-07 15:00] VITALS: BP 159/88
[2025-03-07 16:26] LABS: Glucose - Point of Care 135 mg/dl (70-99)
[2025-03-07] MEDS: LOVENOX 40 MG SC (17:14)
[2025-03-07] MEDS: FLOMAX 0.4 MG PO (21:03)
[2025-03-07 21:08] LABS: Glucose - Point of Care 96 mg/dl (70-99)
[2025-03-07 23:19] VITALS: BP 160/90
[2025-03-08] MEDS: ANCEF 10 IV ×3 (03:19→19:32)
[2025-03-08 06:00] VITALS: BMI 34.0
[2025-03-08 07:31] VITALS: BP 135/98
[2025-03-08] MEDS: COLACE 100 MG PO (07:32)
[2025-03-08] MEDS: LASIX 20 MG PO (07:32)
[2025-03-08] MEDS: LOTRIMIN 1% CREAM 1 APPLIC TOPICAL ×2 (07:32→19:41)
[2025-03-08] MEDS: LOPRESSOR 50 MG PO ×2 (07:32→19:40)
[2025-03-08] MEDS: LIPITOR 40 MG PO (07:32)
[2025-03-08] MEDS: SINEMET 25-100 3 TABLET PO ×2 (07:32→19:43)
[2025-03-08] MEDS: PLAVIX 75 MG PO (07:32)
[2025-03-08 07:42] LABS: Glucose - Point of Care 86 mg/dl (70-99)
[2025-03-08] MEDS: NOVOLOG FLEXPEN-MODERATE RESISTANCE SC ×2 (07:48→17:26)
[2025-03-08 08:37] LABS: Hematocrit 51.2 % (39.0-52.0); Hemoglobin 16.6 g/dL (13.0-18.0); Mean Corp Hgb Conc. 32.4 g/dL (33.0-37.0); Mean Corpuscular Volume 99.0 fL (80.0-94.0); Platelet Count 164 10^3/uL (130-400); Red Cell Dist. Width 14.7 % (11.5-14.5)
[2025-03-08 08:59] LABS: Blood Urea Nitrogen 15 mg/dl (9-20); Calcium 8.5 mg/dl (8.4-10.2); Carbon Dioxide 28 mmol/L (22-30); Chloride 105 mmol/L (98-107); Estimated Creatinine Clearance 88 ml/min; Glucose 63 mg/dl (70-99); Potassium 4.1 mmol/L (3.5-5.1); Sodium 138 mmol/L (135-145); eGFR > 60.00
[2025-03-08] MEDS: NOVOLOG MIX 70/30 FLEXPEN 35 UNITS SC ×2 (09:06→17:33)
--- NOTE | 2025-03-08 09:28 | W.PN.HOSP.TC ---
Today's Communication/Plan
-
see plan
Assessment / Plan
Assessment / Plan
79-year-old male past medical history of CAD with stent, prior CVA, PAD with bilateral carotid artery stenosis, hypertension, moderate aortic stenosis, hyperlipidemia, diabetes, diabetic neuropathy, Parkinson disease, BPH/overactive bladder,
obstructive sleep apnea, obesity, presenting for fever, weakness, fall and confusion.
Gen: NAD, Awake and alert
Eyes: EOMI, PERRLA, no scleral icterus.
Neck: supple.
CV: tachy, RRR with frequent premature beats, +S1/S2, 1/6 systolic murmur
Resp: CTAB anteriorly, no rales, wheezes, or rhonchi.
Abd: +BS, soft, NT, ND
Skin: dorsal aspect of L foot superficial to the 2nd metatarsal with skin breakdown and scabbing, cellulitis in this area has resolved. L leg cellulitis, similar to yesterday. Note pt with B/L chronic venous stasis dermatitis.
Neuro: CN 2-12 intact, non-focal.
Psych: Normal mood and affect.
L foot Xray:
1. No acute abnormality appreciated.
2. Moderate arterial vascular calcification.
CT brain:
1. No acute intracranial abnormalities appreciated.
2. Moderate dilation of the lateral ventricles, out of proportion to the dilation of the third and fourth ventricles. Please correlate clinically for symptoms of normal pressure hydrocephalus.
3. Cerebral atrophy and small vessel ischemic change, stable.
CXR:
1. Mild cardiomegaly.
2. Suggestion of mild pulmonary vascular congestion.
MRI L foot: Generalized superficial and deep soft tissue edema. No soft tissue abscess identified. No occult fracture or osteomyelitis.
Sepsis due to L foot cellulitis:
-Leukocytosis improving
-Lactic acidosis resolved with IVFs
-cont Ancef as per ID
-Podiatry following
Chronic HFpEF:
-not in acute exac
-cont Lasix/BB
-daily wts, I/Os
Other problems:
Obesity due to excess calories
h/o CVA: Cont Plavix/statin
CAD s/p stent: Cont Plavix/statin/BB
DM2 with Diabetic Neuropathy: Recent a1c 7.4%, cont 70/30/SSI/accuchecks
HLD: cont statin
Parkinson's Disease: Cont carbidopa/levodopa
BPH: Cont Flomax
FULL/Lovenox
Anticipated Discharge: 24 - 48 hours
Subjective/Interval History
-
Date of Service: March 08, 2025
No new complaints.
Objective Data
-
Labs:
Laboratory Results
03/08/25
07:59
WBC 14.2 H
Hgb 16.6
Hct 51.2
Plt Count 164
Sodium 138
Potassium 4.1
Chloride 105
Carbon Dioxide 28
BUN 15
Creatinine 0.8
Glucose 63 L
Calcium 8.5
Vital Signs:
Vital Signs
Temp Pulse Resp BP Pulse Ox
98.1 F 108 20 135/98 95
03/08/25 07:31 03/08/25 07:32 03/08/25 07:31 03/08/25 07:32 03/08/25 07:31
I&O
03/07/25 03/08/25 03/09/25
06:59 05:59 06:59
Intake Total 1140 / 1140 480 / 480
Balance 1140 / 1140 480 / 480
[2025-03-08 12:11] LABS: Glucose - Point of Care 152 mg/dl (70-99)
[2025-03-08] MEDS: NOVOLOG FLEXPEN-MODERATE RESISTANCE 1 UNITS SC (12:13)
[2025-03-08] MEDS: ZOFRAN 4 MG IV (14:13)
--- NOTE | 2025-03-08 15:09 | W.PN.POD ---
Today's Communication
Today's Communication
No surgical intervention by podiatry.
Assessment / Plan
-
A/P: LT lower extremity cellulitis - improving
Healed LT 1st web space skin fissure
Type 2 IDDM
Plan ; Cont IV abx per ID.
LT 1st web space clean, dry - cont antifungal cream for another 1 wk
D/w his at bedside who is more involved in his care.
pt's would like to use Ag alginate in between the web spaces to keep them dry - I agree
Recommended cold compress 20 min every 2 to 3 hrs to LT L/E, Elevate LT L/E with2 pillows
Podiatry will cont to monitor for any changes .
No surgical intervention by podiatry
Subjective
Chief Complaint
Left Lower extremity cellultis with positive blood cultures
Subjective
Patient seen at bedside, doing well, awake, alert and oriented. Improved pain in Lt lower leg. Improved redness and improved tenderness in Lt/Lower leg.
No fever, chills.
Objective
Temp Pulse Resp BP Pulse Ox
98.1 F 108 20 135/98 95
03/08/25 07:31 03/08/25 07:32 03/08/25 07:31 03/08/25 07:32 03/08/25 07:31
03/08/25 07:59
03/08/25 07:59
Vital Signs and Lab results were reviewed.
B/L feet with intact vascular status, well perfused, pink.
B/L feet mild to moderate edema.
LT lower leg and foot improved edema and erythema and resolved tenderness LT foot, slightly warm to touch.
No active open abscess/ drainage noted
LT 1st webspace healed skin fissure, No signs of any abscess or any crepitus felt, no discoloration
Xrays negative for any bone pathology
LT foot MRI negative for any abscess/ osteomyelitis
[2025-03-08 15:17] VITALS: BP 129/73
[2025-03-08 17:25] LABS: Glucose - Point of Care 76 mg/dl (70-99)
[2025-03-08] MEDS: LOVENOX 40 MG SC (17:33)
[2025-03-08] MEDS: FLOMAX 0.4 MG PO (21:07)
[2025-03-08 21:37] LABS: Glucose - Point of Care 58 mg/dl (70-99)
[2025-03-08 21:59] LABS: Glucose - Point of Care 71 mg/dl (70-99)
[2025-03-08 23:30] VITALS: BP 120/81
[2025-03-09 00:01] LABS: Glucose - Point of Care 65 mg/dl (70-99)
[2025-03-09] MEDS: DEXTROSE 50% SYRINGE 12.5 GRAMS IV ×2 (00:04→02:36)
[2025-03-09 00:23] LABS: Glucose - Point of Care 109 mg/dl (70-99)
[2025-03-09 02:27] LABS: Glucose - Point of Care 66 mg/dl (70-99)
[2025-03-09 02:52] VITALS: BP 150/97
[2025-03-09 02:52] LABS: Glucose - Point of Care 109 mg/dl (70-99)
[2025-03-09] MEDS: ANCEF 10 IV ×3 (03:18→19:50)
[2025-03-09 04:47] LABS: Glucose - Point of Care 133 mg/dl (70-99)
[2025-03-09 06:00] VITALS: BMI 35.5
[2025-03-09] MEDS: ZOFRAN 4 MG IV (06:09)
[2025-03-09 07:14] LABS: Glucose - Point of Care 99 mg/dl (70-99)
[2025-03-09 07:42] VITALS: BP 176/112
[2025-03-09] MEDS: COLACE 100 MG PO (07:47)
[2025-03-09] MEDS: LIPITOR 40 MG PO (07:47)
[2025-03-09] MEDS: SINEMET 25-100 3 TABLET PO ×2 (07:47→19:50)
[2025-03-09] MEDS: NOVOLOG FLEXPEN-MODERATE RESISTANCE SC ×2 (07:47→11:21)
[2025-03-09] MEDS: LOPRESSOR 50 MG PO (07:48)
[2025-03-09] MEDS: PLAVIX 75 MG PO (07:48)
[2025-03-09] MEDS: LOTRIMIN 1% CREAM 1 APPLIC TOPICAL ×2 (07:48→19:51)
--- NOTE | 2025-03-09 08:23 | WOUNDNOTE ---
WOC RN note: Confirmed with Dr. Pennington to cancel WOC RN consult. [employer] is managing/following patient for foot wound.
[2025-03-09] MEDS: NOVOLOG MIX 70/30 FLEXPEN SC (08:54)
[2025-03-09 09:16] LABS: Hematocrit 49.5 % (39.0-52.0); Hemoglobin 16.3 g/dL (13.0-18.0); Mean Corp Hgb Conc. 32.9 g/dL (33.0-37.0); Mean Corpuscular Volume 101.6 fL (80.0-94.0); Platelet Count 171 10^3/uL (130-400); Red Cell Dist. Width 14.4 % (11.5-14.5)
[2025-03-09 09:53] LABS: Blood Urea Nitrogen 13 mg/dl (9-20); Calcium 8.2 mg/dl (8.4-10.2); Carbon Dioxide 29 mmol/L (22-30); Chloride 103 mmol/L (98-107); Estimated Creatinine Clearance 103 ml/min; Glucose 132 mg/dl (70-99); Potassium 4.1 mmol/L (3.5-5.1); Sodium 139 mmol/L (135-145); eGFR > 60.00
--- NOTE | 2025-03-09 10:17 | PN.DE.MGMTRT ---
Insulin Management
- -
03/09/2025: Diabetes Management Consult
79-year-old male who presented with fever, weakness, fall and confusion, admitted for sepsis secondary to cellulitis of left foot.
with PMH: CAD with stent, CVA, PAD with bilateral carotid artery stenosis, HTN, HLD, moderate , Diabetes, Diabetic neuropathy, Parkinson disease, BPH/overactive bladder, ERIKA, Obesity, and T2DM.
Patient was recently admitted from 01/22 to 01/26 for LLE Cellulitis of left foot and tinea pedis. He was treated with antibiotics and antifungal cream.
Last week he started having throbbing pain in the left foot with yellow drainage, and he was started on doxycycline which he has been taking for 8 days. �
He was taking 70/30 35 units BID prior to admission. A1C 7.3% as of 01/23/25. Cr 0.7, eGFR >60
Patient is awake, alert, oriented, sitting up in bed, offers no complains, able to discuss diabetes care plan
States his takes care of everything, she monitors his blood sugars and administers his insulin at home.
States he doesn't eat 3 meals a day, only eats breakfast and dinner. He denies any hx of hypoglycemia at home. Sees his PCP for diabetes care
Current diabetes regimen includes 70/30 NovoLog 35 units at breakfast and dinner.
He is noted for an episode of hypoglycemia to 57 @ HS last night that improved after treatment. Pt states he did not eat much at dinner.
Pre-dinner glucose was 76, received 35 units of his 70/30 dinner time dose.
Patient's prolonged hypoglycemic episode was likely due to reduced appetite and poor PO intake.
Nurse states pt was c/o nausea earlier today and was treated with Zofran and that he has had poor appetite and has not been eating much.
He just ordered breakfast and his current POC glucose is 125. Will give reduced dose of 15 units of his AM 70/30 insulin.
Will closely monitor glucose trend and further adjust insulin dose if necessary.
Discussed with Nurse. Cont to follow
Diabetes History
- -
Type of Diabetes: 2 requiring insulin
Pre-Admission Diabetes Regimen
03/09/25
08:50
Creatinine 0.7
Insulin Pump Settings
IP Diabetes Regimen
03/08/25 03/08/25 03/08/25
12:10 17:24 21:36
Glucose
POC Glucose 152 H 76 58 L
03/08/25 03/08/25 03/09/25
21:58 23:59 00:22
Glucose
POC Glucose 71 65 L 109 H
03/09/25 03/09/25 03/09/25
02:26 02:50 04:46
Glucose
POC Glucose 66 L 109 H 133 H
03/09/25 03/09/25
07:13 08:50
Glucose 132 H
POC Glucose 99
Meal type: Dinner
Amount consumed: 40%
Patient Education
--- NOTE | 2025-03-09 10:28 | W.PN.ID1 ---
Date of Service
Date of Service: March 09, 2025
Today's Communication
- At time of discharge, transition to cephalexin 500mg qid through 03/18/25.
Assessment / Plan
# Acute L foot and LLE cellulitis: improving
# Group B strep bacteremia (1 of 2 sets) - foot source
# Leukocytosis - resolved
# Tinea pedis
# DM with neuropathy
# venous stasis
- MRI no osteo/abscess
- Continue cefazolin 2g IV q8
- At time of discharge, transition to cephalexin 500mg qid through 03/18/25.
- Continue Topical antifungal to toes and webspaces
Conditions present on admission:
CAD s/p stent
HFpEF
HTN
Dyslipidemia
Diabetes mellitus
Neuropathy
CVA
Aortic stenosis
Parkinson's disease
BPH
Chronic constipation
Overactive bladder
Venous stasis
Cholecystectomy
Right Hip Replacement
Bilateral Knee Replacements
Cervical Laminectomy and Fusion
Lumbar Laminectomy
Chief Complaint
-: Bacteremia
Subjective / Review of Systems
Feeling better.
Vital Signs / Physical Exam
Vital Signs
Vital Signs
Temp Pulse Resp BP Pulse Ox
98.8 F 119 18 176/112 95
03/09/25 07:42 03/09/25 07:42 03/09/25 07:42 03/09/25 07:42 03/09/25 08:04
Physical Exam
Constitutional: No Acute Distress and Comfortable
Eyes: Sclera Anicteric
Cardiovascular: S1/S2; Negative S3/S4
Pulmonary: Non Labored
Gastrointestinal: Soft and Non Distended
Extremities: Edema (LLE foot LLE edema resolving), Erythema (LLE, foot erythema significantly improved) and Venous Insufficiency (Bilateral lower extremities)
Wound: Other (Left foot with interdigit maceration.)
Neurological: Awake and Alert
Objective Data
Lab Data
Lab Results
03/09/25 08:50
03/09/25 08:50
Estimated Creat Clear 103 ml/min 03/09/25 08:50
Lactic Acid 1.6 mmol/L (0.7-2.0) 03/06/25 06:45
Total Bilirubin 1.5 mg/dl (0.2-1.3) H 03/06/25 05:12
AST 49 U/L (17-59) 03/06/25 05:12
ALT < 10 U/L (0-50) 03/06/25 05:12
Alkaline Phosphatase 103 U/L (38-126) 03/06/25 05:12
Most recent labs reviewed.
Micro Results:
03/05/25 12:06 Blood Culture - Preliminary
Blood/Venous No Growth in 72 hours- Final report to follow
03/05/25 12:45 Wound Culture - Final
Foot - Left Streptococcus agalactiae
Gram Stain - Final
03/05/25 12:06 Blood Culture - Preliminary
Blood/Venous Streptococcus agalactiae
Gram Stain - Preliminary
03/05/25 12:06 Influenza Types A & B (ELENITA) - Final
Nasal Swab Negative for Influenza A & B, NAAT
Negative results must be combined with clinical observations
and patient history.
Nucleic Acid Amplification test (NAAT)performed on the
[employer] platform.
03/06/25 MRI LLE: Generalized superficial and deep soft tissue edema. No soft tissue abscess identified. No occult fracture or osteomyelitis.
[2025-03-09] MEDS: LASIX 20 MG PO (10:38)
[2025-03-09 11:11] LABS: Glucose - Point of Care 125 mg/dl (70-99)
[2025-03-09] MEDS: NOVOLOG MIX 70/30 FLEXPEN 15 UNITS SC (12:02)
--- NOTE | 2025-03-09 12:15 | CM ---
Addendum entered by Shraddha Starr 03/09/25 15:50:
Per [facility], patient has used 15 out of 100 SNF days, days 1-20 no co pay, days 21-100 $214 co pay- aware.
Auth approved to [facility]- 03/10-03/16, NRD 03/16 call for updates [phone], auth #[id number], ambulance auth [id number].
Transport forms on chart, auth information provided to Grace at [facility].
Original Note:
CM reviewed chart, reviewed with Hospitalist.
Patient will require SNF upon d/c- no beds at [facility] waiting to hear if [facility] has a bed.
Patient was admitted to [facility] 01/26-02/10.
Patient will require insurance auth once stable, will need updated PT/OT notes.
CM will continue to follow for all d/c planning needs.
Plan; SNF when stable, [facility] to review, will require insurance
[2025-03-09] MEDS: FLUSH (NSS) 1 FLUSH IV (12:21)
[2025-03-09 13:42] VITALS: BP 152/90; BP 165/109; PULSE 105; O2SAT 94
[2025-03-09 14:00] VITALS: BP 152/90; BP 165/109; PULSE 105; O2SAT 94
--- NOTE | 2025-03-09 15:00 | W.PN.HOSP.TC ---
Today's Communication/Plan
-
insulin adjustments
antibiotics per ID; anti-fungals per Podiatry
DC planning to SNF
Assessment / Plan
Assessment / Plan
79-year-old male past medical history of CAD with stent, prior CVA, PAD with bilateral carotid artery stenosis, hypertension, moderate aortic stenosis, hyperlipidemia, diabetes, diabetic neuropathy, Parkinson disease, BPH/overactive bladder,
obstructive sleep apnea, obesity, presenting for fever, weakness, fall and confusion.
Gen: NAD, Awake and alert
Eyes: EOMI, PERRLA, no scleral icterus.
Neck: supple.
CV: tachy, RRR with frequent premature beats, +S1/S2, 1/6 systolic murmur
Resp: CTAB anteriorly, no rales, wheezes, or rhonchi.
Abd: +BS, soft, NT, ND
Skin: dorsal aspect of L foot superficial to the 2nd metatarsal with skin breakdown and scabbing, cellulitis in this area has resolved. L leg cellulitis, similar to yesterday. Note pt with B/L chronic venous stasis dermatitis.
Neuro: CN 2-12 intact, non-focal.
Psych: Normal mood and affect.
L foot Xray:
1. No acute abnormality appreciated.
2. Moderate arterial vascular calcification.
CT brain:
1. No acute intracranial abnormalities appreciated.
2. Moderate dilation of the lateral ventricles, out of proportion to the dilation of the third and fourth ventricles. Please correlate clinically for symptoms of normal pressure hydrocephalus.
3. Cerebral atrophy and small vessel ischemic change, stable.
CXR:
1. Mild cardiomegaly.
2. Suggestion of mild pulmonary vascular congestion.
MRI L foot: Generalized superficial and deep soft tissue edema. No soft tissue abscess identified. No occult fracture or osteomyelitis.
Sepsis (with organic dysfunction/systemic with lactic acidosis) due to L foot cellulitis:
- Leukocytosis resolved
- Lactic acidosis resolved with IVFs
- ID following: Ancef while inpatient, then cephalexin 500mg qid through 03/18/25
- Podiatry following: cont antifungal cream for another 1 wk
Chronic HFpEF:
- not in acute exac
- cont Lasix/BB
- daily wts, I/Os
Obesity due to excess calories
h/o CVA: Cont Plavix/statin
CAD s/p stent: Cont Plavix/statin/BB
DM2 with Diabetic Neuropathy: Recent a1c 7.4%,
- [employer] SE[employer]ING [employer] service following for insulin adjustments.
HLD: cont statin
Parkinson's Disease: Cont carbidopa/levodopa
BPH: Cont Flomax
FULL/Lovenox
Anticipated Discharge: 24 - 48 hours
Subjective/Interval History
-
Date of Service: March 09, 2025
resting comfortably, no complaints at present
Objective Data
-
Labs:
Laboratory Results
03/09/25
08:50
WBC 10.0
Hgb 16.3
Hct 49.5
Plt Count 171
Sodium 139
Potassium 4.1
Chloride 103
Carbon Dioxide 29
BUN 13
Creatinine 0.7
Glucose 132 H
Calcium 8.2 L
Vital Signs:
Vital Signs
Temp Pulse Resp BP Pulse Ox
98.8 F 93 18 158/90 95
03/09/25 07:42 03/09/25 10:38 03/09/25 07:42 03/09/25 10:38 03/09/25 11:38
I&O
03/08/25 03/09/25 03/10/25
05:59 06:59 06:59
Intake Total 480 / 480 480 / 480 360 / 360
Output Total 825 / 825
Balance 480 / 480 -345 / -345 360 / 360
Data Reviewed
-
Total Time Spent with Patient (in minutes): 41
Labs: Labs Reviewed by me
[2025-03-09 15:41] VITALS: BP 141/73
[2025-03-09 16:58] LABS: Glucose - Point of Care 251 mg/dl (70-99)
[2025-03-09] MEDS: LOVENOX 40 MG SC (17:12)
[2025-03-09] MEDS: NOVOLOG FLEXPEN-MODERATE RESISTANCE 3 UNITS SC (17:13)
[2025-03-09] MEDS: NOVOLOG MIX 70/30 FLEXPEN 32 UNITS SC (17:14)
[2025-03-09] MEDS: LOPRESSOR PO (19:47)
[2025-03-09] MEDS: FLOMAX 0.4 MG PO (20:53)
[2025-03-09 20:54] LABS: Glucose - Point of Care 145 mg/dl (70-99)
[2025-03-09 23:36] VITALS: BP 128/66
[2025-03-10 03:13] LABS: Glucose - Point of Care 98 mg/dl (70-99)
[2025-03-10] MEDS: ANCEF 10 IV ×2 (04:47→12:24)
[2025-03-10 06:00] VITALS: BMI 35.5
[2025-03-10 07:00] VITALS: BP 148/95
[2025-03-10 08:16] LABS: Glucose - Point of Care 54 mg/dl (70-99)
--- NOTE | 2025-03-10 08:19 | PN.DE.MGMTRT ---
Insulin Management
- -
03/10/2025: Diabetes Management Consult Follow up
79-year-old male who presented with fever, weakness, fall and confusion, admitted for sepsis secondary to cellulitis of left foot.
with PMH: CAD with stent, CVA, PAD with bilateral carotid artery stenosis, HTN, HLD, moderate , Diabetes, Diabetic neuropathy, Parkinson disease, BPH/overactive bladder, ERIKA, Obesity, and T2DM. Patient was recently admitted from 01/22 to 01/26 for
LLE Cellulitis of left foot and tinea pedis. He was treated with antibiotics and antifungal cream.
Last week he started having throbbing pain in the left foot with yellow drainage, and he was started on doxycycline which he has been taking for 8 days. �
He was taking 70/30 35 units BID prior to admission. A1C 7.3% as of 01/23/25. Cr 0.7, eGFR >60
Patient is awake, alert, oriented, sitting up in bed, offers no complains, able to discuss diabetes care plan
States his takes care of everything, she monitors his blood sugars and administers his insulin at home.
States he doesn't eat 3 meals a day, only eats breakfast and dinner. He denies any hx of hypoglycemia at home. Sees his PCP for diabetes care
03/08 had glucose 57 pre dinner.
03/09 Glucose range 99 to 251. AM 70/30 not given until lunch.
03/10 3AM glucose 98. Fasting glucose 54. Will decrease bid 70/30 to 15 units with low corrective insulin.
Will closely monitor glucose trend and further adjust insulin dose if necessary.
Discussed with Nurse. Cont to follow
Diabetes History
- -
Type of Diabetes: 2 requiring insulin
Pre-Admission Diabetes Regimen
03/09/25
08:50
Creatinine 0.7
Insulin Pump Settings
IP Diabetes Regimen
03/09/25 03/09/25 03/09/25
08:50 11:10 16:57
Glucose 132 H
POC Glucose 125 H 251 H
03/09/25 03/10/25 03/10/25
20:53 03:12 08:15
Glucose
POC Glucose 145 H 98 54 L*
Meal type: Breakfast
Amount consumed: 100%
Patient Education
[2025-03-10] MEDS: PLAVIX 75 MG PO (08:25)
[2025-03-10] MEDS: LOPRESSOR 50 MG PO (08:26)
[2025-03-10] MEDS: COLACE 100 MG PO (08:26)
[2025-03-10] MEDS: LASIX 20 MG PO (08:26)
[2025-03-10] MEDS: SINEMET 25-100 3 TABLET PO (08:26)
[2025-03-10] MEDS: LOTRIMIN 1% CREAM 1 APPLIC TOPICAL (08:27)
[2025-03-10] MEDS: LIPITOR 40 MG PO (08:27)
[2025-03-10] MEDS: NOVOLOG FLEXPEN-MODERATE RESISTANCE SC ×3 (08:31→16:38)
[2025-03-10 08:46] LABS: Glucose - Point of Care 70 mg/dl (70-99)
[2025-03-10 09:29] LABS: Hematocrit 51.1 % (39.0-52.0); Hemoglobin 16.8 g/dL (13.0-18.0); Mean Corp Hgb Conc. 32.9 g/dL (33.0-37.0); Mean Corpuscular Volume 98.6 fL (80.0-94.0); Platelet Count 202 10^3/uL (130-400); Red Cell Dist. Width 14.2 % (11.5-14.5)
[2025-03-10] MEDS: NOVOLOG MIX 70/30 FLEXPEN SC (09:40)
[2025-03-10 10:01] LABS: Blood Urea Nitrogen 12 mg/dl (9-20); Calcium 8.4 mg/dl (8.4-10.2); Carbon Dioxide 33 mmol/L (22-30); Chloride 99 mmol/L (98-107); Estimated Creatinine Clearance 103 ml/min; Glucose 92 mg/dl (70-99); Potassium 3.7 mmol/L (3.5-5.1); Sodium 137 mmol/L (135-145); eGFR > 60.00
[2025-03-10] MEDS: NOVOLOG MIX 70/30 FLEXPEN 15 UNITS SC ×2 (10:17→16:38)
[2025-03-10 11:57] LABS: Glucose - Point of Care 153 mg/dl (70-99)
--- NOTE | 2025-03-10 13:15 | W.PN.ID1 ---
Date of Service
Date of Service: March 10, 2025
Today's Communication
Transition cefazolin 2g IV q8 to cephalexin 500mg qid through 03/18/25.
Assessment / Plan
# Acute L foot and LLE cellulitis: resolving
# Group B strep bacteremia (1 of 2 sets) - foot source
# Leukocytosis - resolved
# Tinea pedis - improving
# DM with neuropathy
# venous stasis
- MRI no osteo/abscess
- Transition cefazolin 2g IV q8 to cephalexin 500mg qid through 03/18/25.
- Continue Topical antifungal to toes and webspaces
Conditions present on admission:
CAD s/p stent
HFpEF
HTN
Dyslipidemia
Diabetes mellitus
Neuropathy
CVA
Aortic stenosis
Parkinson's disease
BPH
Chronic constipation
Overactive bladder
Venous stasis
Cholecystectomy
Right Hip Replacement
Bilateral Knee Replacements
Cervical Laminectomy and Fusion
Lumbar Laminectomy
Chief Complaint
-: Bacteremia
Subjective / Review of Systems
Feels improved.
Vital Signs / Physical Exam
Vital Signs
Vital Signs
Temp Pulse Resp BP Pulse Ox
98.5 F 111 20 148/95 96
03/10/25 07:00 03/10/25 07:00 03/10/25 07:00 03/10/25 07:00 03/10/25 07:00
Physical Exam
Constitutional: No Acute Distress and Comfortable
Eyes: Sclera Anicteric
Cardiovascular: S1/S2; Negative S3/S4
Pulmonary: Non Labored
Gastrointestinal: Soft and Non Distended
Extremities: Venous Insufficiency (Bilateral lower extremities); Negative Edema (LLE foot LLE edema resolving) or Erythema (LLE, foot erythema significantly improved)
Wound: Other (Left foot with interdigit maceration improved.)
Neurological: Awake and Alert
Objective Data
Lab Data
Lab Results
03/10/25 08:59
03/10/25 08:59
Estimated Creat Clear 103 ml/min 03/10/25 08:59
Lactic Acid 1.6 mmol/L (0.7-2.0) 03/06/25 06:45
Total Bilirubin 1.5 mg/dl (0.2-1.3) H 03/06/25 05:12
AST 49 U/L (17-59) 03/06/25 05:12
ALT < 10 U/L (0-50) 03/06/25 05:12
Alkaline Phosphatase 103 U/L (38-126) 03/06/25 05:12
Most recent labs reviewed.
Micro Results:
03/05/25 12:06 Blood Culture - Final
Blood/Venous No Growth - Final Report
03/05/25 12:45 Wound Culture - Final
Foot - Left Streptococcus agalactiae
Gram Stain - Final
03/05/25 12:06 Blood Culture - Preliminary
Blood/Venous Streptococcus agalactiae
Gram Stain - Preliminary
03/05/25 12:06 Influenza Types A & B (ELENITA) - Final
Nasal Swab Negative for Influenza A & B, NAAT
Negative results must be combined with clinical observations
and patient history.
Nucleic Acid Amplification test (NAAT)performed on the
[employer] platform.
03/06/25 MRI LLE: Generalized superficial and deep soft tissue edema. No soft tissue abscess identified. No occult fracture or osteomyelitis.
--- NOTE | 2025-03-10 13:17 | W.PN.HOSP.TC ---
Today's Communication/Plan
-
dc to SNF
Assessment / Plan
Assessment / Plan
79-year-old male past medical history of CAD with stent, prior CVA, PAD with bilateral carotid artery stenosis, hypertension, moderate aortic stenosis, hyperlipidemia, diabetes, diabetic neuropathy, Parkinson disease, BPH/overactive bladder,
obstructive sleep apnea, obesity, presenting for fever, weakness, fall and confusion.
Gen: NAD, Awake and alert
Eyes: EOMI, PERRLA, no scleral icterus.
Neck: supple.
CV: tachy, RRR with frequent premature beats, +S1/S2, 1/6 systolic murmur
Resp: CTAB anteriorly, no rales, wheezes, or rhonchi.
Abd: +BS, soft, NT, ND
Skin: dorsal aspect of L foot superficial to the 2nd metatarsal with skin breakdown and scabbing, cellulitis in this area has resolved. L leg cellulitis, similar to yesterday. Note pt with B/L chronic venous stasis dermatitis.
Neuro: CN 2-12 intact, non-focal.
Psych: Normal mood and affect.
L foot Xray:
1. No acute abnormality appreciated.
2. Moderate arterial vascular calcification.
CT brain:
1. No acute intracranial abnormalities appreciated.
2. Moderate dilation of the lateral ventricles, out of proportion to the dilation of the third and fourth ventricles. Please correlate clinically for symptoms of normal pressure hydrocephalus.
3. Cerebral atrophy and small vessel ischemic change, stable.
CXR:
1. Mild cardiomegaly.
2. Suggestion of mild pulmonary vascular congestion.
MRI L foot: Generalized superficial and deep soft tissue edema. No soft tissue abscess identified. No occult fracture or osteomyelitis.
Sepsis (with organic dysfunction/systemic with lactic acidosis) due to L foot cellulitis:
- Leukocytosis resolved
- Lactic acidosis resolved with IVFs
- ID following: discharge on cephalexin 500mg qid through 03/18/25
- Podiatry following: cont antifungal cream for another 1 wk
Chronic HFpEF:
- not in acute exac
- cont Lasix/BB
- daily wts, I/Os
Obesity due to excess calories
h/o CVA: Cont Plavix/statin
CAD s/p stent: Cont Plavix/statin/BB
DM2 with Diabetic Neuropathy: Recent a1c 7.4%,
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
HLD: cont statin
Parkinson's Disease: Cont carbidopa/levodopa
BPH: Cont Flomax
FULL/Lovenox
More than 30 minutes spent in discharge including
Final examination of the patient
Summarizing hospital stay
Instructions for continuing care to all relevant caregivers
Preparation of discharge records, prescriptions, and referral forms
Total time spent (in minutes): 41
Anticipated Discharge: Today
Subjective/Interval History
-
Date of Service: March 10, 2025
resting comfortably, no complaints
Objective Data
-
Labs:
Laboratory Results
03/10/25
08:59
WBC 10.9 H
Hgb 16.8
Hct 51.1
Plt Count 202
Sodium 137
Potassium 3.7
Chloride 99
Carbon Dioxide 33 H
BUN 12
Creatinine 0.7
Glucose 92
Calcium 8.4
Vital Signs:
Vital Signs
Temp Pulse Resp BP Pulse Ox
98.5 F 111 20 148/95 96
03/10/25 07:00 03/10/25 07:00 03/10/25 07:00 03/10/25 07:00 03/10/25 07:00
I&O
03/09/25 03/10/25 03/11/25
06:59 06:59 06:59
Intake Total 480 / 480 600 / 600
Output Total 825 / 825 800 / 800
Balance -345 / -345 -200 / -200
Data Reviewed
-
Total Time Spent with Patient (in minutes): 42
Labs: Labs Reviewed by me
--- NOTE | 2025-03-10 13:19 | CM ---
Addendum entered by Shraddha Starr 03/10/25 14:03:
Patient scheduled for 6:00 p.m., update to Nani, update to liaison at [facility].
Original Note:
CM reviewed chart, patient for d/c today to [facility].
Auth approved to [facility]- 03/10-03/16, NRD 03/16 call for updates [phone], auth #[id number].
Patient will require ambulance transport- ambulance auth [id number].
Phone call with , Nani, aware of d/c to [facility]. IMM verbally reviewed, placed on chart.
Updates to Grcae at [facility].
CM will continue to follow for all d/c needs.
Plan; [facility], ambulance transport
[facility]
Report: [phone]
--- NOTE | 2025-03-10 13:23 | W.DCSUMMARY ---
Discharge Summary
Discharge Data
Date of Admission: 03/05/25
Date of Discharge: 03/10/25
-
Pending Results: No
Hospital Course
79 y/o M CAD with stent, prior CVA, PAD with bilateral carotid artery stenosis, hypertension, moderate aortic stenosis, hyperlipidemia, diabetes, diabetic neuropathy, Parkinson disease, BPH/overactive bladder, obstructive sleep apnea, obesity,
presenting for fever, weakness, fall and confusion on 03/10. He was found to have sepsis with LLE cellulitis without evidence of osteomyelitis or abscess on MRI. He was started on Ancef and transitioned to Keflex until 03/18/2025.
His insulin doses were reduced due to poor oral intake while on antibiotics, but patient will resume usual doses after infection treatment.
He was discharged to SNF on 03/10/25.
Discharge Plan
-
Patient Disposition: Half-Way/SNF
Discharge Diagnosis/Procedures: sepsis with L foot cellulitis
Condition: Fair
Diet: Diabetic, Carb Controlled
Activity: As tolerated
Bathing Restrictions: None
Other Services: PT and OT
Activity Restrictions/Additional Instructions:
cold compress 20 min every 2 to 3 hrs to LT L/E, Elevate LT L/E with 2 pillows
Referrals:
Jonnathan Li CRNP [Family Provider, Family Practice]
Shae Pennington DPM [Specified Professional Personl, Podiatry] - in two to four weeks
Prescriptions:
New
cephalexin 500 mg Capsule
500 mg PO QID Qty: 36 0RF
clotrimazole [Athlete's Foot (clotrimazole)] 1 % Cream
1 applic topical BID Qty: 90 0RF
Continued
atorvastatin 40 mg tablet
40 mg PO DAILY
tamsulosin 0.4 mg capsule
0.4 mg PO HS
metoprolol tartrate 50 mg tablet
50 mg PO BID
carbidopa-levodopa 25-100 mg tablet
3 tab PO BID
Ozempic 0.25 mg or 0.5 mg (2 mg/3 mL) pen injector
1 mg SC TH
furosemide 20 mg tablet
20 mg PO DAILY
docusate sodium [Colace] 100 mg Capsule
100 mg PO DAILY
magnesium oxide 400 mg magnesium Tablet
400 mg PO DAILY
acetaminophen [Tylenol Extra Strength] 500 mg tablet
500 mg PO DAILY
vitamin B complex Tablet
1 tab PO DAILY
selenium 200 mcg Tablet
200 mcg PO DAILY
carbidopa-levodopa 25-100 mg Tablet
3 tab PO DAILYPRN PRN (Reason: on P.T days)
vitamin E 268 mg (400 unit) Capsule
268 mg PO DAILY
loratadine 10 mg Tablet
10 mg PO DAILY
red yeast rice 600 mg Capsule
600 mg PO DAILY
cholecalciferol (vitamin D3) [Vitamin D3] 125 mcg (5,000 unit) Tablet
125 mcg PO DAILY
cranberry 450 mg Tablet
450 mg PO DAILY
Golo Release
2 cap PO DAILY
Nad
300 mg PO DAILY
Silver Alginate Cream
1 applic topical DAILY
clopidogrel 75 mg Tablet
75 mg PO DAILY 21 Days Qty: 21 0RF
Changed
Novolin 70-30 FlexPen U-100 100 unit/mL (70-30) insulin pen
15 unit SC BID Qty: 0 0RF
Discontinued
naproxen sodium [Aleve] 220 mg Tablet
220 mg PO DAILY
doxycycline hyclate 100 mg tablet
100 mg PO BID
Rx Instructions:
for 3 days starting 03/03/25
Discharge Orders:
Discharge Patient (As Directed); Ordered 03/10/25
Ordered By: Liza French
Discharge Date and Time
Print Language: SLOVENIAN
[2025-03-10 15:00] VITALS: BP 142/91
[2025-03-10 16:08] LABS: Glucose - Point of Care 126 mg/dl (70-99)
[2025-03-10] MEDS: KEFLEX 500 MG PO (16:42)
[2025-03-10] MEDS: LOVENOX 40 MG SC (16:49)
== END 2025-03-10 19:11 | DRG 872 ==
LOC: 4 WEST ACU 15:22
PROVIDERS: Internal Medicine; Nurse Practitioner; Physician Assistant Medical; ADMITTING PHYSICIAN Hospitalist; ATTENDING PHYSICIAN Internal Medicine; CONSULT PHYSICIAN Podiatrist Foot & Ankle Surgery; EMERGENCY PHYSICIAN Emergency Medicine; FAMILY PHYSICIAN Nurse Practitioner Family; OTHER PHYSICIAN Internal Medicine Infectious Disease
DX: A41.9 Sepsis, unspecified organism (principal); L03.116 Cellulitis of left lower limb; I50.32 Chronic diastolic (congestive) heart failure; E87.20 Acidosis, unspecified; Z79.02 Long term (current) use of antithrombotics/antiplatelets; Z11.52 Encounter for screening for COVID-19; I11.0 Hypertensive heart disease with heart failure; G20.A1 Parkinson's disease without dyskinesia, without mention of fluctuations; E66.09 Other obesity due to excess calories; Z68.35 Body mass index [BMI] 35.0-35.9, adult; E11.40 Type 2 diabetes mellitus with diabetic neuropathy, unspecified; Z79.4 Long term (current) use of insulin; Z86.73 Personal history of transient ischemic attack (TIA), and cerebral infarction without residual deficits; R65.20 Severe sepsis without septic shock
CPT/HCPCS: 70450; 71046; 73630; 73720; 80048; 80053; 81003; 81015; 82550; 82962; 83605; 85025; 85027; 87040; 87070; 87077; 87147; 87154; 87205; 87502; 87811; 93005; 96374; 96375; 97163; 97167; 97530; 99285; A9575

== ENCOUNTER → 2025-03-13 11:16 | Outpatient (REF) | payer BC, OTHER, SELFPAY ==
[2025-03-13 12:15] LABS: Hematocrit 48.3 % (39.0-52.0); Hemoglobin 16.0 g/dL (13.0-18.0); Mean Corp Hgb Conc. 33.1 g/dL (33.0-37.0); Mean Corpuscular Volume 101.5 fL (80.0-94.0); Nucleated Red Blood Cells % 0 % (-); Platelet Count 246 10^3/uL (130-400); Red Cell Dist. Width 14.1 % (11.5-14.5)
[2025-03-13 12:22] LABS: Blood Urea Nitrogen 14 mg/dl (9-20); Calcium 8.1 mg/dl (8.4-10.2); Carbon Dioxide 31 mmol/L (22-30); Chloride 98 mmol/L (98-107); Glucose 138 mg/dl (70-99); Potassium 4.3 mmol/L (3.5-5.1); Sodium 132 mmol/L (135-145); eGFR > 60.00
== END ==
LOC: OLABP 11:16
PROVIDERS: ATTENDING PHYSICIAN Family Medicine
DX: A40.1 Sepsis due to streptococcus, group B (principal); A41.9 Sepsis, unspecified organism; M01.X72 Direct infection of left ankle and foot in infectious and parasitic diseases classified elsewhere; L03.116 Cellulitis of left lower limb; I87.2 Venous insufficiency (chronic) (peripheral); B35.3 Tinea pedis; E11.21 Type 2 diabetes mellitus with diabetic nephropathy; I73.9 Peripheral vascular disease, unspecified; E66.01 Morbid (severe) obesity due to excess calories; E78.5 Hyperlipidemia, unspecified; D64.9 Anemia, unspecified; G20.A1 Parkinson's disease without dyskinesia, without mention of fluctuations; I10 Essential (primary) hypertension; I25.10 Atherosclerotic heart disease of native coronary artery without angina pectoris; I35.0 Nonrheumatic aortic (valve) stenosis; I50.33 Acute on chronic diastolic (congestive) heart failure; L03.90 Cellulitis, unspecified; N32.81 Overactive bladder; N40.0 Benign prostatic hyperplasia without lower urinary tract symptoms; Z86.73 Personal history of transient ischemic attack (TIA), and cerebral infarction without residual deficits
CPT/HCPCS: 36415; 80048; 85025

== ENCOUNTER → 2025-03-17 08:52 | Outpatient (REF) | payer BC, OTHER, SELFPAY ==
[2025-03-17 10:31] LABS: Hematocrit 49.0 % (39.0-52.0); Hemoglobin 15.8 g/dL (13.0-18.0); Mean Corp Hgb Conc. 32.2 g/dL (33.0-37.0); Mean Corpuscular Volume 101.9 fL (80.0-94.0); Nucleated Red Blood Cells % 0 % (-); Platelet Count 255 10^3/uL (130-400); Red Cell Dist. Width 13.9 % (11.5-14.5)
[2025-03-17 11:00] LABS: Blood Urea Nitrogen 12 mg/dl (9-20); Calcium 8.5 mg/dl (8.4-10.2); Carbon Dioxide 32 mmol/L (22-30); Chloride 100 mmol/L (98-107); Glucose 106 mg/dl (70-99); Potassium 4.4 mmol/L (3.5-5.1); Sodium 137 mmol/L (135-145); eGFR > 60.00
== END ==
LOC: OLABP 08:52
PROVIDERS: ATTENDING PHYSICIAN Family Medicine
DX: A40.1 Sepsis due to streptococcus, group B (principal); A41.9 Sepsis, unspecified organism; M01.X72 Direct infection of left ankle and foot in infectious and parasitic diseases classified elsewhere; L03.116 Cellulitis of left lower limb; I87.2 Venous insufficiency (chronic) (peripheral); B35.3 Tinea pedis; E11.21 Type 2 diabetes mellitus with diabetic nephropathy; I73.9 Peripheral vascular disease, unspecified; E66.01 Morbid (severe) obesity due to excess calories; E78.5 Hyperlipidemia, unspecified; D64.9 Anemia, unspecified; G20.A1 Parkinson's disease without dyskinesia, without mention of fluctuations; I10 Essential (primary) hypertension; I25.10 Atherosclerotic heart disease of native coronary artery without angina pectoris; I35.0 Nonrheumatic aortic (valve) stenosis; I50.33 Acute on chronic diastolic (congestive) heart failure; L03.90 Cellulitis, unspecified; N32.81 Overactive bladder; N40.0 Benign prostatic hyperplasia without lower urinary tract symptoms; Z86.73 Personal history of transient ischemic attack (TIA), and cerebral infarction without residual deficits
CPT/HCPCS: 36415; 80048; 85025

== ENCOUNTER → 2025-03-24 12:12 | Outpatient (REF) | payer OTHER, SELFPAY ==
[2025-03-24 15:34] LABS: Hematocrit 52.4 % (39.0-52.0); Hemoglobin 17.0 g/dL (13.0-18.0); Mean Corp Hgb Conc. 32.4 g/dL (33.0-37.0); Mean Corpuscular Volume 100.8 fL (80.0-94.0); Nucleated Red Blood Cells % 0 % (-); Platelet Count 209 10^3/uL (130-400); Red Cell Dist. Width 13.6 % (11.5-14.5)
[2025-03-24 15:43] LABS: Blood Urea Nitrogen 18 mg/dl (9-20); Calcium 9.3 mg/dl (8.4-10.2); Carbon Dioxide 32 mmol/L (22-30); Chloride 96 mmol/L (98-107); Glucose 334 mg/dl (70-99); Potassium 4.9 mmol/L (3.5-5.1); Sodium 135 mmol/L (135-145); eGFR > 60.00
== END ==
LOC: HWLAB 12:12
PROVIDERS: ATTENDING PHYSICIAN Nurse Practitioner Family
DX: R11.0 Nausea (principal); R79.81 Abnormal blood-gas level; I50.9 Heart failure, unspecified; G20.A1 Parkinson's disease without dyskinesia, without mention of fluctuations
CPT/HCPCS: 36415; 71046; 80048; 85025

== ENCOUNTER 2025-04-27 22:40 | Inpatient (IN) | payer OTHER, SELFPAY ==
[2025-04-27 19:01] VITALS: BP 146/120
[2025-04-27 19:02] VITALS: BMI 34.0
[2025-04-27 19:11] VITALS: BP 153/141
--- NOTE | 2025-04-27 19:14 | ED.GENMED ---
History of Present Illness
General
Chief Complaint: Skin Problem
Source: patient
Exam Limitations: none
Time Seen by Provider: 04/27/25 19:02
History of Present Illness
History of Present Illness:
79-year-old male with coronary artery disease, CHF, diabetes on Plavix presents via EMS from home. called EMS secondary to increasing swelling of the legs. Patient denies any shortness of breath. He denies chest pain. No fever. He notes
discomfort in the legs when he tries to bear weight.
Past History
Past History
ED Past Medical History: CAD, HTN, Hypercholesterolemia, IDDM, Valvular disease and Other (Parkinson's)
ED Past Surgical History: Cardiac, Cholecystectomy and Orthopedic
Social History
Tobacco: Non-smoker
Alcohol: None
Drug: None
Personal:
Living: with family
Employment: Retired
Family History
Family History: Other (Reviewed and noncontributory)
Phy Exam
Physical Exam
Physical Exam:
General: Well-appearing male without respiratory distress
HEENT: Normal cephalic atraumatic
Heart: Regular rate and rhythm
Lungs: Clear no wheeze
Abdomen soft nontender
Extremities: Significant pitting edema bilateral lower extremities
Skin is warm no rash
Course
Orders/Labs/Results
Orders:
Orders
04/27/25 19:07
Complete Blood Count/With Diff Urgent
Comprehensive Metabolic Panel Urgent
Lactic Acid Urgent
04/27/25 19:09
NT-proBNP Urgent
04/27/25 19:11
Electrocardiogram (*1) Urgent
Reason for Study: Shortness of Breath
EKG- Treatment ONCE
Venous Doppler Lwr Ext Bilat [US Periph Venous LOWER Ext Daniel] Urgent
Comment:
Reason For Exam: swelling
04/27/25 19:12
CR Chest Portable - 1 View Urgent
Comment:
Reason For Exam: swelling
Reason Study Needs to be Portable: Unable to Transport
04/27/25 21:43
Furosemide [Lasix] 40 mg IV NOW STA
Abnormal Lab Results
04/27/25
19:07
MCV 98.1 H fL
(80.0-94.0)
MCH 32.2 H pg
(27.0-31.0)
MCHC 32.9 L g/dL
(33.0-37.0)
Absolute Monos (auto) 0.9 H 10^3/uL
(0.1-0.6)
Monocytes % 10.5 H %
(1.7-9.3)
Carbon Dioxide 31 H mmol/L
(22-30)
Glucose 66 L mg/dl
(70-99)
Alkaline Phosphatase 137 H U/L
(38-126)
04/27/25 19:07
04/27/25 19:07
Vital Signs
Initial and Last Documented VS:
Initial Vital Signs
Pulse Resp
91 19
04/27/25 19:00 04/27/25 19:00
Last Documented Vital Signs
Temp Pulse Resp BP
98.0 F 87 21 146/120
04/27/25 19:03 04/27/25 19:01 04/27/25 19:01 04/27/25 19:01
MDM/Problems Addressed
Differential Diagnosis Includes:
Patient here for leg swelling. History of CHF. Question possible exacerbation of such. Will check EKG and labs as well as BNP. Order venous ultrasound of both legs to evaluate for DVT
I reviewed prior records. Echo from August of this year demonstrates ejection fraction of 55 to 60%
*Pulse Oximetry
Patient hypoxic: no
*Critical Care Note
Total Time (30-74mins, 75-104mins- exclusive of procedures): Not Applicable
Update Note
Update Note:
BNP elevated chest x-ray shows mild cardiomegaly and mild pulmonary edema. I suspect bilateral leg swelling is likely a product of his CHF. Ultrasound of both legs is negative for DVT. Discussed with emergency room attending. Will admit to
hospital
ED Attending Note
-
Portions of this chart may have been created with voice recognition software.� Occasional wrong word or��sound alike� substitutions may have occurred due to the inherent limitations of voice recognition software.
Discharge Plan
Departure
Patient Disposition: Admit
Date of Disposition: 04/27/25
Time of Disposition: 21:44
Presentation/result/management discussed w/ accepting MD/DO: Hospitalist
Discharge Problem:
CHF (congestive heart failure)
Prescriptions:
No Action
atorvastatin 40 mg tablet
40 mg PO DAILY
tamsulosin 0.4 mg capsule
0.4 mg PO HS
metoprolol tartrate 50 mg tablet
50 mg PO BID
carbidopa-levodopa 25-100 mg tablet
3 tab PO BID
Ozempic 0.25 mg or 0.5 mg (2 mg/3 mL) pen injector
1 mg SC TH
furosemide 20 mg tablet
20 mg PO DAILY
docusate sodium [Colace] 100 mg Capsule
100 mg PO DAILY
magnesium oxide 400 mg magnesium Tablet
400 mg PO DAILY
acetaminophen [Tylenol Extra Strength] 500 mg tablet
500 mg PO DAILY
vitamin B complex Tablet
1 tab PO DAILY
selenium 200 mcg Tablet
200 mcg PO DAILY
carbidopa-levodopa 25-100 mg Tablet
3 tab PO DAILYPRN PRN (Reason: on P.T days)
vitamin E 268 mg (400 unit) Capsule
268 mg PO DAILY
loratadine 10 mg Tablet
10 mg PO DAILY
red yeast rice 600 mg Capsule
600 mg PO DAILY
cholecalciferol (vitamin D3) [Vitamin D3] 125 mcg (5,000 unit) Tablet
125 mcg PO DAILY
cranberry 450 mg Tablet
450 mg PO DAILY
Golo Release
2 cap PO DAILY
Nad
300 mg PO DAILY
Silver Alginate Cream
1 applic topical DAILY
cephalexin 500 mg Capsule
500 mg PO QID Qty: 36 0RF
clotrimazole [Athlete's Foot (clotrimazole)] 1 % Cream
1 applic topical BID Qty: 90 0RF
Novolin 70-30 FlexPen U-100 100 unit/mL (70-30) insulin pen
15 unit SC BID Qty: 0 0RF
clopidogrel 75 mg Tablet
75 mg PO DAILY 21 Days Qty: 21 0RF
Referrals:
Jonnathan Li CRNP [Family Provider, Family Practice]
Interventions
Interventions:
*General Assessment Last Done: 04/27/25 19:00
*Neglect/Abuse Screening Last Done: 04/27/25 19:00
*ED COVID-19 Vaccine History Last Done: 04/27/25 19:00
*ED Influenza Vaccine History Last Done: 04/27/25 19:00
*Risk Screen - Suicide (C-SSRS) Last Done: 04/27/25 19:00
Discharge Date and Time
Print Language: [place]
[2025-04-27 19:18] LABS: Hematocrit 50.5 % (39.0-52.0); Hemoglobin 16.6 g/dL (13.0-18.0); Mean Corp Hgb Conc. 32.9 g/dL (33.0-37.0); Mean Corpuscular Volume 98.1 fL (80.0-94.0); Nucleated Red Blood Cells % 0 % (-); Platelet Count 186 10^3/uL (130-400); Red Cell Dist. Width 13.9 % (11.5-14.5)
[2025-04-27 19:36] LABS: ALT (SGPT) 15 U/L (0-50); AST (SGOT) 38 U/L (17-59); Albumin 3.9 g/dl (3.5-5.0); Alkaline Phosphatase 137 U/L (38-126); Blood Urea Nitrogen 16 mg/dl (9-20); Calcium 9.4 mg/dl (8.4-10.2); Carbon Dioxide 31 mmol/L (22-30); Chloride 101 mmol/L (98-107); Estimated Creatinine Clearance 78 ml/min; Glucose 66 mg/dl (70-99); Potassium 4.1 mmol/L (3.5-5.1); Sodium 137 mmol/L (135-145); Total Protein 7.3 g/dl (6.3-8.2); eGFR > 60.00
[2025-04-27 20:04] VITALS: BP 129/75
[2025-04-27 21:00] VITALS: BP 135/52
--- NOTE | 2025-04-27 21:50 | HPS.HSE ---
Family Physician
-
Family Physician: CYNTHIA Humphrey
Chief Complaint
-
Redness and swelling of bilateral lower extremities
History of Present Illness
Patient is a 79 y/o male past medical history of CAD, CVA, CHF, DM with diabetic neuropathy, and Parkinson's Disease who presents with redness and swelling of the bilateral lower extremities. Patient is a poor historian. He notes this morning his
noted his legs were swollen and brought him to the emergency department for evaluation. Patient's major complaint at the present time is significant left foot pain. He does not weight himself on a regular basis. He denies shortness or breath.
He denies fevers, sweats or chills.
Medical History
Past Medical History
Past Medical History: Reports Other
Additional Past Medical History:
Coronary Artery Disease s/p Stent
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
Chronic HFpEF
Moderate/Severe Aortic Stenosis
Essential Hypertension
Hyperlipidemia
Insulin Dependent Diabetes Mellitus
Diabetic Neuropathy
Parkinson's Disease
Chronic Constipation
BPH
Overactive Bladder
Past Surgical History: Reports Other
Additional Past Surgical History:
Cardiac Stent
Cholecystectomy
ERCP
Right Hip Replacement
Bilateral Knee Replacements
Cervical Laminectomy and Fusion
Lumbar Laminectomy
Social History
Tobacco: Non-smoker
Alcohol: None
Personal:
Living: With Family
Family History
Family History: Not pertinent
Allergies / Home Medications
Allergies reflects when Allergies were last updated in [facility].
Home Medications with original date entered in [facility]
Allergy/Medication List:
Medications on admission are unable to be verified or confirmed at this time.
If medication reconciliation has not been performed, why?: Medication List N/A
Review of Systems
-
A 12 point ROS was completed and negative except as noted: Yes
Constitutional: Denies Fever
Respiratory: Denies Trouble Breathing
Cardiac: Denies Chest Pain
Physical Exam
Vital Signs
Vital Signs
Temp Pulse Resp BP
98.0 F 87 21 146/120
04/27/25 19:03 04/27/25 19:01 04/27/25 19:01 04/27/25 19:01
Physical Exam
General: Comfortable and Conversant
HEENT: Anicteric and Moist mucous membranes
Respiratory: Other (Coarse breath sounds bilateral bases)
Cardiac: S1/S2, Regular Rhythm and Murmur (II/ systolic mumur)
GI: Soft and Non Tender
Musculoskeletal: No Clubbing, No Cyanosis and Other (+1 pitting edema bilateral lower extremities; Left foot is very sensitive patient notes even blanket resting on the foot is painful)
Skin: Other (Mild erythema bilaterally; Left foot with increased warmth to touch)
Neuro: Awake, Alert and Nonfocal/grossly intact
Psych: Calm
Laboratory Results
-
04/27/25 19:07
04/27/25 19:07
Laboratory Results
Lactic Acid 1.3 mmol/L (0.7-2.0) 04/27/25 19:07
Total Bilirubin 0.8 mg/dl (0.2-1.3) 04/27/25 19:07
AST 38 U/L (17-59) 04/27/25 19:07
ALT 15 U/L (0-50) 04/27/25 19:07
Alkaline Phosphatase 137 U/L (38-126) H 04/27/25 19:07
Data Reviewed
-
Lab Data: Labs Reviewed by me
Old Records: Reviewed
Impression/Plan
-
Acute on Chronic HFpEF
-Echo August 2024: Normal left ventricular size and function.Normal regional wall motion. Left ventricular ejection fraction 55-60%. Moderate to severe aortic stenosis. Mild mitral regurgitation
-Consult Cardiology
-Continue Lasix 20mg IV Daily
-Monitor Is&Os and Daily Weights
Left Foot Pain, possibly related to gout
-Check uric acid level
-Start empiric Ancef for possible cellulitis due to increased warmth
-Add clotrimazole cream to toe web spaces
Coronary Artery Disease s/p Stent
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
-Continue Plavix
Essential Hypertension
-Continue metoprolol
Hyperlipidemia
-Continue atorvastatin
Insulin Dependent Diabetes Mellitus with Diabetic Neuropathy
-Continue Novolin 70/30
-Monitor sugars and continue coverage insulin
Parkinson's Disease
-Outpatient notes indicate Sinemet was previously stopped, and I do not see it has been filled since December
-Will hold Sinemet until able to confirm home medications
BPH
-Continue Flomax
DVT proph: Lovenox
Code Status:Full Code
[2025-04-27] MEDS: LASIX 40 MG IV (21:59)
[2025-04-27 22:00] VITALS: BP 131/77
--- NOTE | 2025-04-27 22:01 | W.PN.UPDATE ---
Update Note
Progress Note Update
This note serves as an addendum to the H&P by patient accounts coordinator EMEKA�Vianey NORRISSundar
HPI
79M seen at ER:
- [facility] from home
- called EMS secondary to increasing swelling of the legs. He notes discomfort in the legs when he tries to bear weight.
- Patient denies any shortness of breath.
- denies chest pain. No fever.
PMHX:
CAD with stent, prior CVA, PAD with bilateral carotid artery stenosis, hypertension, moderate aortic stenosis, hyperlipidemia, diabetes, diabetic neuropathy,
Parkinson disease, BPH/overactive bladder
obstructive sleep apnea, obesity,
Relevant VS
Temp Pulse Resp BP
98.0 F 87 21 146/120
04/27/25 19:03 04/27/25 19:01 04/27/25 19:01 04/27/25 19:01
03/08/25
06:00 03/10/25
06:00 04/27/25
19:02
Actual Weight 101.406 kg 105.942 kg 101.4 kg
PE
Gen: NAD , not toxic
HEENT: anciteric
Neck: supple
Lungs: CTA
Cor: RRR S1 s2
Abdomen:�soft NT
MANUFACTURING QUALITY MANAGER: AAO3
MS: exquisitely tender Lt foot, 1 st web space lilely fungal infection with crack
Psych: Nl mood and affect
Relevant Data
04/27/25 04/27/25
19:07 19:09
WBC 8.7
Hgb 16.6
Plt Count 186
Potassium 4.1
Carbon Dioxide 31 H
BUN 16
Creatinine 0.9
eGFR > 60.00
Aau-V-Fhnavpxilhu Pept 1790
10/16/23 08/29/24 04/27/25
10:13 13:54 19:09
Ozq-L-Wcrahygtpuo Pept 403 1560 1790
CXR
1. Mild cardiomegaly with suggestion of elevated pulmonary venous pressures.
2. Mild elevation of the right hemidiaphragm.
3. Mild subsegmental atelectasis/scarring in the lower lungs.
US Periph Venous LOWER Ext Daniel
- No sonographic evidence for lower extremity venous thrombosis.
Last hospitalist admission: 03/05/25 -03/10/25
Discharge Diagnosis: sepsis with L foot cellulitis
ASSESSMENT & PLAN
Pending Rx reconciliation:
Exquisitely tender +, warm and erythematous Lt foot DDX: acute poly articular gout with element of cellulitis
[address] st web space lilely fungal infection with crack
DDX favor acute poly articular gout especially in diabetic neuropathic foot which usually not pain ful
- check urate but normal urate does not rule out acute gout
- Empiric IV Cefazolin 2 gm q8 - - If no improvement with IV ABx, will consider PO Prednisone
Suspect acute on Chronic HFpEF: eleavted proBNP
- IV lasix 20mg daily
- cont Metoprol tart
- daily wts, I/Os
- daily BMP
CAD s/p Stent HX
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
- on Plavix
HX CVA: Cont Plavix/statin
Obesity due to excess calories
DM2 with Diabetic Neuropathy: Recent a1c 7.4%,
- c/w DAY WORKER 70/30 Novolin
HLD
- cont statin
Parkinson's Disease
- on carbidopa/levodopa
BPH
- on Flomax
DVT Px: LMWH
Full code
IP TLM
[2025-04-27 22:49] LABS: Uric Acid 5.1 mg/dl (3.5-8.5)
[2025-04-27 23:00] VITALS: BP 117/53
[2025-04-28] VITALS (9 sets, daily range): BP systolic 110–149; BP diastolic 54–92; BMI 34.3
[2025-04-28 00:26] LABS: Glucose - Point of Care 155 mg/dl (70-99)
[2025-04-28] MEDS: ANCEF 10 IV ×3 (00:38→16:02)
[2025-04-28 06:25] LABS: Hematocrit 47.8 % (39.0-52.0); Hemoglobin 16.3 g/dL (13.0-18.0); Mean Corp Hgb Conc. 34.1 g/dL (33.0-37.0); Mean Corpuscular Volume 96.6 fL (80.0-94.0); Platelet Count 188 10^3/uL (130-400); Red Cell Dist. Width 13.9 % (11.5-14.5)
[2025-04-28 06:47] LABS: Blood Urea Nitrogen 16 mg/dl (9-20); Calcium 8.9 mg/dl (8.4-10.2); Carbon Dioxide 26 mmol/L (22-30); Chloride 101 mmol/L (98-107); Estimated Creatinine Clearance 78 ml/min; Glucose 82 mg/dl (70-99); Magnesium 1.8 mg/dl (1.6-2.3); Sodium 138 mmol/L (135-145); eGFR > 60.00
[2025-04-28 06:57] LABS: Potassium 4.2 mmol/L (3.5-5.1)
--- NOTE | 2025-04-28 07:41 | W.PN.HOSP.TC ---
Today's Communication/Plan
-
Continue Ancef IV.
Continue IV Lasix.
Add low-dose Gabapentin
Assessment / Plan
Assessment / Plan
Impression:
Patient is a 79 y/o male past medical history of CAD, CVA, CHF, DM with diabetic neuropathy, and Parkinson's Disease who presents with redness and swelling of the bilateral lower extremities. Patient is a poor historian. He notes this morning his
noted his legs were swollen and brought him to the emergency department for evaluation. Patient's major complaint at the present time is significant left foot pain. He does not weight himself on a regular basis. He denies shortness or breath.
He denies fevers, sweats or chills.
Started on Ancef, and IV Lasix.
Seen by cardiology.
Repeat echo pending
Assessment/plan:
Acute on Chronic HFpEF
Acute CHF Exacerbation:
Patient presented with lower extremity edema but did not shortness of breath.
BNP level is elevated at 1790
Checks x-ray showed:
1. Mild cardiomegaly with suggestion of elevated pulmonary venous pressures.
2. Mild elevation of the right hemidiaphragm.
3. Mild subsegmental atelectasis/scarring in the lower lungs.
Echo (August 2024): Normal LV size and function, normal regional wall motion, LVEF 55�60%. Moderate to severe aortic stenosis, mild mitral regurgitation
Noninvasive lower extremity negative for DVT.
Continue IV diuresing in form of Lasix 20 mg IV daily (patient on 20 mg oral at home)
Daily weight.
Strict I's and O's.
Consulted cardiology.
Left Foot Pain ( gout ruled out)
uric acid level normal at 5.1
Patient was started on empiric Ancef for possible cellulitis (due to increased warmth)
Added clotrimazole cream to toe web spaces
Severe neuropathic pain, tender to touch, will add low-dose gabapentin
Coronary Artery Disease (s/p stent)
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
Continue Plavix/Lipitor
Essential Hypertension
Continue metoprolol
Hyperlipidemia
Continue atorvastatin
Insulin-Dependent Diabetes Mellitus with Diabetic Neuropathy
Continue Novolin 70/30
Monitor blood sugars and continue coverage insulin
Hemoglobin A1c pending
Parkinson�s Disease
Outpatient notes indicate Sinemet was previously stopped; no refill since December
Hold Sinemet until home medications are confirmed
Benign Prostatic Hyperplasia (BPH)
Continue Flomax
CODE STATUS: Full code
DVT prophylaxis: Lovenox
Diet: Low-salt diet
Disposition: Continue Ancef IV.
Continue IV Lasix.
Add low-dose Gabapentin
Total time spent on today's encounter was 55 minutes which included time spent in counseling the patient/family regarding diagnosis and treatment plan as listed above, goals of care, and symptom management. Case was discussed with nursing staff,
specialists, and care coordinators/case management. All labs and imaging personally reviewed by me. Remainder the time spent in detailed review of previous records, lab data, imaging, and other medical provider documentation.
Part of this note was created using voice recognition system. Occasional wrong word or �sound alike� substitutions may have inadvertently occurred due to the inherent limitations of voice recognition software. If noted kindly bring it to my
attention for correction.
Anticipated Discharge: 24 - 48 hours
Subjective/Interval History
-
Date of Service: April 28, 2025
Patient seen and examined at bedside, denies any chest pain or shortness of breath, still complaining of lower extremity pain, painful to touch, otherwise no abdominal pain, no nausea, no vomiting, no diarrhea or constipation.
Objective Data
-
Labs:
Laboratory Results
04/28/25
05:16
WBC 9.3
Hgb 16.3
Hct 47.8
Plt Count 188
Sodium 138
Potassium 4.2
Chloride 101
Carbon Dioxide 26
BUN 16
Creatinine 0.9
Glucose 82
Calcium 8.9
Vital Signs:
Vital Signs
Temp Pulse Resp BP Pulse Ox
98.3 F 60 17 149/92 96
04/28/25 03:00 04/28/25 03:00 04/28/25 03:00 04/28/25 03:00 04/28/25 03:00
I&O
04/27/25 04/28/25 04/29/25
06:59 06:59 06:59
Intake Total 240 / 240
Output Total 800 / 800
Balance -560 / -560
Physical Exam
-
General: Well Developed, Well Nourished, No Apparent Distress and Comfortable
HEENT: Normocephalic, Atraumatic, Moist Mucous Membranes, No Ptosis, PERRLA and Nose Appears Normal
Respiratory: Clear to Auscultation and Non Labored Respirations
Cardiac: Regular Rhythm, S1/S2 and Murmur (Systolic murmur)
Breast: Deferred by me
GI: Soft, Nontender, Nondistended and Normal Bowel Sounds
Genito-urinary: No Costovertebral Tender
Musculoskeletal: No Clubbing, No Cyanosis, Edema, Right Lower Extrem and Edema, Left Lower Extrem
Skin: Warm and Other (Bilateral extremity redness, left more than right)
Neuro: Awake, Alert, Oriented, AO x 3 and No Motor Deficits
Psych: Calm
Data Reviewed
-
Diagnostic Radiology: Image personally visualized and interpreted and Report Reviewed by me
CT Scan: Image personally visualized and interpreted and Report Reviewed by me
Ultrasound: Image personally visualized and interpreted and Report Reviewed by me
MRI: Image personally visualized and interpreted and Report Reviewed by me
Medical Tests (Nuc Med, Echo etc): Image personally visualized and interpreted and Report Reviewed by me
Labs: Labs Reviewed by me
Old Records: Reviewed
[2025-04-28 08:07] LABS: Glucose - Point of Care 91 mg/dl (70-99)
[2025-04-28] MEDS: LOPRESSOR 50 MG PO ×2 (08:07→22:02)
[2025-04-28] MEDS: LOTRIMIN 1% CREAM 1 APPLIC TOPICAL ×2 (08:07→21:21)
[2025-04-28] MEDS: PLAVIX 75 MG PO (08:07)
[2025-04-28] MEDS: LIPITOR 40 MG PO (08:07)
[2025-04-28] MEDS: LASIX 20 MG IV (08:08)
[2025-04-28] MEDS: NOVOLOG FLEXPEN-MODERATE RESISTANCE SC ×3 (08:13→16:36)
[2025-04-28] MEDS: NOVOLOG MIX 70/30 FLEXPEN 15 UNITS SC ×2 (08:15→21:20)
[2025-04-28 08:53] LABS: Glycohemoglobin (HgbA1c) 7.3 % (4.0-5.9)
--- NOTE | 2025-04-28 09:22 | CON.CAR ---
Addendum entered and electronically signed by Guanako Mendoza DO 04/28/25 10:12:
I saw and examined the patient.
The Experimental Mechanic's note was reviewed and I agree with the note.
Comment:
Plan:
Patient presented with bilateral lower extremity swelling and erythema noted by . proBNP 1789. In past, baseline proBNP has been around 400
Cont IV diuresis. As outpt was felt to be likely taking lasix 20 mg daily.
Monitor Is and Os and daily wts and cr
Peripheral vascular ultrasound negative for DVT
As outpatient suspected to be on 20 mg p.o. daily
Continue chronic Plavix
Remains in sinus with frequent ectopy.
history of VT ablation x2 in past.
Cont Lopressor
Check echo as pt has mod to severe by last echo August 2024.
Cont supportive care and Ancef for cellulitis per primary service
Original Note:
Consultation
Consultation Request
Date/Time Consultation Performed: 04/28/25
Requesting Provider: Dr. Jimenes
Performing Provider: Joelle Mcguire PA-C for Dr. Mendoza
Reason for Consultation: CHF
Medical History
-
Chief Complaint: LE swelling and erythema
History of Present Illness:
Patient is a 79-year-old male with past medical history of CAD s/p status post OM PCI 2013, PVCs/VT status post VT ablation times 2 in 2013, 1 of which was epicardial, chronic HFpEF, mod to severe , PAD and venous insufficiency, Parkinson's,
diabetes with associated polyneuropathy, who presented to [facility] yesterday he reports at insistence of his . reportedly noted both of his legs were swollen, and patient had complained of left foot pain. He denies fevers or chills,
shortness of breath, weight gain, orthopnea. proBNP 1789. He is unsure of his home meds, stating that his manages them well for him. By last office visit he was maintained on Lasix 20 mg p.o. daily.
PMH:
CAD status post OM1 PCI 2013
PVCs/VT status post VT ablation2013, 1 of which was epicardial, in setting of above
Chronic heart failure with preserved EF
Moderate to severe
PAD/venous insufficiency
Parkinson's disease
History of CVA
Type 2 diabetes with associated polyneuropathy
BPH
ERIKA
Obesity
History of cervical and lumbar laminectomy/fusion
Past Medical History
Past Medical History: Other (in HPI)
Social History
Tobacco: Non-Smoker
Alcohol: None
Personal:
Living: With Family
Employment: Retired
Family History
Family History: Reviewed & Not Pertinent
Allergies / Home Medications
Allergy/AdvReac Type Severity Reaction Status Date / Time
adhesive tape Allergy Unknown Verified 01/22/25 15:01
Latex, Natural Rubber Allergy Unknown Verified 01/22/25 15:01
mold Allergy Unknown Verified 01/22/25 15:01
�Medication �Instructions �Recorded �Confirmed �Type
atorvastatin 40 mg tablet 40 mg PO DAILY High Cholesterol 03/07/23 03/05/25 History
carbidopa 25 mg-levodopa 100 mg 3 tab PO BID parkinson's disease 03/07/23 03/05/25 History
tablet
metoprolol tartrate 50 mg tablet 50 mg PO BID Blood Pressure 03/07/23 03/05/25 History
semaglutide 0.25 mg or 0.5 mg (2 1 mg SC TH Diabetes 03/07/23 03/05/25 History
mg/3 mL) subcutaneous pen injector
(Ozempic)
tamsulosin 0.4 mg capsule 0.4 mg PO HS urine retention 03/07/23 03/05/25 History
furosemide 20 mg tablet 20 mg PO DAILY Fluid 07/09/23 03/05/25 History
Retention/Swelling
docusate sodium 100 mg capsule 100 mg PO DAILY Constipation 08/29/24 03/05/25 History
(Colace)
clopidogrel 75 mg tablet 75 mg PO DAILY CVA 21 days #21 tabs 09/11/24 03/05/25 Rx
acetaminophen 500 mg tablet 500 mg PO DAILY mild Pain 01/22/25 03/05/25 History
(Tylenol Extra Strength)
magnesium oxide 400 mg PO DAILY Supplement 01/22/25 03/05/25 History
vitamin B complex 1 tab PO DAILY 01/22/25 03/05/25 History
Golo Release 2 cap PO DAILY Supplement 03/05/25 03/05/25 History
Nad 300 mg PO DAILY Supplement 03/05/25 03/05/25 History
Silver Alginate Cream 1 applic topical DAILY LEFT FOOT 03/05/25 03/05/25 History
WOUND
carbidopa 25 mg-levodopa 100 mg 3 tab PO DAILYPRN PRN on P.T days 03/05/25 03/05/25 History
tablet
cholecalciferol (vitamin D3) 125 125 mcg PO DAILY Supplement 03/05/25 03/05/25 History
mcg (5,000 unit) tablet (Vitamin
D3)
cranberry fruit 450 mg tablet 450 mg PO DAILY Supplement 03/05/25 03/05/25 History
(cranberry)
loratadine 10 mg tablet 10 mg PO DAILY Allergies 03/05/25 03/05/25 History
red yeast rice 600 mg capsule 600 mg PO DAILY Supplement 03/05/25 03/05/25 History
selenium 200 mcg tablet 200 mcg PO DAILY Supplement 03/05/25 03/05/25 History
vitamin E 268 mg (400 unit) capsule 268 mg PO DAILY Supplement 03/05/25 03/05/25 History
cephalexin 500 mg capsule 500 mg PO QID #36 caps 03/10/25 Rx
clotrimazole 1 % topical cream 1 applic topical BID #90 grams 03/10/25 Rx
(Athlete's Foot (clotrimazole))
insulin NPH-regular 70-30 U-100 15 unit (0.15 mL) SC BID Diabetes 03/10/25 03/05/25 Rx
insulin 100 unit/mL subcutaneous #0 mL
pen (Novolin 70-30 FlexPen U-100
Insulin)
Review of Systems
-
History Source: Patient
All other systems: Negative unless noted
Physical Exam
Vital Signs
Temp Pulse Resp BP Pulse Ox
99.2 F 113 20 118/78 94
04/28/25 07:00 04/28/25 07:00 04/28/25 07:00 04/28/25 07:00 04/28/25 07:00
Lab Results
04/28/25 05:16
04/28/25 05:16
Kzg-T-Topqcnisayw Pept 1790 pg/ml 04/27/25 19:09
Physical Exam
General: No Apparent Distress and Comfortable
HEENT: Normocephalic, Anicteric and Moist Mucous Membranes
Respiratory: Clear and Non Labored Respirations
Cardiac: S1/S2, Regular Rhythm (with ectopy) and Murmur
GI: Soft, Non Tender, Non Distended and Normal Bowel Sounds
Musculoskeletal: No Clubbing, No Cyanosis and Edema (trace edema and mild erythema of B/L LE)
Skin: Warm and Dry
Neuro: Awake, Alert and Oriented (to self, place)
Impression / Plan
-
Primary Packaging Sales: Dr. GLADYS Camarena
Assessment:
Presentation with LE swelling and erythema
Concern for sepsis
CAD status post OM1 PCI 2013
Acute on chronic heart failure with preserved EF
PVCs/VT status post VT ablation 2013, 1 of which was epicardial, in setting of above
Moderate to severe
PAD/venous insufficiency
Parkinson's disease
History of CVA
Type 2 diabetes with associated polyneuropathy
BPH
ERIKA
Obesity
History of cervical and lumbar laminectomy/fusion
ECHO 09/02/24: TDS, EF 55 to 60%, mild MR, moderate to severe with peak/mean gradients 51/30 mmHg, ODESSA 0.9 cm�, mild AR
Plan:
- Patient presented with bilateral lower extremity swelling and erythema noted by
- proBNP 0. In past, baseline proBNP has been around 400 by review of prior office notes
- Chest x-ray with mild cardiomegaly and findings suggestive of elevated pulmonary venous pressures
- Peripheral vascular ultrasound negative for DVT
- Cardiology consulted for assistance with acute CHF management. Continue IV Lasix 20 mg daily. As outpatient suspected to be on 20 mg p.o. daily
- Continue chronic Plavix
- in SR/ST with frequent ectopy. history of VT ablation x2 in past. patient asymptomatic. continue OP lopressor
- has mod to severe by last echo 08/2024. will repeat while admitted for reassessment
- on ancef for cellulitis per primary service
Data Reviewed
-
EKG: Tracing Personally Visualized and interpreted
Radiology: Report Reviewed by me
Ultrasound: Report Reviewed by me
Medical Tests (Nuc Med, Echo etc): Report Reviewed by me
Labs: Labs Reviewed by me
Old Records: Reviewed
[2025-04-28 12:21] LABS: Glucose - Point of Care 148 mg/dl (70-99)
[2025-04-28] MEDS: NEURONTIN 200 MG PO ×2 (16:02→21:23)
[2025-04-28 16:37] LABS: Glucose - Point of Care 134 mg/dl (70-99)
[2025-04-28] MEDS: LOVENOX SC (17:09)
--- NOTE | 2025-04-28 21:00 | PTCARENOTE ---
While rounding on pt, pt stated need to have a bowel movement. This RN offered use of a bedpan. Pt raised his voice stating, 'bedpans don't work for me.' Per report from dayshift RN, pt required heavy assistance to transfer to bedside commode during
the day, required assistance of three staff members to return to bed due to inability to bear weight, and became very tachycardic. This RN informed pt that he is a high fall risk d/t b/l lower extremity weakness and that transferring to the bedside
commode would pose a significant fall risk. Pt continued to raise his voice stating, 'I will try the bedpan but if I'm unable to go, I will get out of bed myself and use a commode, and If I fall it will be your fault because you won't let me get
up.' Pt educated on fall risk & safety concerns, pt unwilling to listen to education provided by this RN at this time. Pt agreeable to using bedpan and was able to have a small bowel movement. Bed alarm in place. Plan of care ongoing.
[2025-04-28 21:19] LABS: Glucose - Point of Care 207 mg/dl (70-99)
[2025-04-28] MEDS: FLOMAX 0.4 MG PO (21:22)
[2025-04-28] MEDS: TYLENOL 650 MG PO (21:23)
[2025-04-28] MEDS: LOPRESSOR PO ×2 (21:24→21:50)
[2025-04-29] MEDS: ANCEF 10 IV ×4 (00:30→23:03)
--- NOTE | 2025-04-29 01:15 | PTCARENOTE ---
This RN noted pt with no output throughout shift. Pt reported to this RN that he did not have the urge to urinate. Bladder scanned for 498 mls of urine in bladder. CYNTHIA Mcgill notified. Bladder scan & straight cath orders placed. Pt
straight cathed for 550 ml of urine. Plan of care ongoing.
[2025-04-29 03:59] VITALS: BP 131/96
[2025-04-29 04:08] VITALS: BMI 33.2
[2025-04-29 05:26] LABS: Hematocrit 48.3 % (39.0-52.0); Hemoglobin 16.6 g/dL (13.0-18.0); Mean Corp Hgb Conc. 34.4 g/dL (33.0-37.0); Mean Corpuscular Volume 96.4 fL (80.0-94.0); Platelet Count 184 10^3/uL (130-400); Red Cell Dist. Width 14.0 % (11.5-14.5)
[2025-04-29 06:25] LABS: Blood Urea Nitrogen 15 mg/dl (9-20); Calcium 8.9 mg/dl (8.4-10.2); Carbon Dioxide 26 mmol/L (22-30); Chloride 103 mmol/L (98-107); Estimated Creatinine Clearance 87 ml/min; Glucose 102 mg/dl (70-99); Magnesium 1.9 mg/dl (1.6-2.3); Potassium 4.2 mmol/L (3.5-5.1); Sodium 136 mmol/L (135-145); eGFR > 60.00
[2025-04-29 07:30] VITALS: BP 138/69
[2025-04-29 08:31] LABS: Glucose - Point of Care 125 mg/dl (70-99)
[2025-04-29] MEDS: NOVOLOG FLEXPEN-MODERATE RESISTANCE SC (08:45)
--- NOTE | 2025-04-29 09:47 | W.PN.CARDCBS ---
Today's Communication / Plan
-
Will give an additional dose of IV Lasix 40 mg this a.m.
Stable for discharge from my perspective on higher dose of oral Lasix 40 mg daily
Impression / Plan
-
Primary Plant Controller: Dr. GLADYS Camarena
Assessment:
Presentation with LE swelling and erythema
Concern for sepsis
CAD status post OM1 PCI 2013
Acute on chronic heart failure with preserved EF
PVCs/VT status post VT ablation 2013, 1 of which was epicardial, in setting of above
Moderate to severe
PAD/venous insufficiency
Parkinson's disease
History of CVA
Type 2 diabetes with associated polyneuropathy
BPH
ERIKA
Obesity
History of cervical and lumbar laminectomy/fusion
ECHO 09/02/24: TDS, EF 55 to 60%, mild MR, moderate to severe with peak/mean gradients 51/30 mmHg, ODESSA 0.9 cm�, mild AR
Plan:
- Patient presented with bilateral lower extremity swelling and erythema noted by
- proBNP 1789. In past, baseline proBNP has been around 400 by review of prior office notes
- Peripheral vascular ultrasound negative for DVT
- Cardiology consulted for assistance with acute CHF management
- Improvement in his edema and weight is coming down. Cr remains stable.
- Increase IV Lasix to 40 mg x1 this AM. Tentatively plan to discharge on higher dose of oral lasix on discharge, 40mg daily, was previously 20 mg p.o. daily
- Echo here with mildly reduced LVEF 45-50%
- Given LV dysfunction would add losartan. Switch metoprolol tartrate to succinate.
- Will defer addition of MRA and SGLT2 to his primary commercial credit portfolio manager as an outpatient
- Continue chronic Plavix for CAD/PAD
- in SR/ST with frequent ectopy. history of VT ablation x2 in past. patient asymptomatic. continue BB.
- Known mod to severe with stable valve gradients here. Ultimately would benefit from TAVR.
- Defer abx treatment for cellulitis to primary service
Stable for discharge from my perspective. Will arrange for outpatient follow-up and BMP.
Recommended cardiac meds on discharge
Lasix 40mg daily
Losartan 25mg daily
Metoprolol succinate 50mg BID
Plavix 75mg daily
Atorvastatin 40mg daily
Progress Note - Plant Controller
Subjective
Date of Service: April 29, 2025
No acute overnight events. Patient tells me that his lower extremity edema significantly improved. Breathing is comfortable today. No cardiac complaints.
Objective
Labs:
04/29/25 05:16
04/29/25 05:16
Labs
Hgb 16.6 g/dL (13.0-18.0) 04/29/25 05:16
Hct 48.3 % (39.0-52.0) 04/29/25 05:16
Plt Count 184 10^3/uL (130-400) 04/29/25 05:16
Sodium 136 mmol/L (135-145) 04/29/25 05:16
Potassium 4.2 mmol/L (3.5-5.1) 04/29/25 05:16
BUN 15 mg/dl (9-20) 04/29/25 05:16
Creatinine 0.8 mg/dL (0.7-1.3) 04/29/25 05:16
Glucose 102 mg/dl (70-99) H 04/29/25 05:16
Vital Signs and I&O:
Vital Signs
Temp Pulse Resp BP Pulse Ox
98.2 F 65 18 138/69 96
04/29/25 07:30 04/29/25 07:30 04/29/25 07:30 04/29/25 07:30 04/29/25 07:30
Vital Signs
Temp Pulse Resp BP Pulse Ox
98.2 F 65 18 138/69 96
04/29/25 07:30 04/29/25 07:30 04/29/25 07:30 04/29/25 07:30 04/29/25 07:30
Intake & Output
04/27/25 04/28/25 04/29/25 04/30/25
06:59 06:59 06:59 06:59
Intake Total 240 / 240 1080 / 1080
Output Total 800 / 800 1050 / 1050
Balance -560 / -560
Physical Exam
Physical Exam
Gen: NAD, AA
HEENT: NC/AT, sclera anicteric
Neck: No JVD
CV: irregular, NL s1/s2, MOIRA
Lungs: CTAB on RA
Abd: S/ND
Ext: Nonpitting LE edema
Skin: Warm, dry
Neuro: Non-focal
[2025-04-29] MEDS: LIPITOR 40 MG PO (10:52)
[2025-04-29] MEDS: LOTRIMIN 1% CREAM 1 APPLIC TOPICAL ×2 (10:52→21:14)
[2025-04-29] MEDS: NEURONTIN 200 MG PO ×3 (10:53→21:15)
[2025-04-29] MEDS: NOVOLOG MIX 70/30 FLEXPEN 15 UNITS SC ×2 (10:54→21:14)
[2025-04-29] MEDS: PLAVIX 75 MG PO (10:57)
[2025-04-29] MEDS: LASIX 40 MG IV (10:57)
[2025-04-29] MEDS: COZAAR 25 MG PO (11:01)
[2025-04-29] MEDS: TOPROL XL 50 MG PO ×2 (11:02→21:17)
[2025-04-29] MEDS: LASIX IV (11:18)
[2025-04-29] MEDS: LOPRESSOR PO (11:19)
--- NOTE | 2025-04-29 11:23 | W.PN.HOSP.TC ---
Today's Communication/Plan
-
Physical therapy recommending rehab but patient wants to go home with home physical therapy.
Will be discharged in gabapentin,
increased dose of Lasix,
antibiotic in form of Doxy/cefdinir
Assessment / Plan
Assessment / Plan
Impression:
Patient is a 79 y/o male past medical history of CAD, CVA, CHF, DM with diabetic neuropathy, and Parkinson's Disease who presents with redness and swelling of the bilateral lower extremities. Patient is a poor historian. He notes this morning his
noted his legs were swollen and brought him to the emergency department for evaluation. Patient's major complaint at the present time is significant left foot pain. He does not weight himself on a regular basis. He denies shortness or breath.
He denies fevers, sweats or chills.
Started on Ancef, and IV Lasix.
Seen by cardiology.
Repeat echo shows:
1. Technically difficult study, limited by ventricular ectopy.
2. Normal left ventricular chamber size. Low normal to mildly reduced left ventricular systolic function with ejection fraction 45 to 50%.
3. Moderate aortic stenosis with peak and mean gradients of 48 and 29 mmHg respectively, aortic valve area 1.0 cm² and mild aortic regurgitation.
4. Mild mitral regurgitation.
5. Mild tricuspid regurgitation with pulmonary artery pressure 41 mmHg.
6. Compared to a prior echo from August 2024, EF noted to be 55 to 60% limited TDS study with peak and mean aortic valve systolic gradients of 51 and 30 mmHg respectively.
Added gabapentin for neuropathic lower extremity pain.
Currently recommending to increase Lasix on discharge
To be discharged on oral antibiotics
Assessment/plan:
Acute on Chronic HFpEF
Acute CHF Exacerbation:
Patient presented with lower extremity edema but did not shortness of breath.
BNP level is elevated at 1790
Checks x-ray showed:
1. Mild cardiomegaly with suggestion of elevated pulmonary venous pressures.
2. Mild elevation of the right hemidiaphragm.
3. Mild subsegmental atelectasis/scarring in the lower lungs.
Echo (August 2024): Normal LV size and function, normal regional wall motion, LVEF 55�60%. Moderate to severe aortic stenosis, mild mitral regurgitation
Noninvasive lower extremity negative for DVT.
Continue IV diuresing in form of Lasix 20 mg IV daily (patient on 20 mg oral at home)
Daily weight.
Strict I's and O's.
Consulted cardiology.
Increase Lasix to 40 mg on discharge
Left Foot Pain ( gout ruled out)
uric acid level normal at 5.1
Patient was started on empiric Ancef for possible cellulitis (due to increased warmth)
Added clotrimazole cream to toe web spaces
Severe neuropathic pain, improved with low-dose gabapentin
Will be discharged on oral Doxy/cefdinir
Coronary Artery Disease (s/p stent)
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
Continue Plavix/Lipitor
Essential Hypertension
Continue metoprolol
Hyperlipidemia
Continue atorvastatin
Insulin-Dependent Diabetes Mellitus with Diabetic Neuropathy
Continue Novolin 70/30
Monitor blood sugars and continue coverage insulin
Hemoglobin A1c pending
Parkinson�s Disease
Outpatient notes indicate Sinemet was previously stopped; no refill since December
Hold Sinemet until home medications are confirmed
Benign Prostatic Hyperplasia (BPH)
Continue Flomax
CODE STATUS: Full code
DVT prophylaxis: Lovenox
Diet: Low-salt diet
Disposition: Physical therapy recommending rehab but patient wants to go home with home physical therapy.
Will be discharged in gabapentin, increased dose of Lasix, antibiotic in form of Doxy/cefdinir
Total time spent on today's encounter was 55 minutes which included time spent in counseling the patient/family regarding diagnosis and treatment plan as listed above, goals of care, and symptom management. Case was discussed with nursing staff,
specialists, and care coordinators/case management. All labs and imaging personally reviewed by me. Remainder the time spent in detailed review of previous records, lab data, imaging, and other medical provider documentation.
Part of this note was created using voice recognition system. Occasional wrong word or �sound alike� substitutions may have inadvertently occurred due to the inherent limitations of voice recognition software. If noted kindly bring it to my
attention for correction.
Anticipated Discharge: Today
Subjective/Interval History
-
Date of Service: April 29, 2025
Patient seen and examined at bedside, denies any chest pain , shortness of breath Improved, no abdominal pain, no nausea, no vomiting, no diarrhea or constipation.
lower extremity pain improved.
Objective Data
-
Labs:
Laboratory Results
04/29/25
05:16
WBC 8.5
Hgb 16.6
Hct 48.3
Plt Count 184
Sodium 136
Potassium 4.2
Chloride 103
Carbon Dioxide 26
BUN 15
Creatinine 0.8
Glucose 102 H
Calcium 8.9
Vital Signs:
Vital Signs
Temp Pulse Resp BP Pulse Ox
98.2 F 65 18 138/69 96
04/29/25 07:30 04/29/25 07:30 04/29/25 07:30 04/29/25 07:30 04/29/25 07:30
I&O
04/28/25 04/29/25 04/30/25
06:59 06:59 06:59
Intake Total 240 / 240 1080 / 1080
Output Total 800 / 800 1050 / 1050
Balance -560 / -560
Physical Exam
-
General: Well Developed, Well Nourished, No Apparent Distress and Comfortable
HEENT: Normocephalic, Atraumatic, Moist Mucous Membranes, No Ptosis, PERRLA and Nose Appears Normal
Respiratory: Clear to Auscultation and Non Labored Respirations
Cardiac: Regular Rhythm, S1/S2 and Murmur (Systolic murmur)
Breast: Deferred by me
GI: Soft, Nontender, Nondistended and Normal Bowel Sounds
Genito-urinary: No Costovertebral Tender
Musculoskeletal: No Clubbing, No Cyanosis, Edema, Right Lower Extrem and Edema, Left Lower Extrem
Skin: Warm and Other (Bilateral extremity redness, left more than right)
Neuro: Awake, Alert, Oriented, AO x 3 and No Motor Deficits
Psych: Calm
[2025-04-29 11:45] VITALS: BP 132/60
[2025-04-29 12:47] LABS: Glucose - Point of Care 265 mg/dl (70-99)
[2025-04-29] MEDS: NOVOLOG FLEXPEN-MODERATE RESISTANCE 5 UNITS SC (13:00)
--- NOTE | 2025-04-29 15:20 | VNURNOTE ---
Home Health Liaison spoke with patient's spouse to discuss [facility] nurse/therapy, visits, schedule and homebound status. She is agreeable and understands that visits at home will be 2-3 x per week to assess and teach medical management. She is
familiar with services- pt recently DC'ed from services earlier in the month. Spodena is aware that [facility] will contact them for start of care within a few days after discharge from . She has contact number for [facility].
[facility] referral completed in [facility].
[2025-04-29 16:00] VITALS: BP 122/55
--- NOTE | 2025-04-29 16:42 | CM ---
Alert awake forgetful patient who lives with his Maria Antonia who lives in a 1 story home with ramp.He is in all activities of daily living.He has care givers 4x weekly for 4 hours. He uses a walker wheelchair,Sit and stand,vanesa lift is ordered as per
.He sleeps in a recliner. PT indicated SNF. and patient requested resumption of [facility] Liaison aware of resumption. Family will transport home.
Pt [facility] current / [facility] history
Pharmacy [facility] may closed tomorrow May use [facility] tomorrow
PCP DR Li
PLAN Home with [facility] and care givers
[2025-04-29 16:52] LABS: Glucose - Point of Care 180 mg/dl (70-99)
[2025-04-29] MEDS: NOVOLOG FLEXPEN-MODERATE RESISTANCE 1 UNITS SC (16:57)
[2025-04-29] MEDS: LOVENOX 40 MG SC (16:59)
[2025-04-29 19:28] VITALS: BP 130/57
[2025-04-29 21:13] LABS: Glucose - Point of Care 256 mg/dl (70-99)
[2025-04-29] MEDS: FLOMAX 0.4 MG PO (21:16)
[2025-04-29] MEDS: TYLENOL 650 MG PO (21:24)
[2025-04-29 23:23] VITALS: BP 120/62
[2025-04-30 03:32] VITALS: BP 122/57
[2025-04-30 05:24] VITALS: BMI 33.5
[2025-04-30 07:05] VITALS: BP 135/79
[2025-04-30 08:02] LABS: Glucose - Point of Care 120 mg/dl (70-99)
[2025-04-30] MEDS: NOVOLOG FLEXPEN-MODERATE RESISTANCE SC (08:11)
[2025-04-30] MEDS: NOVOLOG MIX 70/30 FLEXPEN 15 UNITS SC (08:13)
[2025-04-30] MEDS: LOTRIMIN 1% CREAM 1 APPLIC TOPICAL (08:13)
[2025-04-30] MEDS: LIPITOR 40 MG PO (08:15)
[2025-04-30] MEDS: NEURONTIN 200 MG PO (08:15)
[2025-04-30] MEDS: LASIX 40 MG PO (08:16)
[2025-04-30] MEDS: PLAVIX 75 MG PO (08:16)
[2025-04-30] MEDS: TOPROL XL 50 MG PO (08:16)
[2025-04-30] MEDS: COZAAR 25 MG PO (08:16)
[2025-04-30] MEDS: ANCEF 10 IV ×2 (08:16→15:00)
[2025-04-30 08:40] LABS: Hematocrit 49.0 % (39.0-52.0); Hemoglobin 16.6 g/dL (13.0-18.0); Mean Corp Hgb Conc. 33.9 g/dL (33.0-37.0); Mean Corpuscular Volume 98.2 fL (80.0-94.0); Platelet Count 200 10^3/uL (130-400); Red Cell Dist. Width 14.3 % (11.5-14.5)
[2025-04-30 09:03] LABS: Blood Urea Nitrogen 28 mg/dl (9-20); Calcium 8.9 mg/dl (8.4-10.2); Carbon Dioxide 28 mmol/L (22-30); Chloride 98 mmol/L (98-107); Estimated Creatinine Clearance 58 ml/min; Glucose 119 mg/dl (70-99); Potassium 4.2 mmol/L (3.5-5.1); Sodium 137 mmol/L (135-145); eGFR > 60.00
[2025-04-30 11:05] VITALS: BP 142/107
[2025-04-30] MEDS: NOVOLOG FLEXPEN-MODERATE RESISTANCE 1 UNITS SC (11:51)
[2025-04-30 11:52] LABS: Glucose - Point of Care 178 mg/dl (70-99)
--- NOTE | 2025-04-30 12:16 | W.PN.HOSP.TC ---
Today's Communication/Plan
-
Physical therapy recommending rehab but patient wants to go home with home physical therapy.
Will be discharged in gabapentin,
increased dose of Lasix,
antibiotic in form of Doxy/cefdinir
Assessment / Plan
Assessment / Plan
Impression:
Patient is a 79 y/o male past medical history of CAD, CVA, CHF, DM with diabetic neuropathy, and Parkinson's Disease who presents with redness and swelling of the bilateral lower extremities. Patient is a poor historian. He notes this morning his
noted his legs were swollen and brought him to the emergency department for evaluation. Patient's major complaint at the present time is significant left foot pain. He does not weight himself on a regular basis. He denies shortness or breath.
He denies fevers, sweats or chills.
Started on Ancef, and IV Lasix.
Seen by cardiology.
Repeat echo shows:
1. Technically difficult study, limited by ventricular ectopy.
2. Normal left ventricular chamber size. Low normal to mildly reduced left ventricular systolic function with ejection fraction 45 to 50%.
3. Moderate aortic stenosis with peak and mean gradients of 48 and 29 mmHg respectively, aortic valve area 1.0 cm² and mild aortic regurgitation.
4. Mild mitral regurgitation.
5. Mild tricuspid regurgitation with pulmonary artery pressure 41 mmHg.
6. Compared to a prior echo from August 2024, EF noted to be 55 to 60% limited TDS study with peak and mean aortic valve systolic gradients of 51 and 30 mmHg respectively.
Added gabapentin for neuropathic lower extremity pain.
Currently recommending to increase Lasix on discharge
To be discharged on oral antibiotics
Assessment/plan:
Acute on Chronic HFpEF
Acute CHF Exacerbation:
Patient presented with lower extremity edema but did not shortness of breath.
BNP level is elevated at 1790
Checks x-ray showed:
1. Mild cardiomegaly with suggestion of elevated pulmonary venous pressures.
2. Mild elevation of the right hemidiaphragm.
3. Mild subsegmental atelectasis/scarring in the lower lungs.
Echo (August 2024): Normal LV size and function, normal regional wall motion, LVEF 55�60%. Moderate to severe aortic stenosis, mild mitral regurgitation
Noninvasive lower extremity negative for DVT.
Continue IV diuresing in form of Lasix 20 mg IV daily (patient on 20 mg oral at home)
Daily weight.
Strict I's and O's.
Consulted cardiology.
Increase Lasix to 40 mg on discharge
Left Foot Pain ( gout ruled out)
uric acid level normal at 5.1
Patient was started on empiric Ancef for possible cellulitis (due to increased warmth)
Added clotrimazole cream to toe web spaces
Severe neuropathic pain, improved with low-dose gabapentin
Will be discharged on oral Doxy/cefdinir
Coronary Artery Disease (s/p stent)
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
Continue Plavix/Lipitor
Essential Hypertension
Continue metoprolol
Hyperlipidemia
Continue atorvastatin
Insulin-Dependent Diabetes Mellitus with Diabetic Neuropathy
Continue Novolin 70/30
Monitor blood sugars and continue coverage insulin
Hemoglobin A1c pending
Parkinson�s Disease
Outpatient notes indicate Sinemet was previously stopped; no refill since December
Hold Sinemet until home medications are confirmed
Benign Prostatic Hyperplasia (BPH)
Continue Flomax
CODE STATUS: Full code
DVT prophylaxis: Lovenox
Diet: Low-salt diet
Disposition: Physical therapy recommending rehab but patient wants to go home with home physical therapy.
Will be discharged in gabapentin, increased dose of Lasix, antibiotic in form of Doxy/cefdinir
Total time spent on today's encounter was 55 minutes which included time spent in counseling the patient/family regarding diagnosis and treatment plan as listed above, goals of care, and symptom management. Case was discussed with nursing staff,
specialists, and care coordinators/case management. All labs and imaging personally reviewed by me. Remainder the time spent in detailed review of previous records, lab data, imaging, and other medical provider documentation.
Part of this note was created using voice recognition system. Occasional wrong word or �sound alike� substitutions may have inadvertently occurred due to the inherent limitations of voice recognition software. If noted kindly bring it to my
attention for correction.
Anticipated Discharge: Today
Subjective/Interval History
-
Date of Service: April 30, 2025
Patient seen and examined at bedside, denies any chest pain or shortness of breath, no abdominal pain, no nausea, no vomiting, no diarrhea or constipation.
Objective Data
-
Labs:
Laboratory Results
04/30/25
07:21
WBC 8.8
Hgb 16.6
Hct 49.0
Plt Count 200
Sodium 137
Potassium 4.2
Chloride 98
Carbon Dioxide 28
BUN 28 H
Creatinine 1.2
Glucose 119 H
Calcium 8.9
Vital Signs:
Vital Signs
Temp Pulse Resp BP Pulse Ox
98.0 F 90 19 142/107 96
04/30/25 11:05 04/30/25 11:05 04/30/25 11:05 04/30/25 11:05 04/30/25 11:05
I&O
04/29/25 04/30/25 05/01/25
06:59 06:59 06:59
Intake Total 1080 / 1080
Output Total 1050 / 1050 250 / 250
Balance 30 / 30 -250 / -250
Physical Exam
-
General: Well Developed, Well Nourished, No Apparent Distress and Comfortable
HEENT: Normocephalic, Atraumatic, Moist Mucous Membranes, No Ptosis, PERRLA and Nose Appears Normal
Respiratory: Clear to Auscultation and Non Labored Respirations
Cardiac: Regular Rhythm, S1/S2 and Murmur (Systolic murmur)
Breast: Deferred by me
GI: Soft, Nontender, Nondistended and Normal Bowel Sounds
Genito-urinary: No Costovertebral Tender
Musculoskeletal: No Clubbing, No Cyanosis, Edema, Right Lower Extrem and Edema, Left Lower Extrem
Skin: Warm and Other (Bilateral extremity redness, left more than right)
Neuro: Awake, Alert, Oriented, AO x 3 and No Motor Deficits
Psych: Calm
--- NOTE | 2025-04-30 12:20 | W.DCSUMMARY ---
Discharge Summary
Discharge Data
Date of Admission: 04/27/25
Date of Discharge: 04/30/25
Total time spent discharging patient (in min): 40
-
Pending Results: No
Hospital Course
Hospital course
Patient is a 79 y/o male past medical history of CAD, CVA, CHF, DM with diabetic neuropathy, and Parkinson's Disease who presents with redness and swelling of the bilateral lower extremities. Patient is a poor historian. He notes this morning his
noted his legs were swollen and brought him to the emergency department for evaluation. Patient's major complaint at the present time is significant left foot pain. He does not weight himself on a regular basis. He denies shortness or breath.
He denies fevers, sweats or chills.
Started on Ancef, and IV Lasix.
Seen by cardiology.
Repeat echo shows:
1. Technically difficult study, limited by ventricular ectopy.
2. Normal left ventricular chamber size. Low normal to mildly reduced left ventricular systolic function with ejection fraction 45 to 50%.
3. Moderate aortic stenosis with peak and mean gradients of 48 and 29 mmHg respectively, aortic valve area 1.0 cm² and mild aortic regurgitation.
4. Mild mitral regurgitation.
5. Mild tricuspid regurgitation with pulmonary artery pressure 41 mmHg.
6. Compared to a prior echo from August 2024, EF noted to be 55 to 60% limited TDS study with peak and mean aortic valve systolic gradients of 51 and 30 mmHg respectively.
Added gabapentin for neuropathic lower extremity pain.
Currently recommending to increase Lasix on discharge
To be discharged on oral antibiotics
During hospitalization patient was treated from the following
Acute on Chronic HFpEF
Acute CHF Exacerbation:Patient presented with lower extremity edema but did not shortness of breath.
BNP level is elevated at 1790
Checks x-ray showed:
1. Mild cardiomegaly with suggestion of elevated pulmonary venous pressures.
2. Mild elevation of the right hemidiaphragm.
3. Mild subsegmental atelectasis/scarring in the lower lungs.
Echo (August 2024): Normal LV size and function, normal regional wall motion, LVEF 55�60%. Moderate to severe aortic stenosis, mild mitral regurgitation
Noninvasive lower extremity negative for DVT.
Continue IV diuresing in form of Lasix 20 mg IV daily (patient on 20 mg oral at home)
Daily weight.
Strict I's and O's.
Consulted cardiology.
Increase Lasix to 40 mg on discharge
Left Foot Pain ( gout ruled out)
uric acid level normal at 5.1
Patient was started on empiric Ancef for possible cellulitis (due to increased warmth)
Added clotrimazole cream to toe web spaces
Severe neuropathic pain, improved with low-dose gabapentin
Will be discharged on oral Doxy/cefdinir
Coronary Artery Disease (s/p stent)
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
Continue Plavix/Lipitor
Essential Hypertension
Continue metoprolol
Hyperlipidemia
Continue atorvastatin
Insulin-Dependent Diabetes Mellitus with Diabetic Neuropathy
Continue Novolin 70/30
Monitor blood sugars and continue coverage insulin
Hemoglobin A1c pending
Parkinson�s Disease
Outpatient notes indicate Sinemet was previously stopped; no refill since December
Hold Sinemet until home medications are confirmed
Benign Prostatic Hyperplasia (BPH)
Continue Flomax
CODE STATUS: Full code
DVT prophylaxis: Lovenox
Diet: Low-salt diet
Disposition: Physical therapy recommending rehab but patient wants to go home with home physical therapy.
Will be discharged in gabapentin, increased dose of Lasix, antibiotic in form of Doxy/cefdinir
Total time spent on today's encounter was 40 minutes which included time spent in counseling the patient/family regarding diagnosis and treatment plan as listed above, goals of care, and symptom management. Case was discussed with nursing staff,
specialists, and care coordinators/case management. All labs and imaging personally reviewed by me. Remainder the time spent in detailed review of previous records, lab data, imaging, and other medical provider documentation.
Anticipated Discharge: Today
Discharge Plan
-
Patient Disposition: Home with Home Care
Discharge Diagnosis/Procedures: Acute on Chronic HFpEF
Left Foot Pain/cellulitis
Coronary Artery Disease (s/p stent)
Essential Hypertension
Diet: 2 Gram Sodium and Diabetic, Carb Controlled
Activity: As tolerated
Instructions: *[facility] Heart Failure Instructions
Referrals:
Jonnathan Li CRNP [Family Provider, Family Practice]
Palomo Camarena MD [Active, Cardiology] - 05/14/25 3:20 pm
Referral Note: You have cardiology follow-up on May 14 at 3:20 PM at [facility] [address] Camarena. If you are unable to keep this follow-up please call [phone] to reschedule
Prescriptions:
New
metoprolol succinate 50 mg Tablet Extended Release 24 Hr
50 mg PO BID 30 Days Qty: 60 0RF
losartan 25 mg Tablet
25 mg PO DAILY 30 Days Qty: 30 0RF
gabapentin 100 mg Capsule
200 mg PO TID 30 Days Qty: 180 0RF
doxycycline hyclate 100 mg capsule
100 mg PO BID Qty: 10 0RF
cefdinir 300 mg capsule
300 mg PO BID Qty: 10 0RF
Continued
atorvastatin 40 mg tablet
40 mg PO DAILY
tamsulosin 0.4 mg capsule
0.4 mg PO HS
carbidopa-levodopa 25-100 mg tablet
3 tab PO TID@0800,1300,1800
Ozempic 0.25 mg or 0.5 mg (2 mg/3 mL) pen injector
1 mg SC WE
docusate sodium [Colace] 100 mg Capsule
100 mg PO DAILY
acetaminophen [Tylenol Extra Strength] 500 mg tablet
500 mg PO DAILY
vitamin B complex Tablet
2 tab PO DAILY
carbidopa-levodopa 25-100 mg Tablet
3 tab PO DAILYPRN PRN (Reason: on PT days)
loratadine 10 mg Tablet
10 mg PO DAILY
cholecalciferol (vitamin D3) [Vitamin D3] 125 mcg (5,000 unit) Tablet
125 mcg PO DAILY
Golo Release
2 cap PO DAILY
Novolin 70-30 FlexPen U-100 100 unit/mL (70-30) insulin pen
15 unit SC BID Qty: 0 0RF
Novolin 70/30 U-100 Insulin 100 unit/mL (70-30) suspension
35 unit SC BID@0800,1700
Patient Comments:
04/28/25: Home dose ~35 u BID w/breakfast & dinner: Per , units administered may change based on what food pt eats
famotidine 20 mg tablet
20 mg PO DAILY
pantoprazole 40 mg tablet,delayed release (DR/EC)
40 mg PO DAILY
nystatin 100,000 unit/gram powder
1 applic TOPICAL BID
Patient Comments:
per : uses either nystatin OR clotrimazole antifungal to bilateral feet
co Q10-red yeast rice 60-600 mg Capsule
1 cap PO QPM PRN (Reason: fatty meal intake)
magnesium glycinate 100 mg Tablet
400 mg PO DAILY
Jyyqgyedn-Swmfvwsnu-Dvqwzte C 450-30-50 oy-fs-kghnkxg Tablet
1 tab PO DAILY
Life Extension Multivitamin
1 cap PO DAILY
Life Extension Nad+
300 mg PO DAILY
Life Extensions Super Selenium
200 mcg PO DAILY
clotrimazole [Athlete's Foot (clotrimazole)] 1 % cream
1 applic topical BID
naproxen sodium [Aleve] 220 mg Tablet
220 mg PO DAILY
polyethylene glycol 3350 [Miralax] 17 gram/dose Powder
17 g PO DAILYPRN PRN (Reason: constipation)
Sambucus Elderberry 30-1.1-25 mg Tablet,Chewable
2 tab PO DAILY
Now Arginine/Citrulline
2 cap PO DAILY
clopidogrel 75 mg Tablet
75 mg PO DAILY 21 Days Qty: 21 0RF
Changed
furosemide 20 mg tablet
40 mg PO DAILY 30 Days Qty: 60 0RF
Discontinued
metoprolol tartrate 50 mg tablet
50 mg PO BID
Discharge Orders:
Discharge Patient (As Directed); Ordered 04/30/25
Ordered By: Bo Barrios
Discharge Date and Time
Print Language: GIBRALTARIAN
--- NOTE | 2025-04-30 14:02 | CM ---
patient seen at bedside with
Declined SNF
current with [facility] - accepted
IMM explained & signed. In chart
PLAN: Home, with [facility]
to transport
[2025-04-30 15:01] VITALS: BP 124/103
--- NOTE | 2025-05-04 14:31 | W.HF.CON ---
Heart Failure
- LV Function
Left ventricular function study result: LV Ejection fraction >/= 50%
Ejection Fraction Percentage: 45-50
- ARNI
Patient already on ARNI: No
Heart Failure ARNI Not Indicated: LV Ejection Fraction >/= 40%
- ACEI/ARB
Patient already on ACEI/ARB: Yes
- Beta Eileen
Patient already on Evidence Based Beta Eileen: Yes
- Mineralocorticord Receptor Antagonist
Patient already on MRA: No
Heart Failure MRA Contraindication: Acute Renal Insufficiency
- SGLT-2 Inhibitor
Patient already on SGLT-2 Inhibitor: No
Heart Failure SGLT-2 Inhibitor Contraindication: Patient Refusal
- NYHA CHF Classification
NYHA CHF Classification Level: Class III - Symptoms w/ min exertion, interferes w/ nml daily activity
- ACC/AHA Stage
ACC/AHA Stage: Stage C: Symptomatic Heart Failure
== END 2025-04-30 15:57 | disposition home health service (06) | DRG 291 ==
LOC: 3 WEST ACU 22:40
PROVIDERS: Physician Assistant; Physician Assistant Medical; ADMITTING PHYSICIAN Internal Medicine; ATTENDING PHYSICIAN General Practice; CONSULT PHYSICIAN Nuclear Medicine Nuclear Cardiology; EMERGENCY PHYSICIAN Emergency Medicine; FAMILY PHYSICIAN Nurse Practitioner Family
DX: I11.0 Hypertensive heart disease with heart failure (principal); I50.33 Acute on chronic diastolic (congestive) heart failure; J98.11 Atelectasis; L03.116 Cellulitis of left lower limb; R60.0 Localized edema; I25.10 Atherosclerotic heart disease of native coronary artery without angina pectoris; G20.A1 Parkinson's disease without dyskinesia, without mention of fluctuations; G47.33 Obstructive sleep apnea (adult) (pediatric); E11.42 Type 2 diabetes mellitus with diabetic polyneuropathy; E66.09 Other obesity due to excess calories; E78.00 Pure hypercholesterolemia, unspecified; I35.0 Nonrheumatic aortic (valve) stenosis; I87.2 Venous insufficiency (chronic) (peripheral); N32.81 Overactive bladder; N40.0 Benign prostatic hyperplasia without lower urinary tract symptoms; Z68.33 Body mass index [BMI] 33.0-33.9, adult; Z79.02 Long term (current) use of antithrombotics/antiplatelets; Z79.4 Long term (current) use of insulin; Z79.85 Long-term (current) use of injectable non-insulin antidiabetic drugs; Z79.899 Other long term (current) drug therapy; Z86.73 Personal history of transient ischemic attack (TIA), and cerebral infarction without residual deficits; Z95.5 Presence of coronary angioplasty implant and graft; Z96.641 Presence of right artificial hip joint; Z96.653 Presence of artificial knee joint, bilateral
CPT/HCPCS: 71045; 80048; 80053; 82962; 83036; 83605; 83735; 83880; 84550; 85025; 85027; 93005; 93306; 93970; 96374; 97163; 97167; 99285